=== PATIENT | male | born 1955 | race Caucasian/White ===

== ENCOUNTER 2022-08-12 16:22 | Outpatient (OUT) | payer MEDICARE, SELFPAY ==
[2022-08-12 17:08] LABS: Amphetamine Screen Urine NEGATIVE (NEGATIVE); Barbiturates Screen Urine NEGATIVE (NEGATIVE); Benzodiazepines Screen Urine NEGATIVE (NEGATIVE); Buprenorphine Screen Urine NEGATIVE (NEGATIVE); Cannabinoid Screen Urine NEGATIVE (NEGATIVE); Cocaine Screen Urine NEGATIVE (NEGATIVE); Methadone Screen Urine NEGATIVE (NEGATIVE); Methamphetamines Screen Urine NEGATIVE (NEGATIVE); Opiate Screen Urine NEGATIVE (NEGATIVE); Oxycodone Screen Urine NEGATIVE (NEGATIVE); Phencyclidine Screen Urine NEGATIVE (NEGATIVE); Tricyclic Antidepressant Urine NEGATIVE (NEGATIVE)
[2022-08-15 04:07] LABS: Uric Acid, Urine 3.8 mg/dL (Not Estab.)
[2022-08-20 16:09] LABS: Summary Report (Summary) FINAL (.)
== END 2022-08-12 16:23 | disposition home or self-care (01) ==
PROVIDERS: PCP Family Medicine; Visit Provider Family Medicine
DX: Z79.899 Other long term (current) drug therapy (principal)
CPT/HCPCS: 80307; 80326; 80331; 80334; 80337; 80338; 80341; 80344; 80346; 80348; 80353; 80354; 80355; 80357; 80358; 80359; 80360; 80361; 80364; 80365; 80366; 80367; 80368; 80370; 80371; 80372; 80373; 80377; 82570; 83992

== ENCOUNTER 2022-09-11 15:59 | Outpatient (OUT) | payer MEDICARE, SELFPAY ==
[2022-09-11 16:54] LABS: Amphetamine Screen Urine NEGATIVE (NEGATIVE); Barbiturates Screen Urine NEGATIVE (NEGATIVE); Benzodiazepines Screen Urine NEGATIVE (NEGATIVE); Buprenorphine Screen Urine POSITIVE (NEGATIVE); Cannabinoid Screen Urine NEGATIVE (NEGATIVE); Cocaine Screen Urine NEGATIVE (NEGATIVE); Methadone Screen Urine NEGATIVE (NEGATIVE); Methamphetamines Screen Urine NEGATIVE (NEGATIVE); Opiate Screen Urine POSITIVE (NEGATIVE); Oxycodone Screen Urine NEGATIVE (NEGATIVE); Phencyclidine Screen Urine NEGATIVE (NEGATIVE); Tricyclic Antidepressant Urine NEGATIVE (NEGATIVE)
[2022-09-13 09:12] LABS: Uric Acid, Urine 68.1 mg/dL (Not Estab.)
[2022-10-16 12:26] LABS: Summary Report (Summary) FINAL (.)
== END 2022-09-11 16:00 | disposition home or self-care (01) ==
LOC: LAB 16:03
PROVIDERS: PCP Family Medicine; Visit Provider Family Medicine
DX: Z79.899 Other long term (current) drug therapy (principal)
CPT/HCPCS: 80307; 80326; 80331; 80334; 80337; 80338; 80341; 80344; 80346; 80348; 80353; 80354; 80355; 80357; 80358; 80359; 80360; 80361; 80364; 80365; 80366; 80367; 80368; 80370; 80371; 80372; 80373; 80377; 82570; 83992; 84560

== ENCOUNTER 2022-10-16 14:20 | Outpatient (OUT) | payer MEDICARE, SELFPAY ==
[2022-10-16 15:32] LABS: Amphetamine Screen Urine NEGATIVE (NEGATIVE); Barbiturates Screen Urine NEGATIVE (NEGATIVE); Benzodiazepines Screen Urine NEGATIVE (NEGATIVE); Buprenorphine Screen Urine POSITIVE (NEGATIVE); Cannabinoid Screen Urine NEGATIVE (NEGATIVE); Cocaine Screen Urine NEGATIVE (NEGATIVE); Methadone Screen Urine NEGATIVE (NEGATIVE); Methamphetamines Screen Urine NEGATIVE (NEGATIVE); Opiate Screen Urine NEGATIVE (NEGATIVE); Oxycodone Screen Urine NEGATIVE (NEGATIVE); Phencyclidine Screen Urine NEGATIVE (NEGATIVE); Tricyclic Antidepressant Urine NEGATIVE (NEGATIVE)
[2022-10-17 10:11] LABS: Uric Acid, Urine 62.9 mg/dL (Not Estab.)
[2022-10-23 14:10] LABS: Summary Report (Summary) FINAL (.)
== END 2022-10-16 14:21 | disposition home or self-care (01) ==
LOC: LAB 14:21
PROVIDERS: PCP Family Medicine; Visit Provider Family Medicine
DX: Z79.899 Other long term (current) drug therapy (principal)
CPT/HCPCS: 80307; 80326; 80331; 80334; 80337; 80338; 80341; 80344; 80346; 80348; 80353; 80354; 80355; 80357; 80358; 80359; 80360; 80361; 80364; 80365; 80366; 80367; 80368; 80370; 80371; 80372; 80373; 80377; 82570; 83992; 84560

== ENCOUNTER 2022-11-12 10:41 | Outpatient (OUT) | payer MEDICARE, SELFPAY ==
[2022-11-12 12:18] LABS: Cannabinoid Screen Urine NEGATIVE (NEGATIVE); Cocaine Screen Urine NEGATIVE (NEGATIVE); Methamphetamines Screen Urine NEGATIVE (NEGATIVE); Phencyclidine Screen Urine NEGATIVE (NEGATIVE)
[2022-11-12 12:19] LABS: Amphetamine Screen Urine NEGATIVE (NEGATIVE); Barbiturates Screen Urine NEGATIVE (NEGATIVE); Benzodiazepines Screen Urine NEGATIVE (NEGATIVE); Buprenorphine Screen Urine POSITIVE (NEGATIVE); Methadone Screen Urine NEGATIVE (NEGATIVE); Opiate Screen Urine POSITIVE (NEGATIVE); Oxycodone Screen Urine NEGATIVE (NEGATIVE); Tricyclic Antidepressant Urine NEGATIVE (NEGATIVE)
[2022-11-13 10:10] LABS: Uric Acid, Urine 54.7 mg/dL (Not Estab.)
[2022-11-19 14:13] LABS: Summary Report (Summary) FINAL (.)
== END 2022-11-12 10:42 | disposition home or self-care (01) ==
LOC: LAB 10:43
PROVIDERS: PCP Family Medicine; Visit Provider Family Medicine
DX: Z79.899 Other long term (current) drug therapy (principal)
CPT/HCPCS: 80307; 80326; 80331; 80334; 80337; 80338; 80341; 80344; 80346; 80348; 80353; 80354; 80355; 80357; 80358; 80359; 80360; 80361; 80364; 80365; 80366; 80367; 80368; 80370; 80371; 80372; 80373; 80377; 82570; 83992; 84560

== ENCOUNTER 2022-11-20 16:33 | Outpatient (OUT) | payer MEDICARE, SELFPAY ==
[2022-11-20 17:35] LABS: Amphetamine Screen Urine NEGATIVE (NEGATIVE); Barbiturates Screen Urine NEGATIVE (NEGATIVE); Benzodiazepines Screen Urine NEGATIVE (NEGATIVE); Cannabinoid Screen Urine NEGATIVE (NEGATIVE); Cocaine Screen Urine NEGATIVE (NEGATIVE); Methadone Screen Urine NEGATIVE (NEGATIVE); Methamphetamines Screen Urine NEGATIVE (NEGATIVE); Opiate Screen Urine NEGATIVE (NEGATIVE); Oxycodone Screen Urine NEGATIVE (NEGATIVE); Phencyclidine Screen Urine NEGATIVE (NEGATIVE); Tricyclic Antidepressant Urine NEGATIVE (NEGATIVE)
[2022-11-20 17:36] LABS: Buprenorphine Screen Urine POSITIVE (NEGATIVE)
[2022-11-22 08:11] LABS: Uric Acid, Urine 19.2 mg/dL (Not Estab.)
[2022-11-27 18:07] LABS: Summary Report (Summary) FINAL (.)
== END 2022-11-20 16:34 | disposition home or self-care (01) ==
LOC: LAB 16:34
PROVIDERS: PCP Family Medicine; Visit Provider Family Medicine
DX: Z79.899 Other long term (current) drug therapy (principal)
CPT/HCPCS: 80307; 80326; 80331; 80334; 80337; 80338; 80341; 80344; 80346; 80348; 80353; 80354; 80355; 80357; 80358; 80359; 80360; 80361; 80364; 80365; 80366; 80367; 80368; 80370; 80371; 80372; 80373; 80377; 82570; 83992; 84560

== ENCOUNTER 2022-11-29 13:26 | Outpatient (OUT) | payer MEDICARE, SELFPAY ==
[2022-11-29 13:53] LABS: Amphetamine Screen Urine NEGATIVE (NEGATIVE); Barbiturates Screen Urine NEGATIVE (NEGATIVE); Benzodiazepines Screen Urine NEGATIVE (NEGATIVE); Buprenorphine Screen Urine POSITIVE (NEGATIVE); Cannabinoid Screen Urine NEGATIVE (NEGATIVE); Cocaine Screen Urine NEGATIVE (NEGATIVE); Methadone Screen Urine NEGATIVE (NEGATIVE); Methamphetamines Screen Urine NEGATIVE (NEGATIVE); Opiate Screen Urine NEGATIVE (NEGATIVE); Oxycodone Screen Urine NEGATIVE (NEGATIVE); Phencyclidine Screen Urine NEGATIVE (NEGATIVE); Tricyclic Antidepressant Urine NEGATIVE (NEGATIVE)
[2022-12-07 16:09] LABS: Summary Report (Summary) FINAL (.)
== END 2022-11-29 13:27 | disposition home or self-care (01) ==
LOC: LAB 13:27
PROVIDERS: PCP Family Medicine; Visit Provider Family Medicine
DX: Z79.899 Other long term (current) drug therapy (principal)
CPT/HCPCS: 80307; 80326; 80331; 80334; 80337; 80338; 80341; 80344; 80346; 80348; 80353; 80354; 80355; 80357; 80358; 80359; 80360; 80361; 80364; 80365; 80366; 80367; 80368; 80370; 80371; 80372; 80373; 80377; 82570; 83992; 84560

== ENCOUNTER 2022-12-04 13:37 | Outpatient (OUT) | payer MEDICARE, SELFPAY ==
[2022-12-04 14:09] LABS: Amphetamine Screen Urine NEGATIVE (NEGATIVE); Barbiturates Screen Urine NEGATIVE (NEGATIVE); Benzodiazepines Screen Urine NEGATIVE (NEGATIVE); Buprenorphine Screen Urine POSITIVE (NEGATIVE); Cannabinoid Screen Urine NEGATIVE (NEGATIVE); Cocaine Screen Urine NEGATIVE (NEGATIVE); Methadone Screen Urine NEGATIVE (NEGATIVE); Methamphetamines Screen Urine NEGATIVE (NEGATIVE); Opiate Screen Urine NEGATIVE (NEGATIVE); Oxycodone Screen Urine NEGATIVE (NEGATIVE); Phencyclidine Screen Urine NEGATIVE (NEGATIVE); Tricyclic Antidepressant Urine NEGATIVE (NEGATIVE)
[2022-12-05 10:09] LABS: Uric Acid, Urine 27.8 mg/dL (Not Estab.)
[2022-12-12 09:08] LABS: Summary Report (Summary) FINAL (.)
== END 2022-12-04 13:38 | disposition home or self-care (01) ==
LOC: LAB 13:39
PROVIDERS: PCP Family Medicine; Visit Provider Family Medicine
DX: Z79.899 Other long term (current) drug therapy (principal)
CPT/HCPCS: 80307; 80326; 80331; 80334; 80337; 80338; 80341; 80344; 80346; 80348; 80353; 80354; 80355; 80357; 80358; 80359; 80360; 80361; 80364; 80365; 80366; 80367; 80368; 80370; 80371; 80372; 80373; 80377; 82570; 83992; 84560

== ENCOUNTER 2022-12-12 15:55 | Outpatient (OUT) | payer MEDICARE, SELFPAY ==
[2022-12-12 16:37] LABS: Amphetamine Screen Urine NEGATIVE (NEGATIVE); Barbiturates Screen Urine NEGATIVE (NEGATIVE); Benzodiazepines Screen Urine NEGATIVE (NEGATIVE); Buprenorphine Screen Urine POSITIVE (NEGATIVE); Cannabinoid Screen Urine NEGATIVE (NEGATIVE); Cocaine Screen Urine NEGATIVE (NEGATIVE); Methadone Screen Urine NEGATIVE (NEGATIVE); Methamphetamines Screen Urine NEGATIVE (NEGATIVE); Opiate Screen Urine NEGATIVE (NEGATIVE); Oxycodone Screen Urine NEGATIVE (NEGATIVE); Phencyclidine Screen Urine NEGATIVE (NEGATIVE); Tricyclic Antidepressant Urine NEGATIVE (NEGATIVE)
[2022-12-14 07:09] LABS: Uric Acid, Urine 44.9 mg/dL (Not Estab.)
[2022-12-18 19:08] LABS: Summary Report (Summary) FINAL (.)
== END 2022-12-12 15:56 | disposition home or self-care (01) ==
PROVIDERS: PCP Family Medicine; Visit Provider Family Medicine
DX: Z79.899 Other long term (current) drug therapy (principal)
CPT/HCPCS: 80307; 80326; 80331; 80334; 80337; 80338; 80341; 80344; 80346; 80348; 80353; 80354; 80355; 80357; 80358; 80359; 80360; 80361; 80364; 80365; 80366; 80367; 80368; 80370; 80371; 80372; 80373; 80377; 82570; 83992; 84560

== ENCOUNTER 2023-01-10 15:20 | Outpatient (OUT) | payer MEDICARE, SELFPAY ==
[2023-01-10 15:45] LABS: Amphetamine Screen Urine NEGATIVE (NEGATIVE); Barbiturates Screen Urine NEGATIVE (NEGATIVE); Benzodiazepines Screen Urine NEGATIVE (NEGATIVE); Buprenorphine Screen Urine POSITIVE (NEGATIVE); Cannabinoid Screen Urine NEGATIVE (NEGATIVE); Cocaine Screen Urine NEGATIVE (NEGATIVE); Methadone Screen Urine NEGATIVE (NEGATIVE); Methamphetamines Screen Urine NEGATIVE (NEGATIVE); Opiate Screen Urine NEGATIVE (NEGATIVE); Oxycodone Screen Urine NEGATIVE (NEGATIVE); Phencyclidine Screen Urine NEGATIVE (NEGATIVE); Tricyclic Antidepressant Urine NEGATIVE (NEGATIVE)
[2023-01-11 04:09] LABS: Uric Acid, Urine 24.4 mg/dL (Not Estab.)
[2023-01-16 17:11] LABS: Summary Report (Summary) FINAL (.)
== END 2023-01-10 15:21 | disposition home or self-care (01) ==
LOC: LAB 15:22
PROVIDERS: PCP Family Medicine; Visit Provider Family Medicine
DX: Z79.899 Other long term (current) drug therapy (principal)
CPT/HCPCS: 80307; 80326; 80331; 80334; 80337; 80338; 80341; 80344; 80346; 80348; 80353; 80354; 80355; 80357; 80358; 80359; 80360; 80361; 80364; 80365; 80366; 80367; 80368; 80370; 80371; 80372; 80373; 80377; 82570; 83992; 84560

== ENCOUNTER 2023-03-11 08:20 | Outpatient (OUT) | payer MEDICARE, SELFPAY ==
--- OUTSIDE RECORDS SUMMARY | 2023-03-11 08:24 | XMS_ITS | CCD ---
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 Track Name Role Phone CHANCE COHEN Referring Unavailabl e CHANCE COHEN Attending Unavailabl e CHANCE COHEN Referring Unavailabl e HOY ., DR CEVALLOS Admitting Unavailable HOY ., DR CEVALLOS Attending Unavailable HOY ., DR CEVALLOS Primary Care Unavailable HOY ., DR CEVALLOS Consulting Unavailable HOY ., DR CEVALLOS Admitting Unavailable HOY ., DR CEVALLOS Attending Unavailable HOY ., DR CEVALLOS Primary Care Unavailable HOY ., DR CEVALLOS Consulting Unavailable HOY ., DR CEVALLOS Admitting Unavailable HOY ., DR CEVALLOS Attending Unavailable HOY ., DR CEVALLOS Primary Care Unavailable HOY ., DR CEVALLOS Consulting Unavailable HOY ., DR CEVALLOS Admitting Unavailable HOY ., DR CEVALLOS Attending Unavailable HOY ., DR CEVALLOS Primary Care Unavailable HOY ., DR CEVALLOS Consulting Unavailable HOY ., DR CEVALLOS Admitting Unavailable HOY ., DR CEVALLOS Attending Unavailable HOY ., DR CEVALLOS Primary Care Unavailable HOY ., DR CEVALLOS Consulting Unavailable HOY ., DR CEVALLOS Admitting Unavailable HOY ., DR CEVALLOS Attending Unavailable HOY ., DR CEVALLOS Primary Care Unavailable HOY ., DR CEVALLOS Consulting Unavailable HOY ., DR CEVALLOS Admitting Unavailable HOY ., DR CEVALLOS Attending Unavailable HOY ., DR CEVALLOS Primary Care Unavailable HOY ., DR CEVALLOS Consulting Unavailable HOY ., DR CEVALLOS Admitting Unavailable HOY ., DR CEVALLOS Attending Unavailable HOY ., DR CEVALLOS Primary Care Unavailable HOY ., DR CEVALLOS Consulting Unavailable Problems Problem Classification Problem Date Documented Da te Episodic/Chronic Deficiency and other anemia (1 source) Anemia, unspecified; Translations: [ANEMIA UNSPECIFIED] Onset: 03-21-2022 Episodic Diabetes mellitus without complication (1 source) Other abnormal glucose; Translations: [OTHER ABNORMAL GLUCOSE] Onset: 03-21-2022 Episodic Disorders of lipid metabolism (1 source) Hyperlipidemia, unspecified; Translations: [HYPERLIPIDEMIA UNSPECIFIED] Onset: 03-21-2022 Chronic Hepatitis (1 source) Chronic viral hepatitis C; Translations: [Chronic viral hepatitis C] Onset: 02-24-2018 Chronic Hyperplasia of prostate (1 source) Benign prostatic hyperplasia without lower urinary tract symptoms; Translations: [Benign prostatic hyperplasia without lower urinary tract symptoms] Onset: 02-24-2018 Chronic Intracranial injury (1 source) Personal history of traumatic brain injury; Translations: [Personal history of traumatic brain injury] Onset: 02-24-2018 Episodic Mood disorders (1 source) Mood disorders; Translations: [DEPRESSION UNSPECIFIED] Onset: 03-21-2022 Nutritional deficiencies (1 source) Deficiency of other specified B group vitamins; Translations: [Deficiency of other specified B group vitamins] Onset: 02-24-2018 Episodic Other aftercare (5 sources) Other credit reference clerk (current) drug therapy; Translations: [OTH RESIDENTIAL CURRENT DRUG THERAPY] Onset: 03-21-2022 Episodic Other connective tissue disease (1 source) Complete rotator cuff tear or rupture of left shoulder, not specified as traumatic; Translations: [Complete rotator cuff tear or rupture of left shoulder, not specified as traumatic] Onset: 02-24-2018 Episodic Other connective tissue disease (4 sources) Muscle weakness (generalized); Translations: [MUSCLE WEAKNESS GENERALIZED] Onset: 03-20-2022 Episodic Other nervous system disorders (1 source) Paresthesia of skin; Translations: [PARESTHESIA OF SKIN] Onset: 03-21-2022 Episodic Other screening for suspected conditions (not mental disorders or infectious disease) (2 sources) Encounter for screening for malignant neoplasm of prostate; Translations: [Encounter for screening for malignant neoplasm of rectum] Onset: 03-21-2022 Episodic Residual codes; unclassified (1 source) Pain, unspecified; Translations: [Pain, unspecified] Onset: 02-17-2018 Sprains and strains (1 source) Strain of muscle, fascia and tendon of other parts of biceps, left arm, subsequent encounter; Translations: [Strain of muscle, fascia and tendon of other parts of biceps, left arm, subsequent encounter] Onset: 02-23-2018 Episodic Substance-related disorders (9 sources) Opioid abuse, uncomplicated; Translations: [Other psychoactive substance abuse, uncomplicated] Onset: 11-09-2021 Chronic Substance-related disorders (1 source) Opioid abuse, in remission; Translations: [Opioid abuse, in remission] Onset: 01-22-2013 Results Test Name Value Interpretation Reference Range Facility COMPLIANCE DRUG SCREENon PDF . [facility] Comment on above: Performed By: #### U SID #### [facility] [address] [address] [address] Anibal Bishop Summary FINAL [facility] Comment on above: Result Comment: == TOXASSURE COMP DRUG ANALYSIS,UR == Test Result Flag Units Drug Present and Declared for Prescription Verification Buprenorphine 107 EXPECTED ng/mg creat Norbuprenorphine 125 EXPECTED ng/mg creat Source of buprenorphine is a scheduled prescription medication. Norbuprenorphine is an expected metabolite of buprenorphine. Drug Present not Declared for Prescription Verification Diclofenac PRESENT UNEXPECTED == Test Result Flag Units Ref Range Creatinine 228 mg/dL >=20 == Declared Medications: The flagging and interpretation on this report are based on the following declared medications. Unexpected results may arise from inaccuracies in the declared medications. Note: The testing scope of this panel includes these medications: Buprenorphine. (Suboxone) Note: The testing scope of this panel does not include following reported medications: Naloxone (Suboxone) == For clinical consultation, please call . == Performed By: #### U RICUR #### [facility] [address] [place] [address] Dr. Anibal Bishop URIC ACID RAND URINEon 06-11 Uric Acid, Urine 4.0 mg/dL Normal Not Estab. [facility] Comment on above: Performed By: #### U RICUR #### [facility] [address] [address] [address] Anibal Bishop COMPLIANCE DRUG SCREENon PDF . Normal [facility] Comment on above: Performed By: #### P SASC, IRON #### [facility] [address] [address] [address] Anibal Bishop Summary FINAL Normal [facility] Comment on above: Result Comment: == TOXASSURE COMP DRUG ANALYSIS,UR == Test Result Flag Units Drug Present and Declared for Prescription Verification Buprenorphine 19 EXPECTED ng/mg creat Norbuprenorphine 87 EXPECTED ng/mg creat Source of buprenorphine is a scheduled prescription medication. Norbuprenorphine is an expected metabolite of buprenorphine. == Test Result Flag Units Ref Range Creatinine 78 mg/dL >=20 == Declared Medications: The flagging and interpretation on this report are based on the following declared medications. Unexpected results may arise from inaccuracies in the declared medications. Note: The testing scope of this panel includes these medications: Buprenorphine. (Suboxone) Note: The testing scope of this panel does not include following reported medications: Naloxone (Suboxone) == For clinical consultation, please call . == Performed By: #### P SAS, IRON #### [facility] [address] [address] [address] Anibal Bishop INSULINon 03-21-2022 Insulin 18.3 uIU/mL Normal 2.6-24.9 [facility] Comment on above: Performed By: #### U RICUR #### [facility] [address] [address] [address] Anibal Bishop URIC ACID RAND URINEon 03-21 Uric Acid, Urine 26.8 mg/dL Normal Not Estab. [facility] Comment on above: Performed By: #### U RICUR #### [facility] [address] [address] [address] Anibal Bishop CBC AUTO DIFFon 03-20-2022 BASO # 0.0 103/ul Normal 0.0-0.1 [facility] Comment on above: Performed By: #### P SASC, IRON #### [facility] [address] [place] [address] Dr. Anibal Bishop Basophils/100 WBC (Bld) 0.6 % Normal 0.2-2.0 [facility] Comment on above: Performed By: #### P SASC, IRON #### [facility] [address] [address] [address] Anibal Bishop EO # 0.2 103/ul Normal 0.0-0.7 [facility] Comment on above: Performed By: #### P SASC, IRON #### [facility] [address] [place] [address] Dr. Anibal Bishop Eosinophils/100 WBC (Bld) 3.5 % Normal 0.9-7.0 [facility] Comment on above: Performed By: #### P SASC, IRON #### [facility] [address] [address] [address] Anibal Bishop Erythrocyte distribution width (RBC) [Ratio] 14.1 % Normal 11.0-15.0 [facility] Comment on above: Performed By: #### P SASC, IRON #### [facility] [address] [place] [address] Dr. Anibal Bishop Hematocrit (Bld) [Volume fraction] 44.6 % Normal 42.0-54.0 [facility] Comment on above: Performed By: #### P SASC, IRON #### [facility] [address] [place] [address] Dr. Anibal Bishop Hemoglobin (Bld) [Mass/Vol] 14.3 g/dL Normal 14.0-18.0 [facility] Comment on above: Performed By: #### P SASC, IRON #### [facility] [address] [place] [address] Dr. Anibal Bishop IG # 0.02 10e3/ul Normal 0.00-0.03 [facility] Comment on above: Performed By: #### P SASC, IRON #### [facility] [address] [place] [address] Dr. Anibal Bishop IG % 0.4 % Normal 0.0-0.5 [facility] Comment on above: Performed By: #### P SASC, IRON #### [facility] [address] [place] [address] Dr. Anibal Bishop LYMPH # 0.8 103/ul Critically low 1.2-3.8 [facility] Comment on above: Performed By: #### P SASC, IRON #### [facility] [address] [place] [address] Dr. Anibal Bishop Lymphocytes/100 WBC (Bld) 17.1 % Critically low 20.5-60.0 [facility] Comment on above: Performed By: #### P SASC, IRON #### [facility] [address] [place] [address] Dr. Anibal Bishop MANUAL DIFF REQ NO Normal [facility] Comment on above: Performed By: #### P SASC, IRON #### [facility] [address] [place] [address] Dr. Anibal Bishop MCH (RBC) [Entitic mass] 29.9 pg Normal 25.9-34.0 [facility] Comment on above: Performed By: #### P SASC, IRON #### [facility] [address] [place] [address] Dr. Anibal Bishop MCHC (RBC) [Mass/Vol] 32.1 g/dL Normal 29.9-35.2 [facility] Comment on above: Performed By: #### P SASC, IRON #### [facility] [address] [address] [address] Anibal Bishop MCV (RBC) [Entitic vol] 93.3 fL Normal 80.0-94.0 [facility] Comment on above: Performed By: #### P SASC, IRON #### [facility] [address] [place] [address] Dr. Anibal Bishop MONO # 0.6 103/ul Normal 0.3-0.8 [facility] Comment on above: Performed By: #### P SASC, IRON #### [facility] [address] [place] [address] Dr. Anibal Bishop Monocytes/100 WBC (Bld) 12.5 % Critically high 1.7-12.0 [facility] Comment on above: Performed By: #### P SASC, IRON #### [facility] [address] [place] [address] Dr. Anibal Bishop NEUT # 3.2 103/ul Normal 1.4-6.5 [facility] Comment on above: Performed By: #### P SASC, IRON #### [facility] [address] [place] [address] Dr. Anibal Bishop Neutrophils/100 WBC (Bld) 65.9 % Normal 43.0-75.0 [facility] Comment on above: Performed By: #### P SASC, IRON #### [facility] [address] [place] [address] Dr. Anibal Bishpo Platelet mean volume (Bld) [Entitic vol] 9.0 fL Critically low 9.5-13.5 [facility] Comment on above: Performed By: #### P SASC, IRON #### [facility] [address] [place] [address] Dr. Anibal Bishop PLT 250 103/ul Normal 150-450 [facility] Comment on above: Performed By: #### P SASC, IRON #### [facility] [address] [place] [address] Dr. Anibal Bishop RBC 4.78 106/ul Normal 4.70-6.10 [facility] Comment on above: Performed By: #### P SASC, IRON #### [facility] [address] [place] [address] Dr. Anibal Bishop WBC 4.8 103/ul Normal 4.0-11.0 [facility] Comment on above: Performed By: #### P SASC, IRON #### [facility] [address] [place] [address] Dr. Anibal Bishop FREE THYROXINE INDEX T7on FTI 3.33 Normal 1.30-4.50 [facility] Comment on above: Performed By: #### U HAMLET, LIPID, T7, CMP, TSH #### [facility] [address] [place] [address] Dr. Anibal Bishop T3U 35.0 % Normal 33.0-40.0 [facility] Comment on above: Performed By: #### U HAMLET, LIPID, T7, CMP, TSH #### [facility] [address] [place] [address] Dr. Anibal Bishop T4 [Mass/Vol] 9.50 ug/dL Normal 4.50-12.10 [facility] Comment on above: Performed By: #### U HAMLET, LIPID, T7, CMP, TSH #### [facility] [address] [place] [address] Dr. Anibal Bishop GLYCOHEMOGLOBIN A1Con 2022 ADA RECOMMENDATION SEE BELOW Normal [facility] Comment on above: Result Comment: ADA RECOMMENDED LIMIT 4.0 - 6.0 ADA THERAPEUTIC TARGET < 7.0 ACTION SUGGESTED > 7.0 Performed By: #### P SASC, IRON #### [facility] [address] [place] [address] Dr. Anibal Bishop Glucose [Mass/Vol] 114 mg/dL Normal [facility] Comment on above: Performed By: #### P SASC, IRON #### [facility] [address] [place] [address] Dr. Anibal Bishop HbA1c (Bld) [Mass fraction] 5.6 % Normal 4.5-6.2 [facility] Comment on above: Performed By: #### P SASC, IRON #### [facility] [address] [address] [address] Anibal Bishop IRONon 03-20-2022 Iron [Mass/Vol] 63.0 ug/dL Critically low 65.0-175.0 [facility] Comment on above: Performed By: #### P SASC, IRON #### [facility] [address] [address] [address] Anibal Bishop LIPID PROFILEon 03-20-2022 CHOL-HDL RATIO NORM SEE BELOW Normal [facility] Comment on above: Result Comment: 3.3 - 4.4 LOW RISK 4.4 - 7.1 AVERAGE RISK 7.1 - 11.0 MODERATE RISK >11.0 HIGH RISK Performed By: #### P SASC, IRON #### [facility] [address] [address] [address] Anibal Bishop Cholesterol [Mass/Vol] 207 mg/dL Critically high <=200 [facility] Comment on above: Performed By: #### P SASC, IRON #### [facility] [address] [address] [address] Anibal Bishop Cholesterol in HDL [Mass/Vol] 96 mg/dL Critically high 40-60 [facility] Comment on above: Performed By: #### P SASC, IRON #### [facility] [address] [address] [address] Anibal Bishop Cholesterol in LDL [Mass/Vol] 97.6 mg/dL Normal [facility] Comment on above: Performed By: #### P SASC, IRON #### [facility] [address] [address] [address] Anibal Bishop Cholesterol.total/C holesterol in HDL [Mass ratio] 2.2 {ratio} Normal [facility] Comment on above: Performed By: #### P SASC, IRON #### [facility] [address] [address] [address] Anibal Bishop HDL NORMAL > or = 60 mg/dl - LO W CARDIOVASCULAR RISK <40 mg/dl - HIGH CARDIOVASCULAR RISK Normal [facility] Comment on above: Performed By: #### P SASC, IRON #### [facility] [address] [address] [address] Anibal Bishop LDL CALC NORMAL SEE BELOW Normal [facility] Comment on above: Result Comment: <100 mg/dl OPTIMAL 100 - 129 mg/dl NEAR OR ABOVE OPTIMAL 130 - 159 mg/dl BORDERLINE HIGH 160 - 189 mg/dl HIGH >190 mg/dl VERY HIGH Performed By: #### P SASC, IRON #### [facility] [address] [address] [address] Anibal Bishop Triglyceride [Mass/Vol] 67 mg/dL Normal <=150 [facility] Comment on above: Performed By: #### P SASC, IRON #### [facility] [address] [address] [address] Anibal Bishop VLDL CALC 13.4 mg/dL Normal [facility] Comment on above: Performed By: #### P SASC, IRON #### [facility] [address] [address] [address] Anibal Bishop PROF 14(COMP METB)on 023 Albumin [Mass/Vol] 3.6 g/dL Normal 3.4-5.0 [facility] Comment on above: Performed By: #### U HAMLET, LIPID, T7, CMP, TSH #### [facility] [address] [address] [address] Anibal Bishop Albumin/Globulin [Mass ratio] 0.9 {ratio} Normal [facility] Comment on above: Performed By: #### U HAMLET, LIPID, T7, CMP, TSH #### [facility] [address] [address] [address] Anibal Bishop ALP [Catalytic activity/Vol] 90 U/L Normal 46-116 [facility] Comment on above: Performed By: #### U HAMLET, LIPID, T7, CMP, TSH #### [facility] [address] [address] [address] Anibal Bishop ALT [Catalytic activity/Vol] 46 U/L Normal 16-63 [facility] Comment on above: Performed By: #### U HAMLET, LIPID, T7, CMP, TSH #### [facility] [address] [address] [address] Anibal Bishop Anion gap [Moles/Vol] 13.4 mmol/L Normal [facility] Comment on above: Performed By: #### U HAMLET, LIPID, T7, CMP, TSH #### [facility] [address] [address] [address] Anibal Bishop AST [Catalytic activity/Vol] 26 U/L Normal 15-37 [facility] Comment on above: Performed By: #### U HAMLET, LIPID, T7, CMP, TSH #### [facility] [address] [address] [address] Anibal Bishop Bilirubin [Mass/Vol] 0.6 mg/dL Normal 0.2-1.0 [facility] Comment on above: Performed By: #### U HAMLET, LIPID, T7, CMP, TSH #### [facility] [address] [place] [address] Dr. Anibal Bishop Calcium [Mass/Vol] 9.6 mg/dL Normal 8.5-10.1 [facility] Comment on above: Performed By: #### U HAMLET, LIPID, T7, CMP, TSH #### [facility] [address] [place] [address] Dr. Anibal Bishop Chloride [Moles/Vol] 103 mmol/L Normal 98-107 [facility] Comment on above: Performed By: #### U HAMLET, LIPID, T7, CMP, TSH #### [facility] [address] [place] [address] Dr. Anibal Bishop CO2 [Moles/Vol] 27.9 mmol/L Normal 21.0-32.0 [facility] Comment on above: Performed By: #### U HAMLET, LIPID, T7, CMP, TSH #### [facility] [address] [place] [address] Dr. Anibal Bishop Creatinine [Mass/Vol] 0.91 mg/dL Normal 0.70-1.30 [facility] Comment on above: Performed By: #### U HAMLET, LIPID, T7, CMP, TSH #### [facility] [address] [address] [address] Anibal Bishop EGFR-AF KENYAN >60 Normal >=60 [facility] Comment on above: Performed By: #### U HAMLET, LIPID, T7, CMP, TSH #### [facility] [address] [address] [address] Anibal Bishop EGFR-NON AF KENYAN >60 Normal >=60 [facility] Comment on above: Performed By: #### U HAMLET, LIPID, T7, CMP, TSH #### [facility] [address] [address] [address] Anibal Bishop Globulin (S) [Mass/Vol] 3.9 g/dL Normal [facility] Comment on above: Performed By: #### U HAMLET, LIPID, T7, CMP, TSH #### [facility] [address] [address] [address] Anibal Bishop Glucose [Mass/Vol] 103 mg/dL Normal 74-106 [facility] Comment on above: Performed By: #### U HAMLET, LIPID, T7, CMP, TSH #### [facility] [address] [address] [address] Anibal Bishop Potassium [Moles/Vol] 4.3 mmol/L Normal 3.5-5.1 [facility] Comment on above: Performed By: #### U HAMLET, LIPID, T7, CMP, TSH #### [facility] [address] [address] [address] Anibal Bishop Protein [Mass/Vol] 7.5 g/dL Normal 6.4-8.2 [facility] Comment on above: Performed By: #### U HAMLET, LIPID, T7, CMP, TSH #### [facility] [address] [address] [address] Anibal Bishop Sodium [Moles/Vol] 140 mmol/L Normal 136-145 [facility] Comment on above: Performed By: #### U HAMLET, LIPID, T7, CMP, TSH #### [facility] [address] [address] [address] Anibal Bishop Urea nitrogen [Mass/Vol] 12.0 mg/dL Normal 7.0-18.0 [facility] Comment on above: Performed By: #### U HAMLET, LIPID, T7, CMP, TSH #### [facility] [address] [address] [address] Anibal Bishop Urea nitrogen/Creatinine [Mass ratio] 13.2 mg/mg Normal [facility] Comment on above: Performed By: #### U HAMLET, LIPID, T7, CMP, TSH #### [facility] [address] [address] [address] Anibal Bishop TSHon 03-20-2022 TSH 2.763 uIU/mL Normal 0.358-3.740 [facility] Comment on above: Performed By: #### U HAMLET, LIPID, T7, CMP, TSH #### [facility] [address] [place] [address] Dr. Anibal Bishop URIC ACID SERUMon 03-20-2022 Urate [Mass/Vol] 5.3 mg/dL Normal 3.5-7.2 [facility] Comment on above: Performed By: #### U HAMLET, LIPID, T7, CMP, TSH #### [facility] [address] [place] [address] Dr. Anibal Bishop COMPLIANCE DRUG SCREENon PDF . Normal [facility] Comment on above: Performed By: #### P SASC, IRON #### [facility] [address] [place] [address] Dr. Anibal Bishop Summary FINAL Normal [facility] Comment on above: Result Comment: == TOXASSURE COMP DRUG ANALYSIS,UR == Test Result Flag Units Drug Present and Declared for Prescription Verification Buprenorphine 61 EXPECTED ng/mg creat Norbuprenorphine 136 EXPECTED ng/mg creat Source of buprenorphine is a scheduled prescription medication. Norbuprenorphine is an expected metabolite of buprenorphine. Drug Present not Declared for Prescription Verification Carboxy-THC 23 UNEXPECTED ng/mg creat Carboxy-THC is a metabolite of tetrahydrocannabinol (THC). Source of THC is most commonly herbal marijuana or marijuana-based products, but THC is also present in a scheduled prescription medication. Trace amounts of THC can be present in hemp and cannabidiol (CBD) products. This test is not intended to distinguish between [id number], the predominant form of THC in most herbal or marijuana-based products, and [id number]. Fentanyl 1 UNEXPECTED ng/mg creat Norfentanyl 7 UNEXPECTED ng/mg creat Source of fentanyl is a scheduled prescription medication, including IV, patch, and transmucosal formulations. Norfentanyl is an expected metabolite of fentanyl. Diclofenac PRESENT UNEXPECTED == Test Result Flag Units Ref Range Creatinine 160 mg/dL >=20 == Declared Medications: The flagging and interpretation on this report are based on the following declared medications. Unexpected results may arise from inaccuracies in the declared medications. Note: The testing scope of this panel includes these medications: Buprenorphine. (Suboxone) PM Note: The testing scope of this panel does not include following reported medications: Naloxone (Suboxone) PM == For clinical consultation, please call . == Performed By: #### P SASC, IRON #### [facility] [address] [place] [address] Dr. Anibal Bishop URIC ACID RAND URINEon 01-05 Uric Acid, Urine 45.6 mg/dL Normal Not Estab. [facility] Comment on above: Performed By: #### P SASC, IRON #### [facility] [address] [address] [address] Anibal Bishop COMPLIANCE DRUG SCREENon PDF . Normal [facility] Comment on above: Performed By: #### P SASC, IRON #### [facility] [address] [address] [address] Anibal Bishop Summary FINAL Normal [facility] Comment on above: Result Comment: == TOXASSURE COMP DRUG ANALYSIS,UR == Test Result Flag Units Drug Present and Declared for Prescription Verification Buprenorphine 72 EXPECTED ng/mg creat Norbuprenorphine 164 EXPECTED ng/mg creat Source of buprenorphine is a scheduled prescription medication. Norbuprenorphine is an expected metabolite of buprenorphine. Drug Present not Declared for Prescription Verification Diclofenac PRESENT UNEXPECTED == Test Result Flag Units Ref Range Creatinine 180 mg/dL >=20 == Declared Medications: The flagging and interpretation on this report are based on the following declared medications. Unexpected results may arise from inaccuracies in the declared medications. Note: The testing scope of this panel includes these medications: Buprenorphine. (Suboxone) PM Note: The testing scope of this panel does not include following reported medications: Naloxone (Suboxone) PM == For clinical consultation, please call . == Performed By: #### P SASC, IRON #### [facility] [address] [address] [address] Anibal Bishop URIC ACID RAND URINEon 11-11 Uric Acid, Urine 57.4 mg/dL Normal Not Estab. [facility] Comment on above: Performed By: #### U RICUR #### [facility] [address] [place], [place] [address] Dr. Anibal Bishop COMPLIANCE DRUG SCREENon PDF . Normal [facility] Comment on above: Performed By: #### P SASC, IRON #### [facility] [address] [address] [address] Anibal Bishop Summary FINAL Normal [facility] Comment on above: Result Comment: == TOXASSURE COMP DRUG ANALYSIS,UR == Test Result Flag Units Drug Present and Declared for Prescription Verification Buprenorphine 94 EXPECTED ng/mg creat Norbuprenorphine 107 EXPECTED ng/mg creat Source of buprenorphine is a scheduled prescription medication. Norbuprenorphine is an expected metabolite of buprenorphine. Drug Present not Declared for Prescription Verification Diclofenac PRESENT UNEXPECTED == Test Result Flag Units Ref Range Creatinine 244 mg/dL >=20 == Declared Medications: The flagging and interpretation on this report are based on the following declared medications. Unexpected results may arise from inaccuracies in the declared medications. Note: The testing scope of this panel includes these medications: Buprenorphine. (Suboxone) PM Note: The testing scope of this panel does not include following reported medications: Naloxone (Suboxone) PM == For clinical consultation, please call . == Performed By: #### P SASC, IRON #### [facility] [address] [place] [address] Dr. Anibal Bishop URIC ACID RAND URINEon 10-12 Uric Acid, Urine 58.7 mg/dL Normal Not Estab. [facility] Comment on above: Performed By: #### U RICUR #### [facility] [address] [place] [address] Dr. Anibal Bishop COMPLIANCE DRUG SCREENon PDF . Normal [facility] Comment on above: Performed By: #### D SDOALC #### [facility] [address] [place] [address] Dr. Anibal Bishop Summary FINAL Normal [facility] Comment on above: Result Comment: == TOXASSURE COMP DRUG ANALYSIS,UR == Test Result Flag Units Drug Present and Declared for Prescription Verification Buprenorphine 59 EXPECTED ng/mg creat Norbuprenorphine 163 EXPECTED ng/mg creat Source of buprenorphine is a scheduled prescription medication. Norbuprenorphine is an expected metabolite of buprenorphine. Drug Present not Declared for Prescription Verification Diclofenac PRESENT UNEXPECTED == Test Result Flag Units Ref Range Creatinine 163 mg/dL >=20 == Declared Medications: The flagging and interpretation on this report are based on the following declared medications. Unexpected results may arise from inaccuracies in the declared medications. Note: The testing scope of this panel includes these medications: Buprenorphine. (Suboxone) Note: The testing scope of this panel does not include following reported medications: Naloxone (Suboxone) == For clinical consultation, please call . == Performed By: #### D SDOALC #### [facility] [address] [place] [address] Dr. Anibal Bishop URIC ACID RAND URINEon 09-12 Uric Acid, Urine 62.7 mg/dL Normal Not Estab. [facility] Comment on above: Performed By: #### P SASC, IRON #### [facility] [address] [place] [address] Dr. Anibal Bishop COMPLIANCE DRUG SCREENon PDF . Normal [facility] Comment on above: Performed By: #### D SDOALC #### [facility] [address] [address] [address] Anibal Bishop Summary FINAL Normal [facility] Comment on above: Result Comment: == TOXASSURE COMP DRUG ANALYSIS,UR == Test Result Flag Units Drug Present and Declared for Prescription Verification Buprenorphine 51 EXPECTED ng/mg creat Norbuprenorphine 126 EXPECTED ng/mg creat Source of buprenorphine is a scheduled prescription medication. Norbuprenorphine is an expected metabolite of buprenorphine. == Test Result Flag Units Ref Range Creatinine 98 mg/dL >=20 == Declared Medications: The flagging and interpretation on this report are based on the following declared medications. Unexpected results may arise from inaccuracies in the declared medications. Note: The testing scope of this panel includes these medications: Buprenorphine. (Suboxone) Note: The testing scope of this panel does not include following reported medications: Naloxone (Suboxone) == For clinical consultation, please call . == Performed By: #### D SDOALC #### [facility] [address] [place] [address] Dr. Anibal Bishop URIC ACID RAND URINEon 08-11 Uric Acid, Urine 21.4 mg/dL Normal Not Estab. [facility] Comment on above: Performed By: #### P SASC, IRON #### [facility] [address] [place] [id number] [address] Anibal Bishop CNCOon 03-02-2018 CNCO Letter Text Ann-Marie Schwarz CNP [facility] [address], [place], [address] Phone: [phone] Fax: [phone] March 02, 2018 Nasrin Kim [id number] [address] Anderson, This is in regards to our mutual patient, Mr. Nasrin Kim who was seen at my office on 02/24/18. Mr. Nasrin Kim is scheduled for shoulder arthroscopy under General on TO BE DETERMINED with Dr. Woods. Please note that our pre-operative screening has resulted in the following abnormal results: Hx of narcotic abuse in remission per self report, uses suboxone. Can you please advise below- How patient should wean off of this medication prior to surgery ? . Please initial answer, sign and fax response MARY JO to [phone]. Questions can be referred to the nursing desk at and ask for Ann-Marie Schwarz CNP. Suboxone weaning instructions: comments: Physician signature: X Date: Ann-Marie Fairchild, [address] 02-24-2018 EKG1 NAME : NASRIN KIM PID : [id number] : 1955 Gender : Male Race : ORD : Procedure Date : Feb 24 2018 09:27:32 Edit Date : Mar 02 2018 14:33:56 Diagnosis:SINUS BRADYCARDIA OTHERWISE NORMAL ECG Confirmed by PAMELA LATHAM M.D. ([id number]) on 03/02/2018 2:33:51 PM Ventricular Rate : 56 BPM Atrial Rate : 56 BPM P-R Interval : 132 ms QRS Duration : 76 ms Q-T Interval : 398 ms QTC Calculation(Bezet) : 384 ms P Drewsey : 51 degrees R Drewsey : 34 degrees T Drewsey : 39 degrees Test Reason : pre op Location : 145 : LOCARD Overread By : PAMELA LATHAM M.D. Edited By : PAMELA LATHAM M.D. Referred By : CHANCE COHEN Acquired by : am, [facility] HISTORY PHYSICALon HISTORY PHYSICAL HNO ID: [id number] Author: Ann-Marie Schwarz Service: (none) Author Type: Nurse Practitioner Type: HANDP Filed: 02/24/2018 9:41 AM Note Text: HISTORY AND PHYSICAL EXAMINATION SERVICE DATE: 02/24/2018 SERVICE TIME: 9:18 AM PRIMARY CARE PHYSICIAN: Mart Anderson MD REASON FOR VISIT: Nasrin Kim is a 62 year old male who is scheduled for PAT at the request of Dr. Chance Cohen for consultation. My final recommendation will be communicated back to the requesting physician by way of shared medical record or letter. The patient has the following: ACTIVE PROBLEM LIST Hepatitis Back Pain Lumbar Disc Herniation Narcotic Abuse in Remission ([facility]) Closed Tbi (Traumatic Brain Injury) ([facility]) S/P Lumbar Discectomy Incomplete Tear of Left Rotator Cuff Traumatic Partial Tear of Biceps Tendon, Left, Subsequent Encounter Rotator Cuff Tear, Left Subjective CHIEF COMPLAINT: Left shoulder pain HPI: 62 yr old male with left shoulder pain - hx of past arthroscopy on same shoulder Has had pain for 8 months -he pulled something and it started hurting Limited ROM, pain is 5/10 - sharp pain, denies numbness or tingling in arm or hands/fingers He has had PT /failed, steroid injections -not helping No fever chills or nausea PAST MEDICAL HISTORY Diagnosis Date - B12 deficiency - Back pain - Chronic back pain - Closed 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 Anderson - - S/P lumbar discectomy PAST SURGICAL HISTORY Procedure Laterality Date - PAST SURGICAL HISTORY OF bilateral wrist due to carpal tunnel Dr. Kent ` - PAST SURGICAL HISTORY OF 94 or 95 left Shoulder - [place] ANESTH,LUMBAR SPINE,CORD SURGERY no hardware - VASECTOMY 1993 Dr. Kent FAMILY HISTORY Problem Relation Age of Onset - Arthritis Mother - Arthritis Maternal Grandmother SOCIAL HISTORY: Social History Marital status: Single Spouse name: Years of education: Number of children: Social History Main Topics Smoking status: Former Smoker Packs/day: 1.00 Years: 5.00 Types: Cigarettes Quit date: 1998 Smokeless tobacco: Never Used Alcohol use: No Drug use: No Comment: hx of narcotic abuse treated since 1993 , contrave use. Dr. Anderson manages suboxone- [place] MEDICATIONS: Prior to Admission medications as of 02/24/18 0924 Medication Sig Last Dose Taking tamsulosin ER (FLOMAX) 0.4 mg cap Yes buprenorphine-naloxone (SUBOXONE) 8-2 mg film Dissolve 1 Film under the tongue once daily. Yes diclofenac, EC, (VOLTAREN) 75 mg EC tablet Take 75 mg by mouth twice daily. Yes MALU ASPIRIN ORAL Take 1 tablet by mouth once daily. Does not know if its 81 or 325. Yes VITAMIN E ORAL Take by mouth once daily. Yes No medication comments found. CURRENT ALLERGIES: ALLERGIES No Known Allergies REVIEW OF SYSTEMS: PAIN ASSESSMENT: Pain Pain Score: 5/10 Pain Location: Shoulder-Left Description: Sharp Duration Amount of Time: 8 Duration Units: Months Frequency: Continuous Intervention: Medication;Reposition General: No weight loss, malaise or fevers. Neuro: hx of TBI- bosed for 12 years Respiratory: No history of current cough or dyspnea, or pneumonia in the past 6 weeks. No history of respiratory/pulmonary symptoms or problems., former smoker (1ppd, 5 pck yr) Cardiovascular: No history of HTN requiring medication, no history of angina, CHF, TN, cardiac surgery or stents. Denies rest pain, gangrene or revascularization/amputa tion for PVD. No history of cardiovascular symptoms or problems. GI: Hx of hepatitis (yellow jaundice) : Positive for BPH-started flomax recently, working per patient Endocrine: No history of diabetes. Has not taken steroids within the past 30 days. No history of endocrinological symptoms or problems. Hematology: Anemia due to Vitamin B12 deficiency Oncology: No history of CA metastasis, chemo within 30 days, or radiotherapy within 90 days. Has not lost 10% of body wt in 6 months. No history of oncological symptoms or problems. Psych: hx of narcotic abuse , in remission/contrave - States he has been on suboxone for [address] Anderson Musculoskeletal: See HPI and and chronic back pain Skin: Negative for lesions, rash and itching. Objective PHYSICAL EXAM: VITALS: BP 130/95 Pulse 66 Temp (Src) 96.9 (Temporal Artery) Resp 18 Ht 5' 8 (1.73m) Wt 154 lb (69.9kg) SpO2 98% BMI 23.42 kg/(m2). General: Alert and oriented Skin: Normal color, no rash, no lesions. HEENT: EOM, pupils equal, round and reactive. Cardiovascular: Normal S1 AND S2, no rubs, murmurs or gallops. No JVD. Pulse regular. Lungs: Normal breath sounds, no wheezes or crackles. Abdomen: Soft, non-tender, no rigidity. Extremities: No deformity, no edema or tenderness, no joint swelling or clubbing. Neurological: Normal cognition and motor skills. Pulses: Carotid and radial pulses normal +2. Diagnostic tests reviewed for today's visit: No new labs or tests EK02/24/18 sinus bradycardia , HR 56 ASSESSMENT Patient has the following medical conditions which may affect loree-operative course Narcotic abuse in remission-contrave- aware to stop Hx of TBI Hepatitis B12 deficiency METS: Climb a flight of stairs or walk up a hill (5.50 METs) Patient denies any chest pain or undue shortness of breath with the above physical activity. ASA Class: 3 ANESTHESIA FINDINGS: Intubation History: No history of difficult intubation Significant Anesthesia Considerations: None Airway Exam: General: Normal appearance Mallampati Score is CLASS I ULBT: Class I - Lower incisors can bite the upper lip above the con line Neck: Normal appearance and function, Distance from hyoid to mentum during neck extension is at least 3 finger breaths Mouth: Normal tongue size and Mouth opening greater than 2 finger breaths Dentition: Upper denture and Lower denture Airway History: No abnormal airway history STOP BANG Score: Criteria: Hypertension Age over 50 (62 year old) Neck circumference > 15.75 inches Male gender Score = 4 PLAN This patient is optimally prepared for surgery NOTE CONTRAVE USE- AWARE TO STOP 24 HOURS BEFORE SURGERY CONSULTS: Patient does not require consults for optimization at this time. The Following Tests/Procedures Have Been Initiated: Orders Placed This Encounter tamsulosin ER (FLOMAX) 0.4 mg cap Refill: 1 buprenorphine-naloxone (SUBOXONE) 8-2 mg film Sig: Dissolve 1 Film under the tongue once daily. diclofenac, EC, (VOLTAREN) 75 mg EC tablet Sig: Take 75 mg by mouth twice daily. MALU ASPIRIN ORAL Sig: Take 1 tablet by mouth once daily. Does not know if its 81 or 325. ECG COMPLETE W INTERPRETATION Planned Anesthetic: extremity block Instructions Given to Patient: Patient given verbal and written preop instructions and voices comprehension and compliance. SIGNATURE: Ann-Marie Schwarz APRN.CNP PATIENT NAME: Nasrin Kim DATE: February 24, 2018 TIME: 8:58 AM PAGER/CONTACT #: [facility] CNOVon 02-17-2018 CNOV Office Visit (SPRTST ) -------- NASRIN KIM ([id number]) 1955 M Date Time Provider Department 02/17/18 2:30 PM CHANCE COHEN SPRTST During your visit today, we recorded the following information about you: Chance Cohen MD 02/17/2018 4:02 PM Signed Assessment/Primary Diagnosis: (F11.11) Narcotic abuse in remission (HCC) (primary encounter diagnosis) (M75.112) Incomplete tear of left rotator cuff (S46.212A) Rupture of left proximal biceps tendon, initial encounter Fellow/resident history and physical examination reviewed and confirmed by the attending physician. The attending physician obtained additional history and performed focused physical examination. All imaging and laboratory studies were reviewed by the attending physician with fellow/resident and the patient. Treatment care plan discussed with the fellow/resident and completely explained to the patient. The attending physician was present for and supervised any injections. All of the patient's questions were answered by the attending physician. Chance Cohen MD 02/17/2018 4:02 PM Signed Chance Cohen M.D. pottery decorator Director,[facility] [address] [facility] [address] INITIAL ENCOUNTER Chief Complaint: Left shoulder pain HPI: Nasrin Kim is referred by Dr. Anderson for evaluation of the above problem. Nasrin Kim is a 62 year old male who presents with the above complaint. Hand dominance: Bilateral, writes right. Endorses an abrupt onset left shoulder pain while fixing rafters 1 year ago. Has been followed by 2 providers with serial corticosteroid injections which have not helped greater than 1 day. Last on February 11, 2018. History includes left open distal clavicle excision by Dr. Lutz in [place], [place] in 1992. 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 He denies having any neck pain, radicular pain, numbness/tingling in the arm. Patient does not note any associated mechanical symptoms. History of prior injury or surgery opposite shoulder: Yes: as above Is this a [facility] injury? : No. REVIEW OF SYSTEMS: Constitutional: patient denies any recent fever or significant change in weight Cardiovascular: patient denies any chest pain at rest Respiratory: patient denies any shortness of breath or cough Gastrointestinal: patient denies any current abdominal discomfort Integumentary: patient denies any recent skin changes Musculoskeletal: as noted in the HPI Neurologic: as noted in the HPI Endocrine: patient denies a current diagnosis of diabetes Hematologic/Lymphatic: patient denies any easily bleeding, any recent infection and denies any recent observable lymph node enlargement Psychologic: negative for any recent depression or anxiety issues FAMILY HISTORY Problem Relation Age of Onset - Arthritis Mother - Arthritis Maternal Grandmother PAST MEDICAL HISTORY Diagnosis Date - Back pain - Closed 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 Kent ` - PAST SURGICAL HISTORY OF 94 or 95 left Shoulder - VASECTOMY 1993 Dr. Kent ALLERGIES No Known Allergies Problem List: reviewed and updated. Contributory Co-morbidities: Evaluated and managed. 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 Buprenorphine-Naloxone 8-2 mg film Dissolve under the tongue once daily. 1/2 film daily ASCORBIC ACID (VITAMIN C ORAL) Take by mouth once daily. CYANOCOBALAMIN, VITAMIN B-12, (VITAMIN B-12 ORAL) Take by mouth once daily. VITAMIN E ORAL Take by mouth once daily. GABAPENTIN (GRALISE ORAL) Take by mouth once daily. No current facility-administered medications for this visit. Physical Exam: There were no vitals taken for this visit. Constitutional: Pleasant, well-appearing, no acute distress. Resp: breathing is unlabored without audible wheeze Vascular: Normal pedal and radial pulses, no cyanosis, no venous stasis changes Skin: No overlying skin change, ecchymosis, or erythema. Psychiatric: Pleasant, direct, appropriate mood and affect General Orthopaedic Examination: Ambulates well. No other major joint abnormalities noted. Motor: 5/5 IO, FPL, OP, hand strategic development manager, biceps, triceps, deltoid Sensory: SILT ulnar/median/radial distributions bilat (C1-T1 intact) ROM: intact in all joints. Pulses: 2+ radial, ulnar; hands warm bilat, <2sec CR Compartments: soft and compressible Cervical Spine:Appropriate range of motion, negative midline and paraspinal muscle tenderness, negative stepoff, and negative Spurling's test. Focused Upper Extremity Musculoskeletal/Neurolog ic Exam: Symmetric shoulder contours. Active forward elevation to 120 on the right, 110 on the left. ER at the side to 5 bilaterally. IR extension to the beltline. Negative O'Briens but pain with resisted forward elevation on the left. 4/5 strength bilateral FE, 5/5 ER, 5/5 IR. Radiographic studies: Plain Radiographs of the involved shoulder were reviewed and interpreted by me and discussed with patient. Findings:No degenerative changes. OSH MRI of the involved shoulder was reviewed and interpreted by me and discussed with patient. Findings include retracted supraspinatus tear, partial upper subscapularis tear, medial biceps tendon subluxation. No sagittal T1 series available. Assessment/Primary Diagnosis: (F11.11) Narcotic abuse in remission (HCC) (primary encounter diagnosis) (M75.112) Incomplete tear of left rotator cuff Plan/Medical Decision Making: The nature of the problem and all indicated treatment options available were discussed in detail with the patient. I have recommended: 1. Medication: Continue current medications 2. Test(s)/Imaging/Referral (s): None 3. Intervention: Following a discussion of treatment options I recommend operative treatment. Procedure would consist of left shoulder arthroscopic subacromial decompression, rotator cuff debridement, and biceps tenotomy vs. Tenodesis. We outlined that he is likely not a candidate for an attempt at rotator cuff repair. He elected to proceed. We discussed an expectation for longer term single shot regional block loree-operatively and duration of narcotics appropriate to his surgery. 4. Follow-up: OR scheduling. Discuss loree-operative pain management expectations w/ PCP Dr. Anderson. All of Nasrin Kim questions were answered today. He expressed a clear understanding of our discussion and is in agreement with the outlined treatment plan. Etelvina Ragsdale MD CC:Dr. Mart Cohen MD 02/17/2018 4:02 PM Signed Assessment/Primary Diagnosis: (F11.11) Narcotic abuse in remission (HCC) (primary encounter diagnosis) (M75.112) Incomplete tear of left rotator cuff Fellow/resident history and physical examination reviewed and confirmed by the attending physician. The attending physician obtained additional history and performed focused physical examination. All imaging and laboratory studies were reviewed by the attending physician with fellow/resident and the patient. Treatment care plan discussed with the fellow/resident and completely explained to the patient. The attending physician was present for and supervised any injections. All of the patient's questions were answered by the attending physician. SAAD Leigh [facility] 02/23/2018 8:40 AM Signed Addended by: AMANDEEP WOODARD PA-C on: 02/23/2018 08:40 AM Modules accepted: Orders Referring Provider: SELF [[id number]] Allergies As of Date: 02/17/2018 (No Known Allergies) Date Reviewed: 02/17/2018 Reviewed by: Krys Alfred RN - Fully Assessed Primary Visit Diagnosis:Narcotic abuse in remission (HCC) [F11.11] Other Visit Diagnoses:Incomplete tear of left rotator cuff [M75.112] Rupture of left proximal biceps tendon, initial encounter [S46.212A] Order(s):SURGICAL REQUEST - ELECTIVE [[id number]] Order #: [id number]: 1 Prescriptions as of 02/17/2018 Sig: DICLOFENAC SODIUM 75 MG TABLE* Take 75 mg by mouth twice sylwia* BUPRENORPHINE 8 MG-NALOXONE 2* Dissolve under the tongue on* VITAMIN C ORAL Take by mouth once daily. VITAMIN B-12 ORAL Take by mouth once daily. VITAMIN E ORAL Take by mouth once daily. GRALISE ORAL Take by mouth once daily. Medication notes this encounter GRALUIZSE ORAL >> Krys Alfred RN 02/17/2018 2:31 PM >> KRYS ALFRED RN Feb 17, 2018 2:31 PM Not taking. Problem List As Of Date 02/17/2018 Noted Resolved Hepatitis [K75.9] More... Back pain [M54.9] Lumbar disc herniation [M51.26] INVALID FOR* Narcotic abuse in remission [F11.11] INVALID FOR* Closed TBI (traumatic brain injury) [S06.9X9A] INVALID FOR* S/P lumbar discectomy [Z98.890] INVALID FOR* Incomplete tear of left rotator cuff [M75.112] INVALID FOR* Follow-up and Disposition History Recorded Encounter Status:Closed by CHANCE COHEN MD on 02/17/18 [facility] PROGRESSon 02-17-2018 Protein mass conc HNO ID: [id number] Author: Chance Cohen Service: (none) Author Type: Physician Type: Progress Notes Filed: 02/17/2018 4:02 PM Note Text: Assessment/Primary Diagnosis: (F11.11) Narcotic abuse in remission (HCC) (primary encounter diagnosis) (M75.112) Incomplete tear of left rotator cuff Fellow/resident history and physical examination reviewed and confirmed by the attending physician. The attending physician obtained additional history and performed focused physical examination. All imaging and laboratory studies were reviewed by the attending physician with fellow/resident and the patient. Treatment care plan discussed with the fellow/resident and completely explained to the patient. The attending physician was present for and supervised any injections. All of the patient's questions were answered by the attending physician. Normal [facility] Protein mass conc HNO ID: [id number] Author: Chance Cohen Service: (none) Author Type: Physician Type: Progress Notes Filed: 02/17/2018 4:02 PM Note Text: Chance Cohen M.D. pottery decorator Director,[facility] [place] [address] INITIAL ENCOUNTER Chief Complaint: Left shoulder pain HPI: Nasrin Kim is referred by Dr. Anderson for evaluation of the above problem. Nasrin Kim is a 62 year old male who presents with the above complaint. Hand dominance: Bilateral, writes right. Endorses an abrupt onset left shoulder pain while fixing rafters 1 year ago. Has been followed by 2 providers with serial corticosteroid injections which have not helped greater than 1 day. Last on February 11, 2018. History includes left open distal clavicle excision by Dr. Lutz in [place], [place] in 1992. 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 He denies having any neck pain, radicular pain, numbness/tingling in the arm. Patient does not note any associated mechanical symptoms. History of prior injury or surgery opposite shoulder: Yes: as above Is this a [facility] injury? : No. REVIEW OF SYSTEMS: Constitutional: patient denies any recent fever or significant change in weight Cardiovascular: patient denies any chest pain at rest Respiratory: patient denies any shortness of breath or cough Gastrointestinal: patient denies any current abdominal discomfort Integumentary: patient denies any recent skin changes Musculoskeletal: as noted in the HPI Neurologic: as noted in the HPI Endocrine: patient denies a current diagnosis of diabetes Hematologic/Lymphatic: patient denies any easily bleeding, any recent infection and denies any recent observable lymph node enlargement Psychologic: negative for any recent depression or anxiety issues FAMILY HISTORY Problem Relation Age of Onset - Arthritis Mother - Arthritis Maternal Grandmother PAST MEDICAL HISTORY Diagnosis Date - Back pain - Closed 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 Kent ` - PAST SURGICAL HISTORY OF 94 or 95 left Shoulder - VASECTOMY 1993 Dr. Kent ALLERGIES No Known Allergies Problem List: reviewed and updated. Contributory Co-morbidities: Evaluated and managed. 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 Buprenorphine-Naloxone 8-2 mg film Dissolve under the tongue once daily. 1/2 film daily ASCORBIC ACID (VITAMIN C ORAL) Take by mouth once daily. CYANOCOBALAMIN, VITAMIN B-12, (VITAMIN B-12 ORAL) Take by mouth once daily. VITAMIN E ORAL Take by mouth once daily. GABAPENTIN (GRALISE ORAL) Take by mouth once daily. No current facility-administered medications for this visit. Physical Exam: There were no vitals taken for this visit. Constitutional: Pleasant, well-appearing, no acute distress. Resp: breathing is unlabored without audible wheeze Vascular: Normal pedal and radial pulses, no cyanosis, no venous stasis changes Skin: No overlying skin change, ecchymosis, or erythema. Psychiatric: Pleasant, direct, appropriate mood and affect General Orthopaedic Examination: Ambulates well. No other major joint abnormalities noted. Motor: 5/5 IO, FPL, OP, hand strategic development manager, biceps, triceps, deltoid Sensory: SILT ulnar/median/radial distributions bilat (C1-T1 intact) ROM: intact in all joints. Pulses: 2+ radial, ulnar; hands warm bilat, <2sec CR Compartments: soft and compressible Cervical Spine:Appropriate range of motion, negative midline and paraspinal muscle tenderness, negative stepoff, and negative Spurling's test. Focused Upper Extremity Musculoskeletal/Neurolog ic Exam: Symmetric shoulder contours. Active forward elevation to 120 on the right, 110 on the left. ER at the side to 5 bilaterally. IR extension to the beltline. Negative O'Briens but pain with resisted forward elevation on the left. 4/5 strength bilateral FE, 5/5 ER, 5/5 IR. Radiographic studies: Plain Radiographs of the involved shoulder were reviewed and interpreted by me and discussed with patient. Findings:No degenerative changes. OSH MRI of the involved shoulder was reviewed and interpreted by me and discussed with patient. Findings include retracted supraspinatus tear, partial upper subscapularis tear, medial biceps tendon subluxation. No sagittal T1 series available. Assessment/Primary Diagnosis: (F11.11) Narcotic abuse in remission (HCC) (primary encounter diagnosis) (M75.112) Incomplete tear of left rotator cuff Plan/Medical Decision Making: The nature of the problem and all indicated treatment options available were discussed in detail with the patient. I have recommended: 1. Medication: Continue current medications 2. Test(s)/Imaging/Referral (s): None 3. Intervention: Following a discussion of treatment options I recommend operative treatment. Procedure would consist of left shoulder arthroscopic subacromial decompression, rotator cuff debridement, and biceps tenotomy vs. Tenodesis. We outlined that he is likely not a candidate for an attempt at rotator cuff repair. He elected to proceed. We discussed an expectation for longer term single shot regional block loree-operatively and duration of narcotics appropriate to his surgery. 4. Follow-up: OR scheduling. Discuss loree-operative pain management expectations w/ PCP Dr. Anderson. All of Nasrin Kim questions were answered today. He expressed a clear understanding of our discussion and is in agreement with the outlined treatment plan. Etelvina Ragsdale MD CC:Dr. Mart Anderson [facility] conc HNO ID: [id number] Author: Chance Cohen Service: (none) Author Type: Physician Type: Progress Notes Filed: 02/17/2018 4:02 PM Note Text: Assessment/Primary Diagnosis: (F11.11) Narcotic abuse in remission (HCC) (primary encounter diagnosis) (M75.112) Incomplete tear of left rotator cuff (S46.212A) Rupture of left proximal biceps tendon, initial encounter Fellow/resident history and physical examination reviewed and confirmed by the attending physician. The attending physician obtained additional history and performed focused physical examination. All imaging and laboratory studies were reviewed by the attending physician with fellow/resident and the patient. Treatment care plan discussed with the fellow/resident and completely explained to the patient. The attending physician was present for and supervised any injections. All of the patient's questions were answered by the attending physician. Normal [facility] Protein mass conc HNO ID: [id number] Author: Liyz Steward (Rt) Jaleel Service: (none) Author Type: Basketball Commentator Type: Progress Notes Filed: 02/17/2018 1:57 PM Note Text: Radiology Service Progress Note PATIENT NAME: Nasrin Kim DATE OF SERVICE: February 17, 2018 TIME: 1:57 PM PATIENT IDENTITY VERIFICATION COMPLETED USING TWO (2) METHODS: Patient confirmed name verbally and Date of . PATIENT GENDER DATA: Male PATIENT RELEVANT IMPLANT DATA REVIEWED: Not Applicable RADIOLOGY DEPARTMENT: General X-ray: Exam(s) Completed: Upper Extremity X-Ray(s): Shoulder, AP / TRUE AP / AXILLARY / SUPRA OUTLET left : PERIPHERAL IV DATA: Not applicable SIGNED BY: RT Aleena February 17, 2018 1:57 PM Normal [facility] XR SHLDR >/=3V AP/VALERIO AP/OTH R LTon 02-17-2018 XR SHLDR >/=3V AP/VALERIO AP/OTHR LT * * *Final Report* * * DATE OF EXAM: Feb 17 2018 1:58PM STX 5252 - XR SHLDR >/=3V AP/VALERIO AP/OTHR LT / PROCEDURE REASON: Pain * * * * Physician Interpretation * * * * LEFT SHOULDER X-RAYS HISTORY: ROM pain. Pain . TECHNIQUE: XR SHLDR >/=3V AP/VALERIO AP/OTHR LT Laterality: LEFT Number of different views (projections): 3 COMPARISON: None RESULT: There is no evidence of fracture or dislocation. The subacromial space is preserved. The glenohumeral joint space is maintained. Volume loss of the distal clavicle could be postsurgical. - IMPRESSION: NO ACUTE FINDINGS. Craft Center Director: [facility] Transcribe Date/Time: Feb 17 2018 2:37P Dictated by : SUMIT BRANCH MD This examination was interpreted and the report reviewed and electronically signed by: SUMIT BRANCH MD on Feb 17 2018 2:38PM EST [id number] Normal [facility] OT-MRI SHOULDER LT WO CON IM PORTon 08-16-2018 OT-MRI SHOULDER LT WO CON IMPORT Images were obtained outside of [facility] [id number] Normal [facility] Encounters Encounter Date Encounter Type Care Provider Facility Start: 06-10-2022 End: 06-11-[address] MART ANDERSON . Facility:[facility] Start: 04-12-[address] MART ANDERSON . Facili ty:[facility] Start: 03-20-2022 End: 03-21-[address] MART ANDERSON . Facility:[facility] Start: 01-02-2022 End: 01-03-[address] MART ANDERSON . Facility:[facility] Start: 11-09-2021 End: 11-10-[address] MART ANDERSON . Facility:[facility] Start: 10-10-2021 End: 10-11-[address] MART ANDERSON . Facility:[facility] Start: 09-10-2021 End: 09-11-[address] MART ANDERSON . Facility:[facility] Start: 08-10-2021 End: 08-11-[address] MART ANDERSON . Facility:[facility] Start: 02-24-2018 Encounter for other preprocedural examination CHANCE COHEN [facility] Start: 02-24-2018 End: 02-24-2018 Patient encounter procedure CHANCE Gonzales NOEL [facility] Start: 02-17-2018 End: 02-18-2018 Patient encounter procedure CHANCE Gonzales NOEL [facility] Procedures Date Procedure Procedure Detail Performing Clinician Start: 03-20-[address] BEBETO ANDERSON . Comment on above: Performed By: #### P [facility] #### [facility] [address] [place] [address] Dr. Anibal Bishop Payers Date Payer Category Payer Medicare [id number] 1955 Unknown [id number] 2.16.84 [id number] 1955 Unknown [id number] 2.16.84 [id number] 1955 Unknown [id number] 2.16.84 [id number] 1955 Unknown [id number] 2.16.84 [id number] 1955 Unknown [id number] 2.16.84 [id number] 1955 Unknown [id number] 2.16.84 [id number] 1955 Unknown [id number] 2.16.84 [id number] 1955 Unknown [id number] 2.16.84 [id number] Summary Purpose Family History No Family History Records FoundNo Family History Records Found Advance Directives No Advanced Directives Records FoundNo Advanced Directives Records Found Additional Source Comments (unrecognized sect ion and content) No Status Records FoundNo Status Records Found INFORMATION SOURCE (unrecogn ized section and content) DATE CREATED AUTHOR 03/12/2018 [facility] DATE CREATED AUTHOR AUTHOR'S ORGANIZ ATION 06/15/2022 [facility] FOR RECORDS PERTAINING TO PATIENTS WHO ARE OR HAVE BEEN ENROLLED IN A CHEMICAL DEPENDENCY/SUBSTANCEABUSE PROGRAM, SOME INFORMATION MAY BE OMITTED. This clinical summary was aggregated from multiple sources. Caution should be exercised in using it in the provision of clinical care. This summary normalizes information from multiple sources, and as a consequence, information in this document may materially change the coding, format and clinical context of patient data. In addition, data may be omitted in some cases. CLINICAL DECISIONS SHOULD BE BASED ON THE PRIMARY CLINICAL RECORDS. [employer] provides no warranty or guarantee of the accuracy or completeness of information in this document.
[2023-03-11 08:49] LABS: Basophils Percent Auto 0.7 % (0.2-2.0); Eosinophils Absolute Auto 0.1 10^3/uL (0.0-0.7); Eosinophils Percent Auto 2.9 % (0.9-7.0); Hematocrit 44.7 % (42.0-54.0); Hemoglobin 14.8 g/dL (14.0-18.0); Immature Granulocytes Abs Auto 0.02 10^3/uL (0.00-0.03); Immature Granulocytes Pct Auto 0.5 % (0.0-0.5); Lymphocytes Absolute Auto 0.7 10^3/uL (1.2-3.8); Lymphocytes Percent Auto 15.6 % (20.5-60.0); Mean Corpuscular HGB Conc 33.1 g/dL (29.9-35.2); Mean Corpuscular Hemoglobin 29.9 pg (25.9-34.0); Mean Corpuscular Volume 90.3 fL (80.0-94.0); Mean Platelet Volume 8.6 fL (9.5-13.5); Monocytes Absolute Auto 0.5 10^3/uL (0.3-0.8); Monocytes Percent Auto 11.8 % (1.7-12.0); Neutrophils Percent Auto 68.5 % (43.0-75.0); Platelet Count 254 10^3/uL (150-450); Red Blood Count 4.95 10^6/uL (4.70-6.10); Red Cell Distribution Width 13.5 % (11.0-15.0); White Blood Count 4.4 10^3/uL (4.0-11.0)
[2023-03-11 09:38] LABS: Alanine Aminotransferase 47 U/L (16-63); Albumin Globulin Ratio 0.8; Albumin Level 3.9 g/dL (3.4-5.0); Alkaline Phosphatase 142 U/L (46-116); Anion Gap 10.7; Aspartate Amino Transferase 33 U/L (15-37); BUN Creatinine Ratio 15.3; Bilirubin Total 1.1 mg/dL (0.2-1.0); Calcium 9.9 mg/dL (8.5-10.1); Carbon Dioxide 28.9 mmol/L (21.0-32.0); Chloride 100 mmol/L (98-107); Chol HDL Ratio 2.4; Cholesterol 245 mg/dL (<=200); Estimated GFR (African America >60 (>=60); Estimated GFR (Non-African Ame >60 (>=60); Free T3 3.13 pg/mL (2.18-3.98); Globulin 4.8 g/dL; Glucose 91 mg/dL (74-106); HDL Cholesterol 104 mg/dL (40-60); Potassium 3.6 mmol/L (3.5-5.1); Sodium 136 mmol/L (136-145); Thyroid Stimulating Hormone 4.662 uIU/mL (0.358-3.740); Total Protein 8.7 g/dL (6.4-8.2); Triglycerides 69 mg/dL (<=150); Uric Acid 5.4 mg/dL (3.5-7.2); VLDL CHOLESTEROL 13.8 mg/dL
[2023-03-11 09:50] LABS: Prostate Specific Antigen Scrn 0.44 ng/mL (<=4.00)
[2023-03-11 09:54] LABS: Estimated Average Glucose 120 mg/dL; Glycohemoglobin A1C 5.8 % (4.5-6.2)
[2023-03-12 11:14] LABS: Insulin 12.4 uIU/mL (2.6-24.9)
== END 2023-03-11 08:21 | disposition home or self-care (01) ==
LOC: LAB 08:21
PROVIDERS: PCP Family Medicine; Visit Provider Family Medicine
DX: Z79.899 Other long term (current) drug therapy (principal); I11.9 Hypertensive heart disease without heart failure; F32.9 Major depressive disorder, single episode, unspecified; F11.10 Opioid abuse, uncomplicated; M62.81 Muscle weakness (generalized); E78.5 Hyperlipidemia, unspecified; R73.09 Other abnormal glucose; Z12.5 Encounter for screening for malignant neoplasm of prostate; Z12.12 Encounter for screening for malignant neoplasm of rectum
CPT/HCPCS: 36415; 80053; 80061; 80307; 80326; 80331; 80334; 80337; 80338; 80341; 80344; 80346; 80348; 80353; 80354; 80355; 80357; 80358; 80359; 80360; 80361; 80364; 80365; 80366; 80367; 80368; 80370; 80371; 80372; 80373; 80377; 82570; 83036; 83525; 83992; 84436; 84443; 84481; 84550; 84560; 85025; G0103

== ENCOUNTER 2023-03-11 08:24 | Outpatient (OUT) | payer MEDICARE, SELFPAY ==
--- OUTSIDE RECORDS SUMMARY | 2023-03-11 08:28 | XMS_ITS | CCD ---
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 [facility] Comment on above: Performed By: #### U SID #### [facility] [address] [address] [address] Anibal Bishop Summary FINAL [facility] Comment on above: Result Comment: == [...] == Performed By: #### U RICUR #### [facility] [address] [place] [address] Dr. Anibal Bishop URIC ACID RAND URINEon 06-11 Uric Acid, Urine 4.0 mg/dL Normal Not Estab. [facility] Comment on above: Performed By: #### U RICUR #### [facility] [address] [address] [address] Anibal Bishop COMPLIANCE DRUG SCREENon PDF . Normal [facility] Comment on above: Performed By: #### P SASC, IRON #### [facility] [address] [address] [address] Anibal Bishop Summary FINAL Normal [facility] Comment on above: Result Comment: [...] Performed By: #### P SAS, IRON #### [facility] [address] [address] [address] Anibal Bishop INSULINon 03-21-2022 Insulin 18.3 uIU/mL Normal 2.6-24.9 [facility] Comment on above: Performed By: #### U RICUR #### [facility] [address] [address] [address] Anibal Bishop URIC ACID RAND URINEon 03-21 Uric Acid, Urine 26.8 mg/dL Normal Not Estab. [facility] Comment on above: Performed By: #### U RICUR #### [facility] [address] [address] [address] Anibal Bishop CBC AUTO DIFFon 03-20-2022 BASO # 0.0 103/ul Normal 0.0-0.1 [facility] Comment on above: Performed By: #### P SASC, IRON #### [facility] [address] [place] [address] Dr. Anibal Bishop Basophils/100 WBC (Bld) 0.6 % Normal 0.2-2.0 [facility] Comment on above: Performed By: #### P SASC, IRON #### [facility] [address] [address] [address] Anibal Bishop EO # 0.2 103/ul Normal 0.0-0.7 [facility] Comment on above: Performed By: #### P SASC, IRON #### [facility] [address] [place] [address] Dr. Anibal Bishop Eosinophils/100 WBC (Bld) 3.5 % Normal 0.9-7.0 [facility] Comment on above: Performed By: #### P SASC, IRON #### [facility] [address] [address] [address] Anibal Bishop Erythrocyte distribution width (RBC) [Ratio] 14.1 % Normal 11.0-15.0 [facility] Comment on above: Performed By: #### P SASC, IRON #### [facility] [address] [place] [address] Dr. Anibal Bishop Hematocrit (Bld) [Volume fraction] 44.6 % Normal 42.0-54.0 [facility] Comment on above: Performed By: #### P SASC, IRON #### [facility] [address] [place] [address] Dr. Anibal Bishop Hemoglobin (Bld) [Mass/Vol] 14.3 g/dL Normal 14.0-18.0 [facility] Comment on above: Performed By: #### P SASC, IRON #### [facility] [address] [place] [address] Dr. Anibal Bishop IG # 0.02 10e3/ul Normal 0.00-0.03 [facility] Comment on above: Performed By: #### P SASC, IRON #### [facility] [address] [place] [address] Dr. Anibal Bishop IG % 0.4 % Normal 0.0-0.5 [facility] Comment on above: Performed By: #### P SASC, IRON #### [facility] [address] [place] [address] Dr. Anibal Bishop LYMPH # 0.8 103/ul Critically low 1.2-3.8 [facility] Comment on above: Performed By: #### P SASC, IRON #### [facility] [address] [place] [address] Dr. Anibal Bishop Lymphocytes/100 WBC (Bld) 17.1 % Critically low 20.5-60.0 [facility] Comment on above: Performed By: #### P SASC, IRON #### [facility] [address] [place] [address] Dr. Anibal Bishop MANUAL DIFF REQ NO Normal [facility] Comment on above: Performed By: #### P SASC, IRON #### [facility] [address] [place] [address] Dr. Anibal Bishop MCH (RBC) [Entitic mass] 29.9 pg Normal 25.9-34.0 [facility] Comment on above: Performed By: #### P SASC, IRON #### [facility] [address] [place] [address] Dr. Anibal Bishop MCHC (RBC) [Mass/Vol] 32.1 g/dL Normal 29.9-35.2 [facility] Comment on above: Performed By: #### P SASC, IRON #### [facility] [address] [address] [address] Anibal Bishop MCV (RBC) [Entitic vol] 93.3 fL Normal 80.0-94.0 [facility] Comment on above: Performed By: #### P SASC, IRON #### [facility] [address] [place] [address] Dr. Anibal Bishop MONO # 0.6 103/ul Normal 0.3-0.8 [facility] Comment on above: Performed By: #### P SASC, IRON #### [facility] [address] [place] [address] Dr. Anibal Bishop Monocytes/100 WBC (Bld) 12.5 % Critically high 1.7-12.0 [facility] Comment on above: Performed By: #### P SASC, IRON #### [facility] [address] [place] [address] Dr. Anibal Bishop NEUT # 3.2 103/ul Normal 1.4-6.5 [facility] Comment on above: Performed By: #### P SASC, IRON #### [facility] [address] [place] [address] Dr. Anibal Bishop Neutrophils/100 WBC (Bld) 65.9 % Normal 43.0-75.0 [facility] Comment on above: Performed By: #### P SASC, IRON #### [facility] [address] [place] [address] Dr. Anibal Bishop Platelet mean volume (Bld) [Entitic vol] 9.0 fL Critically low 9.5-13.5 [facility] Comment on above: Performed By: #### P SASC, IRON #### [facility] [address] [place] [address] Dr. Anibal Bishop PLT 250 103/ul Normal 150-450 [facility] Comment on above: Performed By: #### P SASC, IRON #### [facility] [address] [place] [address] Dr. Anibal Bishop RBC 4.78 106/ul Normal 4.70-6.10 [facility] Comment on above: Performed By: #### P SASC, IRON #### [facility] [address] [place] [address] Dr. Anibal Bishop WBC 4.8 103/ul Normal 4.0-11.0 [facility] Comment on above: Performed By: #### P SASC, IRON #### [facility] [address] [place] [address] Dr. Anibal Bishop FREE THYROXINE INDEX T7on FTI 3.33 Normal 1.30-4.50 [facility] Comment on above: Performed By: #### U HAMLET, LIPID, T7, CMP, TSH #### [facility] [address] [place] [address] Dr. Anibal Bishop T3U 35.0 % Normal 33.0-40.0 [facility] Comment on above: Performed By: #### U HAMLET, LIPID, T7, CMP, TSH #### [facility] [address] [place] [address] Dr. Anibal Bishop T4 [Mass/Vol] 9.50 ug/dL Normal 4.50-12.10 [facility] Comment on above: Performed By: #### U HAMLET, LIPID, T7, CMP, TSH #### [facility] [address] [place] [address] Dr. Anibal Bishop GLYCOHEMOGLOBIN A1Con 2022 ADA RECOMMENDATION SEE BELOW Normal [facility] Comment on above: Result Comment: ADA RECOMMENDED LIMIT 4.0 - 6.0 ADA THERAPEUTIC TARGET < 7.0 ACTION SUGGESTED > 7.0 Performed By: #### P SASC, IRON #### [facility] [address] [place] [address] Dr. Anibal Bishop Glucose [Mass/Vol] 114 mg/dL Normal [facility] Comment on above: Performed By: #### P SASC, IRON #### [facility] [address] [place] [address] Dr. Anibal Bishop HbA1c (Bld) [Mass fraction] 5.6 % Normal 4.5-6.2 [facility] Comment on above: Performed By: #### P SASC, IRON #### [facility] [address] [address] [address] Anibal Bishop IRONon 03-20-2022 Iron [Mass/Vol] 63.0 ug/dL Critically low 65.0-175.0 [facility] Comment on above: Performed By: #### P SASC, IRON #### [facility] [address] [address] [address] Anibal Bishop LIPID PROFILEon 03-20-2022 CHOL-HDL RATIO NORM SEE BELOW Normal [facility] Comment on above: Result Comment: 3.3 - 4.4 LOW RISK 4.4 - 7.1 AVERAGE RISK 7.1 - 11.0 MODERATE RISK >11.0 HIGH RISK Performed By: #### P SASC, IRON #### [facility] [address] [address] [address] Anibal Bishop Cholesterol [Mass/Vol] 207 mg/dL Critically high <=200 [facility] Comment on above: Performed By: #### P SASC, IRON #### [facility] [address] [address] [address] Anibal Bishop Cholesterol in HDL [Mass/Vol] 96 mg/dL Critically high 40-60 [facility] Comment on above: Performed By: #### P SASC, IRON #### [facility] [address] [address] [address] Anibal Bishop Cholesterol in LDL [Mass/Vol] 97.6 mg/dL Normal [facility] Comment on above: Performed By: #### P SASC, IRON #### [facility] [address] [address] [address] Anibal Bishop Cholesterol.total/C holesterol in HDL [Mass ratio] 2.2 {ratio} Normal [facility] Comment on above: Performed By: #### P SASC, IRON #### [facility] [address] [address] [address] Anibal Bishop HDL NORMAL > or = 60 mg/dl - LO W CARDIOVASCULAR RISK <40 mg/dl - HIGH CARDIOVASCULAR RISK Normal [facility] Comment on above: Performed By: #### P SASC, IRON #### [facility] [address] [address] [address] Anibal Bishop LDL CALC NORMAL SEE BELOW Normal [facility] Comment on above: Result Comment: <100 mg/dl OPTIMAL 100 - 129 mg/dl NEAR OR ABOVE OPTIMAL 130 - 159 mg/dl BORDERLINE HIGH 160 - 189 mg/dl HIGH >190 mg/dl VERY HIGH Performed By: #### P SASC, IRON #### [facility] [address] [address] [address] Anibal Bishop Triglyceride [Mass/Vol] 67 mg/dL Normal <=150 [facility] Comment on above: Performed By: #### P SASC, IRON #### [facility] [address] [address] [address] Anibal Bishop VLDL CALC 13.4 mg/dL Normal [facility] Comment on above: Performed By: #### P SASC, IRON #### [facility] [address] [address] [address] Anibal Bishop PROF 14(COMP METB)on 023 Albumin [Mass/Vol] 3.6 g/dL Normal 3.4-5.0 [facility] Comment on above: Performed By: #### U HAMLET, LIPID, T7, CMP, TSH #### [facility] [address] [address] [address] Anibal Bishop Albumin/Globulin [Mass ratio] 0.9 {ratio} Normal [facility] Comment on above: Performed By: #### U HAMLET, LIPID, T7, CMP, TSH #### [facility] [address] [address] [address] Anibal Bishop ALP [Catalytic activity/Vol] 90 U/L Normal 46-116 [facility] Comment on above: Performed By: #### U HAMLET, LIPID, T7, CMP, TSH #### [facility] [address] [address] [address] Anibal Bishop ALT [Catalytic activity/Vol] 46 U/L Normal 16-63 [facility] Comment on above: Performed By: #### U HAMLET, LIPID, T7, CMP, TSH #### [facility] [address] [address] [address] Anibal Bishop Anion gap [Moles/Vol] 13.4 mmol/L Normal [facility] Comment on above: Performed By: #### U HAMLET, LIPID, T7, CMP, TSH #### [facility] [address] [address] [address] Anibal Bishop AST [Catalytic activity/Vol] 26 U/L Normal 15-37 [facility] Comment on above: Performed By: #### U HAMLET, LIPID, T7, CMP, TSH #### [facility] [address] [address] [address] Anibal Bishop Bilirubin [Mass/Vol] 0.6 mg/dL Normal 0.2-1.0 [facility] Comment on above: Performed By: #### U HAMLET, LIPID, T7, CMP, TSH #### [facility] [address] [place] [address] Dr. Anibal Bishop Calcium [Mass/Vol] 9.6 mg/dL Normal 8.5-10.1 [facility] Comment on above: Performed By: #### U HAMLET, LIPID, T7, CMP, TSH #### [facility] [address] [place] [address] Dr. Anibal Bishop Chloride [Moles/Vol] 103 mmol/L Normal 98-107 [facility] Comment on above: Performed By: #### U HAMLET, LIPID, T7, CMP, TSH #### [facility] [address] [place] [address] Dr. Anibal Bishop CO2 [Moles/Vol] 27.9 mmol/L Normal 21.0-32.0 [facility] Comment on above: Performed By: #### U HAMLET, LIPID, T7, CMP, TSH #### [facility] [address] [place] [address] Dr. Anibal Bishop Creatinine [Mass/Vol] 0.91 mg/dL Normal 0.70-1.30 [facility] Comment on above: Performed By: #### U HAMLET, LIPID, T7, CMP, TSH #### [facility] [address] [address] [address] Anibal Bishop EGFR-AF [place]IZ[place] >60 Normal >=[address] [facility] Comment on above: Performed By: #### U HAMLET, LIPID, T7, CMP, TSH #### [facility] [address] [address] [address] Anibal Bishop EGFR-NON AF CITIZEN [place] >60 Normal >=60 [facility] Comment on above: Performed By: #### U HAMLET, LIPID, T7, CMP, TSH #### [facility] [address] [address] [address] Anibal Bishop Globulin (S) [Mass/Vol] 3.9 g/dL Normal [facility] Comment on above: Performed By: #### U HAMLET, LIPID, T7, CMP, TSH #### [facility] [address] [address] [address] Anibal Bishop Glucose [Mass/Vol] 103 mg/dL Normal 74-106 [facility] Comment on above: Performed By: #### U HAMLET, LIPID, T7, CMP, TSH #### [facility] [address] [address] [address] Anibal Bishop Potassium [Moles/Vol] 4.3 mmol/L Normal 3.5-5.1 [facility] Comment on above: Performed By: #### U HAMLET, LIPID, T7, CMP, TSH #### [facility] [address] [address] [address] Anibal Bishop Protein [Mass/Vol] 7.5 g/dL Normal 6.4-8.2 [facility] Comment on above: Performed By: #### U HAMLET, LIPID, T7, CMP, TSH #### [facility] [address] [address] [address] Anibal Bishop Sodium [Moles/Vol] 140 mmol/L Normal 136-145 [facility] Comment on above: Performed By: #### U HAMLET, LIPID, T7, CMP, TSH #### [facility] [address] [address] [address] Anibal Bishop Urea nitrogen [Mass/Vol] 12.0 mg/dL Normal 7.0-18.0 [facility] Comment on above: Performed By: #### U HAMLET, LIPID, T7, CMP, TSH #### [facility] [address] [address] [address] Anibal Bishop Urea nitrogen/Creatinine [Mass ratio] 13.2 mg/mg Normal [facility] Comment on above: Performed By: #### U HAMLET, LIPID, T7, CMP, TSH #### [facility] [address] [address] [address] Anibal Bishop TSHon 03-20-2022 TSH 2.763 uIU/mL Normal 0.358-3.740 [facility] Comment on above: Performed By: #### U HAMLET, LIPID, T7, CMP, TSH #### [facility] [address] [place] [address] Dr. Anibal Bishop URIC ACID SERUMon 03-20-2022 Urate [Mass/Vol] 5.3 mg/dL Normal 3.5-7.[address] [facility] Comment on above: Performed By: #### U HAMLET, LIPID, T7, CMP, TSH #### [facility] [address] [place] [address] Dr. Anibal Bishop COMPLIANCE DRUG SCREENon PDF . Normal [facility] Comment on above: Performed By: #### P SASC, IRON #### [facility] [address] [place] [address] Dr. Anibal Bishop Summary FINAL Normal [facility] Comment on above: Result Comment: [...] test is not intended to distinguish between khzzz-[id number], the predominant form of THC in most herbal or marijuana-based products, and [id number]. Fentanyl 1 UNEXPECTED ng/mg creat Norfentanyl 7 [...] Performed By: #### P SASC, IRON #### [facility] [address] [place] [address] Dr. Anibal Bishop URIC ACID RAND URINEon 01-05 Uric Acid, Urine 45.6 mg/dL Normal Not Estab. [facility] Comment on above: Performed By: #### P SASC, IRON #### [facility] [address] [address] [address] Anibal Bishop COMPLIANCE DRUG SCREENon PDF . Normal [facility] Comment on above: Performed By: #### P SASC, IRON #### [facility] [address] [address] [address] Anibal Bishop Summary FINAL Normal [facility] Comment on above: Result Comment: [...] Performed By: #### P SASC, IRON #### [facility] [address] [address] [address] Anibal Bishop URIC ACID RAND URINEon 11-11 Uric Acid, Urine 57.4 mg/dL Normal Not Estab. [facility] Comment on above: Performed By: #### U RICUR #### [facility] [address] [place], [place] [address] Dr. Anibal Bishop COMPLIANCE DRUG SCREENon PDF . Normal [facility] Comment on above: Performed By: #### P SASC, IRON #### [facility] [address] [address] [address] Anibal Bishop Summary FINAL Normal [facility] Comment on above: Result Comment: [...] Performed By: #### P SASC, IRON #### [facility] [address] [place] [address] Dr. Anibal Bishop URIC ACID RAND URINEon 10-12 Uric Acid, Urine 58.7 mg/dL Normal Not Estab. [facility] Comment on above: Performed By: #### U RICUR #### [facility] [address] [place] [address] Dr. Anibal Bishop COMPLIANCE DRUG SCREENon PDF . Normal [facility] Comment on above: Performed By: #### D SDOALC #### [facility] [address] [place] [address] Dr. Anibal Bishop Summary FINAL Normal [facility] Comment on above: Result Comment: [...] == Performed By: #### D SDOALC #### [facility] [address] [place] [address] Dr. Anibal Bishop URIC ACID RAND URINEon 09-12 Uric Acid, Urine 62.7 mg/dL Normal Not Estab. [facility] Comment on above: Performed By: #### P SASC, IRON #### [facility] [address] [place] [address] Dr. Anibal Bishop COMPLIANCE DRUG SCREENon PDF . Normal [facility] Comment on above: Performed By: #### D SDOALC #### [facility] [address] [address] [address] Anibal Bishop Summary FINAL Normal [facility] Comment on above: Result Comment: [...] == Performed By: #### D SDOALC #### [facility] [address] [place] [address] Dr. Anibal Bishop URIC ACID RAND URINEon 08-11 Uric Acid, Urine 21.4 mg/dL Normal Not Estab. [facility] Comment on above: Performed By: #### P SASC, IRON #### [facility] [address] [place] [address] [address] Anibal Bishop CNCOon 03-02-2018 CNCO Letter Text Ann-Marie Schwarz CNP [facility] [address] [place], [place], [address] Phone: [phone] Fax: [phone] March 02, 2018 Nasrin Kim [id number] Anderson, This is in [...] sign and fax response MARY JO to [phone]. Questions can be referred to the nursing desk at and ask for Ann-Marie Schwarz CNP. Suboxone weaning instructions: comments: Physician signature: X Date: Ann-Marie Fairchild, [address] 02-24-2018 EKG1 NAME : NASRIN KIM PID : [id number] : 1955 Gender : Male Race : [...] ms QTC Calculation(Bezet) : 384 ms P [place] : 51 degrees R [place] : 34 degrees T [place] : 39 degrees Test Reason : pre op Location : 145 : [place] Overread By : PAMELA LATHAM M.D. Edited By : PAMELA LATHAM M.D. 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 Anderson - - S/P lumbar discectomy PAST SURGICAL HISTORY Procedure Laterality Date - PAST SURGICAL HISTORY OF bilateral wrist due to carpal tunnel Dr. Kent ` - PAST SURGICAL HISTORY OF 94 or 95 left Shoulder - CT ANESTH,LUMBAR SPINE,CORD SURGERY no hardware - VASECTOMY [...] , contrave use. Dr. Anderson manages suboxone- [facility] MEDICATIONS: Prior to Admission medications as of [...] requiring medication, no history of angina, CHF, [place], cardiac surgery or stents. Denies rest pain, [...] 2018 TIME: 8:58 AM PAGER/CONTACT #: Isa [facility] CNOVon 02-17-2018 CNOV Office Visit (SPRTST ) -------- NASRIN KIM ([id number]) 1955 M Date Time Provider Department 02/17/18 [...] 02/17/2018 4:02 PM Signed Chance Cohen M.D. forge heater Director,[facility] [address] [facility] [place] [address] INITIAL ENCOUNTER Chief Complaint: Left shoulder pain [...] distal clavicle excision by Dr. Lutz in [place], [place] in 1992. 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 He denies having any neck pain, radicular pain, numbness/tingling in the arm. Patient does not note any associated mechanical symptoms. History of prior injury or surgery opposite shoulder: Yes: as above Is this a [facility] injury? : No. 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 SAAD Leigh [facility] 02/23/2018 8:40 AM Signed Addended by: [...] initial encounter [S46.212A] Order(s):SURGICAL REQUEST - ELECTIVE [[id number]] Order #: [id number]: 1 Prescriptions as of 02/17/2018 Sig: [id number] [...] Status:Closed by CHANCE COHEN MD on 02/17/18 [facility] PROGRESSon 02-17-2018 Protein mass conc HNO ID: [id number] Author: Chance Cohen Service: (none) Author Type: [...] were answered by the attending physician. Normal [facility] Protein mass conc HNO ID: [id number] Author: Chance Cohen Service: (none) Author Type: Physician Type: Progress Notes Filed: 02/17/2018 4:02 PM Note Text: Chance Cohen M.D. forge heater Director,[facility] [place] [address] INITIAL ENCOUNTER Chief Complaint: Left shoulder pain [...] distal clavicle excision by Dr. Lutz in [place], [place] in 1992. 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 He denies having any neck pain, radicular pain, numbness/tingling in the arm. Patient does not note any associated mechanical symptoms. History of prior injury or surgery opposite shoulder: Yes: as above Is this a [facility] injury? : No. 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 Etelvina Ragsdale MD CC:Dr. Mart Anderson [facility] conc HNO ID: [id number] Author: Chance Cohen Service: (none) Author Type: [...] were answered by the attending physician. Normal [facility] Protein mass conc HNO ID: [id number] Author: Lizy Steward (Rt) Jaleel Service: (none) Author Type: Ager Tender Type: Progress Notes Filed: 02/17/2018 1:57 PM [...] Aleena February 17, 2018 1:57 PM Normal [facility] XR SHLDR >/=3V AP/VALERIO AP/OTH R [...] be postsurgical. - IMPRESSION: NO ACUTE FINDINGS. Bush Regenerator: PSCB Transcribe Date/Time: Feb 17 2018 2:37P Dictated by : SUMIT BRANCH MD This examination was interpreted and the report reviewed and electronically signed by: SUMIT BRANCH MD on Feb 17 2018 2:38PM EST [id number] [facility] OT-MRI SHOULDER LT WO CON IM PORTon 08-16-2018 OT-MRI SHOULDER LT WO CON IMPORT Images were obtained outside of [facility] [id number] Normal [facility] Encounters Encounter Date Encounter Type Care [...] Encounter for other preprocedural examination CHANCE COHEN [facility] Start: 02-24-2018 End: 02-24-2018 Patient encounter procedure CHANCE Gonzales NOEL [facility] Start: 02-17-2018 End: 02-18-2018 Patient encounter procedure CHANCE Gonzales NOEL [facility] Procedures Date Procedure Procedure Detail Performing Clinician Start: 03-20-[address] BEBETO ANDERSON . Comment on above: Performed By: #### [facility] #### [facility] [address] [place] [address] Dr. Anibal Bishop Payers Date Payer Category Payer Medicare [id number] 1955 Unknown [id number] 2.16.84 [id number] 1955 Unknown [id number] 2.16.84 [id number] 1955 Unknown [id number] 2.16.84 [id number] 1955 Unknown [id number] 2.16.84 [id number] 1955 Unknown [id number] 2.16.84 [id number] 1955 Unknown [id number] 2.16.84 [id number] 1955 Unknown [id number] 2.16.84 [id number] 1955 Unknown [id number] 2.16.84 [id number] Summary Purpose Family History No Family History Records FoundNo Family History Records Found Advance Directives No Advanced Directives Records FoundNo Advanced Directives Records Found Additional Source Comments (unrecognized sect ion and content) No Status Records FoundNo Status Records Found INFORMATION SOURCE (unrecogn ized section and content) DATE CREATED AUTHOR 03/12/2018 [facility] DATE CREATED AUTHOR AUTHOR'S ORGANIZ ATION 06/15/2022 [facility] FOR RECORDS PERTAINING TO PATIENTS WHO [...] BE BASED ON THE PRIMARY CLINICAL RECORDS. [employer] provides no warranty or guarantee of the accuracy or completeness of information in this document.
[2023-03-11 09:04] LABS: Amphetamine Screen Urine NEGATIVE (NEGATIVE); Barbiturates Screen Urine NEGATIVE (NEGATIVE); Benzodiazepines Screen Urine NEGATIVE (NEGATIVE); Buprenorphine Screen Urine POSITIVE (NEGATIVE); Cannabinoid Screen Urine NEGATIVE (NEGATIVE); Cocaine Screen Urine NEGATIVE (NEGATIVE); Methadone Screen Urine NEGATIVE (NEGATIVE); Methamphetamines Screen Urine NEGATIVE (NEGATIVE); Opiate Screen Urine NEGATIVE (NEGATIVE); Oxycodone Screen Urine NEGATIVE (NEGATIVE); Phencyclidine Screen Urine NEGATIVE (NEGATIVE); Tricyclic Antidepressant Urine NEGATIVE (NEGATIVE)
[2023-03-12 11:14] LABS: Uric Acid, Urine 25.9 mg/dL (Not Estab.)
[2023-03-18 16:10] LABS: Summary Report (Summary) FINAL (.)
== END 2023-03-11 08:25 | disposition home or self-care (01) ==
PROVIDERS: PCP Family Medicine; Visit Provider Family Medicine
DX: Z79.899 Other long term (current) drug therapy (principal)
CPT/HCPCS: 80307; 80326; 80331; 80334; 80337; 80338; 80341; 80344; 80346; 80348; 80353; 80354; 80355; 80357; 80358; 80359; 80360; 80361; 80364; 80365; 80366; 80367; 80368; 80370; 80371; 80372; 80373; 80377; 82570; 83992; 84560

== ENCOUNTER 2023-04-30 13:48 | Outpatient (OUT) | payer MEDICARE, SELFPAY ==
--- NOTE | 2023-04-30 | XR_ITS ---
The [address] [address] Patient Name: NASRIN KIM MRN: [id number] date: 1955 Sex: M Assigned Patient Location: Current Patient Location: Accession/Order Number: [id number] Exam Date: 04/30/2023 13:58 Report Date: 05/01/2023 07:12 At the request of: JANICE DESAI Procedure: XR foot LT min 3V PROCEDURE: XR foot LT min 3V HISTORY: LEFT FOOT PAIN ; possible foreign body within plantar 5th digit region COMPARISON: None. FINDINGS: BONES:No fracture, acute abnormality, or significant arthropathy. SOFT TISSUES:No visible soft tissue swelling. EFFUSION:None visible. OTHER: Negative. XR/XR foot LT min 3V IMPRESSION: 1. No radiopaque foreign body. 2. Mild degenerative changes. Electronically authenticated by: KALEY NELSON Date: 05/01/2023 07:12
--- OUTSIDE RECORDS SUMMARY | 2023-04-30 14:01 | XMS_ITS | CCD ---
Author Organization [facility] Care Team Providers Care Lead Quality Control Technician Name Role Phone CHANCE COHEN Referring Unavailabl [...] 02-24-2018 Episodic Other aftercare (5 sources) Other half-way (current) drug therapy; Translations: [OTH MICROPALEONTOLOGIST CURRENT DRUG THERAPY] Onset: 03-21-2022 Episodic Other [...] Range Facility COMPLIANCE DRUG SCREENon PDF . Normal [facility] Comment on above: Performed By: #### U SID #### [facility] [address] [address] [address] Anibal Bishop Summary FINAL [facility] Comment on above: Result Comment: == [...] == Performed By: #### U RICUR #### [facility] [address] [place] [address] Dr. Anibal Bishop URIC ACID RAND URINEon 06-11 Uric Acid, Urine 4.0 mg/dL Normal Not Estab. [facility] Comment on above: Performed By: #### U RICUR #### [facility] [address] [place] [address] Dr. Anibal Bishop COMPLIANCE DRUG SCREENon PDF . [facility] Comment on above: Performed By: #### P SASC, IRON #### [facility] [address] [place] [address] Dr. Anibal Bishop Summary FINAL Normal [facility] Comment on above: Result Comment: == [...] Performed By: #### P SASC, IRON #### [facility] [address] [address] [address] Anibal Bishop INSULINon 03-21-2022 Insulin 18.3 uIU/mL Normal 2.6-24.9 [facility] Comment on above: Performed By: #### U RICUR #### [facility] [address] [place] [address] Dr. Anibal Bishop URIC ACID RAND URINEon 03-21 Uric Acid, Urine 26.8 mg/dL Normal Not Estab. [facility] Comment on above: Performed By: #### U RICUR #### [facility] [address] [place] [address] Dr. Anibal Bishop CBC AUTO DIFFon 03-20-2022 BASO # 0.0 103/ul Normal 0.0-0.1 [facility] Comment on above: Performed By: #### P SASC, IRON #### [facility] [address] [place] [address] Dr. Anibal Bishop Basophils/100 WBC (Bld) 0.6 % Normal 0.2-2.0 [facility] Comment on above: Performed By: #### P SASC, IRON #### [facility] [address] [place] [address] Dr. Anibal Bishop EO # 0.2 103/ul Normal 0.0-0.7 [facility] Comment on above: Performed By: #### P SASC, IRON #### [facility] [address] [place] [address] Dr. Anibal Bishop Eosinophils/100 WBC (Bld) 3.5 % Normal 0.9-7.0 [facility] Comment on above: Performed By: #### P SASC, IRON #### [facility] [address] [place] [address] Dr. Anibal Bishop Erythrocyte distribution width (RBC) [Ratio] 14.1 % Normal 11.0-15.0 [facility] Comment on above: Performed By: #### P SASC, IRON #### [facility] [address] [place] [address] Dr. Anibal Bishop Hematocrit (Bld) [Volume fraction] 44.6 % Normal 42.0-54.0 [facility] Comment on above: Performed By: #### P SASC, IRON #### [facility] [address] [address] [address] Anibal Bishop Hemoglobin (Bld) [Mass/Vol] 14.3 g/dL Normal 14.0-18.0 [facility] Comment on above: Performed By: #### P SASC, IRON #### [facility] [address] [address] [address] Anibal Bishop IG # 0.02 10e3/ul Normal 0.00-0.03 [facility] Comment on above: Performed By: #### P SASC, IRON #### [facility] [address] [address] [address] Anibal Bishop IG % 0.4 % Normal 0.0-0.5 [facility] Comment on above: Performed By: #### P SASC, IRON #### [facility] [address] [place] [address] Dr. Anibal Bishop LYMPH # 0.8 103/ul Critically low 1.2-3.8 [facility] Comment on above: Performed By: #### P SASC, IRON #### [facility] [address] [address] [address] Anibal Bishop Lymphocytes/100 WBC (Bld) 17.1 % Critically low 20.5-60.0 [facility] Comment on above: Performed By: #### P SASC, IRON #### [facility] [address] [address] [address] Anibal Bishop MANUAL DIFF REQ NO Normal [facility] Comment on above: Performed By: #### P SASC, IRON #### [facility] [address] [address] [address] Anibal Bishop MCH (RBC) [Entitic mass] 29.9 pg Normal 25.9-34.0 [facility] Comment on above: Performed By: #### P SASC, IRON #### [facility] [address] [address] [address] Anibal Bishop MCHC (RBC) [Mass/Vol] 32.1 g/dL Normal 29.9-35.2 [facility] Comment on above: Performed By: #### P SASC, IRON #### [facility] [address] [address] [address] Anibal Bishop MCV (RBC) [Entitic vol] 93.3 fL Normal 80.0-94.0 [facility] Comment on above: Performed By: #### P SASC, IRON #### [facility] [address] [place] [address] Dr. Anibal Bishop MONO # 0.6 103/ul Normal 0.3-0.8 [facility] Comment on above: Performed By: #### P SASC, IRON #### [facility] [address] [place] [address] Dr. Anibal Bishop Monocytes/100 WBC (Bld) 12.5 % Critically high 1.7-12.0 [facility] Comment on above: Performed By: #### P SASC, IRON #### [facility] [address] [place] [address] Dr. Anibal Bishop NEUT # 3.2 103/ul Normal 1.4-6.5 [facility] Comment on above: Performed By: #### P SASC, IRON #### [facility] [address] [place] [address] Dr. Anibal Bishop Neutrophils/100 WBC (Bld) 65.9 % Normal 43.0-75.0 [facility] Comment on above: Performed By: #### P SASC, IRON #### [facility] [address] [place] [address] Dr. Anibal Bishop Platelet mean volume (Bld) [Entitic vol] 9.0 fL Critically low 9.5-13.5 [facility] Comment on above: Performed By: #### P SASC, IRON #### [facility] [address] [place] [address] Dr. Anibal Bishop PLT 250 103/ul Normal 150-450 [facility] Comment on above: Performed By: #### P SASC, IRON #### [facility] [address] [place] [address] Dr. Anibal Bishop RBC 4.78 106/ul Normal 4.70-6.10 [facility] Comment on above: Performed By: #### P SASC, IRON #### [facility] [address] [place] [address] Dr. Anibal Bishop WBC 4.8 103/ul Normal 4.0-11.0 [facility] Comment on above: Performed By: #### P SASC, IRON #### [facility] [address] [place] [address] Dr. Anibal Bishop FREE THYROXINE INDEX T7on FTI 3.33 Normal 1.30-4.50 [facility] Comment on above: Performed By: #### U HAMLET, LIPID, T7, CMP, TSH #### [facility] [address] [place] [address] Dr. Anibal Bishop T3U 35.0 % Normal 33.0-40.0 [facility] Comment on above: Performed By: #### U HAMLET, LIPID, T7, CMP, TSH #### [facility] [address] [place] [address] Dr. Anibal Bishop T4 [Mass/Vol] 9.50 ug/dL Normal 4.50-12.10 [facility] Comment on above: Performed By: #### U HAMLET, LIPID, T7, CMP, TSH #### [facility] [address] [place] [address] Dr. Anibal Bishop GLYCOHEMOGLOBIN A1Con 2022 ADA RECOMMENDATION SEE BELOW Normal [facility] Comment on above: Result Comment: ADA RECOMMENDED LIMIT 4.0 - 6.0 ADA THERAPEUTIC TARGET < 7.0 ACTION SUGGESTED > 7.0 Performed By: #### P SASC, IRON #### [facility] [address] [address] [address] Anibal Bishop Glucose [Mass/Vol] 114 mg/dL Normal [facility] Comment on above: Performed By: #### P SASC, IRON #### [facility] [address] [place] [address] Dr. Anibal Bishop HbA1c (Bld) [Mass fraction] 5.6 % Normal 4.5-6.2 [facility] Comment on above: Performed By: #### P SASC, IRON #### [facility] [address] [address] [address] Anibal Bishop IRONon 03-20-2022 Iron [Mass/Vol] 63.0 ug/dL Critically low 65.0-175.0 [facility] Comment on above: Performed By: #### P SASC, IRON #### [facility] [address] [address] [address] Anibal Bishop LIPID PROFILEon 03-20-2022 CHOL-HDL RATIO NORM SEE BELOW Normal [facility] Comment on above: Result Comment: 3.3 - 4.4 LOW RISK 4.4 - 7.1 AVERAGE RISK 7.1 - 11.0 MODERATE RISK >11.0 HIGH RISK Performed By: #### P SASC, IRON #### [facility] [address] [address] [address] Anibal Bishop Cholesterol [Mass/Vol] 207 mg/dL Critically high <=200 [facility] Comment on above: Performed By: #### P SASC, IRON #### [facility] [address] [address] [address] Anibal Bishop Cholesterol in HDL [Mass/Vol] 96 mg/dL Critically high 40-60 [facility] Comment on above: Performed By: #### P SASC, IRON #### [facility] [address] [address] [address] Anibal Bishop Cholesterol in LDL [Mass/Vol] 97.6 mg/dL Normal [facility] Comment on above: Performed By: #### P SASC, IRON #### [facility] [address] [address] [address] Anibal Bishop Cholesterol.total/C holesterol in HDL [Mass ratio] 2.2 {ratio} Normal [facility] Comment on above: Performed By: #### P SASC, IRON #### [facility] [address] [address] [address] Anibal Bishop HDL NORMAL > or = 60 mg/dl - LO W CARDIOVASCULAR RISK <40 mg/dl - HIGH CARDIOVASCULAR RISK Normal [facility] Comment on above: Performed By: #### P SASC, IRON #### [facility] [address] [address] [address] Anibal Bishop LDL CALC NORMAL SEE BELOW Normal [facility] Comment on above: Result Comment: <100 mg/dl OPTIMAL 100 - 129 mg/dl NEAR OR ABOVE OPTIMAL 130 - 159 mg/dl BORDERLINE HIGH 160 - 189 mg/dl HIGH >190 mg/dl VERY HIGH Performed By: #### P SASC, IRON #### [facility] [address] [address] [address] Anibal Bishop Triglyceride [Mass/Vol] 67 mg/dL Normal <=150 [facility] Comment on above: Performed By: #### P SASC, IRON #### [facility] [address] [address] [address] Anibal Bishop VLDL CALC 13.4 mg/dL Normal [facility] Comment on above: Performed By: #### P SASC, IRON #### [facility] [address] [address] [address] Anibal Bishop PROF 14(COMP METB)on 023 Albumin [Mass/Vol] 3.6 g/dL Normal 3.4-5.0 [facility] Comment on above: Performed By: #### U HAMLET, LIPID, T7, CMP, TSH #### [facility] [address] [address] [address] Anibal Bishop Albumin/Globulin [Mass ratio] 0.9 {ratio} Normal [facility] Comment on above: Performed By: #### U HAMLET, LIPID, T7, CMP, TSH #### [facility] [address] [address] [address] Anibal Bishop ALP [Catalytic activity/Vol] 90 U/L Normal 46-116 [facility] Comment on above: Performed By: #### U HAMLET, LIPID, T7, CMP, TSH #### [facility] [address] [address] [address] Anibal Bishop ALT [Catalytic activity/Vol] 46 U/L Normal 16-63 [facility] Comment on above: Performed By: #### U HAMLET, LIPID, T7, CMP, TSH #### [facility] [address] [address] [address] Anibal Bihsop Anion gap [Moles/Vol] 13.4 mmol/L Normal [facility] Comment on above: Performed By: #### U HAMLET, LIPID, T7, CMP, TSH #### [facility] [address] [place] [address] Dr. Anibal Bishop AST [Catalytic activity/Vol] 26 U/L Normal 15-37 [facility] Comment on above: Performed By: #### U HAMLET, LIPID, T7, CMP, TSH #### [facility] [address] [place] [address] Dr. Anibal Bishop Bilirubin [Mass/Vol] 0.6 mg/dL Normal 0.2-1.0 [facility] Comment on above: Performed By: #### U HAMLET, LIPID, T7, CMP, TSH #### [facility] [address] [place] [address] Dr. Anibal Bishop Calcium [Mass/Vol] 9.6 mg/dL Normal 8.5-10.1 [facility] Comment on above: Performed By: #### U HAMLET, LIPID, T7, CMP, TSH #### [facility] [address] [place] [address] Dr. Anibal Bishop Chloride [Moles/Vol] 103 mmol/L Normal 98-107 [facility] Comment on above: Performed By: #### U HAMLET, LIPID, T7, CMP, TSH #### [facility] [address] [address] [address] Anibal Bishop CO2 [Moles/Vol] 27.9 mmol/L Normal 21.0-32.0 [facility] Comment on above: Performed By: #### U HAMLET, LIPID, T7, CMP, TSH #### [facility] [address] [place] [address] Dr. Anibal Bishop Creatinine [Mass/Vol] 0.91 mg/dL Normal 0.70-1.30 [facility] Comment on above: Performed By: #### U HAMLET, LIPID, T7, CMP, TSH #### [facility] [address] [address] [address] Anibal Bishop EGFR-AF EMIRATI >60 Normal >=60 [facility] Comment on above: Performed By: #### U HAMLET, LIPID, T7, CMP, TSH #### [facility] [address] [address] [address] Anibal Bishop EGFR-NON AF EMIRATI >60 Normal >=60 [facility] Comment on above: Performed By: #### U HAMLET, LIPID, T7, CMP, TSH #### [facility] [address] [address] [address] Anibal Bishop Globulin (S) [Mass/Vol] 3.9 g/dL Normal [facility] Comment on above: Performed By: #### U HAMLET, LIPID, T7, CMP, TSH #### [facility] [address] [address] [address] Anibal Bishop Glucose [Mass/Vol] 103 mg/dL Normal 74-106 [facility] Comment on above: Performed By: #### U HAMLET, LIPID, T7, CMP, TSH #### [facility] [address] [address] [address] Anibal Bishop Potassium [Moles/Vol] 4.3 mmol/L Normal 3.5-5.1 [facility] Comment on above: Performed By: #### U HAMLET, LIPID, T7, CMP, TSH #### [facility] [address] [address] [address] Anibal Bishop Protein [Mass/Vol] 7.5 g/dL Normal 6.4-8.2 [facility] Comment on above: Performed By: #### U HAMLET, LIPID, T7, CMP, TSH #### [facility] [address] [address] [address] Anibal Bishop Sodium [Moles/Vol] 140 mmol/L Normal 136-145 [facility] Comment on above: Performed By: #### U HAMLET, LIPID, T7, CMP, TSH #### [facility] [address] [address] [address] Anibal Bishop Urea nitrogen [Mass/Vol] 12.0 mg/dL Normal 7.0-18.0 [facility] Comment on above: Performed By: #### U HAMLET, LIPID, T7, CMP, TSH #### [facility] [address] [address] [address] Anibal Bishop Urea nitrogen/Creatinine [Mass ratio] 13.2 mg/mg Normal [facility] Comment on above: Performed By: #### U HAMLET, LIPID, T7, CMP, TSH #### [facility] [address] [address] [address] Anibal Bishop TSHon 03-20-2022 TSH 2.763 uIU/mL Normal 0.358-3.740 [facility] Comment on above: Performed By: #### U HAMLET, LIPID, T7, CMP, TSH #### [facility] [address] [place] [address] Dr. Anibal Bishop URIC ACID SERUMon 03-20-2022 Urate [Mass/Vol] 5.3 mg/dL Normal 3.5-7.2 [facility] Comment on above: Performed By: #### U HAMLET, LIPID, T7, CMP, TSH #### [facility] [address] [place] [address] Dr. Anibal Bishop COMPLIANCE DRUG SCREENon PDF . Normal [facility] Comment on above: Performed By: #### P SASC, IRON #### [facility] [address] [place] [address] Dr. Ainbal Bishop Summary FINAL Normal [facility] Comment on above: Result Comment: == [...] test is not intended to distinguish between qbpus-4-altbpspswzvxtiyxyxyk, the predominant form of THC in most herbal or marijuana-based products, and kjjvv-2-kxfexlwpoaslkvjtdugh. Fentanyl 1 UNEXPECTED ng/mg creat Norfentanyl 7 [...] Performed By: #### P SASC, IRON #### [facility] [address] [address] [address] Anibal Bishop URIC ACID RAND URINEon 01-05 Uric Acid, Urine 45.6 mg/dL Normal Not Estab. [facility] Comment on above: Performed By: #### P SASC, IRON #### [facility] [address] [place] [address] Dr. Anibal Bishop COMPLIANCE DRUG SCREENon PDF . Normal [facility] Comment on above: Performed By: #### P SASC, IRON #### [facility] [address] [place] [address] Dr. Anibal Bishop Summary FINAL Normal [facility] Comment on above: Result Comment: == [...] Performed By: #### P SASC, IRON #### [facility] [address] [place], [place] [address] Dr. Anibal Bishop URIC ACID RAND URINEon 11-11 Uric Acid, Urine 57.4 mg/dL Normal Not Estab. [facility] Comment on above: Performed By: #### U RICUR #### [facility] [address] [place], [place] [address] Dr. Anibal Bishop COMPLIANCE DRUG SCREENon PDF . Normal [facility] Comment on above: Performed By: #### P SASC, IRON #### [facility] [address] [place], [place] [address] Dr. Anibal Bishop Summary FINAL Normal [facility] Comment on above: Result Comment: == [...] Performed By: #### P SASC, IRON #### [facility] [address] [place] [address] Dr. Anibal Bishop URIC ACID RAND URINEon 10-12 Uric Acid, Urine 58.7 mg/dL Normal Not Estab. [facility] Comment on above: Performed By: #### U RICUR #### [facility] [address] [place] [address] Dr. Anibal Bishop COMPLIANCE DRUG SCREENon PDF . Normal [facility] Comment on above: Performed By: #### D SDOALC #### [facility] [address] [place] [address] Dr. Anibal Bishop Summary FINAL [facility] Comment on above: Result Comment: == [...] == Performed By: #### D SDOALC #### [facility] [address] [address] [address] Anibal Bishop URIC ACID RAND URINEon 09-12 Uric Acid, Urine 62.7 mg/dL Normal Not Estab. [facility] Comment on above: Performed By: #### P SASC, IRON #### [facility] [address] [address] [address] Anibal Bishop COMPLIANCE DRUG SCREENon PDF . Normal [facility] Comment on above: Performed By: #### D SDOALC #### [facility] [address] [address] [address] Anibal Bishop Summary FINAL Normal [facility] Comment on above: Result Comment: == [...] == Performed By: #### D SDOALC #### [facility] [address] [address] [address] Anibal Bishop URIC ACID RAND URINEon 08-11 Uric Acid, Urine 21.4 mg/dL Normal Not Estab. [facility] Comment on above: Performed By: #### P SASC, IRON #### [facility] [address] [address] [address] Anibal Bishop CNCOon 03-02-2018 CNCO Letter Text Ann-Marie Schwarz CNP [facility] [address] [place] [address], [address] Phone: [phone] Fax: [phone] March 02, 2018 Nasrin Kim [id number] [address] Anderson, This is in [...] sign and fax response MARY JO to [phone]. Questions can be referred to the nursing desk at and ask for Ann-Marie Schwarz CNP. Suboxone weaning instructions: comments: Physician signature: X Date: Ann-Marie Fairchild, [facility] EKon 02-24-2018 EKG1 NAME : NASRIN KIM PID : [id number] : 1955 Gender : Male Race : [...] ms QTC Calculation(Bezet) : 384 ms P [place] : 51 degrees R [place] : 34 degrees T [place] : 39 degrees Test Reason : pre op Location : 145 : LOCARD Overread By : PAMELA LATHAM M.D. Edited By : PAMELA LATHAM M.D. Referred By : CHANCE COHEN Acquired by : am, Normal [facility] HISTORY PHYSICALon HISTORY PHYSICAL HNO ID: [id number] Author: Ann-Marie Currie) Karishma Service: (none) Author Type: Nurse Practitioner Type: [...] Lumbar Disc Herniation Narcotic Abuse in Remission ([facility]) Closed Tbi (Traumatic Brain Injury) ([facility]) S/P Lumbar Discectomy Incomplete Tear of Left [...] hepatitis C - Narcotic abuse in remission ([facility]) Dr. Anderson - - S/P lumbar discectomy PAST SURGICAL HISTORY Procedure Laterality Date - PAST SURGICAL HISTORY OF bilateral wrist due to carpal tunnel Dr. Kent ` - PAST SURGICAL HISTORY OF 94 or 95 left Shoulder - [place] ANESTH,LUMBAR SPINE,CORD SURGERY no hardware - VASECTOMY [...] , contrave use. Dr. Anderson manages suboxone- [place] MEDICATIONS: Prior to Admission medications as of [...] requiring medication, no history of angina, CHF, CA, cardiac surgery or stents. Denies rest pain, [...] 2018 TIME: 8:58 AM PAGER/CONTACT #: Isa [facility] CNOVon 02-17-2018 CNOV Office Visit (SPRTST ) -------- JULIONASRIN Alas ([id number]) 1955 M Date Time Provider Department 02/17/18 [...] 02/17/2018 4:02 PM Signed Chance Cohen M.D. turf manager Director,[facility] [address] [facility] [place] [address] INITIAL ENCOUNTER Chief Complaint: Left shoulder pain [...] distal clavicle excision by Dr. Lutz in [place], [place] in 1992. 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 He denies having any neck pain, radicular pain, numbness/tingling in the arm. Patient does not note any associated mechanical symptoms. History of prior injury or surgery opposite shoulder: Yes: as above Is this a [facility] injury? : No. 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 Motor: 5/5 IO, [employer], OP, hand carbon setter, biceps, triceps, deltoid Sensory: SILT ulnar/median/radial distributions [...] answered by the attending physician. SAAD Leigh PAC 02/23/2018 8:40 AM Signed Addended by: AMANDEEP [...] initial encounter [S46.212A] Order(s):SURGICAL REQUEST - ELECTIVE [[id number]] Order #: [id number]: 1 Prescriptions as of 02/17/2018 Sig: DICLOFENAC SODIUM 75 MG TABLE* Take 75 mg by mouth twice sylwia* BUPRENORPHINE 8 MG-NALOXONE 2* Dissolve under the tongue on* VITAMIN C ORAL Take by mouth once daily. VITAMIN B-12 ORAL Take by mouth once daily. VITAMIN E ORAL Take by mouth once daily. GRALISE ORAL Take by mouth once daily. Medication notes this encounter GRALISE ORAL >> Krys Alfred RN 02/17/2018 2:31 [...] Status:Closed by CHANCE COHEN MD on 02/17/18 Normal [facility] PROGRESSon 02-17-2018 Protein mass conc HNO ID: [id number] Author: Chance Cohen Service: (none) Author Type: [...] were answered by the attending physician. Normal [facility] Protein mass conc HNO ID: [id number] Author: Chance Cohen Service: (none) Author Type: Physician Type: Progress Notes Filed: 02/17/2018 4:02 PM Note Text: Chance Cohen M.D. turf manager Director,[facility] [address] [place] [address] INITIAL ENCOUNTER Chief Complaint: Left shoulder pain [...] distal clavicle excision by Dr. Lutz in [place], [place] in 1992. 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 He denies having any neck pain, radicular pain, numbness/tingling in the arm. Patient does not note any associated mechanical symptoms. History of prior injury or surgery opposite shoulder: Yes: as above Is this a [facility] injury? : No. REVIEW OF SYSTEMS: [...] 95 left Shoulder - VASECTOMY 1993 Dr. Irons ALLERGIES No Known Allergies Problem List: reviewed and updated. Contributory Co-morbidities: Evaluated and managed. 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 Motor: 5/5 IO, FPL, OP, hand carbon setter, biceps, triceps, deltoid Sensory: SILT ulnar/median/radial distributions [...] plan. Etelvina Ragsdale MD CC:Dr. Mart Anderson [facility] Protein mass conc HNO ID: [id number] Author: Chance Cohen Service: (none) Author Type: [...] were answered by the attending physician. Normal [facility] Protein mass conc HNO ID: [id number] Author: Lizy Steward (Rt) Jaleel Service: (none) Author Type: Network Admin Type: Progress Notes Filed: 02/17/2018 1:57 PM [...] RT Aleena February 17, 2018 1:57 PM [facility] XR SHLDR >/=3V AP/VALERIO AP/OTH R [...] be postsurgical. - IMPRESSION: NO ACUTE FINDINGS. It Business Systems Analyst: PSCB Transcribe Date/Time: Feb 17 2018 2:37P Dictated by : SUMIT BRANCH MD This examination was interpreted and the report reviewed and electronically signed by: SUMIT BRANCH MD on Feb 17 2018 2:38PM EST [id number] Normal [facility] OT-MRI SHOULDER LT WO CON IM PORTon 09-25-2017 OT-MRI SHOULDER LT WO CON IMPORT Images were obtained outside of [facility] [id number] Normal [facility] Encounters Encounter Date Encounter Type Care Provider [...] Encounter for other preprocedural examination CHANCE COHEN [facility] Start: 02-24-2018 End: 02-24-2018 Patient encounter procedure CHANCE Gonzales NOEL [facility] Start: 02-17-2018 End: 02-18-2018 Patient encounter procedure CHANCE Gonzales NOEL [facility] Procedures Date Procedure Procedure Detail Performing Clinician Start: 03-20-[address] BEBETO ANDERSON . Comment on above: Performed By: #### P [facility] #### [facility] [address] [place] [address] Dr. Anibal Bishop Payers Date Payer Category Payer Medicare [id number] 1955 Unknown [id number] 2.16.84 [id number] 1955 Unknown [id number] 2.16.84 [id number] 1955 Unknown [id number] 2.16.84 [id number] 1955 Unknown [id number] 2.16.84 [id number] 1955 Unknown [id number] 2.16.84 [id number] 1955 Unknown [id number] 2.16.84 [id number] 1955 Unknown [id number] 2.16.84 [id number] 1955 Unknown [id number] 2.16.84 [id number] Summary Purpose Family History No Family History Records FoundNo Family History Records Found Advance Directives No Advanced Directives Records FoundNo Advanced Directives Records Found Additional Source Comments (unrecognized sect ion and content) No Status Records FoundNo Status Records Found INFORMATION SOURCE (unrecogn ized section and content) DATE CREATED AUTHOR 03/12/2018 [facility] DATE CREATED AUTHOR AUTHOR'S DANIELIZ ATION 06/15/2022 [facility] FOR RECORDS PERTAINING TO PATIENTS WHO ARE [...] BE BASED ON THE PRIMARY CLINICAL RECORDS. [employer] provides no warranty or guarantee of the accuracy or completeness of information in this document.
== END 2023-04-30 13:49 | disposition home or self-care (01) ==
LOC: EC 13:49
PROVIDERS: PCP Family Medicine; Visit Provider Podiatrist Foot & Ankle Surgery
DX: M79.672 Pain in left foot (principal)
CPT/HCPCS: 73630

== ENCOUNTER 2023-05-12 16:18 | Outpatient (OUT) | payer MEDICARE, SELFPAY ==
--- OUTSIDE RECORDS SUMMARY | 2023-05-12 16:22 | XMS_ITS | CCD ---
Author Organization [employer] Care Team Providers Care Manufacturing Helper Name Role Phone CHANCE COHEN Referring Unavailabl [...] 02-24-2018 Episodic Other aftercare (5 sources) Other terminal operator (current) drug therapy; Translations: [OTH SENIOR CARE CURRENT DRUG THERAPY] Onset: 03-21-2022 Episodic Other [...] Facility COMPLIANCE DRUG SCREENon PDF . Normal [facility] Comment on above: Performed By: #### U SID #### [facility] [address] [address] [address] Anibal Bishop Summary FINAL [facility] Comment on above: Result Comment: == TOXASSURE [...] == Performed By: #### U RICUR #### [facility] [address] [place] [address] Dr. Anibal Bishop URIC ACID RAND URINEon 06-11 Uric Acid, Urine 4.0 mg/dL Normal Not Estab. [facility] Comment on above: Performed By: #### U RICUR #### [facility] [address] [place] [address] Dr. Anibal Bishop COMPLIANCE DRUG SCREENon PDF . [facility] Comment on above: Performed By: #### P SASC, IRON #### [facility] [address] [place] [address] Dr. Anibal Bishop Summary FINAL Normal [facility] Comment on above: Result Comment: == TOXASSURE [...] Performed By: #### P SASC, IRON #### [facility] [address] [address] [address] Anibal Bishop INSULINon 03-21-2022 Insulin 18.3 uIU/mL Normal 2.6-24.9 [facility] Comment on above: Performed By: #### U RICUR #### [facility] [address] [place] [address] Dr. Anibal Bishop URIC ACID RAND URINEon 03-21 Uric Acid, Urine 26.8 mg/dL Normal Not Estab. [facility] Comment on above: Performed By: #### U RICUR #### [facility] [address] [place] [address] Dr. Anibal Bishop CBC AUTO DIFFon 03-20-2022 BASO # 0.0 103/ul Normal 0.0-0.1 [facility] Comment on above: Performed By: #### P SASC, IRON #### [facility] [address] [place] [address] Dr. Anibal Bishop Basophils/100 WBC (Bld) 0.6 % Normal 0.2-2.0 [facility] Comment on above: Performed By: #### P SASC, IRON #### [facility] [address] [place] [address] Dr. Anibal Bishop EO # 0.2 103/ul Normal 0.0-0.7 [facility] Comment on above: Performed By: #### P SASC, IRON #### [facility] [address] [place] [address] Dr. Anibal Bishop Eosinophils/100 WBC (Bld) 3.5 % Normal 0.9-7.0 [facility] Comment on above: Performed By: #### P SASC, IRON #### [facility] [address] [place] [address] Dr. Anibal Bishop Erythrocyte distribution width (RBC) [Ratio] 14.1 % Normal 11.0-15.0 [facility] Comment on above: Performed By: #### P SASC, IRON #### [facility] [address] [place] [address] Dr. Anibal Bishop Hematocrit (Bld) [Volume fraction] 44.6 % Normal 42.0-54.0 [facility] Comment on above: Performed By: #### P SASC, IRON #### [facility] [address] [address] [address] Anibal Bishop Hemoglobin (Bld) [Mass/Vol] 14.3 g/dL Normal 14.0-18.0 [facility] Comment on above: Performed By: #### P SASC, IRON #### [facility] [address] [address] [address] Anibal Bishop IG # 0.02 10e3/ul Normal 0.00-0.03 [facility] Comment on above: Performed By: #### P SASC, IRON #### [facility] [address] [address] [address] Anibal Bishop IG % 0.4 % Normal 0.0-0.5 [facility] Comment on above: Performed By: #### P SASC, IRON #### [facility] [address] [place] [address] Dr. Anibal Bishop LYMPH # 0.8 103/ul Critically low 1.2-3.8 [facility] Comment on above: Performed By: #### P SASC, IRON #### [facility] [address] [address] [address] Anibal Bishop Lymphocytes/100 WBC (Bld) 17.1 % Critically low 20.5-60.0 [facility] Comment on above: Performed By: #### P SASC, IRON #### [facility] [address] [address] [address] Anibal Bishop MANUAL DIFF REQ NO Normal [facility] Comment on above: Performed By: #### P SASC, IRON #### [facility] [address] [address] [address] Anibal Bishop MCH (RBC) [Entitic mass] 29.9 pg Normal 25.9-34.0 [facility] Comment on above: Performed By: #### P SASC, IRON #### [facility] [address] [address] [address] Anibal Bishop MCHC (RBC) [Mass/Vol] 32.1 g/dL Normal 29.9-35.2 [facility] Comment on above: Performed By: #### P SASC, IRON #### [facility] [address] [address] [address] Anibal Bishop MCV (RBC) [Entitic vol] 93.3 fL Normal 80.0-94.0 [facility] Comment on above: Performed By: #### P SASC, IRON #### [facility] [address] [place] [address] Dr. Anibal Bishop MONO # 0.6 103/ul Normal 0.3-0.8 [facility] Comment on above: Performed By: #### P SASC, IRON #### [facility] [address] [place] [address] Dr. Anibal Bishop Monocytes/100 WBC (Bld) 12.5 % Critically high 1.7-12.0 [facility] Comment on above: Performed By: #### P SASC, IRON #### [facility] [address] [place] [address] Dr. Anibal Bishop NEUT # 3.2 103/ul Normal 1.4-6.5 [facility] Comment on above: Performed By: #### P SASC, IRON #### [facility] [address] [place] [address] Dr. Anibal Bishop Neutrophils/100 WBC (Bld) 65.9 % Normal 43.0-75.0 [facility] Comment on above: Performed By: #### P SASC, IRON #### [facility] [address] [place] [address] Dr. Anibal Bishop Platelet mean volume (Bld) [Entitic vol] 9.0 fL Critically low 9.5-13.5 [facility] Comment on above: Performed By: #### P SASC, IRON #### [facility] [address] [place] [address] Dr. Anibal Bishop PLT 250 103/ul Normal 150-450 [facility] Comment on above: Performed By: #### P SASC, IRON #### [facility] [address] [place] [address] Dr. Anibal Bishop RBC 4.78 106/ul Normal 4.70-6.10 [facility] Comment on above: Performed By: #### P SASC, IRON #### [facility] [address] [place] [address] Dr. Anibal Bishop WBC 4.8 103/ul Normal 4.0-11.0 [facility] Comment on above: Performed By: #### P SASC, IRON #### [facility] [address] [place] [address] Dr. Anibal Bishop FREE THYROXINE INDEX T7on FTI 3.33 Normal 1.30-4.50 [facility] Comment on above: Performed By: #### U HAMLET, LIPID, T7, CMP, TSH #### [facility] [address] [place] [address] Dr. Anibal Bishop T3U 35.0 % Normal 33.0-40.0 [facility] Comment on above: Performed By: #### U HAMLET, LIPID, T7, CMP, TSH #### [facility] [address] [place] [address] Dr. Anibal Bishop T4 [Mass/Vol] 9.50 ug/dL Normal 4.50-12.10 [facility] Comment on above: Performed By: #### U HAMLET, LIPID, T7, CMP, TSH #### [facility] [address] [place] [address] Dr. Anibal Bishop GLYCOHEMOGLOBIN A1Con 2022 ADA RECOMMENDATION SEE BELOW Normal [facility] Comment on above: Result Comment: ADA RECOMMENDED LIMIT 4.0 - 6.0 ADA THERAPEUTIC TARGET < 7.0 ACTION SUGGESTED > 7.0 Performed By: #### P SASC, IRON #### [facility] [address] [address] [address] Anibal Bishop Glucose [Mass/Vol] 114 mg/dL Normal [facility] Comment on above: Performed By: #### P SASC, IRON #### [facility] [address] [place] [address] Dr. Anibal Bishop HbA1c (Bld) [Mass fraction] 5.6 % Normal 4.5-6.2 [facility] Comment on above: Performed By: #### P SASC, IRON #### [facility] [address] [address] [address] Anibal Bishop IRONon 03-20-2022 Iron [Mass/Vol] 63.0 ug/dL Critically low 65.0-175.0 [facility] Comment on above: Performed By: #### P SASC, IRON #### [facility] [address] [address] [address] Anibal Bishop LIPID PROFILEon 03-20-2022 CHOL-HDL RATIO NORM SEE BELOW Normal [facility] Comment on above: Result Comment: 3.3 - 4.4 LOW RISK 4.4 - 7.1 AVERAGE RISK 7.1 - 11.0 MODERATE RISK >11.0 HIGH RISK Performed By: #### P SASC, IRON #### [facility] [address] [address] [address] Anibal Bishop Cholesterol [Mass/Vol] 207 mg/dL Critically high <=200 [facility] Comment on above: Performed By: #### P SASC, IRON #### [facility] [address] [address] [address] Anibal Bishop Cholesterol in HDL [Mass/Vol] 96 mg/dL Critically high 40-60 [facility] Comment on above: Performed By: #### P SASC, IRON #### [facility] [address] [address] [address] Anibal Bishop Cholesterol in LDL [Mass/Vol] 97.6 mg/dL Normal [facility] Comment on above: Performed By: #### P SASC, IRON #### [facility] [address] [address] [address] Anibal Bishop Cholesterol.total/C holesterol in HDL [Mass ratio] 2.2 {ratio} Normal [facility] Comment on above: Performed By: #### P SASC, IRON #### [facility] [address] [address] [address] Anibal Bishop HDL NORMAL > or = 60 mg/dl - LO W CARDIOVASCULAR RISK <40 mg/dl - HIGH CARDIOVASCULAR RISK Normal [facility] Comment on above: Performed By: #### P SASC, IRON #### [facility] [address] [address] [address] Anibal Bishop LDL CALC NORMAL SEE BELOW Normal [facility] Comment on above: Result Comment: <100 mg/dl OPTIMAL 100 - 129 mg/dl NEAR OR ABOVE OPTIMAL 130 - 159 mg/dl BORDERLINE HIGH 160 - 189 mg/dl HIGH >190 mg/dl VERY HIGH Performed By: #### P SASC, IRON #### [facility] [address] [address] [address] Anibal Bishop Triglyceride [Mass/Vol] 67 mg/dL Normal <=150 [facility] Comment on above: Performed By: #### P SASC, IRON #### [facility] [address] [address] [address] Anibal Bishop VLDL CALC 13.4 mg/dL Normal [facility] Comment on above: Performed By: #### P SASC, IRON #### [facility] [address] [address] [address] Anibal Bishop PROF 14(COMP METB)on 023 Albumin [Mass/Vol] 3.6 g/dL Normal 3.4-5.0 [facility] Comment on above: Performed By: #### U HAMLET, LIPID, T7, CMP, TSH #### [facility] [address] [address] [address] Anibal Bishop Albumin/Globulin [Mass ratio] 0.9 {ratio} Normal [facility] Comment on above: Performed By: #### U HAMLET, LIPID, T7, CMP, TSH #### [facility] [address] [address] [address] Anibal Bishop ALP [Catalytic activity/Vol] 90 U/L Normal 46-116 [facility] Comment on above: Performed By: #### U HAMLET, LIPID, T7, CMP, TSH #### [facility] [address] [address] [address] Anibal Bishop ALT [Catalytic activity/Vol] 46 U/L Normal 16-63 [facility] Comment on above: Performed By: #### U HAMLET, LIPID, T7, CMP, TSH #### [facility] [address] [address] [address] Anibal Bishop Anion gap [Moles/Vol] 13.4 mmol/L Normal [facility] Comment on above: Performed By: #### U HAMLET, LIPID, T7, CMP, TSH #### [facility] [address] [place] [address] Dr. Anibal Bishop AST [Catalytic activity/Vol] 26 U/L Normal 15-37 [facility] Comment on above: Performed By: #### U HAMLET, LIPID, T7, CMP, TSH #### [facility] [address] [place] [address] Dr. Anibal Bishop Bilirubin [Mass/Vol] 0.6 mg/dL Normal 0.2-1.0 [facility] Comment on above: Performed By: #### U HAMLET, LIPID, T7, CMP, TSH #### [facility] [address] [place] [address] Dr. Anibal Bishop Calcium [Mass/Vol] 9.6 mg/dL Normal 8.5-10.1 [facility] Comment on above: Performed By: #### U HAMLET, LIPID, T7, CMP, TSH #### [facility] [address] [place] [address] Dr. Anibal Bishop Chloride [Moles/Vol] 103 mmol/L Normal 98-107 [facility] Comment on above: Performed By: #### U HAMLET, LIPID, T7, CMP, TSH #### [facility] [address] [address] [address] Anibal Bishop CO2 [Moles/Vol] 27.9 mmol/L Normal 21.0-32.0 [facility] Comment on above: Performed By: #### U HAMLET, LIPID, T7, CMP, TSH #### [facility] [address] [place] [address] Dr. Anibal Bishop Creatinine [Mass/Vol] 0.91 mg/dL Normal 0.70-1.30 [facility] Comment on above: Performed By: #### U HAMLET, LIPID, T7, CMP, TSH #### [facility] [address] [address] [address] Anibal Bishop EGFR-AF SRI LANKAN >60 Normal >=60 [facility] Comment on above: Performed By: #### U HAMLET, LIPID, T7, CMP, TSH #### [facility] [address] [address] [address] Anibal Bishop EGFR-NON AF SRI LANKAN >60 Normal >=60 [facility] Comment on above: Performed By: #### U HAMLET, LIPID, T7, CMP, TSH #### [facility] [address] [address] [address] Anibal Bishop Globulin (S) [Mass/Vol] 3.9 g/dL Normal [facility] Comment on above: Performed By: #### U HAMLET, LIPID, T7, CMP, TSH #### [facility] [address] [address] [address] Anibal Bishop Glucose [Mass/Vol] 103 mg/dL Normal 74-106 [facility] Comment on above: Performed By: #### U HAMLET, LIPID, T7, CMP, TSH #### [facility] [address] [address] [address] Anibal Bishop Potassium [Moles/Vol] 4.3 mmol/L Normal 3.5-5.1 [facility] Comment on above: Performed By: #### U HAMLET, LIPID, T7, CMP, TSH #### [facility] [address] [address] [address] Anibal Bishop Protein [Mass/Vol] 7.5 g/dL Normal 6.4-8.2 [facility] Comment on above: Performed By: #### U HAMLET, LIPID, T7, CMP, TSH #### [facility] [address] [address] [address] Anibal Bishop Sodium [Moles/Vol] 140 mmol/L Normal 136-145 [facility] Comment on above: Performed By: #### U HAMLET, LIPID, T7, CMP, TSH #### [facility] [address] [address] [address] Anibal Bishop Urea nitrogen [Mass/Vol] 12.0 mg/dL Normal 7.0-18.0 [facility] Comment on above: Performed By: #### U HAMLET, LIPID, T7, CMP, TSH #### [facility] [address] [address] [address] Anibal Bishop Urea nitrogen/Creatinine [Mass ratio] 13.2 mg/mg Normal [facility] Comment on above: Performed By: #### U HAMLET, LIPID, T7, CMP, TSH #### [facility] [address] [address] [address] Anibal Bishop TSHon 03-20-2022 TSH 2.763 uIU/mL Normal 0.358-3.740 [facility] Comment on above: Performed By: #### U HAMLET, LIPID, T7, CMP, TSH #### [facility] [address] [place] [address] Dr. Anibal Bishop URIC ACID SERUMon 03-20-2022 Urate [Mass/Vol] 5.3 mg/dL Normal 3.5-7.2 [facility] Comment on above: Performed By: #### U HAMLET, LIPID, T7, CMP, TSH #### [facility] [address] [place] [address] Dr. Anibal Bishop COMPLIANCE DRUG SCREENon PDF . Normal [facility] Comment on above: Performed By: #### P SASC, IRON #### [facility] [address] [place] [address] Dr. Anibal Bishop Summary FINAL Normal [facility] Comment on above: Result Comment: == TOXASSURE [...] test is not intended to distinguish between vhhat-[id number], the predominant form of THC in most herbal or marijuana-based products, and uezwm-2-lwrfwkueydrysbkvrhgl. Fentanyl 1 UNEXPECTED ng/mg creat Norfentanyl 7 [...] Performed By: #### P SASC, IRON #### [facility] [address] [address] [address] Anibal Bishop URIC ACID RAND URINEon 01-05 Uric Acid, Urine 45.6 mg/dL Normal Not Estab. [facility] Comment on above: Performed By: #### P SASC, IRON #### [facility] [address] [place] [address] Dr. Anibal Bishop COMPLIANCE DRUG SCREENon PDF . Normal [facility] Comment on above: Performed By: #### P SASC, IRON #### [facility] [address] [place] [address] Dr. Anibal Bishop Summary FINAL Normal [facility] Comment on above: Result Comment: == TOXASSURE [...] Performed By: #### P SASC, IRON #### [facility] [address] [place], [place] [address] Dr. Anibal Bishop URIC ACID RAND URINEon 11-11 Uric Acid, Urine 57.4 mg/dL Normal Not Estab. [facility] Comment on above: Performed By: #### U RICUR #### [facility] [address] [place], [place] [address] Dr. Anibal Bishop COMPLIANCE DRUG SCREENon PDF . Normal [facility] Comment on above: Performed By: #### P SASC, IRON #### [facility] [address] [place], [place] [address] Dr. Anibal Bishop Summary FINAL Normal [facility] Comment on above: Result [...] Performed By: #### P SASC, IRON #### [facility] [address] [place] [address] Dr. Anibal Bishop URIC ACID RAND URINEon 10-12 Uric Acid, Urine 58.7 mg/dL Normal Not Estab. [facility] Comment on above: Performed By: #### U RICUR #### [facility] [address] [place] [address] Dr. Anibal Bishop COMPLIANCE DRUG SCREENon PDF . Normal [facility] Comment on above: Performed By: #### D SDOALC #### [facility] [address] [place] [address] Dr. Anibal Bishop Summary FINAL [facility] Comment on above: Result Comment: == TOXASSURE [...] == Performed By: #### D SDOALC #### [facility] [address] [address] [address] Anibal Bishop URIC ACID RAND URINEon 09-12 Uric Acid, Urine 62.7 mg/dL Normal Not Estab. [facility] Comment on above: Performed By: #### P SASC, IRON #### [facility] [address] [address] [address] Anibal Bishop COMPLIANCE DRUG SCREENon PDF . Normal [facility] Comment on above: Performed By: #### D SDOALC #### [facility] [address] [address] [address] Anibal Bishop Summary FINAL Normal [facility] Comment on above: Result [...] == Performed By: #### D SDOALC #### [facility] [address] [address] [address] Anibal Bishop URIC ACID RAND URINEon 08-11 Uric Acid, Urine 21.4 mg/dL Normal Not Estab. [facility] Comment on above: Performed By: #### P SASC, IRON #### [facility] [address] [address] [address] Anibal Bishop CNCOon 03-02-2018 CNCO Letter Text Ann-Marie Schwarz CNP [facility] [address] [place] [address], [address] Phone: [phone] Fax: [phone] March 02, 2018 Nasrin Kim [id number] [address] Anderson, This is in [...] sign and fax response MARY JO to [phone]. Questions can be referred to the nursing desk at and ask for Ann-Marie Schwarz CNP. Suboxone weaning instructions: comments: Physician signature: X Date: Ann-Marie Fairchild, [facility] EKon 02-24-2018 EKG1 NAME : NASRIN KIM PID : [id number] : 1955 Gender : Male Race : [...] ms QTC Calculation(Bezet) : 384 ms P [place] : 51 degrees R [place] : 34 degrees T [place] : 39 degrees Test Reason : pre op Location : 145 : [place]ARD Overread By : PAMELA LATHAM M.D. Edited By : PAMELA LATHAM M.D. Referred By : CHANCE COHEN Acquired by : am, Normal [facility] HISTORY PHYSICALon HISTORY PHYSICAL HNO ID: [id number] Author: Ann-Marie Currie) Karishma Service: (none) Author [...] Remission ([facility]) Closed Tbi (Traumatic Brain Injury) ([facility]) S/P Lumbar Discectomy Incomplete Tear [...] hepatitis C - Narcotic abuse in remission ([facility]) Dr. Anderson - - S/P lumbar discectomy PAST SURGICAL HISTORY Procedure Laterality Date - PAST SURGICAL HISTORY OF bilateral wrist due to carpal tunnel Dr. Kent ` - PAST SURGICAL HISTORY OF 94 or 95 left Shoulder - [place] ANESTH,LUMBAR SPINE,CORD SURGERY no hardware - VASECTOMY [...] , contrave use. Dr. Anderson manages suboxone- [place] MEDICATIONS: Prior to Admission medications as of [...] requiring medication, no history of angina, CHF, MS, cardiac surgery or stents. Denies rest pain, [...] 2018 TIME: 8:58 AM PAGER/CONTACT #: Isa [facility] CNOVon 02-17-2018 CNOV Office Visit (SPRTST ) -------- JULIONASRIN Alas ([id number]) 1955 M Date Time Provider Department 02/17/18 [...] 02/17/2018 4:02 PM Signed Chance Cohen M.D. manual arts therapy teacher Director,[facility] [address] [facility] [place] [address] INITIAL ENCOUNTER Chief Complaint: Left shoulder pain [...] distal clavicle excision by Dr. Lutz in [place], [place] in 1992. 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 He denies having any neck pain, radicular pain, numbness/tingling in the arm. Patient does not note any associated mechanical symptoms. History of prior injury or surgery opposite shoulder: Yes: as above [facility]? : No. 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 Normal [facility] Protein mass conc HNO ID: [id number] Author: Chance Cohen Service: (none) Author Type: Physician Type: Progress Notes Filed: 02/17/2018 4:02 PM Note Text: Chance Cohen M.D. manual arts therapy teacher Director,[facility] [address] [place] [address] INITIAL ENCOUNTER Chief Complaint: Left shoulder pain [...] distal clavicle excision by Dr. Lutz in [place], [place] in 1992. 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 He denies having any neck pain, radicular pain, numbness/tingling in the arm. Patient does not note any associated mechanical symptoms. History of prior injury or surgery opposite shoulder: Yes: as above [facility]? : No. 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 Mart Anderson [facility] Protein mass conc HNO ID: [id number] Author: Chance Cohen Service: (none) Author Type: [...] were answered by the attending physician. Normal [facility] Protein mass conc HNO ID: [id number] Author: Lizy Steward (Rt) Jaleel Service: (none) Author Type: News Video Editor Type: Progress Notes Filed: 02/17/2018 1:57 PM [...] RT Aleena February 17, 2018 1:57 PM [facility] XR SHLDR >/=3V AP/VALERIO AP/OTH R LTon [...] be postsurgical. - IMPRESSION: NO ACUTE FINDINGS. 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 Transcribe Date/Time: Feb 17 2018 2:37P Dictated by : SUMIT BRANCH MD This examination was interpreted and the report reviewed and electronically signed by: SUMIT BRANCH MD on Feb 17 2018 2:38PM EST [id number] Normal [facility] OT-MRI SHOULDER LT WO CON IM PORTon 09-25-2017 OT-MRI SHOULDER LT WO CON IMPORT Images were obtained outside of [employer] [id number] Normal [facility] Encounters Encounter Date Encounter Type Care Provider [...] Encounter for other preprocedural examination CHANCE COHEN [facility] Start: 02-24-2018 End: 02-24-2018 Patient encounter procedure CHANCE Gonzales NOEL [facility] Start: 02-17-2018 End: 02-18-2018 Patient encounter procedure CHANCE Gonzales NOEL [facility] Procedures Date Procedure Procedure Detail Performing Clinician Start: 03-20-[address] BEBETO ANDERSON . Comment on above: Performed By: #### P [facility] #### [facility] [address] [place] [address] Dr. Anibal Bishop Payers Date Payer Category Payer Medicare [id number] 1955 Unknown [id number] 2.16.84 [id number] 1955 Unknown [id number] 2.16.84 [id number] 1955 Unknown [id number] 2.16.84 [id number] 1955 Unknown [id number] 2.16.84 [id number] 1955 Unknown [id number] 2.16.84 [id number] 1955 Unknown [id number] 2.16.84 [id number] 1955 Unknown [id number] 2.16.84 [id number] 1955 Unknown [id number] 2.16.84 [id number] Summary Purpose Family History No Family History Records FoundNo Family History Records Found Advance Directives No Advanced Directives Records FoundNo Advanced Directives Records Found Additional Source Comments (unrecognized sect ion and content) No Status Records FoundNo Status Records Found INFORMATION SOURCE (unrecogn ized section and content) DATE CREATED AUTHOR 03/12/2018 [facility] DATE CREATED AUTHOR AUTHOR'S DANIELIZ ATION 06/15/2022 [facility] FOR RECORDS PERTAINING TO PATIENTS WHO ARE [...] BE BASED ON THE PRIMARY CLINICAL RECORDS. [employer] provides no warranty or guarantee of the accuracy or completeness of information in this document.
[2023-05-12 16:53] LABS: Amphetamine Screen Urine NEGATIVE (NEGATIVE); Barbiturates Screen Urine NEGATIVE (NEGATIVE); Benzodiazepines Screen Urine NEGATIVE (NEGATIVE); Buprenorphine Screen Urine NEGATIVE (NEGATIVE); Cannabinoid Screen Urine NEGATIVE (NEGATIVE); Cocaine Screen Urine NEGATIVE (NEGATIVE); Methadone Screen Urine NEGATIVE (NEGATIVE); Methamphetamines Screen Urine NEGATIVE (NEGATIVE); Opiate Screen Urine NEGATIVE (NEGATIVE); Oxycodone Screen Urine NEGATIVE (NEGATIVE); Phencyclidine Screen Urine NEGATIVE (NEGATIVE); Tricyclic Antidepressant Urine NEGATIVE (NEGATIVE)
[2023-05-14 08:11] LABS: Uric Acid, Urine 8.6 mg/dL (Not Estab.)
[2023-05-18 12:07] LABS: Summary Report (Summary) FINAL (.)
== END 2023-05-12 16:19 | disposition home or self-care (01) ==
LOC: LAB 16:18
PROVIDERS: PCP Family Medicine; Visit Provider Family Medicine
DX: F11.10 Opioid abuse, uncomplicated (principal); Z79.899 Other long term (current) drug therapy
CPT/HCPCS: 80307; 80326; 80331; 80334; 80337; 80338; 80341; 80344; 80346; 80348; 80353; 80354; 80355; 80357; 80358; 80359; 80360; 80361; 80364; 80365; 80366; 80367; 80368; 80370; 80371; 80372; 80373; 80377; 82570; 83992; 84560

== ENCOUNTER 2023-06-10 15:30 | Outpatient (OUT) | payer MEDICARE, SELFPAY ==
[2023-06-10 15:56] LABS: Amphetamine Screen Urine NEGATIVE (NEGATIVE); Barbiturates Screen Urine NEGATIVE (NEGATIVE); Benzodiazepines Screen Urine NEGATIVE (NEGATIVE); Buprenorphine Screen Urine POSITIVE (NEGATIVE); Cannabinoid Screen Urine NEGATIVE (NEGATIVE); Cocaine Screen Urine NEGATIVE (NEGATIVE); Methadone Screen Urine NEGATIVE (NEGATIVE); Methamphetamines Screen Urine NEGATIVE (NEGATIVE); Opiate Screen Urine NEGATIVE (NEGATIVE); Oxycodone Screen Urine NEGATIVE (NEGATIVE); Phencyclidine Screen Urine NEGATIVE (NEGATIVE); Tricyclic Antidepressant Urine NEGATIVE (NEGATIVE)
[2023-06-11 09:12] LABS: Uric Acid, Urine 20.7 mg/dL (Not Estab.)
== END 2023-06-10 15:31 | disposition home or self-care (01) ==
LOC: LAB 15:31
PROVIDERS: PCP Family Medicine; Visit Provider Family Medicine
DX: F11.10 Opioid abuse, uncomplicated (principal); Z79.899 Other long term (current) drug therapy
CPT/HCPCS: 80307; 80326; 80331; 80334; 80337; 80338; 80341; 80344; 80346; 80348; 80353; 80354; 80355; 80357; 80358; 80359; 80360; 80361; 80364; 80365; 80366; 80367; 80368; 80370; 80371; 80372; 80373; 80377; 82570; 83992; 84560

== ENCOUNTER 2023-08-13 15:41 | Outpatient (OUT) | payer MEDICARE, SELFPAY ==
--- OUTSIDE RECORDS SUMMARY | 2023-08-13 15:45 | XMS_ITS | CCD ---
Author Organization [facility] Care Team Providers Care Appliance Technician Name Role Phone HOY ., DR CEVALLOS Admitting Unavailable HOY [...] CEVALLOS Consulting Unavailable HOY ., DR CEVALLOS Admcornelio Unavailable HOY ., DR CEVALLOS Attending Unavailable HOY ., DR CEVALLOS Primary Care Unavailable HOY ., DR CEVALLOS Consulting Unavailable HOY ., DR CEVALLOS Admcornelio Unavailable HOY ., DR CEVALLOS Attending Unavailable HOY ., DR CEVALLOS Primary Care Unavailable HOY ., DR CEVALLOS Consulting Unavailable HOY ., DR CEVALLOS Admcornelio Unavailable HOY ., DR CEVALLOS Attending Unavailable HOY ., DR CEVALLOS Primary Care Unavailable HOY ., DR MART Sawyer Unavailable CHANCE COHEN Referring Unavailabl e Problems Active Problems Problem Classification Problem Date Documented Da [...] lower urinary tract symptoms] Onset: 02-24-2018 Chronic Mood disorders (1 source) Mood disorders; Translations: [DEPRESSION UNSPECIFIED] Onset: 03-21-2022 Other aftercare (5 sources) Other detention (current) drug therapy; 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] Onset: 03-21-2022 Episodic Other connective tissue disease (4 sources) [...] malignant neoplasm of rectum] Onset: 03-21-2022 Episodic Substance-related disorders (10 sources) Opioid abuse, uncomplicated; Translations: [Other psychoactive substance abuse, uncomplicated] Onset: 01-22-2013 Chronic Past or Other Problems Problem Classification Problem Date Documented Da te Episodic/Chronic Intracranial injury (1 source) Personal history of traumatic brain injury; Translations: [Personal history of traumatic brain injury] Onset: 02-24-2018 Episodic Nutritional deficiencies (1 source) Deficiency of other specified B group vitamins; Translations: [Deficiency of other specified B group vitamins] Onset: 02-24-2018 Episodic Other connective tissue disease (1 source) Complete rotator cuff tear or rupture of left shoulder, not specified as traumatic; Translations: [Complete rotator cuff tear or rupture of left shoulder, not specified as traumatic] Onset: 02-24-2018 Episodic Sprains and strains (1 source) Strain of muscle, fascia and tendon of other parts of biceps, left arm, subsequent encounter; Translations: [Strain of muscle, fascia and tendon of other parts of biceps, left arm, subsequent encounter] Onset: 02-23-2018 Episodic Results Test Name Value Interpretation Reference Range Facility COMPLIANCE DRUG SCREENon PDF . Normal [facility] Comment on above: Performed By: #### U RICRHINA #### [facility] [address] [address] [address] Anibal Bishop Summary FINAL Normal [facility] Comment on above: Result Comment: === TOXASSURE COMP DRUG ANALYSIS,UR === Test Result Flag Units Drug Present and Declared for Prescription Verification Buprenorphine 107 EXPECTED ng/mg creat Norbuprenorphine 125 EXPECTED ng/mg creat Source of buprenorphine is a scheduled prescription medication. Norbuprenorphine is an expected metabolite of buprenorphine. Drug Present not Declared for Prescription Verification Diclofenac PRESENT UNEXPECTED === Test Result Flag Units Ref Range Creatinine 228 mg/dL >=20 === Declared Medications: The flagging and interpretation on this report are based on the following declared medications. Unexpected results may arise from inaccuracies in the declared medications. Note: The testing scope of this panel includes these medications: Buprenorphine. (Suboxone) Note: The testing scope of this panel does not include following reported medications: Naloxone (Suboxone) === For clinical consultation, please call . === Performed By: #### U RICUR #### [facility] [address] [place] [address] Dr. Anibal Bishop URIC ACID RAND URINEon 06-11 Uric Acid, Urine 4.0 mg/dL Normal Not Estab. [facility] Comment on above: Performed By: #### U RICUR #### [facility] [address] [place] [address] Dr. Anibal Bishop COMPLIANCE DRUG SCREENon PDF . Normal [facility] Comment on above: Performed By: #### P SASC, IRON #### [facility] [address] [place] [address] Dr. Anibal Bishop Summary FINAL Normal [facility] Comment on above: Result Comment: === TOXASSURE COMP DRUG ANALYSIS,UR === Test Result Flag Units Drug Present and Declared for Prescription Verification Buprenorphine 19 EXPECTED ng/mg creat Norbuprenorphine 87 EXPECTED ng/mg creat Source of buprenorphine is a scheduled prescription medication. Norbuprenorphine is an expected metabolite of buprenorphine. === Test Result Flag Units Ref Range Creatinine 78 mg/dL >=20 === Declared Medications: The flagging and interpretation on this report are based on the following declared medications. Unexpected results may arise from inaccuracies in the declared medications. Note: The testing scope of this panel includes these medications: Buprenorphine. (Suboxone) Note: The testing scope of this panel does not include following reported medications: Naloxone (Suboxone) === For clinical consultation, please call . === Performed By: #### P SASC, IRON #### [facility] [address] [place] [address] Dr. Anibal Bishop INSULINon 03-21-2022 Insulin 18.3 uIU/mL Normal 2.6-24.9 [facility] Comment on above: Performed By: #### U RICUR #### [facility] [address] [place] [address] Dr. Anibal Bishop URIC ACID RAND URINEon 03-21 Uric Acid, Urine 26.8 mg/dL Normal Not Estab. [facility] Comment on above: Performed By: #### U RICUR #### [facility] [address] [place] [address] Dr. Anibal Bishop CBC AUTO DIFFon 03-20-2022 BASO # 0.0 103/ul Normal 0.0-0.1 [facility] Comment on above: Performed By: #### P SASC, IRON #### [facility] [address] [place] [address] Dr. Anibal Bishop Basophils/100 WBC (Bld) 0.6 % Normal 0.2-2.0 [facility] Comment on above: Performed By: #### P SASC, IRON #### [facility] [address] [place] [address] Dr. Anibal Bishop EO # 0.2 103/ul Normal 0.0-0.7 [facility] Comment on above: Performed By: #### P SASC, IRON #### [facility] [address] [place] [address] Dr. Anibal Bishop Eosinophils/100 WBC (Bld) 3.5 % Normal 0.9-7.0 [facility] Comment on above: Performed By: #### P SASC, IRON #### [facility] [address] [place] [address] Dr. Anibal Bishop Erythrocyte distribution width (RBC) [Ratio] 14.1 % Normal 11.0-15.0 [facility] Comment on above: Performed By: #### P SASC, IRON #### [facility] [address] [place] [address] Dr. Anibal Bishop Hematocrit (Bld) [Volume fraction] 44.6 % Normal 42.0-54.0 [facility] Comment on above: Performed By: #### P SASC, IRON #### [facility] [address] [place] [address] Dr. Anibal Bishop Hemoglobin (Bld) [Mass/Vol] 14.3 g/dL Normal 14.0-18.0 [facility] Comment on above: Performed By: #### P SASC, IRON #### [facility] [address] [address] [address] Anibal Bishop IG # 0.02 10e3/ul Normal 0.00-0.03 [facility] Comment on above: Performed By: #### P SASC, IRON #### [facility] [address] [address] [address] Anibal Bishop IG % 0.4 % Normal 0.0-0.5 [facility] Comment on above: Performed By: #### P SASC, IRON #### [facility] [address] [address] [address] Anibal Bishop LYMPH # 0.8 103/ul Critically low 1.2-3.8 [facility] Comment on above: Performed By: #### P SASC, IRON #### [facility] [address] [address] [address] Anibal Bishop Lymphocytes/100 WBC (Bld) 17.1 % Critically low 20.5-60.0 [facility] Comment on above: Performed By: #### P SASC, IRON #### [facility] [address] [address] [address] Anibal Bishop MANUAL DIFF REQ NO Normal [facility] Comment on above: Performed By: #### P SASC, IRON #### [facility] [address] [address] [address] Anibal Bishop MCH (RBC) [Entitic mass] 29.9 pg Normal 25.9-34.0 [facility] Comment on above: Performed By: #### P SASC, IRON #### [facility] [address] [address] [address] Anibal Bishop MCHC (RBC) [Mass/Vol] 32.1 g/dL Normal 29.9-35.2 [facility] Comment on above: Performed By: #### P SASC, IRON #### [facility] [address] [address] [address] Anibal Bishop MCV (RBC) [Entitic vol] 93.3 fL Normal 80.0-94.0 [facility] Comment on above: Performed By: #### P SASC, IRON #### [facility] [address] [place] [address] Dr. Anibal Bishop MONO # 0.6 103/ul Normal 0.3-0.8 [facility] Comment on above: Performed By: #### P SASC, IRON #### [facility] [address] [place] [address] Dr. Anibal Bishop Monocytes/100 WBC (Bld) 12.5 % Critically high 1.7-12.0 [facility] Comment on above: Performed By: #### P SASC, IRON #### [facility] [address] [place] [address] Dr. Anibal Bishop NEUT # 3.2 103/ul Normal 1.4-6.5 [facility] Comment on above: Performed By: #### P SASC, IRON #### [facility] [address] [place] [address] Dr. Anibal Bishop Neutrophils/100 WBC (Bld) 65.9 % Normal 43.0-75.0 [facility] Comment on above: Performed By: #### P SASC, IRON #### [facility] [address] [place] [address] Dr. Anibal Bishop Platelet mean volume (Bld) [Entitic vol] 9.0 fL Critically low 9.5-13.5 [facility] Comment on above: Performed By: #### P SASC, IRON #### [facility] [address] [place] [address] Dr. Anibal Bishop PLT 250 103/ul Normal 150-450 [facility] Comment on above: Performed By: #### P SASC, IRON #### [facility] [address] [place] [address] Dr. Anibal Bishop RBC 4.78 106/ul Normal 4.70-6.10 [facility] Comment on above: Performed By: #### P SASC, IRON #### [facility] [address] [place] [address] Dr. Anibal Bishop WBC 4.8 103/ul Normal 4.0-11.0 [facility] Comment on above: Performed By: #### P SASC, IRON #### [facility] [address] [address] [address] Anibal Bishop FREE THYROXINE INDEX T7on FTI 3.33 Normal 1.30-4.50 [facility] Comment on above: Performed By: #### U HAMLET, LIPID, T7, CMP, TSH #### [facility] [address] [address] [address] Anibal Bishop T3U 35.0 % Normal 33.0-40.0 [facility] Comment on above: Performed By: #### U HAMLET, LIPID, T7, CMP, TSH #### [facility] [address] [address] [address] Anibal Bishop T4 [Mass/Vol] 9.50 ug/dL Normal 4.50-12.10 [facility] Comment on above: Performed By: #### U HAMLET, LIPID, T7, CMP, TSH #### [facility] [address] [place] [address] Dr. Anibal Bishop GLYCOHEMOGLOBIN A1Con 2022 ADA RECOMMENDATION SEE BELOW Normal [facility] Comment on above: Result Comment: ADA RECOMMENDED LIMIT 4.0 - 6.0 ADA THERAPEUTIC TARGET < 7.0 ACTION SUGGESTED > 7.0 Performed By: #### P SASC, IRON #### [facility] [address] [place] [address] Dr. Anibal Bishop Glucose [Mass/Vol] 114 mg/dL Normal [facility] Comment on above: Performed By: #### P SASC, IRON #### [facility] [address] [address] [address] Anibal Bishop HbA1c (Bld) [Mass fraction] 5.6 % Normal 4.5-6.2 [facility] Comment on above: Performed By: #### P SASC, IRON #### [facility] [address] [place] [address] Dr. Anibal Bishop IRONon 03-20-2022 Iron [Mass/Vol] 63.0 ug/dL Critically low 65.0-175.0 [facility] Comment on above: Performed By: #### P SASC, IRON #### [facility] [address] [address] [address] Anibal Bishop LIPID PROFILEon 03-20-2022 CHOL-HDL RATIO NORM SEE BELOW Normal [facility] Comment on above: Result Comment: 3.3 - 4.4 LOW RISK 4.4 - 7.1 AVERAGE RISK 7.1 - 11.0 MODERATE RISK >11.0 HIGH RISK Performed By: #### P SASC, IRON #### [facility] [address] [address] [address] Anibal Bishop Cholesterol [Mass/Vol] 207 mg/dL Critically high <=200 [facility] Comment on above: Performed By: #### P SASC, IRON #### [facility] [address] [address] [address] Anibal Bishop Cholesterol in HDL [Mass/Vol] 96 mg/dL Critically high 40-60 [facility] Comment on above: Performed By: #### P SASC, IRON #### [facility] [address] [address] [address] Anibal Bishop Cholesterol in LDL [Mass/Vol] 97.6 mg/dL Normal [facility] Comment on above: Performed By: #### P SASC, IRON #### [facility] [address] [address] [address] Anibal Bishop Cholesterol.total/Ch olesterol in HDL [Mass ratio] 2.2 {ratio} Normal [facility] Comment on above: Performed By: #### P SASC, IRON #### [facility] [address] [address] [address] Anibal Bishop HDL NORMAL > or = 60 mg/dl - LO W CARDIOVASCULAR RISK <40 mg/dl - HIGH CARDIOVASCULAR RISK Normal [facility] Comment on above: Performed By: #### P SASC, IRON #### [facility] [address] [address] [address] Anibal Bishop LDL CALC NORMAL SEE BELOW Normal [facility] Comment on above: Result Comment: <100 mg/dl OPTIMAL 100 - 129 mg/dl NEAR OR ABOVE OPTIMAL 130 - 159 mg/dl BORDERLINE HIGH 160 - 189 mg/dl HIGH >190 mg/dl VERY HIGH Performed By: #### P SASC, IRON #### [facility] [address] [address] [address] Anibal Bishop Triglyceride [Mass/Vol] 67 mg/dL Normal <=150 [facility] Comment on above: Performed By: #### P SASC, IRON #### [facility] [address] [address] [address] Anibal Bishop VLDL CALC 13.4 mg/dL Normal [facility] Comment on above: Performed By: #### P SASC, IRON #### [facility] [address] [address] [address] Anibal Bishop PROF 14(COMP METB)on 023 Albumin [Mass/Vol] 3.6 g/dL Normal 3.4-5.0 [facility] Comment on above: Performed By: #### U HAMLET, LIPID, T7, CMP, TSH #### [facility] [address] [address] [address] Anibal Bishop Albumin/Globulin [Mass ratio] 0.9 {ratio} Normal [facility] Comment on above: Performed By: #### U HAMLET, LIPID, T7, CMP, TSH #### [facility] [address] [address] [address] Anibal Bishop ALP [Catalytic activity/Vol] 90 U/L Normal 46-116 [facility] Comment on above: Performed By: #### U HAMLET, LIPID, T7, CMP, TSH #### [facility] [address] [address] [address] Anibal Bishop ALT [Catalytic activity/Vol] 46 U/L Normal 16-63 [facility] Comment on above: Performed By: #### U HAMLET, LIPID, T7, CMP, TSH #### [facility] [address] [address] [address] Anibal Bishop Anion gap [Moles/Vol] 13.4 mmol/L Normal [facility] Comment on above: Performed By: #### U HAMLET, LIPID, T7, CMP, TSH #### [facility] [address] [address] [address] Anibal Bishop AST [Catalytic activity/Vol] 26 U/L Normal 15-37 [facility] Comment on above: Performed By: #### U HAMLET, LIPID, T7, CMP, TSH #### [facility] [address] [address] [address] Anibal Bishop Bilirubin [Mass/Vol] 0.6 mg/dL Normal 0.2-1.0 [facility] Comment on above: Performed By: #### U HAMLET, LIPID, T7, CMP, TSH #### [facility] [address] [address] [address] Anibal Bishop Calcium [Mass/Vol] 9.6 mg/dL Normal 8.5-10.1 [facility] Comment on above: Performed By: #### U HAMLET, LIPID, T7, CMP, TSH #### [facility] [address] [address] [address] Anibal Bishop Chloride [Moles/Vol] 103 mmol/L Normal 98-107 [facility] Comment on above: Performed By: #### U HAMLET, LIPID, T7, CMP, TSH #### [facility] [address] [address] [address] Anibal Bishop CO2 [Moles/Vol] 27.9 mmol/L Normal 21.0-32.0 [facility] Comment on above: Performed By: #### U HAMLET, LIPID, T7, CMP, TSH #### [facility] [address] [place] [address] Dr. Anibal Bishop Creatinine [Mass/Vol] 0.91 mg/dL Normal 0.70-1.30 [facility] Comment on above: Performed By: #### U HAMLET, LIPID, T7, CMP, TSH #### [facility] [address] [place] [address] Dr. Anibal Bishop EGFR-AF LIBYAN >60 Normal >=60 [facility] Comment on above: Performed By: #### U HAMLET, LIPID, T7, CMP, TSH #### [facility] [address] [address] [address] Anibal Bishop EGFR-NON AF LIBYAN >60 Normal >=60 [facility] Comment on above: Performed By: #### U HAMLET, LIPID, T7, CMP, TSH #### [facility] [address] [address] [address] Anibal Bishop Globulin (S) [Mass/Vol] 3.9 g/dL Normal [facility] Comment on above: Performed By: #### U HAMLET, LIPID, T7, CMP, TSH #### [facility] [address] [address] [address] Anibal Bishop Glucose [Mass/Vol] 103 mg/dL Normal 74-106 [facility] Comment on above: Performed By: #### U HAMLET, LIPID, T7, CMP, TSH #### [facility] [address] [address] [address] Anibal Bishop Potassium [Moles/Vol] 4.3 mmol/L Normal 3.5-5.1 [facility] Comment on above: Performed By: #### U HAMLET, LIPID, T7, CMP, TSH #### [facility] [address] [address] [address] Anibal Bishop Protein [Mass/Vol] 7.5 g/dL Normal 6.4-8.2 [facility] Comment on above: Performed By: #### U HAMLET, LIPID, T7, CMP, TSH #### [facility] [address] [address] [address] Anibal Bishop Sodium [Moles/Vol] 140 mmol/L Normal 136-145 [facility] Comment on above: Performed By: #### U HAMLET, LIPID, T7, CMP, TSH #### [facility] [address] [address] [address] Anibal Bishop Urea nitrogen [Mass/Vol] 12.0 mg/dL Normal 7.0-18.0 [facility] Comment on above: Performed By: #### U HAMLET, LIPID, T7, CMP, TSH #### [facility] [address] [address] [address] Anibal Bishop Urea nitrogen/Creatinine [Mass ratio] 13.2 mg/mg Normal [facility] Comment on above: Performed By: #### U HAMLET, LIPID, T7, CMP, TSH #### [facility] [address] [address] [address] Anibal Bishop TSHon 03-20-2022 TSH 2.763 uIU/mL Normal 0.358-3.740 [facility] Comment on above: Performed By: #### U HAMLET, LIPID, T7, CMP, TSH #### [facility] [address] [address] [address] Anibal Bishop URIC ACID SERUMon 03-20-2022 Urate [Mass/Vol] 5.3 mg/dL Normal 3.5-7.2 [facility] Comment on above: Performed By: #### U HAMLET, LIPID, T7, CMP, TSH #### [facility] [address] [place] [address] Dr. Anibal Bishop COMPLIANCE DRUG SCREENon PDF . Normal [facility] Comment on above: Performed By: #### P SASC, IRON #### [facility] [address] [place] [address] Dr. Anibal Bishop Summary FINAL Normal [facility] Comment on above: Result Comment: === TOXASSURE COMP DRUG ANALYSIS,UR === Test Result Flag Units Drug Present and [...] test is not intended to distinguish between [id number], the predominant form of THC in most herbal or marijuana-based products, and [id number]. Fentanyl 1 UNEXPECTED ng/mg creat Norfentanyl 7 UNEXPECTED ng/mg creat Source of fentanyl is a scheduled prescription medication, including IV, patch, and transmucosal formulations. Norfentanyl is an expected metabolite of fentanyl. Diclofenac PRESENT UNEXPECTED === Test Result Flag Units Ref Range Creatinine 160 mg/dL >=20 === Declared Medications: The flagging and interpretation on this report are based on the following declared medications. Unexpected results may arise from inaccuracies in the declared medications. Note: The testing scope of this panel includes these medications: Buprenorphine. (Suboxone) PM Note: The testing scope of this panel does not include following reported medications: Naloxone (Suboxone) PM === For clinical consultation, please call . === Performed By: #### P SASC, IRON #### [facility] [address] [address] [address] Anibal Bishop URIC ACID RAND URINEon 01-05 Uric Acid, Urine 45.6 mg/dL Normal Not Estab. [facility] Comment on above: Performed By: #### P SASC, IRON #### [facility] [address] [address] [address] Anibal Bishop COMPLIANCE DRUG SCREENon PDF . Normal [facility] Comment on above: Performed By: #### P SASC, IRON #### [facility] [address] [address] [address] Anibal Bishop Summary FINAL Normal [facility] Comment on above: Result Comment: === TOXASSURE COMP DRUG ANALYSIS,UR === Test Result Flag Units Drug Present and Declared for Prescription Verification Buprenorphine 72 EXPECTED ng/mg creat Norbuprenorphine 164 EXPECTED ng/mg creat Source of buprenorphine is a scheduled prescription medication. Norbuprenorphine is an expected metabolite of buprenorphine. Drug Present not Declared for Prescription Verification Diclofenac PRESENT UNEXPECTED === Test Result Flag Units Ref Range Creatinine 180 mg/dL >=20 === Declared Medications: The flagging and interpretation on this report are based on the following declared medications. Unexpected results may arise from inaccuracies in the declared medications. Note: The testing scope of this panel includes these medications: Buprenorphine. (Suboxone) PM Note: The testing scope of this panel does not include following reported medications: Naloxone (Suboxone) PM === For clinical consultation, please call . === Performed By: #### P SASC, IRON #### [facility] [address] [place] [address] Dr. Anibal Bishop URIC ACID RAND URINEon 11-11 Uric Acid, Urine 57.4 mg/dL Normal Not Estab. [facility] Comment on above: Performed By: #### U RICUR #### [facility] [address] [address] [address] Anibal Bishop COMPLIANCE DRUG SCREENon PDF . Normal [facility] Comment on above: Performed By: #### P SASC, IRON #### [facility] [address] [address] [address] Anibal Bishop Summary FINAL Normal [facility] Comment on above: Result Comment: === TOXASSURE COMP DRUG ANALYSIS,UR === Test Result Flag Units Drug Present and Declared for Prescription Verification Buprenorphine 94 EXPECTED ng/mg creat Norbuprenorphine 107 EXPECTED ng/mg creat Source of buprenorphine is a scheduled prescription medication. Norbuprenorphine is an expected metabolite of buprenorphine. Drug Present not Declared for Prescription Verification Diclofenac PRESENT UNEXPECTED === Test Result Flag Units Ref Range Creatinine 244 mg/dL >=20 === Declared Medications: The flagging and interpretation on this report are based on the following declared medications. Unexpected results may arise from inaccuracies in the declared medications. Note: The testing scope of this panel includes these medications: Buprenorphine. (Suboxone) PM Note: The testing scope of this panel does not include following reported medications: Naloxone (Suboxone) PM === For clinical consultation, please call . === Performed By: #### P SASC, IRON #### [facility] [address] [address] [address] Anibal Bishop URIC ACID RAND URINEon 10-12 Uric Acid, Urine 58.7 mg/dL Normal Not Estab. [facility] Comment on above: Performed By: #### U RICUR #### [facility] [address] [address] [address] Anibal Bishop COMPLIANCE DRUG SCREENon PDF . Normal [facility] Comment on above: Performed By: #### D SDOALC #### [facility] [address] [place] [address] Dr. Anibal Bishop Summary FINAL Normal [facility] Comment on above: Result Comment: === TOXASSURE COMP DRUG ANALYSIS,UR === Test Result Flag Units Drug Present and Declared for Prescription Verification Buprenorphine 59 EXPECTED ng/mg creat Norbuprenorphine 163 EXPECTED ng/mg creat Source of buprenorphine is a scheduled prescription medication. Norbuprenorphine is an expected metabolite of buprenorphine. Drug Present not Declared for Prescription Verification Diclofenac PRESENT UNEXPECTED === Test Result Flag Units Ref Range Creatinine 163 mg/dL >=20 === Declared Medications: The flagging and interpretation on this report are based on the following declared medications. Unexpected results may arise from inaccuracies in the declared medications. Note: The testing scope of this panel includes these medications: Buprenorphine. (Suboxone) Note: The testing scope of this panel does not include following reported medications: Naloxone (Suboxone) === For clinical consultation, please call . === Performed By: #### D SDOALC #### [facility] [address] [place] [address] Dr. Anibal Bishop URIC ACID RAND URINEon 09-12 Uric Acid, Urine 62.7 mg/dL Normal Not Estab. [facility] Comment on above: Performed By: #### P SASC, IRON #### [facility] [address], [place] [address] Dr. Anibal Bishop COMPLIANCE DRUG SCREENon PDF . Normal [facility] Comment on above: Performed By: #### D SDOALC #### [facility] [address], [place] [address] Dr. Anibal Bishop Summary FINAL Normal [facility] Comment on above: Result Comment: === TOXASSURE COMP DRUG ANALYSIS,UR === Test Result Flag Units Drug Present and Declared for Prescription Verification Buprenorphine 51 EXPECTED ng/mg creat Norbuprenorphine 126 EXPECTED ng/mg creat Source of buprenorphine is a scheduled prescription medication. Norbuprenorphine is an expected metabolite of buprenorphine. === Test Result Flag Units Ref Range Creatinine 98 mg/dL >=20 === Declared Medications: The flagging and interpretation on this report are based on the following declared medications. Unexpected results may arise from inaccuracies in the declared medications. Note: The testing scope of this panel includes these medications: Buprenorphine. (Suboxone) Note: The testing scope of this panel does not include following reported medications: Naloxone (Suboxone) === For clinical consultation, please call . === Performed By: #### D SDOALC #### [facility] [address] [address] [address] Anibal Bishop URIC ACID RAND URINEon 08-11 Uric Acid, Urine 21.4 mg/dL Normal Not Estab. [facility] Comment on above: Performed By: #### P SASC, IRON #### [facility] [id number] Anibal Bishop Encounters Encounter Date Encounter Type Care Provider Facility Start: 06-10-2022 End: 06-11-[address] MART DENNISON . Facility:[facility] Start: 04-12-[address] MART DENNISON . Facili ty:[facility] Start: 03-20-2022 End: 03-21-[address] MART DENNISON . Facility:[facility] Start: 01-02-2022 End: 01-03-[address] MART DENNISON . Facility:[facility] Start: 11-09-2021 End: 11-10-[address] MART DENNISON . Facility:[facility] Start: 10-10-2021 End: 10-11-[address] MART DENNISON . Facility:[facility] Start: 09-10-2021 End: 09-11-[address] MART DENNISON . Facility:[facility] Start: 08-10-2021 End: 08-11-[address] MART DENNISON . Facility:[facility] Start: 02-24-2018 End: 02-24-2018 ambulatory CHANCE COHEN [facility] Start: 02-24-2018 Encounter for other preprocedural examination CHANCE COHEN [facility] Procedures Date Procedure Procedure Detail Performing Clinician Start: 03-20-[address] BEBETO DENNISON . Comment on above: Performed By: #### P SASC, IRON #### [facility] [address] [address] [address] Anibal Bishop Payers Date Payer Category Payer Medicare [id number] 1955 Unknown [id number] 2.16.84 [id number] 1955 Unknown [id number] 2.16.84 [id number] 1955 Unknown [id number] 2.16.84 [id number] 1955 Unknown [id number] 2.16.84 [id number] 1955 Unknown [id number] 2.16.84 [id number] 1955 Unknown [id number] 2.16.84 [id number] 1955 Unknown [id number] 2.16.84 [id number] 1955 Unknown [id number] 2.16.84 [id number] Summary Purpose Family History No Family History Records FoundNo Family History Records Found Advance Directives No Advanced Directives Records FoundNo Advanced Directives Records Found Additional Source Comments (unrecognized sect ion and content) No Status Records FoundNo Status Records Found INFORMATION SOURCE (unrecogn ized section and content) DATE CREATED AUTHOR 06/15/2022 [facility] DATE CREATED AUTHOR AUTHOR'S MICHAEL SALINAS 07/13/2023 [facility] FOR RECORDS PERTAINING TO PATIENTS WHO [...] BE BASED ON THE PRIMARY CLINICAL RECORDS. [facility] [employer] provides no warranty or guarantee of the accuracy or completeness of information in this document.
[2023-08-13 17:19] LABS: Amphetamine Screen Urine NEGATIVE (NEGATIVE); Barbiturates Screen Urine NEGATIVE (NEGATIVE); Benzodiazepines Screen Urine NEGATIVE (NEGATIVE); Buprenorphine Screen Urine NEGATIVE (NEGATIVE); Cannabinoid Screen Urine NEGATIVE (NEGATIVE); Cocaine Screen Urine NEGATIVE (NEGATIVE); Methadone Screen Urine NEGATIVE (NEGATIVE); Methamphetamines Screen Urine NEGATIVE (NEGATIVE); Opiate Screen Urine NEGATIVE (NEGATIVE); Oxycodone Screen Urine NEGATIVE (NEGATIVE); Phencyclidine Screen Urine NEGATIVE (NEGATIVE); Tricyclic Antidepressant Urine NEGATIVE (NEGATIVE)
[2023-08-14 09:09] LABS: Uric Acid, Urine 5.7 mg/dL (Not Estab.)
== END 2023-08-13 15:42 | disposition home or self-care (01) ==
LOC: LAB 15:41
PROVIDERS: PCP Family Medicine; Visit Provider Family Medicine
DX: F11.10 Opioid abuse, uncomplicated (principal); Z79.899 Other long term (current) drug therapy
CPT/HCPCS: 80307; 80326; 80331; 80334; 80337; 80338; 80341; 80344; 80346; 80348; 80353; 80354; 80355; 80357; 80358; 80359; 80360; 80361; 80364; 80365; 80366; 80367; 80368; 80370; 80371; 80372; 80373; 80377; 82570; 83992; 84560

== ENCOUNTER 2023-09-12 15:11 | Outpatient (OUT) | payer MEDICARE, SELFPAY ==
--- OUTSIDE RECORDS SUMMARY | 2023-09-12 15:19 | XMS_ITS | CCD ---
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 Normal [facility] Comment on above: Performed By: #### U RICRHINA #### [facility] [address] [address] [address] Anibal Bishop Summary FINAL Normal [facility] Comment on above: Result Comment: === TOXASSURE [...] === Performed By: #### U RICUR #### [facility] [address] [place] [address] Dr. Anibal Bishop URIC ACID RAND URINEon 06-11 Uric Acid, Urine 4.0 mg/dL Normal Not Estab. [facility] Comment on above: Performed By: #### U RICUR #### [facility] [address] [place] [address] Dr. Anibal Bishop COMPLIANCE DRUG SCREENon PDF . Normal [facility] Comment on above: Performed By: #### P SASC, IRON #### [facility] [address] [place] [address] Dr. Anibal Bishop Summary FINAL Normal [facility] Comment on above: Result Comment: === TOXASSURE [...] Performed By: #### P SASC, IRON #### [facility] [address] [place] [address] Dr. Anibal Bishop INSULINon 03-21-2022 Insulin 18.3 uIU/mL Normal 2.6-24.9 [facility] Comment on above: Performed By: #### U RICUR #### [facility] [address] [place] [address] Dr. Anibal Bishop URIC ACID RAND URINEon 03-21 Uric Acid, Urine 26.8 mg/dL Normal Not Estab. [facility] Comment on above: Performed By: #### U RICUR #### [facility] [address] [place] [address] Dr. Anibal Bishop CBC AUTO DIFFon 03-20-2022 BASO # 0.0 103/ul Normal 0.0-0.1 [facility] Comment on above: Performed By: #### P SASC, IRON #### [facility] [address] [place] [address] Dr. Anibal Bishop Basophils/100 WBC (Bld) 0.6 % Normal 0.2-2.0 [facility] Comment on above: Performed By: #### P SASC, IRON #### [facility] [address] [place] [address] Dr. Anibal Bishop EO # 0.2 103/ul Normal 0.0-0.7 [facility] Comment on above: Performed By: #### P SASC, IRON #### [facility] [address] [place] [address] Dr. Anibal Bishop Eosinophils/100 WBC (Bld) 3.5 % Normal 0.9-7.0 [facility] Comment on above: Performed By: #### P SASC, IRON #### [facility] [address] [place] [address] Dr. Anibal Bishop Erythrocyte distribution width (RBC) [Ratio] 14.1 % Normal 11.0-15.0 [facility] Comment on above: Performed By: #### P SASC, IRON #### [facility] [address] [place] [address] Dr. Anibal Bishop Hematocrit (Bld) [Volume fraction] 44.6 % Normal 42.0-54.0 [facility] Comment on above: Performed By: #### P SASC, IRON #### [facility] [address] [place] [address] Dr. Anibal Bishop Hemoglobin (Bld) [Mass/Vol] 14.3 g/dL Normal 14.0-18.0 [facility] Comment on above: Performed By: #### P SASC, IRON #### [facility] [address] [address] [address] Anibal Bishop IG # 0.02 10e3/ul Normal 0.00-0.03 [facility] Comment on above: Performed By: #### P SASC, IRON #### [facility] [address] [address] [address] Anibal Bishop IG % 0.4 % Normal 0.0-0.5 [facility] Comment on above: Performed By: #### P SASC, IRON #### [facility] [address] [address] [address] Anibal Bishop LYMPH # 0.8 103/ul Critically low 1.2-3.8 [facility] Comment on above: Performed By: #### P SASC, IRON #### [facility] [address] [address] [address] Anibal Bishop Lymphocytes/100 WBC (Bld) 17.1 % Critically low 20.5-60.0 [facility] Comment on above: Performed By: #### P SASC, IRON #### [facility] [address] [address] [address] Anibal Bishop MANUAL DIFF REQ NO Normal [facility] Comment on above: Performed By: #### P SASC, IRON #### [facility] [address] [address] [address] Anibal Bishop MCH (RBC) [Entitic mass] 29.9 pg Normal 25.9-34.0 [facility] Comment on above: Performed By: #### P SASC, IRON #### [facility] [address] [address] [address] Anibal Bishop MCHC (RBC) [Mass/Vol] 32.1 g/dL Normal 29.9-35.2 [facility] Comment on above: Performed By: #### P SASC, IRON #### [facility] [address] [address] [address] Anibal Bishop MCV (RBC) [Entitic vol] 93.3 fL Normal 80.0-94.0 [facility] Comment on above: Performed By: #### P SASC, IRON #### [facility] [address] [place] [address] Dr. Anibal Bishop MONO # 0.6 103/ul Normal 0.3-0.8 [facility] Comment on above: Performed By: #### P SASC, IRON #### [facility] [address] [place] [address] Dr. Anibal Bishop Monocytes/100 WBC (Bld) 12.5 % Critically high 1.7-12.0 [facility] Comment on above: Performed By: #### P SASC, IRON #### [facility] [address] [place] [address] Dr. Anibal Bishop NEUT # 3.2 103/ul Normal 1.4-6.5 [facility] Comment on above: Performed By: #### P SASC, IRON #### [facility] [address] [place] [address] Dr. Anibal Bishop Neutrophils/100 WBC (Bld) 65.9 % Normal 43.0-75.0 [facility] Comment on above: Performed By: #### P SASC, IRON #### [facility] [address] [place] [address] Dr. Anibal Bishop Platelet mean volume (Bld) [Entitic vol] 9.0 fL Critically low 9.5-13.5 [facility] Comment on above: Performed By: #### P SASC, IRON #### [facility] [address] [place] [address] Dr. Anibal Bishop PLT 250 103/ul Normal 150-450 [facility] Comment on above: Performed By: #### P SASC, IRON #### [facility] [address] [place] [address] Dr. Anibal Bishop RBC 4.78 106/ul Normal 4.70-6.10 [facility] Comment on above: Performed By: #### P SASC, IRON #### [facility] [address] [place] [address] Dr. Anibal Bishop WBC 4.8 103/ul Normal 4.0-11.0 [facility] Comment on above: Performed By: #### P SASC, IRON #### [facility] [address] [address] [address] Anibal Bishop FREE THYROXINE INDEX T7on FTI 3.33 Normal 1.30-4.50 [facility] Comment on above: Performed By: #### U HAMLET, LIPID, T7, CMP, TSH #### [facility] [address] [address] [address] Anibal Bishop T3U 35.0 % Normal 33.0-40.0 [facility] Comment on above: Performed By: #### U HAMLET, LIPID, T7, CMP, TSH #### [facility] [address] [address] [address] Anibal Bishop T4 [Mass/Vol] 9.50 ug/dL Normal 4.50-12.10 [facility] Comment on above: Performed By: #### U HAMLET, LIPID, T7, CMP, TSH #### [facility] [address] [place] [address] Dr. Anibal Bishop GLYCOHEMOGLOBIN A1Con 2022 ADA RECOMMENDATION SEE BELOW Normal [facility] Comment on above: Result Comment: ADA RECOMMENDED LIMIT 4.0 - 6.0 ADA THERAPEUTIC TARGET < 7.0 ACTION SUGGESTED > 7.0 Performed By: #### P SASC, IRON #### [facility] [address] [place] [address] Dr. Anibal Bishop Glucose [Mass/Vol] 114 mg/dL Normal [facility] Comment on above: Performed By: #### P SASC, IRON #### [facility] [address] [address] [address] Anibal Bishop HbA1c (Bld) [Mass fraction] 5.6 % Normal 4.5-6.2 [facility] Comment on above: Performed By: #### P SASC, IRON #### [facility] [address] [place] [address] Dr. Anibal Bishop IRONon 03-20-2022 Iron [Mass/Vol] 63.0 ug/dL Critically low 65.0-175.0 [facility] Comment on above: Performed By: #### P SASC, IRON #### [facility] [address] [address] [address] Anibal Bishop LIPID PROFILEon 03-20-2022 CHOL-HDL RATIO NORM SEE BELOW Normal [facility] Comment on above: Result Comment: 3.3 - 4.4 LOW RISK 4.4 - 7.1 AVERAGE RISK 7.1 - 11.0 MODERATE RISK >11.0 HIGH RISK Performed By: #### P SASC, IRON #### [facility] [address] [address] [address] Anibal Bishop Cholesterol [Mass/Vol] 207 mg/dL Critically high <=200 [facility] Comment on above: Performed By: #### P SASC, IRON #### [facility] [address] [address] [address] Anibal Bishop Cholesterol in HDL [Mass/Vol] 96 mg/dL Critically high 40-60 [facility] Comment on above: Performed By: #### P SASC, IRON #### [facility] [address] [address] [address] Anibal Bishop Cholesterol in LDL [Mass/Vol] 97.6 mg/dL Normal [facility] Comment on above: Performed By: #### P SASC, IRON #### [facility] [address] [address] [address] Anibal Bishop Cholesterol.total/Ch olesterol in HDL [Mass ratio] 2.2 {ratio} Normal [facility] Comment on above: Performed By: #### P SASC, IRON #### [facility] [address] [address] [address] Anibal Bishop HDL NORMAL > or = 60 mg/dl - LO W CARDIOVASCULAR RISK <40 mg/dl - HIGH CARDIOVASCULAR RISK Normal [facility] Comment on above: Performed By: #### P SASC, IRON #### [facility] [address] [address] [address] Anibal Bishop LDL CALC NORMAL SEE BELOW Normal [facility] Comment on above: Result Comment: <100 mg/dl OPTIMAL 100 - 129 mg/dl NEAR OR ABOVE OPTIMAL 130 - 159 mg/dl BORDERLINE HIGH 160 - 189 mg/dl HIGH >190 mg/dl VERY HIGH Performed By: #### P SASC, IRON #### [facility] [address] [address] [address] Anibal Bishop Triglyceride [Mass/Vol] 67 mg/dL Normal <=150 [facility] Comment on above: Performed By: #### P SASC, IRON #### [facility] [address] [address] [address] Anibal Bishop VLDL CALC 13.4 mg/dL Normal [facility] Comment on above: Performed By: #### P SASC, IRON #### [facility] [address] [address] [address] Anibal Bishop PROF 14(COMP METB)on 023 Albumin [Mass/Vol] 3.6 g/dL Normal 3.4-5.[address] [facility] Comment on above: Performed By: #### U HAMLET, LIPID, T7, CMP, TSH #### [facility] [address] [address] [address] Anibal Bishop Albumin/Globulin [Mass ratio] 0.9 {ratio} Normal [facility] Comment on above: Performed By: #### U HAMLET, LIPID, T7, CMP, TSH #### [facility] [address] [address] [address] Anibal Bishop ALP [Catalytic activity/Vol] 90 U/L Normal 46-116 [facility] Comment on above: Performed By: #### U HAMLET, LIPID, T7, CMP, TSH #### [facility] [address] [address] [address] Anibal Bishop ALT [Catalytic activity/Vol] 46 U/L Normal 16-63 [facility] Comment on above: Performed By: #### U HAMLET, LIPID, T7, CMP, TSH #### [facility] [address] [address] [address] Anibal Bishop Anion gap [Moles/Vol] 13.4 mmol/L Normal [facility] Comment on above: Performed By: #### U HAMLET, LIPID, T7, CMP, TSH #### [facility] [address] [address] [address] Anibal Bishop AST [Catalytic activity/Vol] 26 U/L Normal 15-37 [facility] Comment on above: Performed By: #### U HAMLET, LIPID, T7, CMP, TSH #### [facility] [address] [address] [address] Anibal Bishop Bilirubin [Mass/Vol] 0.6 mg/dL Normal 0.2-1.0 [facility] Comment on above: Performed By: #### U HAMLET, LIPID, T7, CMP, TSH #### [facility] [address] [address] [address] Anibal Bishop Calcium [Mass/Vol] 9.6 mg/dL Normal 8.5-10.[address] [facility] Comment on above: Performed By: #### U HAMLET, LIPID, T7, CMP, TSH #### [facility] [address] [address] [address] Anibal Bishop Chloride [Moles/Vol] 103 mmol/L Normal 98-107 [facility] Comment on above: Performed By: #### U HAMLET, LIPID, T7, CMP, TSH #### [facility] [address] [address] [address] Anibal Bishop CO2 [Moles/Vol] 27.9 mmol/L Normal 21.0-32.0 [facility] Comment on above: Performed By: #### U HAMLET, LIPID, T7, CMP, TSH #### [facility] [address] [place] [address] Dr. Anibal Bishop Creatinine [Mass/Vol] 0.91 mg/dL Normal 0.70-1.30 [facility] Comment on above: Performed By: #### U HAMLET, LIPID, T7, CMP, TSH #### [facility] [address] [place] [address] Dr. Anibal Bishop EGFR-AF CONGOLESE >60 Normal >=60 [facility] Comment on above: Performed By: #### U HAMLET, LIPID, T7, CMP, TSH #### [facility] [address] [address] [address] Anibal Bishop EGFR-NON AF CONGOLESE >60 Normal >=60 [facility] Comment on above: Performed By: #### U HAMLET, LIPID, T7, CMP, TSH #### [facility] [address] [address] [address] Anibal Bishop Globulin (S) [Mass/Vol] 3.9 g/dL Normal [facility] Comment on above: Performed By: #### U HAMLET, LIPID, T7, CMP, TSH #### [facility] [address] [address] [address] Anibal Bishop Glucose [Mass/Vol] 103 mg/dL Normal 74-106 [facility] Comment on above: Performed By: #### U HAMLET, LIPID, T7, CMP, TSH #### [facility] [address] [address] [address] Anibal Bishop Potassium [Moles/Vol] 4.3 mmol/L Normal 3.5-5.1 [facility] Comment on above: Performed By: #### U HAMLET, LIPID, T7, CMP, TSH #### [facility] [address] [address] [address] Anibal Bishop Protein [Mass/Vol] 7.5 g/dL Normal 6.4-8.2 [facility] Comment on above: Performed By: #### U HAMLET, LIPID, T7, CMP, TSH #### [facility] [address] [address] [address] Anibal Bishop Sodium [Moles/Vol] 140 mmol/L Normal 136-145 [facility] Comment on above: Performed By: #### U HAMLET, LIPID, T7, CMP, TSH #### [facility] [address] [address] [address] Anibal Bishop Urea nitrogen [Mass/Vol] 12.0 mg/dL Normal 7.0-18.0 [facility] Comment on above: Performed By: #### U HAMLET, LIPID, T7, CMP, TSH #### [facility] [address] [address] [address] Anibal Bishop Urea nitrogen/Creatinine [Mass ratio] 13.2 mg/mg Normal [facility] Comment on above: Performed By: #### U HAMLET, LIPID, T7, CMP, TSH #### [facility] [address] [address] [address] Anibal Bishop TSHon 03-20-2022 TSH 2.763 uIU/mL Normal 0.358-3.740 [facility] Comment on above: Performed By: #### U HAMLET, LIPID, T7, CMP, TSH #### [facility] [address] [address] [address] Anibal Bishop URIC ACID SERUMon 03-20-2022 Urate [Mass/Vol] 5.3 mg/dL Normal 3.5-7.2 [facility] Comment on above: Performed By: #### U HAMLET, LIPID, T7, CMP, TSH #### [facility] [address] [place] [address] Dr. Anibal Bishop COMPLIANCE DRUG SCREENon PDF . Normal [facility] Comment on above: Performed By: #### P SASC, IRON #### [facility] [address] [place] [address] Dr. Anibal Bishop Summary FINAL Normal [facility] Comment on above: Result Comment: === TOXASSURE [...] test is not intended to distinguish between gypcr-8-mlwedtwahjyglydyudmu, the predominant form of THC in most herbal or marijuana-based products, and zizku-1-apptmcyfuukxwllytcfy. Fentanyl 1 UNEXPECTED ng/mg creat Norfentanyl 7 [...] Performed By: #### P SASC, IRON #### [facility] [address] [address] [address] Anibal Bishop URIC ACID RAND URINEon 01-05 Uric Acid, Urine 45.6 mg/dL Normal Not Estab. [facility] Comment on above: Performed By: #### P SASC, IRON #### [facility] [address] [address] [address] Anibal Bishop COMPLIANCE DRUG SCREENon PDF . Normal [facility] Comment on above: Performed By: #### P SASC, IRON #### [facility] [address] [address] [address] Anibal Bishop Summary FINAL Normal [facility] Comment on above: Result Comment: === TOXASSURE [...] Performed By: #### P SASC, IRON #### [facility] [address] [place] [address] Dr. Anibal Bishop URIC ACID RAND URINEon 11-11 Uric Acid, Urine 57.4 mg/dL Normal Not Estab. [facility] Comment on above: Performed By: #### U RICUR #### [facility] [address] [address] [address] Anibal Bishop COMPLIANCE DRUG SCREENon PDF . Normal [facility] Comment on above: Performed By: #### P SASC, IRON #### [facility] [address] [address] [address] Anibal Bishop Summary FINAL Normal [facility] Comment on above: Result Comment: === TOXASSURE [...] Performed By: #### P SASC, IRON #### [facility] [address] [address] [address] Anibal Bishop URIC ACID RAND URINEon 10-12 Uric Acid, Urine 58.7 mg/dL Normal Not Estab. [facility] Comment on above: Performed By: #### U RICUR #### [facility] [address] [address] [address] Anibal Bishop COMPLIANCE DRUG SCREENon PDF . Normal [facility] Comment on above: Performed By: #### D SDOALC #### [facility] [address] [place] [address] Dr. Anibal Bishop Summary FINAL Normal [facility] Comment on above: Result Comment: === TOXASSURE [...] === Performed By: #### D SDOALC #### [facility] [address] [place] [address] Dr. Anibal Bishop URIC ACID RAND URINEon 09-12 Uric Acid, Urine 62.7 mg/dL Normal Not Estab. [facility] Comment on above: Performed By: #### P SASC, IRON #### [facility] [address], [place] [address] Dr. Anibal Bishop COMPLIANCE DRUG SCREENon PDF . Normal [facility] Comment on above: Performed By: #### D SDOALC #### [facility] [address] [place], [place] [address] Dr. Anibal Bishop Summary FINAL Normal [facility] Comment on above: Result Comment: === TOXASSURE [...] === Performed By: #### D SDOALC #### [facility] [address] [address] [address] Anibal Bishop URIC ACID RAND URINEon 08-11 Uric Acid, Urine 21.4 mg/dL Normal Not Estab. [facility] Comment on above: Performed By: #### P SASC, IRON #### [facility] [address] [id number] Anibal Bishop Encounters Encounter Date Encounter [...] Start: 02-24-2018 End: 02-24-2018 ambulatory CHANCE COHEN [facility] Start: 02-24-2018 Encounter for other preprocedural examination CHANCE COHEN [facility] Procedures Date Procedure Procedure Detail Performing Clinician Start: 03-20-[address] BEBETO DENNISON . Comment on above: Performed By: #### P SASC, IRON #### [facility] [address] [address] [address] Anibal Bishop Payers Date Payer Category Payer Medicare [id number] 1955 Unknown [id number] 2.16.84 [id number] 1955 Unknown [id number] 2.16.84 [id number] 1955 Unknown [id number] 2.16.84 [id number] 1955 Unknown [id number] 2.16.84 [id number] 1955 Unknown [id number] 2.16.84 [id number] 1955 Unknown [id number] 2.16.84 [id number] 1955 Unknown [id number] 2.16.84 [id number] 1955 Unknown [id number] 2.16.84 [id number] Summary Purpose Family History No Family History Records FoundNo Family History Records Found Advance Directives No Advanced Directives Records FoundNo Advanced Directives Records Found Additional Source Comments (unrecognized sect ion and content) No Status Records FoundNo Status Records Found INFORMATION SOURCE (unrecogn ized section and content) DATE CREATED AUTHOR 06/15/2022 [facility] DATE CREATED AUTHOR AUTHOR'S MICHAEL SALINAS 07/13/2023 [facility] FOR RECORDS PERTAINING TO PATIENTS WHO [...] BE BASED ON THE PRIMARY CLINICAL RECORDS. [facility] [employer] provides no warranty or guarantee of the accuracy or completeness of information in this document.
[2023-09-12 15:42] LABS: Amphetamine Screen Urine NEGATIVE (NEGATIVE); Barbiturates Screen Urine NEGATIVE (NEGATIVE); Benzodiazepines Screen Urine NEGATIVE (NEGATIVE); Buprenorphine Screen Urine NEGATIVE (NEGATIVE); Cannabinoid Screen Urine NEGATIVE (NEGATIVE); Cocaine Screen Urine NEGATIVE (NEGATIVE); Methadone Screen Urine NEGATIVE (NEGATIVE); Methamphetamines Screen Urine NEGATIVE (NEGATIVE); Opiate Screen Urine NEGATIVE (NEGATIVE); Oxycodone Screen Urine NEGATIVE (NEGATIVE); Phencyclidine Screen Urine NEGATIVE (NEGATIVE); Tricyclic Antidepressant Urine NEGATIVE (NEGATIVE)
[2023-09-13 08:11] LABS: Uric Acid, Urine 5.1 mg/dL (Not Estab.)
== END 2023-09-12 15:12 | disposition home or self-care (01) ==
LOC: LAB 15:12
PROVIDERS: PCP Family Medicine; Visit Provider Family Medicine
DX: F11.10 Opioid abuse, uncomplicated (principal); Z79.899 Other long term (current) drug therapy
CPT/HCPCS: 80307; 80326; 80331; 80334; 80337; 80338; 80341; 80344; 80346; 80348; 80353; 80354; 80355; 80357; 80358; 80359; 80360; 80361; 80364; 80365; 80366; 80367; 80368; 80370; 80371; 80372; 80373; 80377; 82570; 83992; 84560

== ENCOUNTER 2023-12-15 15:59 | Outpatient (OUT) | payer MEDICARE, SELFPAY ==
--- OUTSIDE RECORDS SUMMARY | 2023-12-15 16:19 | XMS_ITS | CCD ---
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 Normal [facility] Comment on above: Performed By: #### U RICRHINA #### [facility] [address] [address] [address] Anibal Bishop Summary FINAL Normal [facility] Comment on above: Result Comment: === TOXASSURE [...] === Performed By: #### U RICUR #### [facility] [address] [place] [address] Dr. Anibal Bishop URIC ACID RAND URINEon 06-11 Uric Acid, Urine 4.0 mg/dL Normal Not Estab. [facility] Comment on above: Performed By: #### U RICUR #### [facility] [address] [place] [address] Dr. Anibal Bishop COMPLIANCE DRUG SCREENon PDF . Normal [facility] Comment on above: Performed By: #### P SASC, IRON #### [facility] [address] [place] [address] Dr. Anibal Bishop Summary FINAL Normal [facility] Comment on above: Result Comment: === TOXASSURE [...] Performed By: #### P SASC, IRON #### [facility] [address] [place] [address] Dr. Anibal Bishop INSULINon 03-21-2022 Insulin 18.3 uIU/mL Normal 2.6-24.9 [facility] Comment on above: Performed By: #### U RICUR #### [facility] [address] [place] [address] Dr. Anibal Bishop URIC ACID RAND URINEon 03-21 Uric Acid, Urine 26.8 mg/dL Normal Not Estab. [facility] Comment on above: Performed By: #### U RICUR #### [facility] [address] [place] [address] Dr. Anibal Bishop CBC AUTO DIFFon 03-20-2022 BASO # 0.0 103/ul Normal 0.0-0.1 [facility] Comment on above: Performed By: #### P SASC, IRON #### [facility] [address] [place] [address] Dr. Anibal Bishop Basophils/100 WBC (Bld) 0.6 % Normal 0.2-2.0 [facility] Comment on above: Performed By: #### P SASC, IRON #### [facility] [address] [place] [address] Dr. Anibal Bishop EO # 0.2 103/ul Normal 0.0-0.7 [facility] Comment on above: Performed By: #### P SASC, IRON #### [facility] [address] [place] [address] Dr. Anibal Bishop Eosinophils/100 WBC (Bld) 3.5 % Normal 0.9-7.0 [facility] Comment on above: Performed By: #### P SASC, IRON #### [facility] [address] [place] [address] Dr. Anibal Bishop Erythrocyte distribution width (RBC) [Ratio] 14.1 % Normal 11.0-15.0 [facility] Comment on above: Performed By: #### P SASC, IRON #### [facility] [address] [place] [address] Dr. Anibal Bishop Hematocrit (Bld) [Volume fraction] 44.6 % Normal 42.0-54.0 [facility] Comment on above: Performed By: #### P SASC, IRON #### [facility] [address] [place] [address] Dr. Anibal Bishop Hemoglobin (Bld) [Mass/Vol] 14.3 g/dL Normal 14.0-18.0 [facility] Comment on above: Performed By: #### P SASC, IRON #### [facility] [address] [address] [address] Anibal Bishop IG # 0.02 10e3/ul Normal 0.00-0.03 [facility] Comment on above: Performed By: #### P SASC, IRON #### [facility] [address] [address] [address] Anibal Bishop IG % 0.4 % Normal 0.0-0.5 [facility] Comment on above: Performed By: #### P SASC, IRON #### [facility] [address] [address] [address] Anibal Bishop LYMPH # 0.8 103/ul Critically low 1.2-3.8 [facility] Comment on above: Performed By: #### P SASC, IRON #### [facility] [address] [address] [address] Anibal Bishop Lymphocytes/100 WBC (Bld) 17.1 % Critically low 20.5-60.0 [facility] Comment on above: Performed By: #### P SASC, IRON #### [facility] [address] [address] [address] Anibal Bishop MANUAL DIFF REQ NO Normal [facility] Comment on above: Performed By: #### P SASC, IRON #### [facility] [address] [address] [address] Anibal Bishop MCH (RBC) [Entitic mass] 29.9 pg Normal 25.9-34.0 [facility] Comment on above: Performed By: #### P SASC, IRON #### [facility] [address] [address] [address] Anibal Bishop MCHC (RBC) [Mass/Vol] 32.1 g/dL Normal 29.9-35.2 [facility] Comment on above: Performed By: #### P SASC, IRON #### [facility] [address] [address] [address] Anibal Bishop MCV (RBC) [Entitic vol] 93.3 fL Normal 80.0-94.0 [facility] Comment on above: Performed By: #### P SASC, IRON #### [facility] [address] [place] [address] Dr. Anibal Bishop MONO # 0.6 103/ul Normal 0.3-0.8 [facility] Comment on above: Performed By: #### P SASC, IRON #### [facility] [address] [place] [address] Dr. Anibal Bishop Monocytes/100 WBC (Bld) 12.5 % Critically high 1.7-12.0 [facility] Comment on above: Performed By: #### P SASC, IRON #### [facility] [address] [place] [address] Dr. Anibal Bishop NEUT # 3.2 103/ul Normal 1.4-6.5 [facility] Comment on above: Performed By: #### P SASC, IRON #### [facility] [address] [place] [address] Dr. Anibal Bishop Neutrophils/100 WBC (Bld) 65.9 % Normal 43.0-75.0 [facility] Comment on above: Performed By: #### P SASC, IRON #### [facility] [address] [place] [address] Dr. Anibal Bishop Platelet mean volume (Bld) [Entitic vol] 9.0 fL Critically low 9.5-13.5 [facility] Comment on above: Performed By: #### P SASC, IRON #### [facility] [address] [place] [address] Dr. Anibal Bishop PLT 250 103/ul Normal 150-450 [facility] Comment on above: Performed By: #### P SASC, IRON #### [facility] [address] [place] [address] Dr. Anibal Bishop RBC 4.78 106/ul Normal 4.70-6.10 [facility] Comment on above: Performed By: #### P SASC, IRON #### [facility] [address] [place] [address] Dr. Anibal Bishop WBC 4.8 103/ul Normal 4.0-11.0 [facility] Comment on above: Performed By: #### P SASC, IRON #### [facility] [address] [address] [address] Anibal Bishop FREE THYROXINE INDEX T7on FTI 3.33 Normal 1.30-4.50 [facility] Comment on above: Performed By: #### U HAMLET, LIPID, T7, CMP, TSH #### [facility] [address] [address] [address] Anibal Bishop T3U 35.0 % Normal 33.0-40.0 [facility] Comment on above: Performed By: #### U HAMLET, LIPID, T7, CMP, TSH #### [facility] [address] [address] [address] Anibal Bishop T4 [Mass/Vol] 9.50 ug/dL Normal 4.50-12.10 [facility] Comment on above: Performed By: #### U HAMLET, LIPID, T7, CMP, TSH #### [facility] [address] [place] [address] Dr. Anibal Bishop GLYCOHEMOGLOBIN A1Con 2022 ADA RECOMMENDATION SEE BELOW Normal [facility] Comment on above: Result Comment: ADA RECOMMENDED LIMIT 4.0 - 6.0 ADA THERAPEUTIC TARGET < 7.0 ACTION SUGGESTED > 7.0 Performed By: #### P SASC, IRON #### [facility] [address] [place] [address] Dr. Anibal Bishop Glucose [Mass/Vol] 114 mg/dL Normal [facility] Comment on above: Performed By: #### P SASC, IRON #### [facility] [address] [address] [address] Anibal Bishop HbA1c (Bld) [Mass fraction] 5.6 % Normal 4.5-6.2 [facility] Comment on above: Performed By: #### P SASC, IRON #### [facility] [address] [place] [address] Dr. Anibal Bishop IRONon 03-20-2022 Iron [Mass/Vol] 63.0 ug/dL Critically low 65.0-175.0 [facility] Comment on above: Performed By: #### P SASC, IRON #### [facility] [address] [address] [address] Anibal Bishop LIPID PROFILEon 03-20-2022 CHOL-HDL RATIO NORM SEE BELOW Normal [facility] Comment on above: Result Comment: 3.3 - 4.4 LOW RISK 4.4 - 7.1 AVERAGE RISK 7.1 - 11.0 MODERATE RISK >11.0 HIGH RISK Performed By: #### P SASC, IRON #### [facility] [address] [address] [address] Anibal Bishop Cholesterol [Mass/Vol] 207 mg/dL Critically high <=200 [facility] Comment on above: Performed By: #### P SASC, IRON #### [facility] [address] [address] [address] Anibal Bishop Cholesterol in HDL [Mass/Vol] 96 mg/dL Critically high 40-60 [facility] Comment on above: Performed By: #### P SASC, IRON #### [facility] [address] [address] [address] Anibal Bishop Cholesterol in LDL [Mass/Vol] 97.6 mg/dL Normal [facility] Comment on above: Performed By: #### P SASC, IRON #### [facility] [address] [address] [address] Anibal Bishop Cholesterol.total/Ch olesterol in HDL [Mass ratio] 2.2 {ratio} Normal [facility] Comment on above: Performed By: #### P SASC, IRON #### [facility] [address] [address] [address] Anibal Bishop HDL NORMAL > or = 60 mg/dl - LO W CARDIOVASCULAR RISK <40 mg/dl - HIGH CARDIOVASCULAR RISK Normal [facility] Comment on above: Performed By: #### P SASC, IRON #### [facility] [address] [address] [address] Anibal Bishop LDL CALC NORMAL SEE BELOW Normal [facility] Comment on above: Result Comment: <100 mg/dl OPTIMAL 100 - 129 mg/dl NEAR OR ABOVE OPTIMAL 130 - 159 mg/dl BORDERLINE HIGH 160 - 189 mg/dl HIGH >190 mg/dl VERY HIGH Performed By: #### P SASC, IRON #### [facility] [address] [address] [address] Anibal Bishop Triglyceride [Mass/Vol] 67 mg/dL Normal <=150 [facility] Comment on above: Performed By: #### P SASC, IRON #### [facility] [address] [address] [address] Anibal Bishop VLDL CALC 13.4 mg/dL Normal [facility] Comment on above: Performed By: #### P SASC, IRON #### [facility] [address] [address] [address] Anibal Bishop PROF 14(COMP METB)on 023 Albumin [Mass/Vol] 3.6 g/dL Normal 3.4-5.0 [facility] Comment on above: Performed By: #### U HAMLET, LIPID, T7, CMP, TSH #### [facility] [address] [address] [address] Anibal Bishop Albumin/Globulin [Mass ratio] 0.9 {ratio} Normal [facility] Comment on above: Performed By: #### U HAMLET, LIPID, T7, CMP, TSH #### [facility] [address] [address] [address] Anibal Bishop ALP [Catalytic activity/Vol] 90 U/L Normal 46-116 [facility] Comment on above: Performed By: #### U HAMLET, LIPID, T7, CMP, TSH #### [facility] [address] [address] [address] Anibal Bishop ALT [Catalytic activity/Vol] 46 U/L Normal 16-63 [facility] Comment on above: Performed By: #### U HAMLET, LIPID, T7, CMP, TSH #### [facility] [address] [address] [address] Anibal Bishop Anion gap [Moles/Vol] 13.4 mmol/L Normal [facility] Comment on above: Performed By: #### U HAMLET, LIPID, T7, CMP, TSH #### [facility] [address] [address] [address] Anibal Bishop AST [Catalytic activity/Vol] 26 U/L Normal 15-37 [facility] Comment on above: Performed By: #### U HAMLET, LIPID, T7, CMP, TSH #### [facility] [address] [address] [address] Anibal Bishop Bilirubin [Mass/Vol] 0.6 mg/dL Normal 0.2-1.0 [facility] Comment on above: Performed By: #### U HAMLET, LIPID, T7, CMP, TSH #### [facility] [address] [address] [address] Anibal Bishop Calcium [Mass/Vol] 9.6 mg/dL Normal 8.5-10.1 [facility] Comment on above: Performed By: #### U HAMLET, LIPID, T7, CMP, TSH #### [facility] [address] [address] [address] Anibal Bishop Chloride [Moles/Vol] 103 mmol/L Normal 98-107 [facility] Comment on above: Performed By: #### U HAMLET, LIPID, T7, CMP, TSH #### [facility] [address] [address] [address] Anibal Bishop CO2 [Moles/Vol] 27.9 mmol/L Normal 21.0-32.0 [facility] Comment on above: Performed By: #### U HAMLET, LIPID, T7, CMP, TSH #### [facility] [address] [place] [address] Dr. Anibal Bishop Creatinine [Mass/Vol] 0.91 mg/dL Normal 0.70-1.30 [facility] Comment on above: Performed By: #### U HAMLET, LIPID, T7, CMP, TSH #### [facility] [address] [place] [address] Dr. Anibal Bishop EGFR-AF TURKMEN >60 Normal >=60 [facility] Comment on above: Performed By: #### U HAMLET, LIPID, T7, CMP, TSH #### [facility] [address] [address] [address] Anibal Bishop EGFR-NON AF TURKMEN >60 Normal >=60 [facility] Comment on above: Performed By: #### U HAMLET, LIPID, T7, CMP, TSH #### [facility] [address] [address] [address] Anibal Bishop Globulin (S) [Mass/Vol] 3.9 g/dL Normal [facility] Comment on above: Performed By: #### U HAMLET, LIPID, T7, CMP, TSH #### [facility] [address] [address] [address] Anibal Bishop Glucose [Mass/Vol] 103 mg/dL Normal 74-106 [facility] Comment on above: Performed By: #### U HAMLET, LIPID, T7, CMP, TSH #### [facility] [address] [address] [address] Anibal Bishop Potassium [Moles/Vol] 4.3 mmol/L Normal 3.5-5.1 [facility] Comment on above: Performed By: #### U HAMLET, LIPID, T7, CMP, TSH #### [facility] [address] [address] [address] Anibal Bishop Protein [Mass/Vol] 7.5 g/dL Normal 6.4-8.2 [facility] Comment on above: Performed By: #### U HAMLET, LIPID, T7, CMP, TSH #### [facility] [address] [address] [address] Anibal Bishop Sodium [Moles/Vol] 140 mmol/L Normal 136-145 [facility] Comment on above: Performed By: #### U HAMLET, LIPID, T7, CMP, TSH #### [facility] [address] [address] [address] Anibal Bishop Urea nitrogen [Mass/Vol] 12.0 mg/dL Normal 7.0-18.0 [facility] Comment on above: Performed By: #### U HAMLET, LIPID, T7, CMP, TSH #### [facility] [address] [address] [address] Anibal Bishop Urea nitrogen/Creatinine [Mass ratio] 13.2 mg/mg Normal [facility] Comment on above: Performed By: #### U HAMLET, LIPID, T7, CMP, TSH #### [facility] [address] [address] [address] Anibal Bishop TSHon 03-20-2022 TSH 2.763 uIU/mL Normal 0.358-3.740 [facility] Comment on above: Performed By: #### U HAMLET, LIPID, T7, CMP, TSH #### [facility] [address] [address] [address] Anibal Bishop URIC ACID SERUMon 03-20-2022 Urate [Mass/Vol] 5.3 mg/dL Normal 3.5-7.2 [facility] Comment on above: Performed By: #### U HAMLET, LIPID, T7, CMP, TSH #### [facility] [address] [place] [address] Dr. Anibal Bishop COMPLIANCE DRUG SCREENon PDF . Normal [facility] Comment on above: Performed By: #### P SASC, IRON #### [facility] [address] [place] [address] Dr. Anibal Bishop Summary FINAL Normal [facility] Comment on above: Result Comment: === TOXASSURE [...] test is not intended to distinguish between [id number], the predominant form of THC in most herbal or marijuana-based products, and [id number]. Fentanyl 1 UNEXPECTED ng/mg creat Norfentanyl 7 [...] Performed By: #### P SASC, IRON #### [facility] [address] [address] [address] Anibal Bishop URIC ACID RAND URINEon 01-05 Uric Acid, Urine 45.6 mg/dL Normal Not Estab. [facility] Comment on above: Performed By: #### P SASC, IRON #### [facility] [address] [address] [address] Anibal Bishop COMPLIANCE DRUG SCREENon PDF . Normal [facility] Comment on above: Performed By: #### P SASC, IRON #### [facility] [address] [address] [address] Anibal Bishop Summary FINAL Normal [facility] Comment on above: Result Comment: === TOXASSURE [...] Performed By: #### P SASC, IRON #### [facility] [address] [place] [address] Dr. Anibal Bishop URIC ACID RAND URINEon 11-11 Uric Acid, Urine 57.4 mg/dL Normal Not Estab. [facility] Comment on above: Performed By: #### U RICUR #### [facility] [address] [address] [address] Anibal Bishop COMPLIANCE DRUG SCREENon PDF . Normal [facility] Comment on above: Performed By: #### P SASC, IRON #### [facility] [address] [address] [address] Anibal Bishop Summary FINAL Normal [facility] Comment on above: Result Comment: === TOXASSURE [...] Performed By: #### P SASC, IRON #### [facility] [address] [address] [address] Anibal Bishop URIC ACID RAND URINEon 10-12 Uric Acid, Urine 58.7 mg/dL Normal Not Estab. [facility] Comment on above: Performed By: #### U RICUR #### [facility] [address] [address] [address] Anibal Bishop COMPLIANCE DRUG SCREENon PDF . Normal [facility] Comment on above: Performed By: #### D SDOALC #### [facility] [address] [place] [address] Dr. Anibal Bishop Summary FINAL Normal [facility] Comment on above: Result Comment: === TOXASSURE [...] === Performed By: #### D SDOALC #### [facility] [address] [place] [address] Dr. Anibal Bishop URIC ACID RAND URINEon 09-12 Uric Acid, Urine 62.7 mg/dL Normal Not Estab. [facility] Comment on above: Performed By: #### P SASC, IRON #### [facility] [address] [place], [place] [address] Dr. Anibal Bishop COMPLIANCE DRUG SCREENon PDF . Normal [facility] Comment on above: Performed By: #### D SDOALC #### [facility] [address] [place], [place] [address] Dr. Anibal Bishop Summary FINAL Normal [facility] Comment on above: Result Comment: === TOXASSURE [...] === Performed By: #### D SDOALC #### [facility] [address] [address] [address] Anibal Bishop URIC ACID RAND URINEon 08-11 Uric Acid, Urine 21.4 mg/dL Normal Not Estab. [facility] Comment on above: Performed By: #### P SASC, IRON #### [facility] [id number] Anibal Bishop Encounters Encounter Date Encounter Type Care Provider Facility Start: 06-10-2022 End: 06-11-[address] MART DENNISON . Facility:[facility] Start: 04-12-[address] MRAT DENNISON . Facili ty:[facility] Start: 03-20-2022 End: [...] Start: 02-24-2018 End: 02-24-2018 ambulatory CHANCE COHEN [facility] Start: 02-24-2018 Encounter for other preprocedural examination CHANCE COHEN [facility] Procedures Date Procedure Procedure Detail Performing Clinician Start: 03-20-[address] BEBETO DENNISON . Comment on above: Performed By: #### P SASC, IRON #### [facility] [address] [address] [address] Ainbal Bishop Payers Date Payer Category Payer Medicare [id number] 1955 Unknown [id number] 2.16.84 [id number] 1955 Unknown [id number] 2.16.84 [id number] 1955 Unknown [id number] 2.16.84 [id number] 1955 Unknown [id number] 2.16.84 [id number] 1955 Unknown [id number] 2.16.84 [id number] 1955 Unknown [id number] 2.16.84 [id number] 1955 Unknown [id number] 2.16.84 [id number] 1955 Unknown [id number] 2.16.84 [id number] Summary Purpose Family History No Family History Records FoundNo Family History Records Found Advance Directives No Advanced Directives Records FoundNo Advanced Directives Records Found Additional Source Comments (unrecognized sect ion and content) No Status Records FoundNo Status Records Found INFORMATION SOURCE (unrecogn ized section and content) DATE CREATED AUTHOR 06/15/2022 [facility] DATE CREATED AUTHOR AUTHOR'S MICHAEL SALINAS 07/13/2023 [facility] FOR RECORDS PERTAINING TO PATIENTS WHO [...] BE BASED ON THE PRIMARY CLINICAL RECORDS. [facility] [employer] provides no warranty or guarantee of the accuracy or completeness of information in this document.
[2023-12-15 16:45] LABS: Amphetamine Screen Urine NEGATIVE (NEGATIVE); Barbiturates Screen Urine NEGATIVE (NEGATIVE); Benzodiazepines Screen Urine NEGATIVE (NEGATIVE); Cannabinoid Screen Urine NEGATIVE (NEGATIVE); Cocaine Screen Urine NEGATIVE (NEGATIVE); Methadone Screen Urine NEGATIVE (NEGATIVE); Methamphetamines Screen Urine NEGATIVE (NEGATIVE); Opiate Screen Urine NEGATIVE (NEGATIVE); Oxycodone Screen Urine NEGATIVE (NEGATIVE); Phencyclidine Screen Urine NEGATIVE (NEGATIVE); Tricyclic Antidepressant Urine NEGATIVE (NEGATIVE)
[2023-12-15 16:46] LABS: Buprenorphine Screen Urine POSITIVE (NEGATIVE)
[2023-12-17 11:09] LABS: Uric Acid, Urine 35.7 mg/dL (Not Estab.)
[2023-12-24 11:12] LABS: Summary Report (Summary) FINAL (.)
== END 2023-12-15 16:00 | disposition home or self-care (01) ==
LOC: LAB 16:00
PROVIDERS: PCP Family Medicine; Visit Provider Family Medicine
DX: F11.10 Opioid abuse, uncomplicated (principal); Z79.899 Other long term (current) drug therapy
CPT/HCPCS: 80307; 80326; 80331; 80334; 80337; 80338; 80341; 80344; 80347; 80348; 80353; 80354; 80355; 80357; 80358; 80359; 80360; 80361; 80364; 80365; 80366; 80367; 80368; 80370; 80371; 80372; 80373; 80377; 82570; 83992; 84560

== ENCOUNTER 2024-01-14 15:51 | Outpatient (OUT) | payer MEDICARE, SELFPAY ==
[2024-01-14 16:26] LABS: Amphetamine Screen Urine NEGATIVE (NEGATIVE); Barbiturates Screen Urine NEGATIVE (NEGATIVE); Benzodiazepines Screen Urine NEGATIVE (NEGATIVE); Buprenorphine Screen Urine POSITIVE (NEGATIVE); Cannabinoid Screen Urine NEGATIVE (NEGATIVE); Cocaine Screen Urine NEGATIVE (NEGATIVE); Methadone Screen Urine NEGATIVE (NEGATIVE); Methamphetamines Screen Urine NEGATIVE (NEGATIVE); Opiate Screen Urine NEGATIVE (NEGATIVE); Oxycodone Screen Urine NEGATIVE (NEGATIVE); Phencyclidine Screen Urine NEGATIVE (NEGATIVE); Tricyclic Antidepressant Urine NEGATIVE (NEGATIVE)
[2024-01-16 04:07] LABS: Uric Acid, Urine 21.5 mg/dL (Not Estab.)
== END 2024-01-14 15:52 | disposition home or self-care (01) ==
LOC: LAB 15:52
PROVIDERS: PCP Family Medicine; Visit Provider Family Medicine
DX: F11.10 Opioid abuse, uncomplicated (principal); Z79.899 Other long term (current) drug therapy
CPT/HCPCS: 80307; 80326; 80331; 80334; 80337; 80338; 80341; 80344; 80347; 80348; 80353; 80354; 80355; 80357; 80358; 80359; 80360; 80361; 80364; 80365; 80366; 80367; 80368; 80370; 80371; 80372; 80373; 80377; 82570; 83992; 84560

== ENCOUNTER 2024-03-01 08:12 | Emergency (ER) | payer MEDICARE, SELFPAY ==
[2024-03-01 08:17] VITALS: BP 183/110; PULSE 100; TEMP 36.8; O2SAT 96; BMI 22.5
--- OUTSIDE RECORDS SUMMARY | 2024-03-01 08:21 | XMS_ITS | CCD ---
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 Normal [facility] Comment on above: Performed By: #### U RICRHINA #### [facility] [address] [address] [address] Anibal Bishop Summary FINAL Normal [facility] Comment on above: Result Comment: === [...] === Performed By: #### U RICUR #### [facility] [address] [place] [address] Dr. Anibal Bishop URIC ACID RAND URINEon 06-11 Uric Acid, Urine 4.0 mg/dL Normal Not Estab. [facility] Comment on above: Performed By: #### U RICUR #### [facility] [address] [place] [address] Dr. Anibal Bishop COMPLIANCE DRUG SCREENon PDF . Normal [facility] Comment on above: Performed By: #### P SASC, IRON #### [facility] [address] [place] [address] Dr. Anibal Bishop Summary FINAL Normal [facility] Comment on above: Result Comment: === [...] Performed By: #### P SASC, IRON #### [facility] [address] [place] [address] Dr. Anibal Bishop INSULINon 03-21-2022 Insulin 18.3 uIU/mL Normal 2.6-24.9 [facility] Comment on above: Performed By: #### U RICUR #### [facility] [address] [place] [address] Dr. Anibal Bishop URIC ACID RAND URINEon 03-21 Uric Acid, Urine 26.8 mg/dL Normal Not Estab. [facility] Comment on above: Performed By: #### U RICUR #### [facility] [address] [place] [address] Dr. Anibal Bishop CBC AUTO DIFFon 03-20-2022 BASO # 0.0 103/ul Normal 0.0-0.1 [facility] Comment on above: Performed By: #### P SASC, IRON #### [facility] [address] [place] [address] Dr. Anibal Bishop Basophils/100 WBC (Bld) 0.6 % Normal 0.2-2.0 [facility] Comment on above: Performed By: #### P SASC, IRON #### [facility] [address] [place] [address] Dr. Anibal Bishop EO # 0.2 103/ul Normal 0.0-0.7 [facility] Comment on above: Performed By: #### P SASC, IRON #### [facility] [address] [place] [address] Dr. Anibal Bishop Eosinophils/100 WBC (Bld) 3.5 % Normal 0.9-7.0 [facility] Comment on above: Performed By: #### P SASC, IRON #### [facility] [address] [place] [address] Dr. Anibal Bishop Erythrocyte distribution width (RBC) [Ratio] 14.1 % Normal 11.0-15.0 [facility] Comment on above: Performed By: #### P SASC, IRON #### [facility] [address] [place] [address] Dr. Anibal Bishop Hematocrit (Bld) [Volume fraction] 44.6 % Normal 42.0-54.0 [facility] Comment on above: Performed By: #### P SASC, IRON #### [facility] [address] [place] [address] Dr. Anibal Bishop Hemoglobin (Bld) [Mass/Vol] 14.3 g/dL Normal 14.0-18.0 [facility] Comment on above: Performed By: #### P SASC, IRON #### [facility] [address] [address] [address] Anibal Bishop IG # 0.02 10e3/ul Normal 0.00-0.03 [facility] Comment on above: Performed By: #### P SASC, IRON #### [facility] [address] [address] [address] Anibal Bishop IG % 0.4 % Normal 0.0-0.5 [facility] Comment on above: Performed By: #### P SASC, IRON #### [facility] [address] [address] [address] Anibal Bishop LYMPH # 0.8 103/ul Critically low 1.2-3.8 [facility] Comment on above: Performed By: #### P SASC, IRON #### [facility] [address] [address] [address] Anibal Bishop Lymphocytes/100 WBC (Bld) 17.1 % Critically low 20.5-60.0 [facility] Comment on above: Performed By: #### P SASC, IRON #### [facility] [address] [address] [address] Anibal Bishop MANUAL DIFF REQ NO Normal [facility] Comment on above: Performed By: #### P SASC, IRON #### [facility] [address] [address] [address] Anibal Bishop MCH (RBC) [Entitic mass] 29.9 pg Normal 25.9-34.0 [facility] Comment on above: Performed By: #### P SASC, IRON #### [facility] [address] [address] [address] Anibal Bishop MCHC (RBC) [Mass/Vol] 32.1 g/dL Normal 29.9-35.2 [facility] Comment on above: Performed By: #### P SASC, IRON #### [facility] [address] [address] [address] Anibal Bishop MCV (RBC) [Entitic vol] 93.3 fL Normal 80.0-94.0 [facility] Comment on above: Performed By: #### P SASC, IRON #### [facility] [address] [place] [address] Dr. Anibal Bishop MONO # 0.6 103/ul Normal 0.3-0.8 [facility] Comment on above: Performed By: #### P SASC, IRON #### [facility] [address] [place] [address] Dr. Anibal Bishop Monocytes/100 WBC (Bld) 12.5 % Critically high 1.7-12.0 [facility] Comment on above: Performed By: #### P SASC, IRON #### [facility] [address] [place] [address] Dr. Anibal Bishop NEUT # 3.2 103/ul Normal 1.4-6.5 [facility] Comment on above: Performed By: #### P SASC, IRON #### [facility] [address] [place] [address] Dr. Anibal Bishop Neutrophils/100 WBC (Bld) 65.9 % Normal 43.0-75.0 [facility] Comment on above: Performed By: #### P SASC, IRON #### [facility] [address] [place] [address] Dr. Anibal Bishop Platelet mean volume (Bld) [Entitic vol] 9.0 fL Critically low 9.5-13.5 [facility] Comment on above: Performed By: #### P SASC, IRON #### [facility] [address] [place] [address] Dr. Anibal Bishop PLT 250 103/ul Normal 150-450 [facility] Comment on above: Performed By: #### P SASC, IRON #### [facility] [address] [place] [address] Dr. Anibal Bishop RBC 4.78 106/ul Normal 4.70-6.10 [facility] Comment on above: Performed By: #### P SASC, IRON #### [facility] [address] [place] [address] Dr. Anibal Bishop WBC 4.8 103/ul Normal 4.0-11.0 [facility] Comment on above: Performed By: #### P SASC, IRON #### [facility] [address] [address] [address] Anibal Bishop FREE THYROXINE INDEX T7on FTI 3.33 Normal 1.30-4.50 [facility] Comment on above: Performed By: #### U HAMLET, LIPID, T7, CMP, TSH #### [facility] [address] [address] [address] Anibal Bishop T3U 35.0 % Normal 33.0-40.0 [facility] Comment on above: Performed By: #### U HAMLET, LIPID, T7, CMP, TSH #### [facility] [address] [address] [address] Anbial Bishop T4 [Mass/Vol] 9.50 ug/dL Normal 4.50-12.10 [facility] Comment on above: Performed By: #### U HAMLET, LIPID, T7, CMP, TSH #### [facility] [address] [place] [address] Dr. Anibal Bishop GLYCOHEMOGLOBIN A1Con 2022 ADA RECOMMENDATION SEE BELOW Normal [facility] Comment on above: Result Comment: ADA RECOMMENDED LIMIT 4.0 - 6.0 ADA THERAPEUTIC TARGET < 7.0 ACTION SUGGESTED > 7.0 Performed By: #### P SASC, IRON #### [facility] [address] [place] [address] Dr. Anibal Bishop Glucose [Mass/Vol] 114 mg/dL Normal [facility] Comment on above: Performed By: #### P SASC, IRON #### [facility] [address] [address] [address] Anibal Bishop HbA1c (Bld) [Mass fraction] 5.6 % Normal 4.5-6.2 [facility] Comment on above: Performed By: #### P SASC, IRON #### [facility] [address] [place] [address] Dr. Anibal Bishop IRONon 03-20-2022 Iron [Mass/Vol] 63.0 ug/dL Critically low 65.0-175.0 [facility] Comment on above: Performed By: #### P SASC, IRON #### [facility] [address] [address] [address] Anibal Bishop LIPID PROFILEon 03-20-2022 CHOL-HDL RATIO NORM SEE BELOW Normal [facility] Comment on above: Result Comment: 3.3 - 4.4 LOW RISK 4.4 - 7.1 AVERAGE RISK 7.1 - 11.0 MODERATE RISK >11.0 HIGH RISK Performed By: #### P SASC, IRON #### [facility] [address] [address] [address] Anibal Bishop Cholesterol [Mass/Vol] 207 mg/dL Critically high <=200 [facility] Comment on above: Performed By: #### P SASC, IRON #### [facility] [address] [address] [address] Anibal Bishop Cholesterol in HDL [Mass/Vol] 96 mg/dL Critically high 40-60 [facility] Comment on above: Performed By: #### P SASC, IRON #### [facility] [address] [address] [address] Anibal Bishop Cholesterol in LDL [Mass/Vol] 97.6 mg/dL Normal [facility] Comment on above: Performed By: #### P SASC, IRON #### [facility] [address] [address] [address] Anibal Bishop Cholesterol.total/Ch olesterol in HDL [Mass ratio] 2.2 {ratio} Normal [facility] Comment on above: Performed By: #### P SASC, IRON #### [facility] [address] [address] [address] Anibal Bishop HDL NORMAL > or = 60 mg/dl - LO W CARDIOVASCULAR RISK <40 mg/dl - HIGH CARDIOVASCULAR RISK Normal [facility] Comment on above: Performed By: #### P SASC, IRON #### [facility] [address] [address] [address] Anibal Bishop LDL CALC NORMAL SEE BELOW Normal [facility] Comment on above: Result Comment: <100 mg/dl OPTIMAL 100 - 129 mg/dl NEAR OR ABOVE OPTIMAL 130 - 159 mg/dl BORDERLINE HIGH 160 - 189 mg/dl HIGH >190 mg/dl VERY HIGH Performed By: #### P SASC, IRON #### [facility] [address] [address] [address] Anibal Bishop Triglyceride [Mass/Vol] 67 mg/dL Normal <=150 [facility] Comment on above: Performed By: #### P SASC, IRON #### [facility] [address] [address] [address] Anibal Bishop VLDL CALC 13.4 mg/dL Normal [facility] Comment on above: Performed By: #### P SASC, IRON #### [facility] [address] [address] [address] Anibal Bishop PROF 14(COMP METB)on 023 Albumin [Mass/Vol] 3.6 g/dL Normal 3.4-5.0 [facility] Comment on above: Performed By: #### U HAMLET, LIPID, T7, CMP, TSH #### [facility] [address] [address] [address] Anibal Bishop Albumin/Globulin [Mass ratio] 0.9 {ratio} Normal [facility] Comment on above: Performed By: #### U HAMLET, LIPID, T7, CMP, TSH #### [facility] [address] [address] [address] Anibal Bishop ALP [Catalytic activity/Vol] 90 U/L Normal 46-116 [facility] Comment on above: Performed By: #### U HAMLET, LIPID, T7, CMP, TSH #### [facility] [address] [address] [address] Anibal Bishop ALT [Catalytic activity/Vol] 46 U/L Normal 16-63 [facility] Comment on above: Performed By: #### U HAMLET, LIPID, T7, CMP, TSH #### [facility] [address] [address] [address] Anibal Bishop Anion gap [Moles/Vol] 13.4 mmol/L Normal [facility] Comment on above: Performed By: #### U HAMLET, LIPID, T7, CMP, TSH #### [facility] [address] [address] [address] Anibal Bishop AST [Catalytic activity/Vol] 26 U/L Normal 15-37 [facility] Comment on above: Performed By: #### U HAMLET, LIPID, T7, CMP, TSH #### [facility] [address] [address] [address] Anibal Bishop Bilirubin [Mass/Vol] 0.6 mg/dL Normal 0.2-1.0 [facility] Comment on above: Performed By: #### U HAMLET, LIPID, T7, CMP, TSH #### [facility] [address] [address] [address] Anibal Bishop Calcium [Mass/Vol] 9.6 mg/dL Normal 8.5-10.1 [facility] Comment on above: Performed By: #### U HAMLET, LIPID, T7, CMP, TSH #### [facility] [address] [address] [address] Anibal Bishop Chloride [Moles/Vol] 103 mmol/L Normal 98-107 [facility] Comment on above: Performed By: #### U HAMLET, LIPID, T7, CMP, TSH #### [facility] [address] [address] [address] Anibal Bishop CO2 [Moles/Vol] 27.9 mmol/L Normal 21.0-32.0 [facility] Comment on above: Performed By: #### U HAMLET, LIPID, T7, CMP, TSH #### [facility] [address] [place] [address] Dr. Anibal Bishop Creatinine [Mass/Vol] 0.91 mg/dL Normal 0.70-1.30 [facility] Comment on above: Performed By: #### U HAMLET, LIPID, T7, CMP, TSH #### [facility] [address] [place] [address] Dr. Anibal Bishop EGFR-AF FAROESE >60 Normal >=60 [facility] Comment on above: Performed By: #### U HAMLET, LIPID, T7, CMP, TSH #### [facility] [address] [address] [address] Anibal Bishop EGFR-NON AF FAROESE >60 Normal >=60 [facility] Comment on above: Performed By: #### U HAMLET, LIPID, T7, CMP, TSH #### [facility] [address] [address] [address] Anibal Bishop Globulin (S) [Mass/Vol] 3.9 g/dL Normal [facility] Comment on above: Performed By: #### U HAMLET, LIPID, T7, CMP, TSH #### [facility] [address] [address] [address] Anibal Bishop Glucose [Mass/Vol] 103 mg/dL Normal 74-106 [facility] Comment on above: Performed By: #### U HAMLET, LIPID, T7, CMP, TSH #### [facility] [address] [address] [address] Anibal Bishop Potassium [Moles/Vol] 4.3 mmol/L Normal 3.5-5.1 [facility] Comment on above: Performed By: #### U HAMLET, LIPID, T7, CMP, TSH #### [facility] [address] [address] [address] Anibal Bishop Protein [Mass/Vol] 7.5 g/dL Normal 6.4-8.2 [facility] Comment on above: Performed By: #### U HAMLET, LIPID, T7, CMP, TSH #### [facility] [address] [address] [address] Anibal Bishop Sodium [Moles/Vol] 140 mmol/L Normal 136-145 [facility] Comment on above: Performed By: #### U HAMLET, LIPID, T7, CMP, TSH #### [facility] [address] [address] [address] Anibal Bishop Urea nitrogen [Mass/Vol] 12.0 mg/dL Normal 7.0-18.0 [facility] Comment on above: Performed By: #### U HAMLET, LIPID, T7, CMP, TSH #### [facility] [address] [address] [address] Anibal Bishop Urea nitrogen/Creatinine [Mass ratio] 13.2 mg/mg Normal [facility] Comment on above: Performed By: #### U HAMLET, LIPID, T7, CMP, TSH #### [facility] [address] [address] [address] Anibal Bishop TSHon 03-20-2022 TSH 2.763 uIU/mL Normal 0.358-3.740 [facility] Comment on above: Performed By: #### U HAMLET, LIPID, T7, CMP, TSH #### [facility] [address] [address] [address] Anibal Bishop URIC ACID SERUMon 03-20-2022 Urate [Mass/Vol] 5.3 mg/dL Normal 3.5-7.2 [facility] Comment on above: Performed By: #### U HAMLET, LIPID, T7, CMP, TSH #### [facility] [address] [place] [address] Dr. Anibal Bishop COMPLIANCE DRUG SCREENon PDF . Normal [facility] Comment on above: Performed By: #### P SASC, IRON #### [facility] [address] [place] [address] Dr. Anibal Bishop Summary FINAL Normal [facility] Comment on above: Result Comment: === [...] test is not intended to distinguish between etmrw-5-owbouwrjkyerdmjrinxe, the predominant form of THC in most herbal or marijuana-based products, and qbzlj-2-ruwyxocfnlkduiooiggo. Fentanyl 1 UNEXPECTED ng/mg creat Norfentanyl 7 [...] Performed By: #### P SASC, IRON #### [facility] [address] [address] [address] Anibal Bishop URIC ACID RAND URINEon 01-05 Uric Acid, Urine 45.6 mg/dL Normal Not Estab. [facility] Comment on above: Performed By: #### P SASC, IRON #### [facility] [address] [address] [address] Anibal Bishop COMPLIANCE DRUG SCREENon PDF . Normal [facility] Comment on above: Performed By: #### P SASC, IRON #### [facility] [address] [address] [address] Anibal Bishop Summary FINAL Normal [facility] Comment on above: Result Comment: === [...] Performed By: #### P SASC, IRON #### [facility] [address] [place] [address] Dr. Anibal Bishop URIC ACID RAND URINEon 11-11 Uric Acid, Urine 57.4 mg/dL Normal Not Estab. [facility] Comment on above: Performed By: #### U RICUR #### [facility] [address] [address] [address] Anibal Bishop COMPLIANCE DRUG SCREENon PDF . Normal [facility] Comment on above: Performed By: #### P SASC, IRON #### [facility] [address] [address] [address] Anibal Bishop Summary FINAL Normal [facility] Comment on above: Result Comment: === [...] Performed By: #### P SASC, IRON #### [facility] [address] [address] [address] Anibal Bishop URIC ACID RAND URINEon 10-12 Uric Acid, Urine 58.7 mg/dL Normal Not Estab. [facility] Comment on above: Performed By: #### U RICUR #### [facility] [address] [address] [address] Anibal Bishop COMPLIANCE DRUG SCREENon PDF . Normal [facility] Comment on above: Performed By: #### D SDOALC #### [facility] [address] [place] [address] Dr. Anibal Bishop Summary FINAL Normal [facility] Comment on above: Result Comment: === [...] === Performed By: #### D SDOALC #### [facility] [address] [place] [address] Dr. Anibal Bishop URIC ACID RAND URINEon 09-12 Uric Acid, Urine 62.7 mg/dL Normal Not Estab. [facility] Comment on above: Performed By: #### P SASC, IRON #### [facility] [address] [place], [place] [address] Dr. Anibal Bishop COMPLIANCE DRUG SCREENon PDF . Normal [facility] Comment on above: Performed By: #### D SDOALC #### [facility] [address] [place], [place] [address] Dr. Anibal Bishop Summary FINAL Normal [facility] Comment on above: Result Comment: === [...] === Performed By: #### D SDOALC #### [facility] [address] [address] [address] Anibal Bishop URIC ACID RAND URINEon 08-11 Uric Acid, Urine 21.4 mg/dL Normal Not Estab. [facility] Comment on above: Performed By: #### P SASC, IRON #### [facility] [id number] Anibal Bishop Encounters Encounter Date Encounter [...] Start: 02-24-2018 End: 02-24-2018 ambulatory CHANCE COHEN [facility] Start: 02-24-2018 Encounter for other preprocedural examination CHANCE COHEN [facility] Procedures Date Procedure Procedure Detail Performing Clinician Start: 03-20-[address] BEBETO DENNISON . Comment on above: Performed By: #### P SASC, IRON #### [facility] [address] [address] [address] Anibal Bishop Payers Date Payer Category Payer Medicare [id number] 1955 Unknown [id number] 2.16.84 [id number] 1955 Unknown [id number] 2.16.84 [id number] 1955 Unknown [id number] 2.16.84 [id number] 1955 Unknown [id number] 2.16.84 [id number] 1955 Unknown [id number] 2.16.84 [id number] 1955 Unknown [id number] 2.16.84 [id number] 1955 Unknown [id number] 2.16.84 [id number] 1955 Unknown [id number] 2.16.84 [id number] Summary Purpose Family History No Family History Records FoundNo Family History Records Found Advance Directives No Advanced Directives Records FoundNo Advanced Directives Records Found Additional Source Comments (unrecognized sect ion and content) No Status Records FoundNo Status Records Found INFORMATION SOURCE (unrecogn ized section and content) DATE CREATED AUTHOR 06/15/[address] [facility] DATE CREATED AUTHOR AUTHOR'S MICHAEL SALINAS 07/13/2023 [facility] FOR RECORDS PERTAINING TO PATIENTS WHO ARE [...] BE BASED ON THE PRIMARY CLINICAL RECORDS. [facility] [employer] provides no warranty or guarantee of the accuracy or completeness of information in this document.
--- NOTE | 2024-03-01 08:27 | XR_ITS ---
The [address] [address] Patient Name: NASRIN KIM MRN: [id number] date: 1955 Sex: M Assigned Patient Location: ER Current Patient Location: ER Accession/Order Number: [id number] Exam Date: 03/01/2024 09:00 Report Date: 03/01/2024 09:55 At the request of: OMAR RIDER Procedure: XR wrist LT min 3V EXAM: XR wrist LT min 3V HISTORY: injury c/o pain COMPARISON: None. TECHNIQUE: FINDINGS: XR/XR wrist LT min 3V IMPRESSION: No acute fracture or malalignment. If there is clinical concern for scaphoid fracture or anatomic snuffbox tenderness, suggest dedicated evaluate view further evaluation. Mild degenerative change between the articulation of the scaphoid with the trapezium. There is also mild first carpal metacarpal joint degenerative change. Electronically authenticated by: AMANDEEP JACOBS Date: 03/01/2024 09:55
--- NOTE | 2024-03-01 08:27 | XR_ITS ---
The [address] [address] Patient Name: NASRIN KIM MRN: [id number] date: 1955 Sex: M Assigned Patient Location: ER Current Patient Location: ER Accession/Order Number: [id number] Exam Date: 03/01/2024 09:00 Report Date: 03/01/2024 09:49 At the request of: OMAR RIDER Procedure: XR hand LT min 3V EXAM: XR hand LT min 3V HISTORY: injury c/o pain COMPARISON: None. XR/XR hand LT min 3V IMPRESSION: 1. No acute fracture or malalignment. 2. Mild degenerative change. Correlation the scaphoid. Is also mild first carpometacarpal, metacarpal tibial and interphalangeal joint degenerative change. Minimal degenerative change of the second and third distal interphalangeal joints. Electronically authenticated by: AMANDEEP JACOBS Date: 03/01/2024 09:49
[2024-03-01] MEDS: KETOROLAC TROMETHAMINE 30 MG/ML VIAL IM (09:19)
--- NOTE | 2024-03-01 10:48 | ED.UPPEXIN1 ---
HPI HPI - Extremity Injury (Upper) General Chief Complaint: Extremity Injury, Upper Stated Complaint: POSSIBLE BROKEN HAND Time Seen by Provider: 03/01/24 08:25 Source: patient Mode of arrival: walk-in Limitations: no limitations History of Present Illness HPI narrative: The patient is coming to the ER with left arm pain after he was swinging his arm and he hit a metal chair , patient denies any other injury Related Data Home Medications ?Medication ?Instructions ?Recorded ?Confirmed buprenorphine 8 mg-naloxone 2 mg 1 film sublingual DAILY 03/01/24 03/01/24 sublingual film (Suboxone) Previous Rx's ?Medication ?Instructions ?Recorded diclofenac sodium 50 mg 50 mg PO Q12H PRN pain #10 tabs 03/01/24 tablet,delayed release Allergies Allergy/AdvReac Type Severity Reaction Status Date / Time No Known Drug Allergies Allergy Verified 03/01/24 08:21 Opioid HPI Opioid Management Most Recent Pain and Opioid Data: Last Pain Scale 8 03/01/24 09:19 03/01/24 Last MAR Pain Assessment 03/01/24 09:19 Urine Drug Screen Interp Final (.) 01/14/24 15:58 01/14/24 Ur Phencyclidine Scrn Negative (NEGATIVE) 01/14/24 15:58 01/14/24 Review of Systems ROS Status of ROS 10 or more systems reviewed and unremarkable except as noted in history and below PFSH PFSH Social History Little interest or pleasure in doing things: not at all Feeling down, depressed, or hopeless: not at all Exam Narrative Exam Narrative: Nurses notes and vital signs reviewed and patient is not hypoxic. Left arm examination: The patient have tenderness upon palpation of the distal end of the radius mostly a little bit proximal to the wrist there is no specific tenderness on palpation of the wrist itself and no pain with movement of the thumb and there is no specific tenderness upon palpation of the scaphoid area, no vascular injury detected and the patient have good capillary fill General: Well-appearing and in no apparent distress. Skin: Warm, dry, no pallor noted. No rash. Head: Normocephalic, atraumatic. Neck: Supple, non-tender. Constitutional Vital Signs, click to edit/add: Last Vital Signs Temp 98.3 F 03/01/24 08:17 Pulse 100 H 03/01/24 08:17 Resp 20 03/01/24 08:17 BP 183/110 H 03/01/24 08:17 Pulse Ox 96 03/01/24 08:17 O2 Del Method Room Air 03/01/24 08:17 Course Vital Signs Vital signs: Vital Signs Temperature 98.3 F 03/01/24 08:17 Pulse Rate 100 H 03/01/24 08:17 Respiratory Rate 20 03/01/24 08:17 Blood Pressure 183/110 H 03/01/24 08:17 Pulse Oximetry 96 03/01/24 08:17 Oxygen Delivery Method Room Air 03/01/24 08:17 Temperature 98.3 F 03/01/24 08:17 Pulse Rate 100 H 03/01/24 08:17 Respiratory Rate 20 03/01/24 08:17 Blood Pressure 183/110 H 03/01/24 08:17 Pulse Oximetry 96 03/01/24 08:17 Oxygen Delivery Method Room Air 03/01/24 08:17 MDM - Extremity Injury (Upper) MDM Narrative Medical decision making narrative: X-ray of the patient left wrist showed no acute pathology and his pain and pointing to tenderness was mostly proximal to the wrist more than at the wrist itself but because of the severe tenderness that x-ray of the left wrist and forearm ordered No acute finding found and with the patient current presentation he was placed in a Velcro splint instructed that he just to continue pain medication with Voltaren and to follow-up within 5 to 7 days for another x-ray to rule out any fracture Patient current mechanism of injury and the fact that the patient pain was not at the scaphoid area the patient instructed about the follow-up with the primary care further evaluation with another x-ray Patient provided with a Velcro splint and for his request he requested sling The patient is to follow up with primary care physician in next 2-3 days or to return to the emergency department should any of the signs or symptoms worsen or new symptoms develop. The patient agrees with the following Diagnosis and Treatment plan and the patient will be discharged home. Discharge Plan Discharge Chief Complaint: Extremity Injury, Upper Clinical Impression: Contusion of left wrist Patient Disposition: Home, Self-Care Time of Disposition Decision: 10:00 Condition: Good Prescriptions / Home Meds: New diclofenac sodium 50 mg tablet,delayed release (DR/EC) 50 mg PO Q12H PRN (Reason: pain) Qty: 10 0RF No Action buprenorphine-naloxone [Suboxone] 8-2 mg film 1 film sublingual DAILY Print Language: Indonesian Instructions: Wrist Injury (ED), Contusion in Adults (ED) Referrals: Nico Anderson MD [Primary Care Provider] - 1 week Discharge Date/Time: 03/01/24 10:11
== END 2024-03-01 10:11 | disposition home or self-care (01) ==
PROVIDERS: Emergency Provider Emergency Medicine; PCP Family Medicine
DX: S60.212A Contusion of left wrist, initial encounter (principal); W22.03XA Walked into furniture, initial encounter
CPT/HCPCS: 73110; 73130; 96372; 99284; J1885

== ENCOUNTER 2024-03-01 10:20 | Outpatient (OUT) | payer MEDICARE, SELFPAY ==
--- OUTSIDE RECORDS SUMMARY | 2024-02-28 10:07 | XMS_ITS | CCD ---
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 Normal [facility] Comment on above: Performed By: #### U RICRHINA #### [facility] [address] [address] [address] Anibal Bishop Summary FINAL Normal [facility] Comment on above: Result Comment: === TOXASSURE [...] === Performed By: #### U RICUR #### [facility] [address] [place] [address] Dr. Anibal Bishop URIC ACID RAND URINEon 06-11 Uric Acid, Urine 4.0 mg/dL Normal Not Estab. [facility] Comment on above: Performed By: #### U RICUR #### [facility] [address] [place] [address] Dr. Anibal Bishop COMPLIANCE DRUG SCREENon PDF . Normal [facility] Comment on above: Performed By: #### P SASC, IRON #### [facility] [address] [place] [address] Dr. Anibal Bishop Summary FINAL Normal [facility] Comment on above: Result Comment: === TOXASSURE [...] Performed By: #### P SASC, IRON #### [facility] [address] [place] [address] Dr. Anibal Bishop INSULINon 03-21-2022 Insulin 18.3 uIU/mL Normal 2.6-24.9 [facility] Comment on above: Performed By: #### U RICUR #### [facility] [address] [place] [address] Dr. Anibal Bishop URIC ACID RAND URINEon 03-21 Uric Acid, Urine 26.8 mg/dL Normal Not Estab. [facility] Comment on above: Performed By: #### U RICUR #### [facility] [address] [place] [address] Dr. Anibal Bishop CBC AUTO DIFFon 03-20-2022 BASO # 0.0 103/ul Normal 0.0-0.1 [facility] Comment on above: Performed By: #### P SASC, IRON #### [facility] [address] [place] [address] Dr. Anibal Bishop Basophils/100 WBC (Bld) 0.6 % Normal 0.2-2.0 [facility] Comment on above: Performed By: #### P SASC, IRON #### [facility] [address] [place] [address] Dr. Anibal Bishop EO # 0.2 103/ul Normal 0.0-0.7 [facility] Comment on above: Performed By: #### P SASC, IRON #### [facility] [address] [place] [address] Dr. Anibal Bishop Eosinophils/100 WBC (Bld) 3.5 % Normal 0.9-7.0 [facility] Comment on above: Performed By: #### P SASC, IRON #### [facility] [address] [place] [address] Dr. Anibal Bishop Erythrocyte distribution width (RBC) [Ratio] 14.1 % Normal 11.0-15.0 [facility] Comment on above: Performed By: #### P SASC, IRON #### [facility] [address] [place] [address] Dr. Anibal Bishop Hematocrit (Bld) [Volume fraction] 44.6 % Normal 42.0-54.0 [facility] Comment on above: Performed By: #### P SASC, IRON #### [facility] [address] [place] [address] Dr. Anibal Bishop Hemoglobin (Bld) [Mass/Vol] 14.3 g/dL Normal 14.0-18.0 [facility] Comment on above: Performed By: #### P SASC, IRON #### [facility] [address] [address] [address] Anibal Bishop IG # 0.02 10e3/ul Normal 0.00-0.03 [facility] Comment on above: Performed By: #### P SASC, IRON #### [facility] [address] [address] [address] Anibal Bishop IG % 0.4 % Normal 0.0-0.5 [facility] Comment on above: Performed By: #### P SASC, IRON #### [facility] [address] [address] [address] Anibal Bishop LYMPH # 0.8 103/ul Critically low 1.2-3.8 [facility] Comment on above: Performed By: #### P SASC, IRON #### [facility] [address] [address] [address] Anibal Bishop Lymphocytes/100 WBC (Bld) 17.1 % Critically low 20.5-60.0 [facility] Comment on above: Performed By: #### P SASC, IRON #### [facility] [address] [address] [address] Anibal Bishop MANUAL DIFF REQ NO Normal [facility] Comment on above: Performed By: #### P SASC, IRON #### [facility] [address] [address] [address] Anibal Bishop MCH (RBC) [Entitic mass] 29.9 pg Normal 25.9-34.0 [facility] Comment on above: Performed By: #### P SASC, IRON #### [facility] [address] [address] [address] Anibal Bishop MCHC (RBC) [Mass/Vol] 32.1 g/dL Normal 29.9-35.2 [facility] Comment on above: Performed By: #### P SASC, IRON #### [facility] [address] [address] [address] Anibal Bishop MCV (RBC) [Entitic vol] 93.3 fL Normal 80.0-94.0 [facility] Comment on above: Performed By: #### P SASC, IRON #### [facility] [address] [place] [address] Dr. Anibal Bishop MONO # 0.6 103/ul Normal 0.3-0.8 [facility] Comment on above: Performed By: #### P SASC, IRON #### [facility] [address] [place] [address] Dr. Anibal Bishop Monocytes/100 WBC (Bld) 12.5 % Critically high 1.7-12.0 [facility] Comment on above: Performed By: #### P SASC, IRON #### [facility] [address] [place] [address] Dr. Anibal Bishop NEUT # 3.2 103/ul Normal 1.4-6.5 [facility] Comment on above: Performed By: #### P SASC, IRON #### [facility] [address] [place] [address] Dr. Anibal Bishop Neutrophils/100 WBC (Bld) 65.9 % Normal 43.0-75.0 [facility] Comment on above: Performed By: #### P SASC, IRON #### [facility] [address] [place] [address] Dr. Anibal Bishop Platelet mean volume (Bld) [Entitic vol] 9.0 fL Critically low 9.5-13.5 [facility] Comment on above: Performed By: #### P SASC, IRON #### [facility] [address] [place] [address] Dr. Anibal Bishop PLT 250 103/ul Normal 150-450 [facility] Comment on above: Performed By: #### P SASC, IRON #### [facility] [address] [place] [address] Dr. Anibal Bishop RBC 4.78 106/ul Normal 4.70-6.10 [facility] Comment on above: Performed By: #### P SASC, IRON #### [facility] [address] [place] [address] Dr. Anibal Bishop WBC 4.8 103/ul Normal 4.0-11.0 [facility] Comment on above: Performed By: #### P SASC, IRON #### [facility] [address] [address] [address] Anibal Bishop FREE THYROXINE INDEX T7on FTI 3.33 Normal 1.30-4.50 [facility] Comment on above: Performed By: #### U HAMLET, LIPID, T7, CMP, TSH #### [facility] [address] [address] [address] Anibal Bishop T3U 35.0 % Normal 33.0-40.0 [facility] Comment on above: Performed By: #### U HAMLET, LIPID, T7, CMP, TSH #### [facility] [address] [address] [address] Anibal Bishop T4 [Mass/Vol] 9.50 ug/dL Normal 4.50-12.10 [facility] Comment on above: Performed By: #### U HAMLET, LIPID, T7, CMP, TSH #### [facility] [address] [place] [address] Dr. Anibal Bishop GLYCOHEMOGLOBIN A1Con 2022 ADA RECOMMENDATION SEE BELOW Normal [facility] Comment on above: Result Comment: ADA RECOMMENDED LIMIT 4.0 - 6.0 ADA THERAPEUTIC TARGET < 7.0 ACTION SUGGESTED > 7.0 Performed By: #### P SASC, IRON #### [facility] [address] [place] [address] Dr. Anibal Bishop Glucose [Mass/Vol] 114 mg/dL Normal [facility] Comment on above: Performed By: #### P SASC, IRON #### [facility] [address] [address] [address] Anibal Bishop HbA1c (Bld) [Mass fraction] 5.6 % Normal 4.5-6.2 [facility] Comment on above: Performed By: #### P SASC, IRON #### [facility] [address] [place] [address] Dr. Anibal Bishop IRONon 03-20-2022 Iron [Mass/Vol] 63.0 ug/dL Critically low 65.0-175.0 [facility] Comment on above: Performed By: #### P SASC, IRON #### [facility] [address] [address] [address] Anibal Bishop LIPID PROFILEon 03-20-2022 CHOL-HDL RATIO NORM SEE BELOW Normal [facility] Comment on above: Result Comment: 3.3 - 4.4 LOW RISK 4.4 - 7.1 AVERAGE RISK 7.1 - 11.0 MODERATE RISK >11.0 HIGH RISK Performed By: #### P SASC, IRON #### [facility] [address] [address] [address] Anibal Bishop Cholesterol [Mass/Vol] 207 mg/dL Critically high <=200 [facility] Comment on above: Performed By: #### P SASC, IRON #### [facility] [address] [address] [address] Anibal Bishop Cholesterol in HDL [Mass/Vol] 96 mg/dL Critically high 40-60 [facility] Comment on above: Performed By: #### P SASC, IRON #### [facility] [address] [address] [address] Anibal Bishop Cholesterol in LDL [Mass/Vol] 97.6 mg/dL Normal [facility] Comment on above: Performed By: #### P SASC, IRON #### [facility] [address] [address] [address] Anibal Bishop Cholesterol.total/Ch olesterol in HDL [Mass ratio] 2.2 {ratio} Normal [facility] Comment on above: Performed By: #### P SASC, IRON #### [facility] [address] [address] [address] Anibal Bishop HDL NORMAL > or = 60 mg/dl - LO W CARDIOVASCULAR RISK <40 mg/dl - HIGH CARDIOVASCULAR RISK Normal [facility] Comment on above: Performed By: #### P SASC, IRON #### [facility] [address] [address] [address] Anibal Bishop LDL CALC NORMAL SEE BELOW Normal [facility] Comment on above: Result Comment: <100 mg/dl OPTIMAL 100 - 129 mg/dl NEAR OR ABOVE OPTIMAL 130 - 159 mg/dl BORDERLINE HIGH 160 - 189 mg/dl HIGH >190 mg/dl VERY HIGH Performed By: #### P SASC, IRON #### [facility] [address] [address] [address] Anibal Bishop Triglyceride [Mass/Vol] 67 mg/dL Normal <=150 [facility] Comment on above: Performed By: #### P SASC, IRON #### [facility] [address] [address] [address] Anibal Bishop VLDL CALC 13.4 mg/dL Normal [facility] Comment on above: Performed By: #### P SASC, IRON #### [facility] [address] [address] [address] Anibal Bishop PROF 14(COMP METB)on 023 Albumin [Mass/Vol] 3.6 g/dL Normal 3.4-5.0 [facility] Comment on above: Performed By: #### U HAMLET, LIPID, T7, CMP, TSH #### [facility] [address] [address] [address] Anibal Bishop Albumin/Globulin [Mass ratio] 0.9 {ratio} Normal [facility] Comment on above: Performed By: #### U HAMLET, LIPID, T7, CMP, TSH #### [facility] [address] [address] [address] Anibal Bishop ALP [Catalytic activity/Vol] 90 U/L Normal 46-116 [facility] Comment on above: Performed By: #### U HAMLET, LIPID, T7, CMP, TSH #### [facility] [address] [address] [address] Anibal Bishop ALT [Catalytic activity/Vol] 46 U/L Normal 16-63 [facility] Comment on above: Performed By: #### U HAMLET, LIPID, T7, CMP, TSH #### [facility] [address] [address] [address] Anibal Bishop Anion gap [Moles/Vol] 13.4 mmol/L Normal [facility] Comment on above: Performed By: #### U HAMLET, LIPID, T7, CMP, TSH #### [facility] [address] [address] [address] Anibal Bishop AST [Catalytic activity/Vol] 26 U/L Normal 15-37 [facility] Comment on above: Performed By: #### U HAMLET, LIPID, T7, CMP, TSH #### [facility] [address] [address] [address] Anibal Bishop Bilirubin [Mass/Vol] 0.6 mg/dL Normal 0.2-1.0 [facility] Comment on above: Performed By: #### U HAMLET, LIPID, T7, CMP, TSH #### [facility] [address] [address] [address] Anibal Bishop Calcium [Mass/Vol] 9.6 mg/dL Normal 8.5-10.1 [facility] Comment on above: Performed By: #### U HAMLET, LIPID, T7, CMP, TSH #### [facility] [address] [address] [address] Anibal Bisohp Chloride [Moles/Vol] 103 mmol/L Normal 98-107 [facility] Comment on above: Performed By: #### U HAMLET, LIPID, T7, CMP, TSH #### [facility] [address] [address] [address] Anibal Bishop CO2 [Moles/Vol] 27.9 mmol/L Normal 21.0-32.0 [facility] Comment on above: Performed By: #### U HAMLET, LIPID, T7, CMP, TSH #### [facility] [address] [place] [address] Dr. Anibal Bishop Creatinine [Mass/Vol] 0.91 mg/dL Normal 0.70-1.30 [facility] Comment on above: Performed By: #### U HAMLET, LIPID, T7, CMP, TSH #### [facility] [address] [place] [address] Dr. Anibal Bishop EGFR-AF ROMANIAN >60 Normal >=60 [facility] Comment on above: Performed By: #### U HAMLET, LIPID, T7, CMP, TSH #### [facility] [address] [address] [address] Anibal Bishop EGFR-NON AF ROMANIAN >60 Normal >=60 [facility] Comment on above: Performed By: #### U HAMLET, LIPID, T7, CMP, TSH #### [facility] [address] [address] [address] Anibal Bishop Globulin (S) [Mass/Vol] 3.9 g/dL Normal [facility] Comment on above: Performed By: #### U HAMLET, LIPID, T7, CMP, TSH #### [facility] [address] [address] [address] Anibal Bishop Glucose [Mass/Vol] 103 mg/dL Normal 74-106 [facility] Comment on above: Performed By: #### U HAMLET, LIPID, T7, CMP, TSH #### [facility] [address] [address] [address] Anibal Bishop Potassium [Moles/Vol] 4.3 mmol/L Normal 3.5-5.1 [facility] Comment on above: Performed By: #### U HAMLET, LIPID, T7, CMP, TSH #### [facility] [address] [address] [address] Anibal Bishop Protein [Mass/Vol] 7.5 g/dL Normal 6.4-8.2 [facility] Comment on above: Performed By: #### U HAMLET, LIPID, T7, CMP, TSH #### [facility] [address] [address] [address] Anibal Bishop Sodium [Moles/Vol] 140 mmol/L Normal 136-145 [facility] Comment on above: Performed By: #### U HAMLET, LIPID, T7, CMP, TSH #### [facility] [address] [address] [address] Anibal Bishop Urea nitrogen [Mass/Vol] 12.0 mg/dL Normal 7.0-18.0 [facility] Comment on above: Performed By: #### U HAMLET, LIPID, T7, CMP, TSH #### [facility] [address] [address] [address] Anibal Bishop Urea nitrogen/Creatinine [Mass ratio] 13.2 mg/mg Normal [facility] Comment on above: Performed By: #### U HAMLET, LIPID, T7, CMP, TSH #### [facility] [address] [address] [address] Anibal Bishop TSHon 03-20-2022 TSH 2.763 uIU/mL Normal 0.358-3.740 [facility] Comment on above: Performed By: #### U HAMLET, LIPID, T7, CMP, TSH #### [facility] [address] [address] [address] Anibal Bishop URIC ACID SERUMon 03-20-2022 Urate [Mass/Vol] 5.3 mg/dL Normal 3.5-7.2 [facility] Comment on above: Performed By: #### U HAMLET, LIPID, T7, CMP, TSH #### [facility] [address] [place] [address] Dr. Anibal Bishop COMPLIANCE DRUG SCREENon PDF . Normal [facility] Comment on above: Performed By: #### P SASC, IRON #### [facility] [address] [place] [address] Dr. Anibal Bishop Summary FINAL Normal [facility] Comment on above: Result Comment: === TOXASSURE [...] test is not intended to distinguish between gtyhk-4-mfgvzypikdqvcxvrbfgy, the predominant form of THC in most herbal or marijuana-based products, and lqjrh-0-vcktqeyrrrajxipxeqhv. Fentanyl 1 UNEXPECTED ng/mg creat Norfentanyl 7 [...] Performed By: #### P SASC, IRON #### [facility] [address] [address] [address] Anibal Bishop URIC ACID RAND URINEon 01-05 Uric Acid, Urine 45.6 mg/dL Normal Not Estab. [facility] Comment on above: Performed By: #### P SASC, IRON #### [facility] [address] [address] [address] Anibal Bishop COMPLIANCE DRUG SCREENon PDF . Normal [facility] Comment on above: Performed By: #### P SASC, IRON #### [facility] [address] [address] [address] Anibal Bishop Summary FINAL Normal [facility] Comment on above: Result Comment: === TOXASSURE [...] Performed By: #### P SASC, IRON #### [facility] [address] [place] [address] Dr. Anibal Bishop URIC ACID RAND URINEon 11-11 Uric Acid, Urine 57.4 mg/dL Normal Not Estab. [facility] Comment on above: Performed By: #### U RICUR #### [facility] [address] [address] [address] Anibal Bishop COMPLIANCE DRUG SCREENon PDF . Normal [facility] Comment on above: Performed By: #### P SASC, IRON #### [facility] [address] [address] [address] Anibal Bishop Summary FINAL Normal [facility] Comment on above: Result Comment: === TOXASSURE [...] Performed By: #### P SASC, IRON #### [facility] [address] [address] [address] Anibal Bishop URIC ACID RAND URINEon 10-12 Uric Acid, Urine 58.7 mg/dL Normal Not Estab. [facility] Comment on above: Performed By: #### U RICUR #### [facility] [address] [address] [address] Anibal Bishop COMPLIANCE DRUG SCREENon PDF . Normal [facility] Comment on above: Performed By: #### D SDOALC #### [facility] [address] [place] [address] Dr. Anibal Bishop Summary FINAL Normal [facility] Comment on above: Result Comment: === TOXASSURE [...] === Performed By: #### D SDOALC #### [facility] [address] [place] [address] Dr. Anibal Bishop URIC ACID RAND URINEon 09-12 Uric Acid, Urine 62.7 mg/dL Normal Not Estab. [facility] Comment on above: Performed By: #### P SASC, IRON #### [facility] [address] [place], [place] [address] Dr. Anibal Bishop COMPLIANCE DRUG SCREENon PDF . Normal [facility] Comment on above: Performed By: #### D SDOALC #### [facility] [address] [place], [place] [address] Dr. Anibal Bishop Summary FINAL Normal [facility] Comment on above: Result Comment: === TOXASSURE [...] === Performed By: #### D SDOALC #### [facility] [address] [address] [address] Anibal Bishop URIC ACID RAND URINEon 08-11 Uric Acid, Urine 21.4 mg/dL Normal Not Estab. [facility] Comment on above: Performed By: #### P SASC, IRON #### [facility] [address] [id number] Anibal Bishop Encounters Encounter Date Encounter [...] Start: 02-24-2018 End: 02-24-2018 ambulatory CHANCE COHEN [facility] Start: 02-24-2018 Encounter for other preprocedural examination CHANCE COHEN [facility] Procedures Date Procedure Procedure Detail Performing Clinician Start: 03-20-[address] BEBETO DENNISON . Comment on above: Performed By: #### P SASC, IRON #### [facility] [address] [address] [address] Anibal Bishop Payers Date Payer Category Payer Medicare [id number] 1955 Unknown [id number] 2.16.84 [id number] 1955 Unknown [id number] 2.16.84 [id number] 1955 Unknown [id number] 2.16.84 [id number] 1955 Unknown [id number] 2.16.84 [id number] 1955 Unknown [id number] 2.16.84 [id number] 1955 Unknown [id number] 2.16.84 [id number] 1955 Unknown [id number] 2.16.84 [id number] 1955 Unknown [id number] 2.16.84 [id number] Summary Purpose Family History No Family History Records FoundNo Family History Records Found Advance Directives No Advanced Directives Records FoundNo Advanced Directives Records Found Additional Source Comments (unrecognized sect ion and content) No Status Records FoundNo Status Records Found INFORMATION SOURCE (unrecogn ized section and content) DATE CREATED AUTHOR 06/15/2022 [facility] DATE CREATED AUTHOR AUTHOR'S MICHAEL SALINAS 07/13/2023 [facility] FOR RECORDS PERTAINING TO PATIENTS WHO [...] BE BASED ON THE PRIMARY CLINICAL RECORDS. [facility] [employer] provides no warranty or guarantee of the accuracy or completeness of information in this document.
--- OUTSIDE RECORDS SUMMARY | 2024-03-01 10:24 | XMS_ITS | CCD ---
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 Normal [facility] Comment on above: Performed By: #### U RICRHINA #### [facility] [address] [address] [address] Anibal Bishop Summary FINAL Normal [facility] Comment on above: Result Comment: === [...] === Performed By: #### U RICUR #### [facility] [address] [place] [address] Dr. Anibal Bishop URIC ACID RAND URINEon 06-11 Uric Acid, Urine 4.0 mg/dL Normal Not Estab. [facility] Comment on above: Performed By: #### U RICUR #### [facility] [address] [place] [address] Dr. Anibal Bishop COMPLIANCE DRUG SCREENon PDF . Normal [facility] Comment on above: Performed By: #### P SASC, IRON #### [facility] [address] [place] [address] Dr. Anibal Bishop Summary FINAL Normal [facility] Comment on above: Result Comment: === [...] Performed By: #### P SASC, IRON #### [facility] [address] [place] [address] Dr. Anibal Bishop INSULINon 03-21-2022 Insulin 18.3 uIU/mL Normal 2.6-24.9 [facility] Comment on above: Performed By: #### U RICUR #### [facility] [address] [place] [address] Dr. Anibal Bishop URIC ACID RAND URINEon 03-21 Uric Acid, Urine 26.8 mg/dL Normal Not Estab. The [facility] Comment on above: Performed By: #### U RICUR #### [facility] [address] [place] [address] Dr. Anibal Bishop CBC AUTO DIFFon 03-20-2022 BASO # 0.0 103/ul Normal 0.0-0.1 [facility] Comment on above: Performed By: #### P SASC, IRON #### [facility] [address] [place] [address] Dr. Anbial Bishop Basophils/100 WBC (Bld) 0.6 % Normal 0.2-2.0 [facility] Comment on above: Performed By: #### P SASC, IRON #### [facility] [address] [place] [address] Dr. Anibal Bishop EO # 0.2 103/ul Normal 0.0-0.7 [facility] Comment on above: Performed By: #### P SASC, IRON #### [facility] [address] [place] [address] Dr. Anibal Bishop Eosinophils/100 WBC (Bld) 3.5 % Normal 0.9-7.0 [facility] Comment on above: Performed By: #### P SASC, IRON #### [facility] [address] [place] [address] Dr. Anibal Bishop Erythrocyte distribution width (RBC) [Ratio] 14.1 % Normal 11.0-15.0 [facility] Comment on above: Performed By: #### P SASC, IRON #### [facility] [address] [place] [address] Dr. Anibal Bishop Hematocrit (Bld) [Volume fraction] 44.6 % Normal 42.0-54.0 [facility] Comment on above: Performed By: #### P SASC, IRON #### [facility] [address] [place] [address] Dr. Anibal Bishop Hemoglobin (Bld) [Mass/Vol] 14.3 g/dL Normal 14.0-18.0 [facility] Comment on above: Performed By: #### P SASC, IRON #### [facility] [address] [address] [address] Anibal Bishop IG # 0.02 10e3/ul Normal 0.00-0.03 [facility] Comment on above: Performed By: #### P SASC, IRON #### [facility] [address] [address] [address] Anibal Bishop IG % 0.4 % Normal 0.0-0.5 [facility] Comment on above: Performed By: #### P SASC, IRON #### [facility] [address] [address] [address] Anibal Bishop LYMPH # 0.8 103/ul Critically low 1.2-3.8 [facility] Comment on above: Performed By: #### P SASC, IRON #### [facility] [address] [address] [address] Anibal Bishop Lymphocytes/100 WBC (Bld) 17.1 % Critically low 20.5-60.0 [facility] Comment on above: Performed By: #### P SASC, IRON #### [facility] [address] [address] [address] Anibal Bishop MANUAL DIFF REQ NO Normal [facility] Comment on above: Performed By: #### P SASC, IRON #### [facility] [address] [address] [address] Anibal Bishop MCH (RBC) [Entitic mass] 29.9 pg Normal 25.9-34.0 [facility] Comment on above: Performed By: #### P SASC, IRON #### [facility] [address] [address] [address] Anibal Bishop MCHC (RBC) [Mass/Vol] 32.1 g/dL Normal 29.9-35.2 [facility] Comment on above: Performed By: #### P SASC, IRON #### [facility] [address] [address] [address] Anibal Bishop MCV (RBC) [Entitic vol] 93.3 fL Normal 80.0-94.0 [facility] Comment on above: Performed By: #### P SASC, IRON #### [facility] [address] [place] [address] Dr. Anibal Bishop MONO # 0.6 103/ul Normal 0.3-0.8 [facility] Comment on above: Performed By: #### P SASC, IRON #### [facility] [address] [place] [address] Dr. Anibal Bishop Monocytes/100 WBC (Bld) 12.5 % Critically high 1.7-12.0 [facility] Comment on above: Performed By: #### P SASC, IRON #### [facility] [address] [place] [address] Dr. Anibal Bishop NEUT # 3.2 103/ul Normal 1.4-6.5 [facility] Comment on above: Performed By: #### P SASC, IRON #### [facility] [address] [place] [address] Dr. Anibal Bishop Neutrophils/100 WBC (Bld) 65.9 % Normal 43.0-75.0 [facility] Comment on above: Performed By: #### P SASC, IRON #### [facility] [address] [place] [address] Dr. Anibal Bishop Platelet mean volume (Bld) [Entitic vol] 9.0 fL Critically low 9.5-13.5 [facility] Comment on above: Performed By: #### P SASC, IRON #### [facility] [address] [place] [address] Dr. Anibal Bishop PLT 250 103/ul Normal 150-450 [facility] Comment on above: Performed By: #### P SASC, IRON #### [facility] [address] [place] [address] Dr. Anibal Bishop RBC 4.78 106/ul Normal 4.70-6.10 [facility] Comment on above: Performed By: #### P SASC, IRON #### [facility] [address] [place] [address] Dr. Anibal Bishop WBC 4.8 103/ul Normal 4.0-11.0 [facility] Comment on above: Performed By: #### P SASC, IRON #### [facility] [address] [address] [address] Anibal Bishop FREE THYROXINE INDEX T7on FTI 3.33 Normal 1.30-4.50 [facility] Comment on above: Performed By: #### U HAMLET, LIPID, T7, CMP, TSH #### [facility] [address] [address] [address] Anibal Bishop T3U 35.0 % Normal 33.0-40.0 [facility] Comment on above: Performed By: #### U HAMLET, LIPID, T7, CMP, TSH #### [facility] [address] [address] [address] Anibal Bishop T4 [Mass/Vol] 9.50 ug/dL Normal 4.50-12.10 [facility] Comment on above: Performed By: #### U HAMLET, LIPID, T7, CMP, TSH #### [facility] [address] [place] [address] Dr. Anibal Bishop GLYCOHEMOGLOBIN A1Con 2022 ADA RECOMMENDATION SEE BELOW Normal [facility] Comment on above: Result Comment: ADA RECOMMENDED LIMIT 4.0 - 6.0 ADA THERAPEUTIC TARGET < 7.0 ACTION SUGGESTED > 7.0 Performed By: #### P SASC, IRON #### [facility] [address] [place] [address] Dr. Anibal Bishop Glucose [Mass/Vol] 114 mg/dL Normal [facility] Comment on above: Performed By: #### P SASC, IRON #### [facility] [address] [address] [address] Anibal Bishop HbA1c (Bld) [Mass fraction] 5.6 % Normal 4.5-6.2 [facility] Comment on above: Performed By: #### P SASC, IRON #### [facility] [address] [place] [address] Dr. Anibal Bishop IRONon 03-20-2022 Iron [Mass/Vol] 63.0 ug/dL Critically low 65.0-175.0 [facility] Comment on above: Performed By: #### P SASC, IRON #### [facility] [address] [address] [address] Anibal Bishop LIPID PROFILEon 03-20-2022 CHOL-HDL RATIO NORM SEE BELOW Normal [facility] Comment on above: Result Comment: 3.3 - 4.4 LOW RISK 4.4 - 7.1 AVERAGE RISK 7.1 - 11.0 MODERATE RISK >11.0 HIGH RISK Performed By: #### P SASC, IRON #### [facility] [address] [address] [address] Anibal Bishop Cholesterol [Mass/Vol] 207 mg/dL Critically high <=200 [facility] Comment on above: Performed By: #### P SASC, IRON #### [facility] [address] [address] [address] Anibal Bishop Cholesterol in HDL [Mass/Vol] 96 mg/dL Critically high 40-60 [facility] Comment on above: Performed By: #### P SASC, IRON #### [facility] [address] [address] [address] Anibal Bishop Cholesterol in LDL [Mass/Vol] 97.6 mg/dL Normal [facility] Comment on above: Performed By: #### P SASC, IRON #### [facility] [address] [address] [address] Anibal Bishop Cholesterol.total/Ch olesterol in HDL [Mass ratio] 2.2 {ratio} Normal [facility] Comment on above: Performed By: #### P SASC, IRON #### [facility] [address] [address] [address] Anibal Bishop HDL NORMAL > or = 60 mg/dl - LO W CARDIOVASCULAR RISK <40 mg/dl - HIGH CARDIOVASCULAR RISK Normal [facility] Comment on above: Performed By: #### P SASC, IRON #### [facility] [address] [address] [address] Anibal Bishop LDL CALC NORMAL SEE BELOW Normal [facility] Comment on above: Result Comment: <100 mg/dl OPTIMAL 100 - 129 mg/dl NEAR OR ABOVE OPTIMAL 130 - 159 mg/dl BORDERLINE HIGH 160 - 189 mg/dl HIGH >190 mg/dl VERY HIGH Performed By: #### P SASC, IRON #### [facility] [address] [address] [address] Anibal Bishop Triglyceride [Mass/Vol] 67 mg/dL Normal <=150 [facility] Comment on above: Performed By: #### P SASC, IRON #### [facility] [address] [address] [address] Anibal Bishop VLDL CALC 13.4 mg/dL Normal [facility] Comment on above: Performed By: #### P SASC, IRON #### [facility] [address] [address] [address] Anibal Bishop PROF 14(COMP METB)on 023 Albumin [Mass/Vol] 3.6 g/dL Normal 3.4-5.0 [facility] Comment on above: Performed By: #### U HAMLET, LIPID, T7, CMP, TSH #### [facility] [address] [address] [address] Anibal Bishop Albumin/Globulin [Mass ratio] 0.9 {ratio} Normal [facility] Comment on above: Performed By: #### U HAMLET, LIPID, T7, CMP, TSH #### [facility] [address] [address] [address] Anibal Bishop ALP [Catalytic activity/Vol] 90 U/L Normal 46-116 [facility] Comment on above: Performed By: #### U HAMLET, LIPID, T7, CMP, TSH #### [facility] [address] [address] [address] Anibal Bishop ALT [Catalytic activity/Vol] 46 U/L Normal 16-63 [facility] Comment on above: Performed By: #### U HAMLET, LIPID, T7, CMP, TSH #### [facility] [address] [address] [address] Anibal Bishop Anion gap [Moles/Vol] 13.4 mmol/L Normal [facility] Comment on above: Performed By: #### U HAMLET, LIPID, T7, CMP, TSH #### [facility] [address] [address] [address] Anibal Bishop AST [Catalytic activity/Vol] 26 U/L Normal 15-37 [facility] Comment on above: Performed By: #### U HAMLET, LIPID, T7, CMP, TSH #### [facility] [address] [address] [address] Anibal Bishop Bilirubin [Mass/Vol] 0.6 mg/dL Normal 0.2-1.0 [facility] Comment on above: Performed By: #### U HAMLET, LIPID, T7, CMP, TSH #### [facility] [address] [address] [address] Anibal Bishop Calcium [Mass/Vol] 9.6 mg/dL Normal 8.5-10.1 [facility] Comment on above: Performed By: #### U HAMLET, LIPID, T7, CMP, TSH #### [facility] [address] [address] [address] Anibal Bishop Chloride [Moles/Vol] 103 mmol/L Normal 98-107 [facility] Comment on above: Performed By: #### U HAMLET, LIPID, T7, CMP, TSH #### [facility] [address] [address] [address] Anibal Bishop CO2 [Moles/Vol] 27.9 mmol/L Normal 21.0-32.0 [facility] Comment on above: Performed By: #### U HAMLET, LIPID, T7, CMP, TSH #### [facility] [address] [place] [address] Dr. Anibal Bishop Creatinine [Mass/Vol] 0.91 mg/dL Normal 0.70-1.30 [facility] Comment on above: Performed By: #### U HAMLET, LIPID, T7, CMP, TSH #### [facility] [address] [place] [address] Dr. Anibal Bishop EGFR-AF DANISH >60 Normal >=60 [facility] Comment on above: Performed By: #### U HAMLET, LIPID, T7, CMP, TSH #### [facility] [address] [address] [address] Anibal Bishop EGFR-NON AF DANISH >60 Normal >=60 [facility] Comment on above: Performed By: #### U HAMLET, LIPID, T7, CMP, TSH #### [facility] [address] [address] [address] Anibal Bishop Globulin (S) [Mass/Vol] 3.9 g/dL Normal [facility] Comment on above: Performed By: #### U HAMLET, LIPID, T7, CMP, TSH #### [facility] [address] [address] [address] Anibal Bishop Glucose [Mass/Vol] 103 mg/dL Normal 74-106 [facility] Comment on above: Performed By: #### U HAMLET, LIPID, T7, CMP, TSH #### [facility] [address] [address] [address] Anibal Bishop Potassium [Moles/Vol] 4.3 mmol/L Normal 3.5-5.1 [facility] Comment on above: Performed By: #### U HAMLET, LIPID, T7, CMP, TSH #### [facility] [address] [address] [address] Anibal Bishop Protein [Mass/Vol] 7.5 g/dL Normal 6.4-8.2 [facility] Comment on above: Performed By: #### U HAMLET, LIPID, T7, CMP, TSH #### [facility] [address] [address] [address] Anibal Bishop Sodium [Moles/Vol] 140 mmol/L Normal 136-145 [facility] Comment on above: Performed By: #### U HAMLET, LIPID, T7, CMP, TSH #### [facility] [address] [address] [address] Anibal Bishop Urea nitrogen [Mass/Vol] 12.0 mg/dL Normal 7.0-18.0 [facility] Comment on above: Performed By: #### U HAMLET, LIPID, T7, CMP, TSH #### [facility] [address] [address] [address] Anibal Bishop Urea nitrogen/Creatinine [Mass ratio] 13.2 mg/mg Normal [facility] Comment on above: Performed By: #### U HAMLET, LIPID, T7, CMP, TSH #### [facility] [address] [address] [address] Anibal Bishop TSHon 03-20-2022 TSH 2.763 uIU/mL Normal 0.358-3.740 [facility] Comment on above: Performed By: #### U HAMLET, LIPID, T7, CMP, TSH #### [facility] [address] [address] [address] Anibal Bishop URIC ACID SERUMon 03-20-2022 Urate [Mass/Vol] 5.3 mg/dL Normal 3.5-7.2 [facility] Comment on above: Performed By: #### U HAMLET, LIPID, T7, CMP, TSH #### [facility] [address] [place] [address] Dr. Anibal Bishop COMPLIANCE DRUG SCREENon PDF . Normal [facility] Comment on above: Performed By: #### P SASC, IRON #### [facility] [address] [place] [address] Dr. Anibal Bishop Summary FINAL Normal [facility] Comment on above: Result Comment: === [...] test is not intended to distinguish between kqihm-[id number], the predominant form of THC in most herbal or marijuana-based products, and tqlhd-1-[id number]. Fentanyl 1 UNEXPECTED ng/mg creat Norfentanyl 7 [...] Performed By: #### P SASC, IRON #### [facility] [address] [address] [address] Anibal Bishop URIC ACID RAND URINEon 01-05 Uric Acid, Urine 45.6 mg/dL Normal Not Estab. [facility] Comment on above: Performed By: #### P SASC, IRON #### [facility] [address] [address] [address] Anibal Bishop COMPLIANCE DRUG SCREENon PDF . Normal [facility] Comment on above: Performed By: #### P SASC, IRON #### [facility] [address] [address] [address] Anibal Bishop Summary FINAL Normal [facility] Comment on above: Result Comment: === [...] Performed By: #### P SASC, IRON #### [facility] [address] [place] [address] Dr. Anibal Bishop URIC ACID RAND URINEon 11-11 Uric Acid, Urine 57.4 mg/dL Normal Not Estab. The [facility] Comment on above: Performed By: #### U RICUR #### [facility] [address] [address] [address] Anibal Bishop COMPLIANCE DRUG SCREENon PDF . Normal [facility] Comment on above: Performed By: #### P SASC, IRON #### [facility] [address] [address] [address] Anibal Bishop Summary FINAL Normal [facility] Comment on above: Result Comment: === [...] Performed By: #### P SASC, IRON #### [facility] [address] [address] [address] Anibal Bishop URIC ACID RAND URINEon 10-12 Uric Acid, Urine 58.7 mg/dL Normal Not Estab. [facility] Comment on above: Performed By: #### U RICUR #### [facility] [address] [address] [address] Anibal Bishop COMPLIANCE DRUG SCREENon PDF . Normal [facility] Comment on above: Performed By: #### D SDOALC #### [facility] [address] [place] [address] Dr. Anibal Bishop Summary FINAL Normal [facility] Comment on above: Result Comment: === [...] === Performed By: #### D SDOALC #### [facility] [address] [place] [address] Dr. Anibal Bishop URIC ACID RAND URINEon 09-12 Uric Acid, Urine 62.7 mg/dL Normal Not Estab. [facility] Comment on above: Performed By: #### P SASC, IRON #### [facility] [address] [place], [place] [address] Dr. Anibal Bishop COMPLIANCE DRUG SCREENon PDF . Normal [facility] Comment on above: Performed By: #### D SDOALC #### [facility] [address] [place], [place] [address] Dr. Anibal Bishop Summary FINAL Normal [facility] Comment on above: Result Comment: === [...] === Performed By: #### D SDOALC #### [facility] [address] [address] [address] Anibal Bishop URIC ACID RAND URINEon 08-11 Uric Acid, Urine 21.4 mg/dL Normal Not Estab. The [facility] Comment on above: Performed By: #### P SASC, IRON #### [facility] [id number] Anibal Bishop Encounters Encounter Date Encounter [...] Start: 02-24-2018 End: 02-24-2018 ambulatory CHANCE COHEN [facility] Start: 02-24-2018 Encounter for other preprocedural examination CHANCE COHEN [facility] Procedures Date Procedure Procedure Detail Performing Clinician Start: 03-20-[address] BEBETO DENNISON . Comment on above: Performed By: #### P SASC, IRON #### [facility] [address] [address] [address] Anibal Bishop Payers Date Payer Category Payer Medicare [id number] 1955 Unknown [id number] 2.16.84 [id number] 1955 Unknown [id number] 2.16.84 [id number] 1955 Unknown [id number] 2.16.84 [id number] 1955 Unknown [id number] 2.16.84 [id number] 1955 Unknown [id number] 2.16.84 [id number] 1955 Unknown [id number] 2.16.84 [id number] 1955 Unknown [id number] 2.16.84 [id number] 1955 Unknown [id number] 2.16.84 [id number] Summary Purpose Family History No Family History Records FoundNo Family History Records Found Advance Directives No Advanced Directives Records FoundNo Advanced Directives Records Found Additional Source Comments (unrecognized sect ion and content) No Status Records FoundNo Status Records Found INFORMATION SOURCE (unrecogn ized section and content) DATE CREATED AUTHOR 06/15/2022 [facility] DATE CREATED AUTHOR AUTHOR'S MICHAEL SALINAS 07/13/2023 [facility] FOR RECORDS PERTAINING TO PATIENTS WHO ARE [...] BE BASED ON THE PRIMARY CLINICAL RECORDS. [facility] [employer] provides no warranty or guarantee of the accuracy or completeness of information in this document.
[2024-03-01 11:00] LABS: Basophils Percent Auto 0.2 % (0.2-2.0); Eosinophils Percent Auto 0.3 % (0.9-7.0); Hematocrit 42.8 % (42.0-54.0); Hemoglobin 14.6 g/dL (14.0-18.0); Immature Granulocytes Abs Auto 0.03 10^3/uL (0.00-0.03); Immature Granulocytes Pct Auto 0.3 % (0.0-0.5); Lymphocytes Absolute Auto 0.7 10^3/uL (1.2-3.8); Lymphocytes Percent Auto 7.1 % (20.5-60.0); Mean Corpuscular HGB Conc 34.1 g/dL (29.9-35.2); Mean Corpuscular Hemoglobin 29.6 pg (25.9-34.0); Mean Corpuscular Volume 86.8 fL (80.0-94.0); Mean Platelet Volume 8.7 fL (9.5-13.5); Monocytes Absolute Auto 0.9 10^3/uL (0.3-0.8); Monocytes Percent Auto 9.7 % (1.7-12.0); Neutrophils Absolute Auto 7.6 10^3/uL (1.4-6.5); Neutrophils Percent Auto 82.4 % (43.0-75.0); Platelet Count 240 10^3/uL (150-450); Red Blood Count 4.93 10^6/uL (4.70-6.10); Red Cell Distribution Width 13.2 % (11.0-15.0); White Blood Count 9.3 10^3/uL (4.0-11.0)
[2024-03-01 11:19] LABS: Amphetamine Screen Urine NEGATIVE (NEGATIVE); Barbiturates Screen Urine NEGATIVE (NEGATIVE); Benzodiazepines Screen Urine NEGATIVE (NEGATIVE); Buprenorphine Screen Urine POSITIVE (NEGATIVE); Cannabinoid Screen Urine NEGATIVE (NEGATIVE); Cocaine Screen Urine NEGATIVE (NEGATIVE); Methadone Screen Urine NEGATIVE (NEGATIVE); Methamphetamines Screen Urine NEGATIVE (NEGATIVE); Opiate Screen Urine NEGATIVE (NEGATIVE); Oxycodone Screen Urine NEGATIVE (NEGATIVE); Phencyclidine Screen Urine NEGATIVE (NEGATIVE); Tricyclic Antidepressant Urine NEGATIVE (NEGATIVE)
[2024-03-01 11:19] LABS: Alanine Aminotransferase 35 U/L (16-63); Albumin Globulin Ratio 0.8; Albumin Level 3.5 g/dL (3.4-5.0); Alkaline Phosphatase 114 U/L (46-116); Anion Gap 14.6; Aspartate Amino Transferase 23 U/L (15-37); BUN Creatinine Ratio 11.4; Bilirubin Total 1.3 mg/dL (0.2-1.0); Calcium 9.7 mg/dL (8.5-10.1); Carbon Dioxide 25.3 mmol/L (21.0-32.0); Chloride 96 mmol/L (98-107); Estimated GFR (African America >60 (>=60 mL/min/1.73m^2); Estimated GFR (Non-African Ame >60 (>=60 mL/min/1.73m^2); Globulin 4.3 g/dL; Glucose 111 mg/dL (74-106); Magnesium 1.7 mg/dL (1.8-2.4); Potassium 3.9 mmol/L (3.5-5.1); Sodium 132 mmol/L (136-145); Total Protein 7.8 g/dL (6.4-8.2)
== END 2024-03-01 10:21 | disposition home or self-care (01) ==
LOC: LAB 10:20
PROVIDERS: PCP Family Medicine; Visit Provider Family Medicine
DX: F11.10 Opioid abuse, uncomplicated (principal); R25.2 Cramp and spasm
CPT/HCPCS: 36415; 80053; 80307; 80326; 80331; 80334; 80337; 80338; 80341; 80344; 80347; 80348; 80353; 80354; 80355; 80357; 80358; 80359; 80360; 80361; 80364; 80365; 80366; 80367; 80368; 80370; 80371; 80372; 80373; 80377; 82570; 83735; 83992; 84560; 85025

== ENCOUNTER 2024-03-15 15:37 | Outpatient (REF) | payer MEDICARE, SELFPAY ==
--- OUTSIDE RECORDS SUMMARY | 2024-03-15 15:42 | XMS_ITS | CCD ---
Author Organization [facility] Care Team Providers Care Help Desk Technician Name Role Phone HOY ., DR [...] Unavailable HOY ., DR CEVALLOS Consulting Unavailable CHANCE COHEN Referring Unavailterence e MART DENNISON Primary Care Unavailable YVON BOWERS Attending Unavailable Problems Active Problems Problem Classification Problem Date [...] Mood disorders; Translations: [DEPRESSION UNSPECIFIED] Onset: 03-21-2022 Open wounds of extremities (3 sources) Laceration without foreign body of unspecified thumb without damage to nail, initial encounter; Translations: [Laceration without foreign body of other finger without damage to nail, initial encounter] Onset: 03-10-2024 Episodic Other aftercare (5 sources) Other manager terminal (current) drug therapy; Translations: [OTH ASSISTED CURRENT DRUG THERAPY] Onset: 03-21-2022 Episodic Other [...] psychoactive substance abuse, 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 Exam/Technique: AP, lateral and oblique views of the left hand Comparison: None available. Findings: There is no evidence of fracture, malalignment or acute bony abnormality. Age compatible degenerative change noted primarily of the first digit and lateral carpals. No radiodense foreign body. IMPRESSION: * No acute process seen. Finalized by Dong Nieto DO on 03/10/2024 12:26 PM Normal [facility] COMPLIANCE DRUG SCREENon PDF . Normal [facility] Comment on above: Performed By: #### U RICUR #### [facility] [address] [address] [address] Anibal Bishop Summary FINAL [facility] Comment on above: Result Comment: == TOXASSURE [...] == Performed By: #### U RICUR #### [facility] [address] [address] [address] Anibal Bishop URIC ACID RAND URINEon 06-11 Uric Acid, Urine 4.0 mg/dL Normal Not Estab. [facility] Comment on above: Performed By: #### U RICUR #### [facility] [address] [address] [address] Anibal Bishop COMPLIANCE DRUG SCREENon PDF . Normal [facility] Comment on above: Performed By: #### P SASC, IRON #### [facility] [address] [address] [address] Anibal Bishop Summary FINAL Normal [facility] Comment on above: Result Comment: == [...] By: #### P SASC, IRON #### [facility] [address] [place] [address] Dr. Anibal Bishop INSULINon 03-21-2022 Insulin 18.3 uIU/mL Normal 2.6-24.9 [facility] Comment on above: Performed By: #### U RICUR #### [facility] [address] [place] [address] Dr. Anibal Bishop URIC ACID RAND URINEon 03-21 Uric Acid, Urine 26.8 mg/dL Normal Not Estab. [facility] Comment on above: Performed By: #### U RICUR #### [facility] [address] [place] [address] Dr. Anibal Bishop CBC AUTO DIFFon 03-20-2022 BASO # 0.0 103/ul Normal 0.0-0.1 [facility] Comment on above: Performed By: #### P SASC, IRON #### [facility] [address] [place] [address] Dr. Anibal Bishop Basophils/100 WBC (Bld) 0.6 % Normal 0.2-2.0 [facility] Comment on above: Performed By: #### P SASC, IRON #### [facility] [address] [place] [address] Dr. Anibal Bishop EO # 0.2 103/ul Normal 0.0-0.7 [facility] Comment on above: Performed By: #### P SASC, IRON #### [facility] [address] [place] [address] Dr. Anibal Bishop Eosinophils/100 WBC (Bld) 3.5 % Normal 0.9-7.0 [facility] Comment on above: Performed By: #### P SASC, IRON #### [facility] [address] [place] [address] Dr. Anibal Bishop Erythrocyte distribution width (RBC) [Ratio] 14.1 % Normal 11.0-15.0 [facility] Comment on above: Performed By: #### P SASC, IRON #### [facility] [address] [place] [address] Dr. Anibal Bishop Hematocrit (Bld) [Volume fraction] 44.6 % Normal 42.0-54.0 [facility] Comment on above: Performed By: #### P SASC, IRON #### [facility] [address] [place] [address] Dr. Anibal Bishop Hemoglobin (Bld) [Mass/Vol] 14.3 g/dL Normal 14.0-18.0 [facility] Comment on above: Performed By: #### P SASC, IRON #### [facility] [address] [place] [address] Dr. Anibal Bishop IG # 0.02 10e3/ul Normal 0.00-0.03 [facility] Comment on above: Performed By: #### P SASC, IRON #### [facility] [address] [place] [address] Dr. Anibal Bishop IG % 0.4 % Normal 0.0-0.5 [facility] Comment on above: Performed By: #### P SASC, IRON #### [facility] [address] [place] [address] Dr. Anibal Bishop LYMPH # 0.8 103/ul Critically low 1.2-3.8 [facility] Comment on above: Performed By: #### P SASC, IRON #### [facility] [address] [place] [address] Dr. Anibal Bishop Lymphocytes/100 WBC (Bld) 17.1 % Critically low 20.5-60.0 [facility] Comment on above: Performed By: #### P SASC, IRON #### [facility] [address] [place] [address] Dr. Anibal Bishop MANUAL DIFF REQ NO Normal [facility] Comment on above: Performed By: #### P SASC, IRON #### [facility] [address] [place] [address] Dr. Anibal Bishop MCH (RBC) [Entitic mass] 29.9 pg Normal 25.9-34.0 [facility] Comment on above: Performed By: #### P SASC, IRON #### [facility] [address] [place] [address] Dr. Anibal Bishop MCHC (RBC) [Mass/Vol] 32.1 g/dL Normal 29.9-35.2 [facility] Comment on above: Performed By: #### P SASC, IRON #### [facility] [address] [place] [address] Dr. Anibal Bishop MCV (RBC) [Entitic vol] 93.3 fL Normal 80.0-94.0 [facility] Comment on above: Performed By: #### P SASC, IRON #### [facility] [address] [place] [address] Dr. Anibal Bishop MONO # 0.6 103/ul Normal 0.3-0.8 [facility] Comment on above: Performed By: #### P SASC, IRON #### [facility] [address] [place] [address] Dr. Anibal Bishop Monocytes/100 WBC (Bld) 12.5 % Critically high 1.7-12.0 [facility] Comment on above: Performed By: #### P SASC, IRON #### [facility] [address] [place] [address] Dr. Anibal Bishop NEUT # 3.2 103/ul Normal 1.4-6.5 [facility] Comment on above: Performed By: #### P SASC, IRON #### [facility] [address] [place] [address] Dr. Anibal Bishop Neutrophils/100 WBC (Bld) 65.9 % Normal 43.0-75.0 [facility] Comment on above: Performed By: #### P SASC, IRON #### [facility] [address] [address] [address] Anibal Bishop Platelet mean volume (Bld) [Entitic vol] 9.0 fL Critically low 9.5-13.5 [facility] Comment on above: Performed By: #### P SASC, IRON #### [facility] [address] [address] [address] Anibal Bishop PLT 250 103/ul Normal 150-450 [facility] Comment on above: Performed By: #### P SASC, IRON #### [facility] [address] [address] [address] Anibal Bishop RBC 4.78 106/ul Normal 4.70-6.10 [facility] Comment on above: Performed By: #### P SASC, IRON #### [facility] [address] [address] [address] Anibal Bishop WBC 4.8 103/ul Normal 4.0-11.0 [facility] Comment on above: Performed By: #### P SASC, IRON #### [facility] [address] [address] [address] Anibal Bishop FREE THYROXINE INDEX T7on FTI 3.33 Normal 1.30-4.50 [facility] Comment on above: Performed By: #### U HAMLET, LIPID, T7, CMP, TSH #### [facility] [address] [address] [address] Anibal Bishop T3U 35.0 % Normal 33.0-40.0 [facility] Comment on above: Performed By: #### U HAMLET, LIPID, T7, CMP, TSH #### [facility] [address] [address] [address] Anibal Bishop T4 [Mass/Vol] 9.50 ug/dL Normal 4.50-12.10 [facility] Comment on above: Performed By: #### U HAMLET, LIPID, T7, CMP, TSH #### [facility] [address] [address] [address] Anibal Bishop GLYCOHEMOGLOBIN A1Con 2022 ADA RECOMMENDATION SEE BELOW Normal [facility] Comment on above: Result Comment: ADA RECOMMENDED LIMIT 4.0 - 6.0 ADA THERAPEUTIC TARGET < 7.0 ACTION SUGGESTED > 7.0 Performed By: #### P SASC, IRON #### [facility] [address] [place] [address] Dr. Anibal Bishop Glucose [Mass/Vol] 114 mg/dL Normal [facility] Comment on above: Performed By: #### P SASC, IRON #### [facility] [address] [address] [address] Anibal Bishop HbA1c (Bld) [Mass fraction] 5.6 % Normal 4.5-6.2 [facility] Comment on above: Performed By: #### P SASC, IRON #### [facility] [address] [place] [address] Dr. Anibal Bishop IRONon 03-20-2022 Iron [Mass/Vol] 63.0 ug/dL Critically low 65.0-175.0 [facility] Comment on above: Performed By: #### P SASC, IRON #### [facility] [address] [place] [address] Dr. Anibal Bishop LIPID PROFILEon 03-20-2022 CHOL-HDL RATIO NORM SEE BELOW Normal The [facility] Comment on above: Result Comment: 3.3 - 4.4 LOW RISK 4.4 - 7.1 AVERAGE RISK 7.1 - 11.0 MODERATE RISK >11.0 HIGH RISK Performed By: #### P SASC, IRON #### [facility] [address] [address] [address] Anibal Bishop Cholesterol [Mass/Vol] 207 mg/dL Critically high <=200 [facility] Comment on above: Performed By: #### P SASC, IRON #### [facility] [address] [place] [address] Dr. Anibal Bishop Cholesterol in HDL [Mass/Vol] 96 mg/dL Critically high 40-60 [facility] Comment on above: Performed By: #### P SASC, IRON #### [facility] [address] [address] [address] Anibal Bishop Cholesterol in LDL [Mass/Vol] 97.6 mg/dL Normal [facility] Comment on above: Performed By: #### P SASC, IRON #### [facility] [address] [address] [address] Anibal Bishop Cholesterol.total/C holesterol in HDL [Mass ratio] 2.2 {ratio} Normal [facility] Comment on above: Performed By: #### P SASC, IRON #### [facility] [address] [address] [address] Anibal Bishop HDL NORMAL > or = 60 mg/dl - LO W CARDIOVASCULAR RISK <40 mg/dl - HIGH CARDIOVASCULAR RISK Normal [facility] Comment on above: Performed By: #### P SASC, IRON #### [facility] [address] [place] [address] Dr. Anibal Bishop LDL CALC NORMAL SEE BELOW Normal [facility] Comment on above: Result Comment: <100 mg/dl OPTIMAL 100 - 129 mg/dl NEAR OR ABOVE OPTIMAL 130 - 159 mg/dl BORDERLINE HIGH 160 - 189 mg/dl HIGH >190 mg/dl VERY HIGH Performed By: #### P SASC, IRON #### [facility] [address] [address] [address] Anibal Bishop Triglyceride [Mass/Vol] 67 mg/dL Normal <=150 [facility] Comment on above: Performed By: #### P SASC, IRON #### [facility] [address] [place] [address] Dr. Anibal Bishop VLDL CALC 13.4 mg/dL Normal [facility] Comment on above: Performed By: #### P SASC, IRON #### [facility] [address] [place] [address] Dr. Anibal Bishop PROF 14(COMP METB)on 023 Albumin [Mass/Vol] 3.6 g/dL Normal 3.4-5.0 [facility] Comment on above: Performed By: #### U HAMLET, LIPID, T7, CMP, TSH #### [facility] [address] [address] [address] Anibal Bishop Albumin/Globulin [Mass ratio] 0.9 {ratio} Normal [facility] Comment on above: Performed By: #### U HAMLET, LIPID, T7, CMP, TSH #### [facility] [address] [place] [address] Dr. Anibal Bishop ALP [Catalytic activity/Vol] 90 U/L Normal 46-116 [facility] Comment on above: Performed By: #### U HAMLET, LIPID, T7, CMP, TSH #### [facility] [address] [address] [address] Anibal Bishop ALT [Catalytic activity/Vol] 46 U/L Normal 16-63 [facility] Comment on above: Performed By: #### U HAMLET, LIPID, T7, CMP, TSH #### [facility] [address] [place] [address] Dr. Anibal Bishop Anion gap [Moles/Vol] 13.4 mmol/L Normal [facility] Comment on above: Performed By: #### U HAMLET, LIPID, T7, CMP, TSH #### [facility] [address] [place] [address] Dr. Anibal Bishop AST [Catalytic activity/Vol] 26 U/L Normal 15-37 [facility] Comment on above: Performed By: #### U HAMLET, LIPID, T7, CMP, TSH #### [facility] [address] [place] [address] Dr. Anibal Bishop Bilirubin [Mass/Vol] 0.6 mg/dL Normal 0.2-1.0 [facility] Comment on above: Performed By: #### U HAMLET, LIPID, T7, CMP, TSH #### [facility] [address] [place] [address] Dr. Anibal Bishop Calcium [Mass/Vol] 9.6 mg/dL Normal 8.5-10.1 [facility] Comment on above: Performed By: #### U HAMLET, LIPID, T7, CMP, TSH #### [facility] [address] [place] [address] Dr. Anibal Bishop Chloride [Moles/Vol] 103 mmol/L Normal 98-107 [facility] Comment on above: Performed By: #### U HAMLET, LIPID, T7, CMP, TSH #### [facility] [address] [address] [address] Anibal Bishop CO2 [Moles/Vol] 27.9 mmol/L Normal 21.0-32.0 [facility] Comment on above: Performed By: #### U HAMLET, LIPID, T7, CMP, TSH #### [facility] [address] [address] [address] Anibal Bishop Creatinine [Mass/Vol] 0.91 mg/dL Normal 0.70-1.30 [facility] Comment on above: Performed By: #### U HAMLET, LIPID, T7, CMP, TSH #### [facility] [address] [place] [address] Dr. Anibal Bishop EGFR-AF MICRONESIAN >60 Normal >=60 [facility] Comment on above: Performed By: #### U HAMLET, LIPID, T7, CMP, TSH #### [facility] [address] [place] [address] Dr. Anibal Bishop EGFR-NON AF MICRONESIAN >60 Normal >=60 [facility] Comment on above: Performed By: #### U HAMLET, LIPID, T7, CMP, TSH #### [facility] [address] [place] [address] Dr. Anibal Bishop Globulin (S) [Mass/Vol] 3.9 g/dL Normal [facility] Comment on above: Performed By: #### U HAMLET, LIPID, T7, CMP, TSH #### [facility] [address] [place] [address] Dr. Anibal Bishop Glucose [Mass/Vol] 103 mg/dL Normal 74-106 [facility] Comment on above: Performed By: #### U HAMLET, LIPID, T7, CMP, TSH #### [facility] [address] [place] [address] Dr. Anibal Bishop Potassium [Moles/Vol] 4.3 mmol/L Normal 3.5-5.1 [facility] Comment on above: Performed By: #### U HAMLET, LIPID, T7, CMP, TSH #### [facility] [address] [place] [address] Dr. Anibal [employer] Protein [Mass/Vol] 7.5 g/dL Normal 6.4-8.2 [facility] Comment on above: Performed By: #### U HAMLET, LIPID, T7, CMP, TSH #### [facility] [address] [place] [address] Dr. Anibal Bishop Sodium [Moles/Vol] 140 mmol/L Normal 136-145 [facility] Comment on above: Performed By: #### U HAMLET, LIPID, T7, CMP, TSH #### [facility] [address] [place] [address] Dr. Anibal Bishop Urea nitrogen [Mass/Vol] 12.0 mg/dL Normal 7.0-18.0 [facility] Comment on above: Performed By: #### U HAMLET, LIPID, T7, CMP, TSH #### [facility] [address] [place] [address] Dr. Anibal Bishop Urea nitrogen/Creatinine [Mass ratio] 13.2 mg/mg Normal [facility] Comment on above: Performed By: #### U HAMLET, LIPID, T7, CMP, TSH #### [facility] [address] [place] [address] Dr. Anibal Bishop TSHon 03-20-2022 TSH 2.763 uIU/mL Normal 0.358-3.740 [facility] Comment on above: Performed By: #### U HAMLET, LIPID, T7, CMP, TSH #### [facility] [address] [place] [address] Dr. Anibal Bishop URIC ACID SERUMon 03-20-2022 Urate [Mass/Vol] 5.3 mg/dL Normal 3.5-7.2 [facility] Comment on above: Performed By: #### U HAMLET, LIPID, T7, CMP, TSH #### [facility] [address] [place] [address] Dr. Anibal Bishop COMPLIANCE DRUG SCREENon PDF . Normal [facility] Comment on above: Performed By: #### P SASC, IRON #### [facility] [address] [place] [address] Dr. Anibal Bishop Summary FINAL Normal [facility] Comment on above: Result Comment: == [...] test is not intended to distinguish between [id number], the predominant form of THC in most herbal or marijuana-based products, and kwbba-2-vxedhpsfmnbvjrcukzqc. Fentanyl 1 UNEXPECTED ng/mg creat Norfentanyl 7 [...] By: #### P SASC, IRON #### [facility] [address] [place] [address] Dr. Anibal Bishop URIC ACID RAND URINEon 01-05 Uric Acid, Urine 45.6 mg/dL Normal Not Estab. [facility] Comment on above: Performed By: #### P SASC, IRON #### [facility] [address] [address] [address] Anibal Bishop COMPLIANCE DRUG SCREENon PDF . Normal [facility] Comment on above: Performed By: #### P SASC, IRON #### [facility] [address] [address] [address] Anibal Bishop Summary FINAL Normal [facility] Comment on above: Result Comment: == [...] By: #### P SASC, IRON #### [facility] [id number] Anibal Bishop URIC ACID RAND URINEon 11-11 Uric Acid, Urine 57.4 mg/dL Normal Not Estab. [facility] Comment on above: Performed By: #### U RICUR #### [facility] [address] [place], [place] [address] Dr. Anibal Bishop COMPLIANCE DRUG SCREENon PDF . Normal [facility] Comment on above: Performed By: #### P SASC, IRON #### [facility] [id number] Anibal Bishop Summary FINAL Normal [facility] Comment on above: Result Comment: == [...] By: #### P SASC, IRON #### [facility] [address] [place] [address] Dr. Anibal Bishop URIC ACID RAND URINEon 10-12 Uric Acid, Urine 58.7 mg/dL Normal Not Estab. [facility] Comment on above: Performed By: #### U RICUR #### [facility] [address] [place] [address] Dr. Anibal Bishop COMPLIANCE DRUG SCREENon PDF . Normal [facility] Comment on above: Performed By: #### D SDOALC #### [facility] [address] [place] [address] Dr. Anibal Bishop Summary FINAL Normal [facility] Comment on above: Result Comment: == [...] == Performed By: #### D SDOALC #### [facility] [address] [place] [address] Dr. Anibal Bishpo URIC ACID RAND URINEon 09-12 Uric Acid, Urine 62.7 mg/dL Normal Not Estab. [facility] Comment on above: Performed By: #### P SASC, IRON #### [facility] [address] [address] [address] Anibal Bishop COMPLIANCE DRUG SCREENon PDF . Normal [facility] Comment on above: Performed By: #### D SDOALC #### [facility] [address] [place] [address] Dr. Anibal Bishop Summary FINAL Normal [facility] Comment on above: Result Comment: == [...] == Performed By: #### D SDOALC #### [facility] [address] [place] [address] Dr. Anibal Bishop URIC ACID RAND URINEon 08-11 Uric Acid, Urine 21.4 mg/dL Normal Not Estab. [facility] Comment on above: Performed By: #### P SASC, IRON #### [facility] [address] [place] [address] Dr. Anibal Bishop Encounters Encounter Date Encounter Type Care Provider Facility Start: 03-10-2024 End: 03-10-2024 Emergency department patient visit MART DENNISON [facility] Start: 06-10-2022 End: 06-11-[address] MART [...] Facility:[facility] Start: 02-24-2018 End: 02-24-2018 ambulatory CHANCE Gonzales NOEL [facility] Start: 02-24-2018 Encounter for other preprocedural examination CHANCE COHEN [facility] Procedures Date Procedure Procedure Detail Performing Clinician Start: 03-20-[address] BEBETO DENNISON . Comment on above: Performed By: #### P [facility], [facility]ON #### [facility] [address] [place] [address] Dr. Anibal Bishop Payers Date Payer Category Payer Medicare [id number] 1955 Unknown [id number] 2.16.84 [id number] 1955 Unknown [id number] 2.16.84 [id number] 1955 Unknown [id number] 2.16.84 [id number] 1955 Unknown [id number] 2.16.84 [id number] 1955 Unknown [id number] 2.16.84 [id number] 1955 Unknown [id number] 2.16.84 [id number] 1955 Unknown [id number] 2.16.84 [id number] 1955 Unknown [id number] 2.16.84 [id number] 1955 Unknown [id number] 2.16. [id number] Summary Purpose Family History No Family History Records FoundNo Family History Records FoundNo Family History Records Found Advance Directives No Advanced Directives Records FoundNo Advanced Directives Records FoundNo Advanced Directives Records Found Additional Source Comments (unrecognized sect ion and content) No Status Records FoundNo Status Records FoundNo Status Records Found INFORMATION SOURCE (unrecogn ized section and content) DATE CREATED AUTHOR 06/15/2022 [facility] DATE CREATED AUTHOR AUTHOR'S ORGANIZ ATION 07/13/[address] [facility] DATE CREATED AUTHOR AUTHOR'S ORGANIZ ATION 03/12/2024 [facility] FOR RECORDS PERTAINING TO PATIENTS WHO [...] BE BASED ON THE PRIMARY CLINICAL RECORDS. [employer] [facility]. provides no warranty or guarantee of the accuracy or completeness of information in this document.
[2024-03-15 16:24] LABS: Amphetamine Screen Urine NEGATIVE (NEGATIVE); Barbiturates Screen Urine NEGATIVE (NEGATIVE); Benzodiazepines Screen Urine NEGATIVE (NEGATIVE); Buprenorphine Screen Urine NEGATIVE (NEGATIVE); Cannabinoid Screen Urine NEGATIVE (NEGATIVE); Cocaine Screen Urine NEGATIVE (NEGATIVE); Methadone Screen Urine NEGATIVE (NEGATIVE); Methamphetamines Screen Urine NEGATIVE (NEGATIVE); Opiate Screen Urine NEGATIVE (NEGATIVE); Oxycodone Screen Urine NEGATIVE (NEGATIVE); Phencyclidine Screen Urine NEGATIVE (NEGATIVE); Tricyclic Antidepressant Urine NEGATIVE (NEGATIVE)
[2024-03-17 04:07] LABS: Uric Acid, Urine 4.4 mg/dL (Not Estab.)
== END 2024-03-15 15:38 | disposition home or self-care (01) ==
LOC: LAB 15:37
PROVIDERS: PCP Family Medicine; Visit Provider Family Medicine
DX: Z79.899 Other long term (current) drug therapy (principal); F11.10 Opioid abuse, uncomplicated
CPT/HCPCS: 80307; 80326; 80331; 80334; 80337; 80338; 80341; 80344; 80347; 80348; 80353; 80354; 80355; 80357; 80358; 80359; 80360; 80361; 80364; 80365; 80366; 80367; 80368; 80370; 80371; 80372; 80373; 80377; 82570; 83992; 84560

== ENCOUNTER 2024-04-14 15:58 | Outpatient (OUT) | payer MEDICARE, SELFPAY ==
[2024-04-14 17:05] LABS: Amphetamine Screen Urine NEGATIVE (NEGATIVE); Barbiturates Screen Urine NEGATIVE (NEGATIVE); Benzodiazepines Screen Urine NEGATIVE (NEGATIVE); Buprenorphine Screen Urine POSITIVE (NEGATIVE); Cannabinoid Screen Urine NEGATIVE (NEGATIVE); Cocaine Screen Urine NEGATIVE (NEGATIVE); Methadone Screen Urine NEGATIVE (NEGATIVE); Methamphetamines Screen Urine NEGATIVE (NEGATIVE); Opiate Screen Urine NEGATIVE (NEGATIVE); Oxycodone Screen Urine NEGATIVE (NEGATIVE); Phencyclidine Screen Urine NEGATIVE (NEGATIVE); Tricyclic Antidepressant Urine NEGATIVE (NEGATIVE)
[2024-04-16 04:07] LABS: Uric Acid, Urine 37.1 mg/dL (Not Estab.)
[2024-04-23 12:08] LABS: Summary Report (Summary) FINAL (.)
== END 2024-04-14 15:59 | disposition home or self-care (01) ==
LOC: LAB 15:59
PROVIDERS: PCP Family Medicine; Visit Provider Family Medicine
DX: Z79.899 Other long term (current) drug therapy (principal)
CPT/HCPCS: 80307; 80326; 80331; 80334; 80337; 80338; 80341; 80344; 80347; 80348; 80353; 80354; 80355; 80357; 80358; 80359; 80360; 80361; 80364; 80365; 80366; 80367; 80368; 80370; 80371; 80372; 80373; 80377; 82570; 83992; 84560

== ENCOUNTER 2024-05-17 13:54 | Outpatient (OUT) | payer MEDICARE, SELFPAY ==
[2024-05-17 15:02] LABS: Amphetamine Screen Urine NEGATIVE (NEGATIVE); Barbiturates Screen Urine NEGATIVE (NEGATIVE); Benzodiazepines Screen Urine NEGATIVE (NEGATIVE); Buprenorphine Screen Urine NEGATIVE (NEGATIVE); Cannabinoid Screen Urine NEGATIVE (NEGATIVE); Cocaine Screen Urine NEGATIVE (NEGATIVE); Methadone Screen Urine NEGATIVE (NEGATIVE); Methamphetamines Screen Urine NEGATIVE (NEGATIVE); Opiate Screen Urine NEGATIVE (NEGATIVE); Oxycodone Screen Urine NEGATIVE (NEGATIVE); Phencyclidine Screen Urine NEGATIVE (NEGATIVE); Tricyclic Antidepressant Urine NEGATIVE (NEGATIVE)
[2024-05-18 12:09] LABS: Uric Acid, Urine 8.8 mg/dL (Not Estab.)
== END 2024-05-17 13:55 | disposition home or self-care (01) ==
LOC: LAB 13:55
PROVIDERS: PCP Family Medicine; Visit Provider Family Medicine
DX: Z79.899 Other long term (current) drug therapy (principal)
CPT/HCPCS: 80307; 80326; 80331; 80334; 80337; 80338; 80341; 80344; 80347; 80348; 80353; 80354; 80355; 80357; 80358; 80359; 80360; 80361; 80364; 80365; 80366; 80367; 80368; 80370; 80371; 80372; 80373; 80377; 82570; 83992; 84560

== ENCOUNTER 2024-06-01 06:55 | Outpatient (OUT) | payer MEDICARE, SELFPAY ==
[2024-06-01 07:21] LABS: Basophils Percent Auto 0.7 % (0.2-2.0); Eosinophils Absolute Auto 0.2 10^3/uL (0.0-0.7); Eosinophils Percent Auto 3.8 % (0.9-7.0); Hematocrit 43.2 % (42.0-54.0); Hemoglobin 14.5 g/dL (14.0-18.0); Immature Granulocytes Abs Auto 0.02 10^3/uL (0.00-0.03); Immature Granulocytes Pct Auto 0.5 % (0.0-0.5); Lymphocytes Percent Auto 22.7 % (20.5-60.0); Mean Corpuscular HGB Conc 33.6 g/dL (29.9-35.2); Mean Corpuscular Hemoglobin 29.9 pg (25.9-34.0); Mean Corpuscular Volume 89.1 fL (80.0-94.0); Mean Platelet Volume 9.2 fL (9.5-13.5); Monocytes Absolute Auto 0.6 10^3/uL (0.3-0.8); Monocytes Percent Auto 14.7 % (1.7-12.0); Neutrophils Absolute Auto 2.4 10^3/uL (1.4-6.5); Neutrophils Percent Auto 57.6 % (43.0-75.0); Platelet Count 197 10^3/uL (150-450); Red Blood Count 4.85 10^6/uL (4.70-6.10); Red Cell Distribution Width 14.2 % (11.0-15.0); White Blood Count 4.2 10^3/uL (4.0-11.0)
[2024-06-01 07:51] LABS: Estimated Average Glucose 126 mg/dL
[2024-06-01 07:56] LABS: Alanine Aminotransferase 27 U/L (16-63); Albumin Level 3.5 g/dL (3.4-5.0); Alkaline Phosphatase 84 U/L (46-116); Anion Gap 13.3; Aspartate Amino Transferase 22 U/L (15-37); BUN Creatinine Ratio 18.6; Bilirubin Total 0.6 mg/dL (0.2-1.0); Calcium 9.4 mg/dL (8.5-10.1); Carbon Dioxide 27.7 mmol/L (21.0-32.0); Chloride 106 mmol/L (98-107); Chol HDL Ratio 3.8; Cholesterol 262 mg/dL (<=200); Estimated GFR (African America >60 (>=60 mL/min/1.73m^2); Estimated GFR (Non-African Ame >60 (>=60 mL/min/1.73m^2); Free T3 2.64 pg/mL (2.18-3.98); Globulin 3.6 g/dL; Glucose 97 mg/dL (74-106); HDL Cholesterol 69 mg/dL (40-60); Sodium 143 mmol/L (136-145); Thyroid Stimulating Hormone 5.328 uIU/mL (0.358-3.740); Total Protein 7.1 g/dL (6.4-8.2); Triglycerides 129 mg/dL (<=150); VLDL CHOLESTEROL 25.8 mg/dL
[2024-06-01 08:14] LABS: Prostate Specific Antigen Scrn 0.48 ng/mL (<=4.00)
== END 2024-06-01 06:56 | disposition home or self-care (01) ==
LOC: LAB 06:58
PROVIDERS: PCP Family Medicine; Visit Provider Family Medicine
DX: R41.3 Other amnesia (principal); G47.00 Insomnia, unspecified; E78.01 Familial hypercholesterolemia; I11.9 Hypertensive heart disease without heart failure; E78.5 Hyperlipidemia, unspecified; R73.09 Other abnormal glucose; Z12.12 Encounter for screening for malignant neoplasm of rectum; E03.9 Hypothyroidism, unspecified; Z12.5 Encounter for screening for malignant neoplasm of prostate; R53.83 Other fatigue
CPT/HCPCS: 36415; 80053; 80061; 83036; 84436; 84443; 84481; 85025; G0103

== ENCOUNTER 2024-06-02 13:36 | Outpatient (REF) | payer MEDICARE, SELFPAY ==
[2024-06-02 14:46] LABS: Internal Control Within Normal Limits; Occult Blood Negative
== END 2024-06-02 13:37 | disposition home or self-care (01) ==
LOC: LAB 13:36
PROVIDERS: PCP Family Medicine; Visit Provider Family Medicine
DX: R41.3 Other amnesia (principal); G47.00 Insomnia, unspecified; E78.01 Familial hypercholesterolemia; I11.9 Hypertensive heart disease without heart failure; E78.5 Hyperlipidemia, unspecified; R73.09 Other abnormal glucose; Z12.12 Encounter for screening for malignant neoplasm of rectum; E03.9 Hypothyroidism, unspecified; Z12.5 Encounter for screening for malignant neoplasm of prostate; R53.83 Other fatigue
CPT/HCPCS: G0328

== ENCOUNTER 2024-07-15 16:18 | Outpatient (OUT) | payer MEDICARE, SELFPAY ==
--- OUTSIDE RECORDS SUMMARY | 2024-06-01 10:24 | XMS_ITS ---
Author Organization The [facility] in [place] Address [address] [place] [address] Care Team Providers Care Wrapper Dipper Name Role Phone Tono Anderson Primary Care Provider REASON FOR VISIT [place] Medications Medication SIG (Take, Route, Fr equency, Duration) Notes Start Date End Date Status Simvastatin 40 MG take 1 tablet by lamberto th every evening for 90 days Active Encounters Encounter Location Date Provider Diagnosis [facility] [address] [place] [address] 06/01/2024 Tono Anderson Abnormal thyroid blo od test R94.6 Assessments Encounter Date Diagnosis (ICD Code) Assessment Notes Treatment Notes Treatment Clinical Notes Section Notes 06/01/2024 Abnormal thyroid blood test (ICD-10 - R94.6) Plan Of Treatment Medication Medication Name Sig Start Date Stop Date Notes Simvastatin 40 MG take 1 tablet by lamberto th every evening for 90 days Pending Test Test Name Order Date THYROID PANEL (T4/TSH/FREE T3) Next Appt Details Provider Name:Tono Anderson, 04:30:00 PM, [address] [place], [address], Progress Notes * Nilsa MCKEONDOB: (68 yo M)Acc No.[id number]:06/01/2024 Patient: Riya Nilsa CALDERON :1955 A ge:68 Y S ex:Male Address:[address], [place] [address] * Refills Refill Simvastatin Tablet, 40 MG, 90 Tablet, take 1 tablet by mouth every evening, 90 days, Refills=3 Subjective: * Chief Complaints: * R ea * Medical History: * Surgical History: * Hospitalization/Major Diagno stic Procedure: * Medications: Objective: * Vitals: * Physical Examination: Assessment: * Assessment: 1. A bnormal thyroid blood test - R94.6 (Primary) Plan: * Treatment: 2. O thers Refill Simvastatin Tablet, 40 MG, take 1 tablet by mouth every evening, 90 days, 90 Tablet, Refills 3. * Procedure Codes: * true * Date: Generated for Candice bright/Marko/Yris on: 0 07/15/2024 04:20 PM EDT
--- OUTSIDE RECORDS SUMMARY | 2024-06-14 11:15 | XMS_ITS ---
Author Organization The [facility] in [place] Address [address] [place] [address] Care Team Providers Care Supervisor Sewing Room Name Role Phone Tono Anderson Primary Care Provider Allergies No Known Allergies REASON FOR VISIT 1 month f/u, patient would like to discuss his labs Medications Medication SIG (Take, Route, Fr equency, Duration) Notes Start Date End Date Status Mirapex 0.5 MG 1 tablet Orally Once a day for 30 day(s) Active Meclizine HCl 25 MG 1 tablet as needed O rally every 12 hrs Active Dutasteride 0.5 MG take 1 capsule by mo uth once daily for 90 Active Simvastatin 40 MG take 1 tablet by lamberto th every evening for 90 days Active Namenda XR 7 MG 1 capsule Orally Onc e a day for 14 days 05/17/2024 Active Suboxone 8-2 MG 1 film under the ton damian and allow to dissolve Sublingual Once a day - PRN for 30 days 06/14/2024 Act lyla Diclofenac Sodium 75 MG take 1 tablet by mouth twice a day for 90 days Active Urea 40 % 1 application as nee ded Externally Once a day for 10 days 04/30/2023 Active Tamsulosin HCl 0.4 mg TAKE 1 CAPSULE BY MOUTH ONCE DAILY for 90 Active Social History Tobacco Use: Social History Observation Description Date Details (start date - stop date) Former Smoker 02/10/1983 - 02/10/2002 Tobacco Use/Smoking Question Answer Notes Patient is a former smoker When did you start smoking? 02/10/1983 When did you stop smoking? 02/10/2002 How long has it been since you last smoked? > 10 years Additional Findings: Tobacco Non-User Current no n-smoker AUDIT-C (Standard) Question Answer Notes Did you have a drink containing alcohol in the p ast year? No Points 0 Interpretation Negative Problems Problem Type SNOMED Code ICD Code Onset Dates Problem Status W/U Status Risk Notes Problem Hypercholesterol emia (E78.00) Active confirmed Vital Signs Blood pressure systolic 130 mm Hg 06/15/19 25 Blood pressure diastolic 72 mm Hg 025 Height 68 in 06/14/2024 Weight 145.6 lbs 06/14/2024 BMI 22.14 kg/m2 06/14/2024 Encounters Encounter Location Date Provider Diagnosis [facility] [address] [place] [address] 06/14/2024 Tono Anderson Hypercholesterolemia E78.00 Assessments Encounter Date Diagnosis (ICD Code) Assessment Notes Treatment Notes Treatment Clinical Notes Section Notes 06/14/2024 Hypercholesterolemia (ICD-10 - E78.00) Plan Of Treatment Medication Medication Name Sig Start Date Stop Date Notes Suboxone 8-2 MG 1 film under the ton damian and allow to dissolve Sublingual Once a day - PRN for 30 days 06/14/2024 Next Appt Details Provider Name:Tono Anderson, 04:30:00 PM, [address] [place], [address], Progress Notes * Nilsa MCKEONDOB: (68 yo M)Acc No.[id number]:06/14/2024 Progress Note Patient: Nilsa HENDRIX Bishop Provider: Kim Anderson ([facility])MD :1955 A ge:68 Y S ex:Male Date:06/14/2024 [address] [id number] Check In:02:52 PM ESTCheck O ut:03:33 PM EST Subjective: * Chief Complaints: * 1 month f/u, patient would like to discuss his labs * HPI: G eneral: doing wel with dite - discucceed cholesterol - thyrodi may be off a bit also. * ROS: E ENT: hearing changes d enies. v isual changes d enies.?non-healing mouth sores d enies. s wollen glands or neck lumps d enies. h oarseness d enies. s ore throat d enies. d ifficulty swallowing d enies. n ose bleeds d enies. n paulette congestion d enies. e ar ache d enies. e ar discharge?denies. r inging in ears d enies. l ight sensitivity d enies. e ye pain d enies. b lurring d enies. e ye irritation d enies. d ouble vision d enies.?vision loss d enies. G eneral/Constitutional: Sweats: D enies. F atigue d enies. S leep problems d enies. A norexia d enies. M alaise d enies. W eight loss d enies.?Fatigue or Weakness d enies. F ever or Chills d enies. C ardiovascular: Shortness of Breath w/lying flat d enies. L ightheadedness/dizziness d enies. C hest tightness/ heavy pressure d enies. S welling of legs, ankles, or feet d enies. W aking up with shortness of breath d enies. C hest pain denies. P alpitations d enies. W eight gain d enies. R espiratory: Chronic or frequent cough d enies. C oughing up blood?denies. D ifficulty breathing d enies. P roductive cough d enies. S noring?denies. S hortness of breath that awakens from sleep (PND) d enies. C hest pain d enies. S putum production d enies. W heezing d enies. M usculoskeletal: Joint pain d enies. J oint Fluid d enies. B ack pain d enies. K nee pain d enies. N harika pain d enies. J oint Stiffness d enies. M uscle cramps d enies. W eakness of muscles d enies. A rthritis d enies. M uscle aches d enies. P ain in shoulder(s) d enies. S wollen joints d enies. * Active Problem List S22.31XA Fracture of one rib, right side, initial encounter for closed fracture Modified On:05/02/2022 Status:confirmed S61.332A Puncture wound witho ut foreign body of right middle finger with damage to nail, initial encounter Modified On:05/02/2022 Status:confirmed T16.9XXA Foreign body in ear, unspecified ear, initial encounter Modified On:05/02/2022 Status:confirmed J20.9 Acute bronchitis, un specified organism Modified On:04/14/2023 Status:confirmed B02.9 Herpes zoster Modified On:05/02/2022 Status:confirmed J01.90 Acute sinusitis, rec urrence not specified, unspecified location Modified On:05/02/2022 Status:confirmed L03.90 Cellulitis, unspecif ied cellulitis site Modified On:05/02/2022 Status:confirmed M25.519 Shoulder pain, unspe cified chronicity, unspecified laterality Modified On:04/14/2023 Status:confirmed M25.50 Arthralgia, unspecif ied joint Modified On:10/29/2022 Status:confirmed M79.673 Pain of foot, unspec ified laterality Modified On:05/02/2022 Status:confirmed M62.81 Hand muscle weakness Modified On:05/02/2022 Status:confirmed R25.2 Cramp in lower leg Modified On:05/02/2022 Status:confirmed M75.40 Impingement syndrome of shoulder region, unspecified laterality Modified On:05/02/2022 Status:confirmed Z02.89 Medication managemen t contract agreement Modified On:05/02/2022 Status:confirmed U07.1 COVID-19 Modified On:05/02/2022 Status:confirmed M24.159 Degenerative tear of acetabular labrum Modified On:05/02/2022 Status:confirmed F11.10 Opioid abuse, uncomp licated Modified On:05/12/2023 Status:confirmed N40.0 Benign prostatic hyp erplasia without lower urinary tract symptoms Modified On:05/02/2022 Status:confirmed 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 Modified On:05/02/2022 Status:confirmed M75.112 Partial nontraumatic rupture of left rotator cuff Modified On:05/02/2022 Status:confirmed R20.2 Paresthesia of both hands Modified On:05/02/2022 Status:confirmed M50.30 Other cervical disc degeneration, unspecified cervical region Modified On:05/02/2022 Status:confirmed M51.9 Lumbar disc disease Modified On:05/02/2022 Status:confirmed I11.9 Hypertensive heart d isease without heart failure Modified On:05/02/2022 Status:confirmed F11.10 Narcotic abuse Modified On:04/14/2023 Status:confirmed F32.9 Depression Modified On:05/02/2022 Status:confirmed G47.00 Insomnia, unspecifie d type Modified On:05/02/2022 Status:confirmed M79.672 Left foot pain Modified On:04/30/2023 Status:confirmed L84 Corns and callositie s Modified On:04/30/2023 Status:confirmed S61.219A Finger laceration Modified On:04/02/2024 Status:confirmed R41.3 Memory loss Modified On:05/17/2024 Status:confirmed E78.00 Hypercholesterolemia Modified On:06/14/2024 Status:confirmed * Medical History: * Surgical History: S caitlyn Surgery 2011 * Hospitalization/Major Diagno stic Procedure: N o Hospitalization History. * Family History: F ather: 77 yrs, diagnosed with Other malignant neoplasm of unspecified site, Chronic kidney disease, unspecified. M other: alive 91 yrs. B rother(s): alive. S ister(s): alive. S on(s): alive. 2 brother(s) , 1 sister(s) - healthy. 4 son(s) - healthy. . * Social History: T obacco Use: T obacco Use/Smoking P atient is a f ormer smoker W hen did you start smoking? 0 02/10/1983 W hen did you stop smoking? 0 02/10/2002 H ow long has it been since you last smoked??> 10 years A dditional Findings: Tobacco Non-User C urrent non-smoker D rug/Alcohol: A OLIVER-C (Standard) D id you have a drink containing alcohol in the past year? N o P oints 0 I nterpretation N egative * Medications: T akingDiclofenac Sodium 75 MG Tablet Delayed Release take 1 tablet by mouth twice a day Dutasteride 0.5 MG Capsule take 1 capsule by mouth once daily Meclizine HCl 25 MG Tablet 1 tablet as needed Orally every 12 hrs Mirapex 0.5 MG Tablet 1 tablet Orally Once a day Namenda XR 7 MG Capsule Extended Release 24 Hour 1 capsule Orally Once a day Simvastatin 40 MG Tablet take 1 tablet by mouth every evening Suboxone(Buprenorphine HCl-Naloxone HCl) 8-2 MG Film 1 film under the tongue and allow to dissolve Sublingual Once a day - PRN Tamsulosin HCl 0.4 mg Capsule TAKE 1 CAPSULE BY MOUTH ONCE DAILY Urea 40 % Cream 1 application as needed Externally Once a day Medication List reviewed and reconciled with the patientTaking Diclofenac Sodium 75 MG Tablet Delayed Release take 1 tablet by mouth twice a day Taking Dutasteride 0.5 MG Capsule take 1 capsule by mouth once daily Taking Meclizine HCl 25 MG Tablet 1 tablet as needed Orally every 12 hrs Taking Mirapex 0.5 MG Tablet 1 tablet Orally Once a day Taking Namenda XR 7 MG Capsule Extended Release 24 Hour 1 capsule Orally Once a day Taking Simvastatin 40 MG Tablet take 1 tablet by mouth every evening Taking Suboxone(Buprenorphine HCl-Naloxone HCl) 8-2 MG Film 1 film under the tongue and allow to dissolve Sublingual Once a day - PRN Taking Tamsulosin HCl 0.4 mg Capsule TAKE 1 CAPSULE BY MOUTH ONCE DAILY Taking Urea 40 % Cream 1 application as needed Externally Once a day Medication List reviewed and reconciled with the patient * Allergies: N .K.D.A.no[Allergies Verified] Objective: * Vitals: W t:145.6lbs, Ht: 68 in, BP:130/72mm Hg, BMI:22.14Index, Ht-cm: 172.72 cm, Wt-k.04 kg. * Examination: P hysical Exam: GENERAL: w ell developed, well nourished, in no acute distress. HEAD: n ormocephalic/atraumatic. EYES: p upils equal, round and reactive to light, conjunctivae and sclerae normal. EARS: n o deformity or lesion of external ear, canals and TM appear normal bilaterally, TM's intact, not inflamed with normal light reflex, hearing grossly normal to conversational speech. NOSE: n o deformity, discharge, inflammation, or lesions.? MOUTH: m ucous membranes moist, normal oropharynx and posterior pharynx without lesions or exudates, tongue normal, dentition normal. NECK: n harika supple, no masses or palpable cervical nodes, trachea midline, thyroid without nodules, masses, tenderness, or enlargement. CHEST: n o chest wall deformity, no chest wall tenderness.? LUNGS: n ormal respiratory effort and clear to auscultation, no wheezes, rales, or rhonchi, good air exchange. CARDIO: r egular rate and rhythm, normal S1 and S2, nor murmur, rub, or gallop. PULSES: n ormal capillary refill. ABDOMEN: s oft, non-distended, non-tender, no masses. MUSCULOSKELETAL: n o deformity or scoliosis noted, normal range of motion, joints normal, no erythema, edema, effusion, or ecchymosis. EXTREMITY: n o clubbing, cyanosis, edema, or deformity with normal ROM in both upper and lower bilateral extremities. NEUROLOGIC: g rossly normal. SKIN: n o rashes, ulcerations, or suspicious lesions. LYMPH NODES: n o cervical adenopathy, nodes normal. MENTAL STATUS: a lert and oriented x3, normal mood and affect. Assessment: * Assessment: 1. H ypercholesterolemia - E78.00 (Primary) Plan: * Treatment: * Procedure Codes: * Preventive Medicine: Screenings/Counseling: F ALL RISK SCREENING Fall Risk Assessment: N o falls in the past year * * Sign off status: Completed Visit Status: C HK (Check Out) true * Provider: Kim Anderson ([facility])MD Date: 0 06/14/2024 Generated for Candice bright/Marko/eTransmitting on: 0 07/15/2024 04:20 PM EDT History and Physical Notes * HPI (History of Present Illness) Category Sub-Category Detail Notes Category Not es General doing wel with dite - discucceed cholesterol - thyrodi may be off a bit also Examination Category Sub-Category Detail Notes Category Not es Physical Exam GENERAL: well developed, well nourished, in no acute distress HEAD: normocephalic/atraum atic EYES: pupils equal, round and reactive to light, conjunctivae and sclerae normal EARS: no deformity or lesi on of external ear, canals and TM appear normal bilaterally, TM's intact, not inflamed with normal light reflex, hearing grossly normal to conversational speech NOSE: no deformity, discha rge, inflammation, or lesions MOUTH: mucous membranes nessa st, normal oropharynx and posterior pharynx without lesions or exudates, tongue normal, dentition normal NECK: neck supple, no mass es or palpable cervical nodes, trachea midline, thyroid without nodules, masses, tenderness, or enlargement CHEST: no chest wall deform ity, no chest wall tenderness LUNGS: normal respiratory e ffort and clear to auscultation, no wheezes, rales, or rhonchi, good air exchange CARDIO: regular rate and rhy thm, normal S1 and S2, nor murmur, rub, or gallop PULSES: normal capillary ref ill ABDOMEN: soft, non-distended, non-tender, no masses RECTAL: MUSCULOSKELETAL: no deformity or scol iosis noted, normal range of motion, joints normal, no erythema, edema, effusion, or ecchymosis EXTREMITY: no clubbing, cyanosi s, edema, or deformity with normal ROM in both upper and lower bilateral extremities NEUROLOGIC: grossly normal SKIN: no rashes, ulceratio ns, or suspicious lesions LYMPH NODES: no cervical adenopat hy, nodes normal MENTAL STATUS: alert and oriented x 3, normal mood and affect
--- OUTSIDE RECORDS SUMMARY | 2024-07-15 12:30 | XMS_ITS ---
Author Organization The [facility] in [place] Address [address] [place] [address] Care Team Providers Care Front End Developer Name Role Phone Tono Anderson Primary Care Provider REASON FOR VISIT 1mon Encounters Encounter Location Date Provider Diagnosis [facility] [address] [place] [address] 07/15/2024 Tono Anderson Plan Of Treatment Next Appt Details Provider Name:Tono Anderson, 04:30:00 PM, [address] [place], [address], Progress Notes * Nilsa MCKEONDOB: (68 yo M)Acc No.[id number]:07/15/2024 UNLOCKED PROGRESS NOTE Progress Note Patient: Kong HENDRIXyudith Alas Provider: Kim Anderson MD (TTC) :1955 A ge:68 Y S ex:Male Date:07/15/2024 Address: [address] [facility], [id number] Subjective: * Chief Complaints: * 1 . 1mon. * Medical History: Objective: * Vitals: Assessment: Plan: * Treatment: * * Electronic signature of Tono Anderson MD, [id number] on 07/15/2024 at 04:20 PM EDT Sign off status: Pending Visit Status: A [facility] (Voice) * Provider: Kim Anderson MD (TTC) Date: 0 07/15/2024 Generated for Candice bright/Marko/Deshawnitting on: 0 07/15/2024 04:20 PM EDT
--- OUTSIDE RECORDS SUMMARY | 2024-07-15 16:20 | XMS_ITS | Clinical Summary ---
Author Organization [employer] [facility] tem Address [id number] [place] [address] Care Team Providers Care Medical Staff Physician Name Role Phone Nico Anderson MD Primary Care Provider [phone] Allergies No known active allergies Medications buprenorphine-na loxone (SUBOXONE) 2-0.5 mg per SL tablet Place under the tongue daily. Active Social History Tobacco Use Types Packs/Day Years Used Date Smoking Tobacco: Never Smokeless Tobacco: Never Alcohol Use Standard Drinks/Week Comments Not Currently 0 (1 standard drink = 0.6 oz pur e alcohol) Childcare Answer Date Recorded Childcare Unknown 07/22/2018 Employment Answer Date Recorded Employment Unknown 07/22/2018 Hunger Screening Answer Date Recorded Within the past 12 months we worried whether our food would run out before we got money to buy more. Never True 03/10/2024 Within the past 12 months th e food we bought just didn't last and we didn't have money to get more. Never True 03/10/2024 Sex and Gender Information Value Date Recorded Sex Assigned at Not on file Legal Sex Male 12:03 PM EDT Gender Identity Not on file Sexual Orientation Not on file Last Filed Vital Signs Vital Sign Reading Time Taken Comments Blood Pressure 155/83 03/10/2024 12:30 PM EST Pulse 111 03/10/2024 11:50 AM EST Temperature 37 C (98.6 F) 03/10/2024 11:50 AM EST Respiratory Rate 20 03/10/2024 11:50 AM EST Oxygen Saturation 95% 03/10/2024 11:50 AM EST Inhaled Oxygen Concentration - - Weight 68 kg (150 lb) 03/10/2024 11:50 AM EST Height 172.7 cm (5' 8 ) 03/10/2024 11:50 AM EST Body Mass Index 22.81 03/10/2024 11:50 AM EST Plan of Treatment Health Maintenance Due Date Last Done Comments Depression Screening 1965 DTaP,Tdap and Td Vaccines (1 - Tdap) 1972 Zoster (Shingles) Vaccine (1 of 2) 11/20/2003 Fall Risk Screening 2018 COVID-19 Vaccine ( season) 10/12/202305/2020, 09/23/2020 Influenza Vaccine 10/11/2024 2017 Adult BMI Screening 03/10/2025 03/10/2024 Tobacco Screening 03/10/2025 03/10/2024 Medical Devices Not on file Insurance * Guarantor: Nilsa Mckeon Account Type Relation to Patient Date of Phone Billing Address Personal/Family Self 1955 [address] [place] [address] MEDICARE Care Teams Medical Staff Physician Relationship Specialty Start Date End Date Nico Anderson MD PCP - General Family Medicine 10/19/20
--- OUTSIDE RECORDS SUMMARY | 2024-07-15 16:21 | XMS_ITS | Clinical Summary ---
Demographics Address [facility] [address] [place] [address] Home Phone Mobile Phone Preferred Language ENG Marital Status Single [employer] Affiliation Unknown Race White Ethnic Group Not or Lati no Author Organization [facility] Address [address] [place], [place] [id number] Care Team Providers Care Pinball Machine Repairer Name Role Phone Nico Anderson MD Primary Care Provider [phone] Allergies No known active allergies Medications VITAMIN E ORAL Take by mouth once daily. Active tamsulosin ER (FLOMAX) 0.4 mg cap 1 02/15/2018 Active buprenorphine-n aloxone (SUBOXONE) 8-2 mg film Dissolve 1 Film under the tongue once daily. Active diclofenac, EC, (VOLTAREN) 75 mg EC tablet Take 75 mg by mouth twice daily. Active MALU ASPIRIN ORAL Take 1 tablet by mouth once daily. Does not know if its 81 or 325. Active Active Problems Problem Noted Date Diagnosed Date Traumatic partial tear of bi ceps tendon, left, subsequent encounter 02/23/2018 Overview (02/23/2018): Added automatically from request for surgery [id number] Rotator cuff tear, left 02/23/2018 Overview (02/23/2018): Added automatically from request for surgery [id number] Incomplete tear of left rotator cuff 02/17/2018 S/P lumbar discectomy 05/20/2013 Lumbar disc herniation 01/22/2013 Narcotic abuse in remission 01/22/2013 Closed TBI (traumatic brain injury) 01/22/2013 Hepatitis Overview (01/22/2013): hepatitis C Back pain Family History Medical History Relation Comments Arthritis Maternal Grandmother Arthritis Mother Relation Status Comments Father Maternal Grandmother Mother Alive Social History Tobacco Use Types Packs/Day Years Used Date Smoking Tobacco: Former Cigarettes 1 5 1 994 - 1998 Smokeless Tobacco: Never Alcohol Use Standard Drinks/Week Comments No 0 (1 standard drink = 0.6 oz pur e alcohol) Area Deprivation Index Answer Date Tano rded National Score (1-100), lower number is lower ri sk Not on file 01/16/2020 State Score (1-10), lower number is lower risk N ot on file 01/16/2020 Data from: https://www.neighborhoodatlas.medicine.[facility]/. Last address used for calculation Not on file 01/16/2020 Sex and Gender Information Value Date Recorded Sex Assigned at Not on file Legal Sex Male 10:32 AM EST Gender Identity Not on file Sexual Orientation Not on file Last Filed Vital Signs Vital Sign Reading Time Taken Comments Blood Pressure 130/95 02/24/2018 9:10 AM EST Pulse 66 02/24/2018 9:10 AM EST Temperature 36.1 C (96.9 F) 02/24/2018 9:10 AM EST Respiratory Rate 18 02/24/2018 9:10 AM EST Oxygen Saturation 98% 02/24/2018 9:10 AM EST Inhaled Oxygen Concentration - - Weight 69.9 kg (154 lb) 02/24/2018 9:10 AM EST Height 172.7 cm (5' 8 ) 02/24/2018 9:10 AM EST Body Mass Index 23.42 02/24/2018 9:10 AM EST Plan of Treatment Health Maintenance Due Date Last Done Comments Abdominal Aortic Aneurysm Screening 1955 Anxiety Screening 11/20/1971 Depression Screening 11/20/1971 Hepatitis C Screening 11/20/1971 DTaP,Tdap,Td Vaccine (1 - Tdap) [address] Colonography 1998 Cologuard (FIT-DNA) 1998 Colonoscopy 1998 Colorectal Cancer Screening 1998 Diabetes Screening 1998 Fecal Occult Blood 1998 Sigmoidoscopy 1998 Pneumococcal Vaccine: 50+ (1 of 1 - PCV) 11/20/2003 Shingrix Vaccine (1 of 2) 11/20/2003 Covid-19 Vaccine (1 - season) 2023 Advance Directive Discussion 02/11/2024 Influenza Vaccine (Season Ended) 2024 11/20/19 18 RSV Vaccine (1 - 1-dose 75+ series) 2028 Insurance * Guarantor: Nilsa Mckeon Account Type Relation to Patient Date of Phone Billing Address Personal/Family Self 1955 [address] [place] [address] MEDICARE Care Teams Pinball Machine Repairer Relationship Specialty Start Date End Date Nico Anderson MD PCP - General Family Medicine 01/21/13
--- OUTSIDE RECORDS SUMMARY | 2024-07-15 16:21 | XMS_ITS | Clinical Summary ---
Author Organization [facility] Address [address] [place] [address] Care Team Providers Care Assistant Offset Press Operator Name Role Phone Unavailable Primary Care Provider Unavailabl e Social History Tobacco Use Types Packs/Day Years Used Date Smoking Tobacco: Never Assessed Sex and Gender Information Value Date Recorded Sex Assigned at Not on file Legal Sex Male 8:25 PM EDT Gender Identity Not on file Sexual Orientation Not on file Last Filed Vital Signs Vital Sign Reading Time Taken Comments Blood Pressure 118/70 12/04/2017 12:00 PM EDT Pulse - - Temperature - - Respiratory Rate - - Oxygen Saturation - - Inhaled Oxygen Concentration - - Weight 66.7 kg (147 lb) 12/04/2017 12:00 PM EDT Height 170.2 cm (5' 7 ) 12/04/2017 12:00 PM EDT Body Mass Index 23.02 12/04/2017 12:00 PM EDT Plan of Treatment Not on file
[2024-07-15 17:14] LABS: Amphetamine Screen Urine NEGATIVE (NEGATIVE); Barbiturates Screen Urine NEGATIVE (NEGATIVE); Benzodiazepines Screen Urine NEGATIVE (NEGATIVE); Buprenorphine Screen Urine POSITIVE (NEGATIVE); Cannabinoid Screen Urine NEGATIVE (NEGATIVE); Cocaine Screen Urine NEGATIVE (NEGATIVE); Methadone Screen Urine NEGATIVE (NEGATIVE); Methamphetamines Screen Urine NEGATIVE (NEGATIVE); Opiate Screen Urine NEGATIVE (NEGATIVE); Oxycodone Screen Urine NEGATIVE (NEGATIVE); Phencyclidine Screen Urine NEGATIVE (NEGATIVE); Tricyclic Antidepressant Urine NEGATIVE (NEGATIVE)
[2024-07-17 04:07] LABS: Uric Acid, Urine 69.2 mg/dL (Not Estab.)
[2024-07-21 15:12] LABS: Summary Report (Summary) FINAL (.)
== END 2024-07-15 16:19 | disposition home or self-care (01) ==
PROVIDERS: PCP Family Medicine; Visit Provider Family Medicine
DX: Z79.899 Other long term (current) drug therapy (principal)
CPT/HCPCS: 80307; 80326; 80331; 80334; 80337; 80338; 80341; 80344; 80347; 80348; 80353; 80354; 80355; 80357; 80358; 80359; 80360; 80361; 80364; 80365; 80366; 80367; 80368; 80370; 80371; 80372; 80373; 80377; 82570; 83992; 84560

== ENCOUNTER 2024-08-12 14:29 | Outpatient (OUT) | payer MEDICARE, SELFPAY ==
[2024-08-12 15:05] LABS: Cannabinoid Screen Urine NEGATIVE (NEGATIVE); Methamphetamines Screen Urine NEGATIVE (NEGATIVE); Tricyclic Antidepressant Urine NEGATIVE (NEGATIVE)
[2024-08-14 15:08] LABS: Uric Acid, Urine 59.0 mg/dL (Not Estab.)
[2024-08-19 12:18] LABS: Summary Report (Summary) FINAL (.)
== END 2024-08-12 14:30 | disposition home or self-care (01) ==
PROVIDERS: PCP Family Medicine; Visit Provider Family Medicine
DX: Z79.899 Other long term (current) drug therapy (principal)
CPT/HCPCS: 80307; 80326; 80331; 80334; 80337; 80338; 80341; 80344; 80347; 80348; 80353; 80354; 80355; 80357; 80358; 80359; 80360; 80361; 80364; 80365; 80366; 80367; 80368; 80370; 80371; 80372; 80373; 80377; 82570; 83992; 84560

== ENCOUNTER 2024-09-13 16:16 | Outpatient (OUT) | payer MEDICARE, SELFPAY ==
--- OUTSIDE RECORDS SUMMARY | 2024-08-12 12:30 | XMS_ITS ---
Author Organization [facility] in [place] Address [address] [place] [address] Care Team Providers Care Enlisted Advisor Name Role Phone Tono Anderson Primary Care Provider [phone] Allergies No Known Allergies REASON FOR VISIT Suboxone f/u- drug screen done at [facility], Drove home from [place] without AC in the car- said that is why he has lost weight Medications Medication SIG (Take, Route, Fr equency, Duration) Notes Start Date End Date Status Mirapex 0.5 MG 1 tablet Orally Once a day for 30 day(s) Active Meclizine HCl 25 MG 1 tablet as needed O rally every 12 hrs Active Dutasteride 0.5 mg TAKE 1 CAPSULE BY MO UTH ONCE DAILY for 90 Active Simvastatin 40 MG take 1 tablet by lamberto th every evening for 90 days Active Namenda XR 7 MG 1 capsule Orally Onc e a day for 14 days 05/17/2024 Active Urea 40 % 1 application as nee ded Externally Once a day for 10 days 04/30/2023 Active Tamsulosin HCl 0.4 mg TAKE 1 CAPSULE BY MOUTH ONCE DAILY for 90 Active Diclofenac Sodium 75 MG 1 tablet as need ed Orally Twice a day for 30 days Active Suboxone 8-2 MG 1 film under the ton damian and allow to dissolve Sublingual Once a day - PRN for 30 days 08/12/2024 Act lyla Social History Tobacco Use: Social History Observation Description Date Details (start date - stop date) Former Smoker 02/10/1983 - 02/10/2002 Tobacco Use/Smoking Question Answer Notes Patient is a former smoker When did you start smoking? 02/10/1983 When did you stop smoking? 02/10/2002 How long has it been since you last smoked? > 10 years Additional Findings: Tobacco Non-User Current no n-smoker Vital Signs Blood pressure systolic 142 mm Hg 08/13/19 25 Blood pressure diastolic 88 mm Hg 025 Height 68 in 08/12/2024 Weight 136.4 lbs 08/12/2024 BMI 20.74 kg/m2 08/12/2024 Encounters Encounter Location Date Provider Diagnosis [facility] [address] [place] [id number] 08/12/2024 Tono Anderson Hypercholesterolemia E78.00 and Narcotic abuse F11.10 Assessments Encounter Date Diagnosis (ICD Code) Assessment Notes Treatment Notes Treatment Clinical Notes Section Notes 08/12/2024 Hypercholesterolemia (ICD-10 - E78.00) 08/12/2024 Narcotic abuse (ICD- 10 - F11.10) Plan Of Treatment Medication Medication Name Sig Start Date Stop Date Notes Diclofenac Sodium 75 MG 1 tablet as need ed Orally Twice a day for 30 days Suboxone 8-2 MG 1 film under the ton damian and allow to dissolve Sublingual Once a day - PRN for 30 days 08/12/2024 Next Appt Details Provider Name:Tono Anderson, 04:30:00 PM, [address] [place], [address], Progress Notes * Nilsa MCKEONDOB: (68 yo M)Acc No.[id number]:08/12/2024 Progress Note Patient: Nilsa HENDRIX Bishop Provider: Kim Anderson ([facility])MD :1955 A ge:68 Y S ex:Male Date:08/12/2024 Address:[address] [id number] Check In:02:51 PM ESTCheck O ut:03:40 PM EST Subjective: * Chief Complaints: * S uboxone f/u- drug screen done at [facility] home from [facility] without AC in the car- said that is why he has lost weight * ROS: E ENT: hearing changes d [...] Surgery 2011 * Hospitalization/Major Diagno stic Procedure: D enies Past Hospitalization * Family History: F ather: 77 yrs, [...] dditional Findings: Tobacco Non-User C urrent non-smoker * Medications: T akingDiclofenac Sodium 75 MG Tablet Delayed Release take 1 tablet by mouth twice a day Dutasteride 0.5 mg Capsule TAKE 1 CAPSULE BY MOUTH ONCE DAILY Meclizine HCl 25 MG Tablet 1 tablet [...] mouth twice a day Taking Dutasteride 0.5 mg Capsule TAKE 1 CAPSULE BY MOUTH ONCE DAILY Taking Meclizine HCl 25 MG Tablet 1 [...] N .K.D.A.no[Allergies Verified] Objective: * Vitals: W t:136.4lbs, Ht: 68 in, BP:142/88mm Hg, BMI:20.74Index, Ht-cm: 172.72 cm, Wt-k.87 kg. * Examination: P hysical Exam: GENERAL: [...] Assessment: 1. H ypercholesterolemia - E78.00 (Primary) 2 . N arcotic abuse - F11.10? Plan: * Treatment: * Procedure Codes: * * Sign off status: Completed Visit Status: C HK (Check Out) true * Provider: Kim Anderson ([facility])MD Date: 08/12/2024 Generated for Candice bright/Marko/Deshawnitting on: 09/13/2024 04:19 PM EDT History and Physical Notes * Examination Category Sub-Category Detail Notes Category Not [...]
--- OUTSIDE RECORDS SUMMARY | 2024-08-30 06:42 | XMS_ITS ---
Author Organization [facility] in [place] Address [address] [place] [address] Care Team Providers Care Pearl Technician Name Role Phone Justin Tono Primary Care Provider REASON FOR VISIT infection in eye Medications Medication SIG (Take, Route, Frequency, Duration) Notes Start Date End Date Status Amoxicillin-Pot Clavulanate 875-125 MG 1 tablet Orally every 12 hrs for 10 days 08/30/2024 Active Urjblliw-Ozypimvhf-Xyetblwp 3.5-59129-2.1 1 drop into affected eye Ophthalmic Four times a day for 7 days 08/30/2024 Active Encounters Encounter Location Date Provider Diagnosis [facility] [address] [place] [id number] 08/30/2024 Tono Justin Plan Of Treatment Medication Medication Name Sig Start Date Stop Date Notes Amoxicillin-Pot Clavulanate 875-125 MG 1 tablet Orally every 12 hrs for 10 days 08/30/2024 Zsdudfvh-Llevbpbmw-Tbadjsov 3.5-32648-1.1 1 drop into affected eye Ophthalmic Four times a day for 7 days 08/30/2024 Next Appt Details Provider Name:Tono Anderson, 04:30:00 PM, [address] [place], [address], Progress Notes * Nilsa MCKEONDOB: (68 yo M)Acc No.[id number]:08/30/2024 Patient: Nilsa HENDRIX :1955 A ge:68 Y S ex:Male Address:[place] [address], [place] [address] * Refills Start Amoxicillin-Pot Clavulanate Tablet, 875-125 MG, Orally, 20 Tablet, 1 tablet, every 12 hrs, 10 days, Refills=0 Start Jxzwaweg-Pnqzeasbs-Aomolwvk Suspension, 3.5-35846-7.1, Ophthalmic, 1.4 ML, 1 drop into affected eye, Four times a day, 7 days, Refills=1 * true * Date: Generated for Candice bright/Marko/Deshawnitting on: 0 09/13/2024 04:20 PM EDT
--- OUTSIDE RECORDS SUMMARY | 2024-09-13 12:30 | XMS_ITS ---
Author Organization [facility] in [place] Address [address] [place] [address] Care Team Providers Care Utility Gelatin Maker Name Role Phone Justin Tono Primary Care Provider [phone] REASON FOR VISIT 1 month f/u Encounters Encounter Location Date Provider Diagnosis [facility] [address] [place] [phone] 09/13/2024 Tono Anderson Plan Of Treatment Next Appt Details Provider Name:Tono Riya Anderson, 04:30:00 PM, [address] [place], [address], Progress Notes * Nilsa MCKEONDOB: (68 yo M)Acc No.[id number]:09/13/2024 UNLOCKED PROGRESS NOTE Progress Note Patient: Riya CALDERON Nilsa Alas Provider: Kim Anderson MD (TTC) :1955 A ge:68 Y S ex:Male Date:09/13/2024 [facility] [address] [id number] Subjective: * Chief Complaints: * 1 . 1 month f/u. * Medical History: Objective: * Vitals: Assessment: Plan: * Treatment: * * Electronic signature of Tono Anderson MD, [id number] on 09/13/2024 at 04:20 PM EDT Sign off status: Pending Visit Status: A [facility] (Voice) * Provider: Kim Anderson (TTC)MD Date: 0 09/13/2024 Generated for Candice bright/Marko/Yris on: 0 09/13/2024 04:20 PM EDT
--- OUTSIDE RECORDS SUMMARY | 2024-09-13 16:19 | XMS_ITS | Clinical Summary ---
Author Organization [facility] Address [id number] [address] [place] [address] Care Team Providers Care Dining Room Cashier Name Role Phone Nico Anderson MD Primary Care Provider [phone] Allergies No known active allergies Medications buprenorphine-na [...] Billing Address Personal/Family Self 1955 [address] [place] [address] MEDICARE Care Teams Dining Room Cashier Relationship Specialty Start Date End Date Nico Anderson MD PCP - General Family Medicine 10/19/20
--- OUTSIDE RECORDS SUMMARY | 2024-09-13 16:20 | XMS_ITS | Clinical Summary ---
Author Organization [facility] Address [address] [place] [address] Care Team Providers Care Metal Lather Name Role Phone Unavailable Primary Care Provider [...]
--- OUTSIDE RECORDS SUMMARY | 2024-09-13 16:20 | XMS_ITS | Clinical Summary ---
Demographics Address [facility] [address] [place] [address] Home Phone Mobile Phone Preferred Language ENG Marital Status Single [employer] Affiliation Unknown Race White Ethnic Group Not or Lati no Author Organization [facility] Address [address] [place], [place] [id number] Care Team Providers Care Media Manager Name Role Phone Nico Anderson MD Primary Care Provider [phone] Allergies No known active allergies Medications VITAMIN [...] (02/23/2018): Added automatically from request for surgery [id number] Rotator cuff tear, left 02/23/2018 Overview (02/23/2018): Added automatically from request for surgery [id number] Incomplete tear of left rotator cuff 02/17/2018 [...] N ot on file 01/16/2020 Data from: https://www.neighborhoodatlas.medicine.[facility]/. Last address used for calculation Not on [...] 11/20/2003 Shingrix Vaccine (1 of 2) 11/20/2003 Advance Directive Discussion 02/11/2024 Influenza Vaccine (#1) 2024 2017 RSV Vaccine (1 - 1-dose 75+ series) 2028 Insurance MEDICARE Care Teams Media Manager Relationship Specialty Start Date End Date Nico Anderson MD PCP - General Family Medicine 01/21/13
[2024-09-13 16:47] LABS: Cannabinoid Screen Urine NEGATIVE (NEGATIVE); Methamphetamines Screen Urine NEGATIVE (NEGATIVE); Tricyclic Antidepressant Urine NEGATIVE (NEGATIVE)
== END 2024-09-13 16:17 | disposition home or self-care (01) ==
PROVIDERS: PCP Family Medicine; Visit Provider Family Medicine
DX: Z79.899 Other long term (current) drug therapy (principal)
CPT/HCPCS: 80307; 80326; 80331; 80334; 80337; 80338; 80341; 80344; 80347; 80348; 80353; 80354; 80355; 80357; 80358; 80359; 80360; 80361; 80364; 80365; 80366; 80367; 80368; 80370; 80371; 80372; 80373; 80377; 82570; 83992; 84550; 84560

== ENCOUNTER 2024-11-04 06:43 | Outpatient (OUT) | payer MEDICARE, SELFPAY ==
--- OUTSIDE RECORDS SUMMARY | 2024-11-04 06:45 | XMS_ITS | CCD ---
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 AUTO DIFFon 03-20-2022 BASO # 0.0 103/ul Normal 0.0-0.1 [facility] Comment on above: Performed By: #### P SASC, IRON #### [facility] [address] [place] [address] Dr. Anibal Bishop Basophils/100 WBC (Bld) 0.6 % Normal 0.2-2.0 [facility] Comment on above: Performed By: #### P SASC, IRON #### [facility] [address] [place] [address] Dr. Anibal Bishop EO # 0.2 103/ul Normal 0.0-0.7 [facility] Comment on above: Performed By: #### P SASC, IRON #### [facility] [address] [place] [address] Dr. Anibal Bishop Eosinophils/100 WBC (Bld) 3.5 % Normal 0.9-7.0 [facility] Comment on above: Performed By: #### P SASC, IRON #### [facility] [address] [place] [address] Dr. Anibal Bishop Erythrocyte distribution width (RBC) [Ratio] 14.1 % Normal 11.0-15.0 [facility] Comment on above: Performed By: #### P SASC, IRON #### [facility] [address] [place] [address] Dr. Anibal Bishop Hematocrit (Bld) [Volume fraction] 44.6 % Normal 42.0-54.0 [facility] Comment on above: Performed By: #### P SASC, IRON #### [facility] [address] [place] [address] Dr. Anibal Bishop Hemoglobin (Bld) [Mass/Vol] 14.3 g/dL Normal 14.0-18.0 [facility] Comment on above: Performed By: #### P SASC, IRON #### [facility] [address] [place] [address] Dr. Anibal Bishop IG # 0.02 10e3/ul Normal 0.00-0.03 [facility] Comment on above: Performed By: #### P SASC, IRON #### [facility] [address] [place] [address] Dr. Anibal Bishop IG % 0.4 % Normal 0.0-0.5 [facility] Comment on above: Performed By: #### P SASC, IRON #### [facility] [address] [place] [address] Dr. Anibal Bishop LYMPH # 0.8 103/ul Critically low 1.2-3.8 [facility] Comment on above: Performed By: #### P SASC, IRON #### [facility] [address] [place] [address] Dr. Anibal Bishop Lymphocytes/100 WBC (Bld) 17.1 % Critically low 20.5-60.0 [facility] Comment on above: Performed By: #### P SASC, IRON #### [facility] [address] [place] [address] Dr. Anibal Bishop MANUAL DIFF REQ NO Normal [place] Comment on above: Performed By: #### P SASC, IRON #### [facility] [address] [place] [address] Dr. Anibal Bishop MCH (RBC) [Entitic mass] 29.9 pg Normal 25.9-34.0 [facility] Comment on above: Performed By: #### P SASC, IRON #### [facility] [address] [place] [address] Dr. Anibal Bishop MCHC (RBC) [Mass/Vol] 32.1 g/dL Normal 29.9-35.2 [facility] Comment on above: Performed By: #### P SASC, IRON #### [facility] [address] [place] [address] Dr. Anibal Bishop MCV (RBC) [Entitic vol] 93.3 fL Normal 80.0-94.0 [facility] Comment on above: Performed By: #### P SASC, IRON #### [facility] [address] [place] [address] Dr. Anibal Bishop MONO # 0.6 103/ul Normal 0.3-0.8 [facility] Comment on above: Performed By: #### P SASC, IRON #### [facility] [address] [place] [address] Dr. Anibal Bishop Monocytes/100 WBC (Bld) 12.5 % Critically high 1.7-12.0 [facility] Comment on above: Performed By: #### P SASC, IRON #### [facility] [address] [place] [address] Dr. Anibal Bishop NEUT # 3.2 103/ul Normal 1.4-6.5 [facility] Comment on above: Performed By: #### P SASC, IRON #### [facility] [address] [place] [address] Dr. Anibal Bishop Neutrophils/100 WBC (Bld) 65.9 % Normal 43.0-75.0 [facility] Comment on above: Performed By: #### P SASC, IRON #### [facility] [address] [place] [address] Dr. Anibal Bishop Platelet mean volume (Bld) [Entitic vol] 9.0 fL Critically low 9.5-13.5 [facility] Comment on above: Performed By: #### P SASC, IRON #### [facility] [address] [address] [address] Anibal Bishop PLT 250 103/ul Normal 150-450 [facility] Comment on above: Performed By: #### P SASC, IRON #### [facility] [address] [address] [address] Anibal Bishop RBC 4.78 106/ul Normal 4.70-6.10 [facility] Comment on above: Performed By: #### P SASC, IRON #### [facility] [address] [address] [address] Anibal Bishop WBC 4.8 103/ul Normal 4.0-11.0 [facility] Comment on above: Performed By: #### P SASC, IRON #### [facility] [address] [place] [address] Dr. Anibal Bishop FREE THYROXINE INDEX T7on FTI 3.33 Normal 1.30-4.50 [facility] Comment on above: Performed By: #### U AHMLET, LIPID, T7, CMP, TSH #### [facility] [address] [address] [address] Anibal Bishop T3U 35.0 % Normal 33.0-40.0 [facility] Comment on above: Performed By: #### U HAMLET, LIPID, T7, CMP, TSH #### [facility] [address] [address] [address] Anibal Bishop T4 [Mass/Vol] 9.50 ug/dL Normal 4.50-12.10 [facility] Comment on above: Performed By: #### U HAMLET, LIPID, T7, CMP, TSH #### [facility] [address] [address] [address] Anibal Bishop GLYCOHEMOGLOBIN A1Con 2022 ADA RECOMMENDATION SEE BELOW Normal [facility] Comment on above: Result Comment: ADA RECOMMENDED LIMIT 4.0 - 6.0 ADA THERAPEUTIC TARGET < 7.0 ACTION SUGGESTED > 7.0 Performed By: #### P SASC, IRON #### [facility] [address] [place] [address] Dr. Anibal Bishop Glucose [Mass/Vol] 114 mg/dL Normal [facility] Comment on above: Performed By: #### P SASC, IRON #### [facility] [address] [address] [address] Anibal Bishop HbA1c (Bld) [Mass fraction] 5.6 % Normal 4.5-6.2 [facility] Comment on above: Performed By: #### P SASC, IRON #### [facility] [address] [address] [address] Anibal Bishop IRONon 03-20-2022 Iron [Mass/Vol] 63.0 ug/dL Critically low 65.0-175.0 [facility] Comment on above: Performed By: #### P SASC, IRON #### [facility] [address] [place] [address] Dr. Anibal Bishop LIPID PROFILEon 03-20-2022 CHOL-HDL RATIO NORM SEE BELOW Normal [facility] Comment on above: Result Comment: 3.3 - 4.4 LOW RISK 4.4 - 7.1 AVERAGE RISK 7.1 - 11.0 MODERATE RISK >11.0 HIGH RISK Performed By: #### P SASC, IRON #### [facility] [address] [place] [address] Dr. Anibal Bishop Cholesterol [Mass/Vol] 207 mg/dL Critically high <=200 [facility] Comment on above: Performed By: #### P SASC, IRON #### [facility] [address] [address] [address] Anibal Bishop Cholesterol in HDL [Mass/Vol] 96 mg/dL Critically high 40-60 [facility] Comment on above: Performed By: #### P SASC, IRON #### [facility] [address] [address] [address] Anibal Bishop Cholesterol in LDL [Mass/Vol] 97.6 mg/dL Normal [facility] Comment on above: Performed By: #### P SASC, IRON #### [facility] [address] [address] [address] Anibal Bishop Cholesterol.total/C holesterol in HDL [Mass ratio] 2.2 {ratio} Normal [facility] Comment on above: Performed By: #### P SASC, IRON #### [facility] [address] [address] [address] Anibal Bishop HDL NORMAL > or = 60 mg/dl - LO W CARDIOVASCULAR RISK <40 mg/dl - HIGH CARDIOVASCULAR RISK Normal [facility] Comment on above: Performed By: #### P SASC, IRON #### [facility] [address] [address] [address] Anibal Bishop LDL CALC NORMAL SEE BELOW Normal [place] Comment on above: Result Comment: <100 mg/dl OPTIMAL 100 - 129 mg/dl NEAR OR ABOVE OPTIMAL 130 - 159 mg/dl BORDERLINE HIGH 160 - 189 mg/dl HIGH >190 mg/dl VERY HIGH Performed By: #### P SASC, IRON #### [facility] [address] [address] [address] Anibal Bishop Triglyceride [Mass/Vol] 67 mg/dL Normal <=150 [facility] Comment on above: Performed By: #### P SASC, IRON #### [facility] [address] [address] [address] Anibal Bishop VLDL CALC 13.4 mg/dL Normal [facility] Comment on above: Performed By: #### P SASC, IRON #### [facility] [address] [address] [address] Anibal Bishop PROF 14(COMP METB)on 023 Albumin [Mass/Vol] 3.6 g/dL Normal 3.4-5.0 [facility] Comment on above: Performed By: #### U HAMLET, LIPID, T7, CMP, TSH #### [facility] [address] [address] [address] Anibal Bishop Albumin/Globulin [Mass ratio] 0.9 {ratio} Normal [facility] Comment on above: Performed By: #### U HAMLET, LIPID, T7, CMP, TSH #### [facility] [address] [address] [address] Anibal Bishop ALP [Catalytic activity/Vol] 90 U/L Normal 46-116 [facility] Comment on above: Performed By: #### U HAMLET, LIPID, T7, CMP, TSH #### [facility] [address] [place] [address] Dr. nAibal Bishop ALT [Catalytic activity/Vol] 46 U/L Normal 16-63 [facility] Comment on above: Performed By: #### U HAMLET, LIPID, T7, CMP, TSH #### [facility] [address] [place] [address] Dr. Anibal Bishop Anion gap [Moles/Vol] 13.4 mmol/L Normal [facility] Comment on above: Performed By: #### U HAMLET, LIPID, T7, CMP, TSH #### [facility] [address] [place] [address] Dr. Anibal Bishop AST [Catalytic activity/Vol] 26 U/L Normal 15-37 [facility] Comment on above: Performed By: #### U HAMLET, LIPID, T7, CMP, TSH #### [facility] [address] [place] [address] Dr. Anibal Bishop Bilirubin [Mass/Vol] 0.6 mg/dL Normal 0.2-1.0 [facility] Comment on above: Performed By: #### U HAMLET, LIPID, T7, CMP, TSH #### [facility] [address] [place] [address] Dr. Anibal Bishop Calcium [Mass/Vol] 9.6 mg/dL Normal 8.5-10.1 [facility] Comment on above: Performed By: #### U HAMLET, LIPID, T7, CMP, TSH #### [facility] [address] [place] [address] Dr. Anibal Bishop Chloride [Moles/Vol] 103 mmol/L Normal 98-107 [facility] Comment on above: Performed By: #### U HAMLET, LIPID, T7, CMP, TSH #### [facility] [address] [place] [address] Dr. Anibal Bishop CO2 [Moles/Vol] 27.9 mmol/L Normal 21.0-32.0 [facility] Comment on above: Performed By: #### U HAMLET, LIPID, T7, CMP, TSH #### [facility] [address] [address] [address] Anibal Bishop Creatinine [Mass/Vol] 0.91 mg/dL Normal 0.70-1.30 [facility] Comment on above: Performed By: #### U HAMLET, LIPID, T7, CMP, TSH #### [facility] [address] [address] [address] Anibal Bishop EGFR-AF [place]ONG [place]ER >60 Normal >=60 [facility] Comment on above: Performed By: #### U HAMLET, LIPID, T7, CMP, TSH #### [facility] [address] [address] [address] Anibal Bishop EGFR-NON AF [place] >60 Normal >=60 [facility] Comment on above: Performed By: #### U HAMLET, LIPID, T7, CMP, TSH #### [facility] [address] [place] [address] Dr. Anibal Bishop Globulin (S) [Mass/Vol] 3.9 g/dL Normal [facility] Comment on above: Performed By: #### U HAMLET, LIPID, T7, CMP, TSH #### [facility] [address] [place] [address] Dr. Anibal Bishop Glucose [Mass/Vol] 103 mg/dL Normal 74-106 [facility] Comment on above: Performed By: #### U HAMLET, LIPID, T7, CMP, TSH #### [facility] [address] [address] [address] Anibal Bishop Potassium [Moles/Vol] 4.3 mmol/L Normal 3.5-5.1 [facility] Comment on above: Performed By: #### U HAMLET, LIPID, T7, CMP, TSH #### [facility] [address] [place] [address] Dr. Anibal Bishop Protein [Mass/Vol] 7.5 g/dL Normal 6.4-8.2 [facility] Comment on above: Performed By: #### U HAMLET, LIPID, T7, CMP, TSH #### [facility] [address] [place] [address] Dr. Anibal Bishop Sodium [Moles/Vol] 140 mmol/L Normal 136-145 [facility] Comment on above: Performed By: #### U HAMLET, LIPID, T7, CMP, TSH #### [facility] [address] [place] [address] Dr. Anibal Bishop Urea nitrogen [Mass/Vol] 12.0 mg/dL Normal 7.0-18.0 [facility] Comment on above: Performed By: #### U HAMLET, LIPID, T7, CMP, TSH #### [facility] [address] [place] [address] Dr. Anibal Bishop Urea nitrogen/Creatinine [Mass ratio] 13.2 mg/mg Normal [facility] Comment on above: Performed By: #### U HAMLET, LIPID, T7, CMP, TSH #### [facility] [address] [place] [address] Dr. Anibal Bishop TSHon 03-20-2022 TSH 2.763 uIU/mL Normal 0.358-3.740 [facility] Comment on above: Performed By: #### U HAMLET, LIPID, T7, CMP, TSH #### [facility] [address] [place] [address] Dr. Anibal Bishop URIC ACID SERUMon 03-20-2022 Urate [Mass/Vol] 5.3 mg/dL Normal 3.5-7.2 [facility] Comment on above: Performed By: #### U HAMLET, LIPID, T7, CMP, TSH #### [facility] [address] [place] [address] Dr. Anibal Bishop COMPLIANCE DRUG SCREENon PDF . Normal [facility] Comment on above: Performed By: #### P SASC, IRON #### [facility] [address] [place] [address] Dr. Anibal Bishop Summary FINAL Normal [facility] Comment on above: Result Comment: == [...] test is not intended to distinguish between [id number], the predominant form of THC in most herbal or marijuana-based products, and fnimd-[id number]. Fentanyl 1 UNEXPECTED ng/mg creat Norfentanyl 7 [...] Performed By: #### P SASC, IRON #### [facility] [address] [address] [address] Anibal Bishop URIC ACID RINCON URINEon 01-05 Uric Acid, Urine 45.6 mg/dL Normal Not Estab. [facility] Comment on above: Performed By: #### P SASC, IRON #### [facility] [address] [address] [address] Anibal Bishop COMPLIANCE DRUG SCREENon PDF . [facility] Comment on above: Performed By: #### P SASC, IRON #### [facility] [address] [address] [address] Anibal Bishop Summary FINAL [facility] Comment on above: Result Comment: == [...] Performed By: #### P SASC, IRON #### [facility] [address] [place] [address] Dr. Anibal Bishop URIC ACID RINCON URINEon 10-02 -2022 Uric Acid, Urine 57.4 mg/dL Normal Not Estab. [facility] Comment on above: Performed By: #### U RICUR #### [facility] [address] [place], [place] [address] Dr. Anibal Bishop COMPLIANCE DRUG SCREENon PDF . Normal [facility] Comment on above: Performed By: #### P SASC, IRON #### [facility] [address] [place], [place] [address] Dr. Anibal Bishop Summary FINAL Normal [facility] Comment on above: Result Comment: == [...] Performed By: #### P SASC, IRON #### [facility] [address] [place] [address] Dr. Anibal Bishop URIC ACID RAND URINEon 10-12 Uric Acid, Urine 58.7 mg/dL Normal Not Estab. [facility] Comment on above: Performed By: #### U RICUR #### [facility] [address] [place] [address] Dr. Anibal Bishop COMPLIANCE DRUG SCREENon PDF . [facility] Comment on above: Performed By: #### D SDOALC #### [facility] [address] [place] [address] Dr. Anibal Bishop Summary FINAL Normal [facility] Comment on above: Result Comment: == [...] == Performed By: #### D SDOALC #### [facility] [address] [address] [address] Anibal Bishop URIC ACID RAND URINEon 08-03 -2022 Uric Acid, Urine 62.7 mg/dL Normal Not Estab. [facility] Comment on above: Performed By: #### P SASC, IRON #### [facility] [address] [address] [address] Anibal Bishop COMPLIANCE DRUG SCREENon PDF . Normal [facility] Comment on above: Performed By: #### D SDOALC #### [facility] [address] [address] [address] Anibal Bishop Summary FINAL Normal [facility] Comment on above: Result Comment: == [...] == Performed By: #### D SDOALC #### [facility] [address] [place] [address] Dr. Anibal Bishop [facility] Uric Acid, Urine 21.4 mg/dL Normal Not Estab. [facility] Comment on above: Performed By: #### P SASC, IRON #### [facility] [address] [place] [address] Dr. Anibal Bishop Encounters Encounter Date Encounter Type Care Provider Facility Start: 10-11-2024 End: 10-11-2024 Emergency department patient visit Robe Estephanie Donn Facility:[facility] Start: 03-10-2024 End: 03-10-2024 Emergency department patient visit MRAT ANDERSON [facility] Start: 06-10-2022 End: 06-11-[address] MART ANDERSON . Facility: Start: 04-12-[address] MART ANDERSON . Facili ty:[facility] Start: 03-20-2022 End: 03-21-[address] MART ANDERSON . Facility: Start: 01-02-2022 End: 01-03-[address] MART ANDERSON . Facility:[facility] Start: 11-09-2021 End: 11-10-[address] MART ANDERSON . Facility:[facility] Start: 10-10-2021 End: 10-11-[address] MART ANDERSON . Facility:[facility] Start: 09-10-2021 End: 09-11-[address] MART ANDERSON . Facility:[facility] Start: 08-10-2021 End: 08-11-[address] MART ANDERSON . Facility:[facility] Start: 02-24-2018 End: 02-24-2018 ambulatory CHANCE Gonzales NOEL [facility] Start: 02-24-2018 Encounter for other preprocedural examination CHANCE COHEN [facility] Procedures Date Procedure Procedure Detail Performing Clinician Start: 03-20-[address] BEBETO ANDERSON . Comment on above: Performed By: #### P [facility], IRON #### [facility] [address] [place] [address] Dr. Anibal Bishop Payers Date Payer Category Payer Unknown [id number] 2024 Unknown [id number] 1961 Medicare [id number] 1955 Unknown [id number] 2.16.84 [id number] 1953 Unknown [id number] 2.16.84 [id number] 1953 Unknown [id number] 2.16.84 [id number] 1953 Unknown [id number] 2.16.84 [id number] 1953 Unknown [id number] 2.16.84 [id number] 1953 Unknown [id number] 2.16.84 [id number] 1953 Unknown [id number] 2.16.84 [id number] 1953 Unknown [id number] 2.16.84 [id number] 1953 Unknown [id number] 2.16. [id number] 1953 Unknown [id number] 2.16.8 [id number] 1953 Unknown [id number] 2.16.8 [id number] 1953 Unknown [id number] 2.16.8 [id number] Clinical Note 10-11-2024 Note Date & Type Note Facility 10-11-2024 Note ED Patient Education Note Orthopedics Acute Back Pain, Adult Acute back pain is sudden and usually short-lived. It is often caused by an injury to the muscles and tissues in the back. The injury may result from: ??? A muscle, tendon, or ligament getting overstretched or torn. Ligaments are tissues that connect bones to each other. Lifting something improperly can cause a back strain. ??? Wear and tear (degeneration) of the spinal disks. Spinal disks are circular tissue that provide cushioning between the bones of the spine (vertebrae). ??? Twisting motions, such as while playing sports or doing yard work. ??? A hit to the back. ??? Arthritis. You may have a physical exam, lab tests, and imaging tests to find the cause of your pain. Acute back pain usually goes away with rest and home care. Follow these instructions at home: Managing pain, stiffness, and swelling ??? Take ysrm-jcc-imjvxrk and prescription medicines only as told by your health care provider. Treatment may include medicines for pain and inflammation that are taken by mouth or applied to the skin, or muscle relaxants. ??? Your health care provider may recommend applying ice during the first 24?48 hours after your pain starts. To do this: ? Put ice in a plastic bag. ? Place a towel between your skin and the bag. ? Leave the ice on for 20 minutes, 2?3 times a day. ? Remove the ice if your skin turns bright red. This is very important. If you cannot feel pain, heat, or cold, you have a greater risk of damage to the area. ??? If directed, apply heat to the affected area as often as told by your health care provider. Use the heat source that your health care provider recommends, such as a moist heat pack or a heating pad. ? Place a towel between your skin and the heat source. ? Leave the heat on for 20?30 minutes. ? Remove the heat if your skin turns bright red. This is especially important if you are unable to feel pain, heat, or cold. You have a greater risk of getting burned. Activity ??? Do not stay in bed. Staying in bed for more than 1?2 days can delay your recovery. ??? Sit up and stand up straight. Avoid leaning forward when you sit or hunching over when you stand. ? If you work at a desk, sit close to it so you do not need to lean over. Keep your chin tucked in. Keep your neck drawn back, and keep your elbows bent at a 90-degree angle (right angle). ? Sit high and close to the steering wheel when you drive. Add lower back (lumbar) support to your car seat, if needed. ??? Take short walks on even surfaces as soon as you are able. Try to increase the length of time you walk each day. ??? Do not sit, drive, or purchasing director one place for more than 30 minutes at a time. Sitting or standing for long periods of time can put stress on your back. ??? Do not drive or use heavy machinery while taking prescription pain medicine. ??? Use proper lifting techniques. When you bend and lift, use positions that put less stress on your back: ? Bend your knees. ? Keep the load close to your body. ? Avoid twisting. ??? Exercise regularly as told by your health care provider. Exercising helps your back heal faster and helps prevent back injuries by keeping muscles strong and flexible. ??? Work with a physical therapist to make a safe exercise program, as recommended by your health care provider. Do any exercises as told by your physical therapist. Lifestyle ??? Maintain a healthy weight. Extra weight puts stress on your back and makes it difficult to have good posture. ??? Avoid activities or situations that make you feel anxious or stressed. Stress and anxiety increase muscle tension and can make back pain worse. Learn ways to manage anxiety and stress, such as through exercise. General instructions ??? Sleep on a firm mattress in a comfortable position. Try lying on your side with your knees slightly bent. If you lie on your back, put a pillow under your knees. ??? Keep your head and neck in a straight line with your spine (neutral position) when using electronic equipment like smartphones or pads. To do this: ? Raise your smartphone or pad to look at it instead of bending your head or neck to look down. ? Put the smartphone or pad at the level of your face while looking at the screen. ??? Follow your treatment plan as told by your health care provider. This may include: ? Cognitive or behavioral therapy. ? Acupuncture or massage therapy. ? Meditation or yoga. Contact a health care provider if: ??? You have pain that is not relieved with rest or medicine. ??? You have increasing pain going down into your legs or buttocks. ??? Your pain does not improve after 2 weeks. ??? You have pain at night. ??? You lose weight without trying. ??? You have a fever or chills. ??? You develop nausea or vomiting. ??? You develop abdominal pain. Get help right away if: ??? You develop new bowel or bladder control problems. ??? Y (more content not included)... [facility] Summary Purpose Family History No Family History [...] Records FoundNo Status Records FoundNo Status Records FoundNo Status Records FoundNo Status Records FoundNo Status Records FoundNo Status Records Found INFORMATION SOURCE (unrecogn ized section and content) DATE CREATED AUTHOR 06/15/2022 Marino Kellogg [facility] DATE CREATED AUTHOR AUTHOR'S ORGANIZ ATION 07/13/2023 [facility] DATE CREATED AUTHOR AUTHOR'S ORGANIZ ATION 03/12/2024 [facility] DATE CREATED AUTHOR AUTHOR'S ORGANIZ ATION 10/11/2024 [facility] DATE CREATED AUTHOR AUTHOR'S ORGANDEVI ATION 10/17/2024 [facility] FOR RECORDS PERTAINING TO PATIENTS [...] BE BASED ON THE PRIMARY CLINICAL RECORDS. [employer] [facility]. provides no warranty or guarantee of the accuracy or completeness of information in this document.
[2024-11-04 06:58] LABS: Hematocrit 39.3 % (42.0-54.0); Hemoglobin 13.3 g/dL (14.0-18.0); Immature Granulocytes Abs Auto 0.01 10^3/uL (0.00-0.03); Immature Granulocytes Pct Auto 0.3 % (0.0-0.5); Lymphocytes Absolute Auto 1.0 10^3/uL (1.2-3.8); Mean Corpuscular HGB Conc 33.8 g/dL (29.9-35.2); Mean Corpuscular Hemoglobin 29.1 pg (25.9-34.0); Mean Corpuscular Volume 86.0 fL (80.0-94.0); Platelet Count 212 10^3/uL (150-450); Red Blood Count 4.57 10^6/uL (4.70-6.10); White Blood Count 3.8 10^3/uL (4.0-11.0)
[2024-11-04 07:48] LABS: Cannabinoid Screen Urine NEGATIVE (NEGATIVE); Methamphetamines Screen Urine NEGATIVE (NEGATIVE); Tricyclic Antidepressant Urine NEGATIVE (NEGATIVE)
[2024-11-04 07:54] LABS: Alanine Aminotransferase 38 U/L (16-63); Albumin Globulin Ratio 0.9; Albumin Level 3.5 g/dL (3.4-5.0); Alkaline Phosphatase 125 U/L (46-116); Anion Gap 11.3; Aspartate Amino Transferase 33 U/L (15-37); Blood Urea Nitrogen 18.0 mg/dL (7.0-18.0); Calcium 9.3 mg/dL (8.5-10.1); Carbon Dioxide 27.7 mmol/L (21.0-32.0); Chloride 106 mmol/L (98-107); Cholesterol 164 mg/dL (<=200); Estimated GFR (African America >60 (>=60 mL/min/1.73m^2); Estimated GFR (Non-African Ame >60 (>=60 mL/min/1.73m^2); Free T3 2.38 pg/mL (2.18-3.98); Globulin 3.9 g/dL; Glucose 110 mg/dL (74-106); HDL Cholesterol 68 mg/dL (40-60); Potassium 4.0 mmol/L (3.5-5.1); Sodium 141 mmol/L (136-145); Thyroid Stimulating Hormone 4.230 uIU/mL (0.358-3.740); Total Protein 7.4 g/dL (6.4-8.2); Triglycerides 64 mg/dL (<=150); VLDL CHOLESTEROL 12.8 mg/dL
[2024-11-05 12:08] LABS: Uric Acid, Urine 51.5 mg/dL (Not Estab.)
[2024-11-14 14:07] LABS: Summary Report (Summary) FINAL (.)
== END 2024-11-04 06:44 | disposition home or self-care (01) ==
LOC: LAB 06:44
PROVIDERS: PCP Family Medicine; Visit Provider Family Medicine
DX: R79.89 Other specified abnormal findings of blood chemistry (principal); R25.2 Cramp and spasm; R41.3 Other amnesia; E78.00 Pure hypercholesterolemia, unspecified; Z79.899 Other long term (current) drug therapy
CPT/HCPCS: 36415; 80053; 80061; 80307; 80326; 80331; 80334; 80337; 80338; 80341; 80344; 80347; 80348; 80353; 80354; 80355; 80357; 80358; 80359; 80360; 80361; 80364; 80365; 80366; 80367; 80368; 80370; 80371; 80372; 80373; 80377; 82570; 83036; 83992; 84436; 84443; 84481; 84560; 85025; G0328

== ENCOUNTER 2025-01-12 15:41 | Outpatient (OUT) | payer MEDICARE, SELFPAY ==
--- OUTSIDE RECORDS SUMMARY | 2025-01-12 15:44 | XMS_ITS | Clinical Summary ---
Author Organization [employer] [facility] tem Address [id number] [address] 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 Name Role Phone Nico Anderson MD Primary Care Provider [phone] Allergies No known active allergies Medications MedicationSigDispense QuantityRefillsLast FilledStart DateEnd DateStatus buprenorphine-naloxone (SUBOXONE) 2-0.5 mg [address] tablet [address] under the tongue daily.Active Social History Tobacco UseTypesPacks/DayYears UsedDateSmoking Tobacco: NeverSmokeless Tobacco: NeverAlcohol UseStandard Drinks/WeekCommentsNot Currently0 (1 standard drink = 0.6 oz pure alcohol)ChildcareAnswerDate DzsziajiEfyufutdsDgrqjxi26/12/2019 EmploymentAnswerDate DhwwjnncOypschnursCryzgfj24/12/2019Hunger ScreeningAnswer Date RecordedWithin the past 12 months we worried whether our food would run out before we got money to buy more.Never True03/10/2024Within the past 12 months the food we bought just didn't last and we didn't have money to get more.Never True03/10/2024Sex and Gender InformationValueDate RecordedSex Assigned at Not on fileLegal PjrQxdx4309/15/2014 12:03 PM EDTGender IdentityNot on fileSexual OrientationNot on file Last Filed Vital Signs Vital SignReadingTime TakenCommentsBlood Mhnevwff558/8303/10/2024 12:30 PM EST Ewmxn90775/29/2025 11:50 AM DKDPvicfboeyny14 ??C (98.6 ??F)03/10/2024 11:50 AM ESTRespiratory Qxwr553603/10/2024 11:50 AM ESTOxygen Qblvwckbtp54%03/10/2024 11:50 AM ESTInhaled Oxygen Concentration--Gyzaej36 kg (150 lb)03/10/2024 11:50 AM EST Bxculw589.7 cm (5' 8 )03/10/2024 11:50 AM ESTBody Mass Index22.8103/10/2024 11:50 AM EST Plan of Treatment Health MaintenanceDue DateLast DoneCommentsDepression Hmkauhdvy88/10/1966 DTaP,Tdap and Td Vaccines (1 - Tdap)1972Zoster (Shingles) Vaccine (1 of 2) 11/20/2003Fall Risk Udbwylyjy91/10/2019COVID-19 Vaccine (3 - 2024- season) /05/2020, 09/23/2020Influenza Hkfaarp92Adult BMI Vhupfhvau64Tobacco Rrhtchfqx41RSV ( or age 60+ yrs) (1 - 1-dose 75+ series)2028 [employer] Not on file Insurance * Guarantor: Nilsa Mckeon TypeRelation to PatientDate of BirthPhone Billing AddressPersonal/KpeyztYhtu61/10/1956 [address] [place] [address] Care Teams Team MemberRelationshipSpecialtyStart Date Nico Anderson MD PCP - GeneralFamily Medicine10/19/20
--- OUTSIDE RECORDS SUMMARY | 2025-01-12 15:44 | XMS_ITS | Patient Health Record ---
Author Organization [facility] Address [address] [place] [address] Care Team Providers Care Manager Bakery Name Role Phone SarbjitchristopherTono Primary Care Provider [phone] Allergies No Known Allergies Results Component Value Reference Range Notes URIC ACID RAND URINE Reviewed date:03/23/2024 12:49:58 PM Interpretation: Performing Lab: Notes/Report: Specimen Comment: ToxAssure, ToxAssure FLEX or MAT drug testing: Specimen Comment: -Technical component - Data analysis performed at Specimen Comment: [address] [facility], [place] [address]. [facility] , Uric Acid, Urine 4.4 Not Estab. mg/dL Performed at: CB - [facility] [address] [id number] [employer] Law Professor: Sony Benson PhD, Phone: [phone] Performing Lab: see note LC - [facility] LBLIPID PROFILE Reviewed date:11/04/2024 12:50:17 PM Interpretation: Performing Lab: Notes/Report: [facility] ,Yfxhjmclnoimj12<=150 mg/tORcjhjleffxk995<=200 mg/dLHDL Zilbrrdwxjo6688-12 mg/dL > or =60 mg/dl - LOW CARDIOVASCULAR RISK <40 mg/dl - HIGH CARDIOVASCULAR RISK LDL Cholesterol Sinvvmbrly78.0 <100 mg/dl OPTIMAL 100-129 mg/dl NEAR OR ABOVE OPTIMAL 130-159 mg/dl BORDERLINE HIGH 160-189 mg/dl HIGH >190 mg/dl VERY HIGH VLDL ZBXAHLDUKWW25.8Chol HDL Ratio2.4 3.3 - 4.4 LOW RISK 4.4 - 7.1 AVERAGE RISK 7.1 - 11.0 MODERATE RISK >11.0 HIGH RISK Performing Lab:see noteML - [facility] LBURIC ACID RAND URINE Reviewed date:01/25/2024 08:09:04 PM Interpretation: Performing Lab: Notes/Report: Specimen Comment: ToxAssure, ToxAssure FLEX or MAT drug testin Specimen Comment: -Technical component - Data analysis performed at Specimen Comment: [facility] [place], [address] Specimen Comment: [phone]. [phone] [employer] Professor Mike Velasquez MD. [facility] ,Uric Acid, Urine21.5Not Estab. mg/dL Performed at: [facility] [address] [id number] [employer] Law Professor: Sony Benson PhD, Phone: [phone] Performing Lab:see noteLC - [facility] LBCompliance Drug Analysis, Ur Reviewed date:01/25/2024 08:09:04 PM Interpretation: Performing Lab: Notes/Report: Specimen Comment: ToxAssure, ToxAssure FLEX or MAT drug testin Specimen Comment: -Technical component - Data analysis performed at Specimen Comment: [facility] [place], [address] Specimen Comment: [phone]. [phone] [employer] Law Professor Mike Velasquez MD. [facility] ,Summary Report (Summary)FINAL. TOXASSURE COMP DRUG ANALYSIS,UR Test Result Flag Units Drug Present and Declared for Prescription Verification Buprenorphine 32 EXPECTED ng/mg creat Norbuprenorphine 111 EXPECTED ng/mg creat Source of buprenorphine is a scheduled prescription medication. Norbuprenorphine is an expected metabolite of buprenorphine. Test Result Flag Units Ref Range Creatinine 73 mg/dL >=20 Declared Medications: The flagging and interpretation on this report are based on the following declared medications. Unexpected results may arise from inaccuracies in the declared medications. Note: The testing scope of this panel includes these medications: Buprenorphine. (Suboxone) PM Note: The testing scope of this panel does not include following reported medications: Naloxone (Suboxone) PM For clinical consultation, please call . Performed at: [facility] [address] [place] [id number] [employer] Law Professor: [facility], Phone: [phone] Performing Lab:see note - [facility] LBCBC AUTO DIFF Reviewed date:03/01/2024 01:46:51 PM Interpretation: Performing Lab: Notes/Report: [facility] ,White Blood Count9.34.0-11.0 10 3/uLRed Blood Count4.934.70-6.10 10 6/uL Zjaaojdiid40.614.0-18.0 g/rUKcudciliad21.842.0-54.0 %Mean Corpuscular Xmjcrn95.8 80.0-94.0 fLMean Corpuscular Uvtvopjvhc47.625.9-34.0 pgMean Corpuscular HGB Conc 34.129.9-35.2 g/dLRed Cell Distribution Width13.211.0-15.0 %Platelet Ekyhr471 150-450 10 3/uLMean Platelet Volume8.79.5-13.5 fLNeutrophils Percent Auto82.4 43.0-75.0 %Lymphocytes Percent Auto7.120.5-60.0 %Monocytes Percent Auto9.71.7- 12.0 %Eosinophils Percent Auto0.30.9-7.0 %Basophils Percent Auto0.20.2-2.0 % Immature Granulocytes Pct Auto0.30.0-0.5 %Neutrophils Absolute Auto7.61.4-6.5 10 3/uLLymphocytes Absolute Auto0.71.2-3.8 10 3/uLMonocytes Absolute Auto0.90.3- 0.8 10 3/uLEosinophils Absolute Auto0.00.0-0.7 10 3/uLBasophils Absolute Auto0.0 0.0-0.1 10 3/uLImmature Granulocytes Abs Auto0.030.00-0.03 10 3/uLPerforming Lab:see noteML - [facility] LBDRUG SCREEN RAPID (URINE) Reviewed date:03/01/2024 01:46:51 PM Interpretation: Performing Lab: Notes/Report: [facility] ,Cannabinoid Screen UrineNEGATIVENEGATIVEPhencyclidine Screen UrineNEGATIVE NEGATIVECocaine Screen UrineNEGATIVENEGATIVEMethamphetamines Screen Urine NEGATIVENEGATIVEOpiate Screen UrineNEGATIVENEGATIVEAmphetamine Screen Urine NEGATIVENEGATIVEBenzodiazepines Screen UrineNEGATIVENEGATIVETricyclic Antidepressant UrineNEGATIVENEGATIVEMethadone Screen UrineNEGATIVENEGATIVE Barbiturates Screen UrineNEGATIVENEGATIVEOxycodone Screen UrineNEGATIVENEGATIVE Buprenorphine Screen UrinePOSITIVENEGATIVE DRUG CLASS TEST SYSTEM CUT-OFF CONCENTRATIONS ARE FOLLOWS: AMP (Amphetamine): 500 ng/mL BAR (Barbiturates): 200 ng/mL BZO (Benzodiazepines): 150 ng/mL BUP (Buprenorphine): 10 ng/mL BERE (Cocaine): 150 ng/mL mAMP (Methamphetamine): 500 ng/mL MTD (Methadone): 200 ng/mL OPI (Opiates): 100 ng/mL OXY (Oxycodone): 100 ng/mL PCP (Phencyclidine): 25 ng/mL THC (Cannabinoids): 50 ng/mL TCA (Trycyclic Antidepressants): 300 ng/mL Performing Lab:see noteML - [facility] LBXR HAND LT MIN 3V Reviewed date:03/01/2024 01:46:51 PM Interpretation: Performing Lab: Notes/Report: Source Facility: [place] [address] XRay Report Signed Patient: NASRIN MCKEON MR#: [id number] : 1955 Acct:[id number] Age/Sex: 68 / M ADM Date: 03/01/24 Loc: ER Attending Dr: Ordering Physician: Radha Rider Date of Service: 03/01/24 Procedure(s): XR hand LT min 3V Accession Number(s): [id number] cc: Nico Anderson M.D.; Radha Rider [place] [id number] Patient Name: NASRIN MCKEON MRN: [id number] date: 1955 Sex: M Assigned Patient Location: ER Current Patient Location: ER Accession/Order Number: [id number] Exam Date: 03/01/2024 09:00 Report Date: 03/01/2024 09:49 At the request of: RADHA RIDER Procedure: XR hand LT min 3V EXAM: XR hand LT min 3V HISTORY: injury c/o pain COMPARISON: None. XR/XR hand LT min 3V IMPRESSION: 1. No acute fracture or malalignment. 2. Mild degenerative change. Correlation the scaphoid. Is also mild first carpometacarpal, metacarpal tibial and interphalangeal joint degenerative change. Minimal degenerative change of the second and third distal interphalangeal joints. Electronically authenticated by: AMANDEEP DEL CID Date: 03/01/2024 09:49 Dictated By: Amandeep Del Cid M.D. Signed By: 03/01/2452 DD/ TD/TT: [facility]:Compl[facility] Drug Analysis, Ur Reviewed date:03/23/2024 12:49:58 PM Interpretation: Performing Lab: Notes/Report: Specimen Comment: ToxAssure, ToxAssure FLEX or MAT drug testing: Specimen Comment: -Technical component - Data analysis performed at Specimen Comment: [address] , [place] [address]. [facility] ,Summary Report (Summary)FINAL. TOXASSURE COMP DRUG ANALYSIS,UR Specimen Alert Note: Urinary creatinine is low; ability to detect some drugs may be compromised. Interpret results with caution. Test Result Flag Units Drug Present and Declared for Prescription Verification Buprenorphine 23 EXPECTED ng/mg creat Norbuprenorphine 131 EXPECTED ng/mg creat Source of buprenorphine is a scheduled prescription medication. Norbuprenorphine is an expected metabolite of buprenorphine. Test Result Flag Units Ref Range Creatinine 13 L mg/dL >=20 Declared Medications: The flagging and interpretation on this report are based on the following declared medications. Unexpected results may arise from inaccuracies in the declared medications. Note: The testing scope of this panel includes these medications: Buprenorphine. (Suboxone) Note: The testing scope of this panel does not include following reported medications: Naloxone (Suboxone) For clinical consultation, please call . Performed at: [facility] [address] [place] [id number] [employer] Law Professor: [facility], Phone: [phone] Performing Lab:see noteLC - [facility] LBDRUG SCREEN RAPID (URINE) Reviewed date:04/14/2024 09:24:10 PM Interpretation: Performing Lab: Notes/Report: [facility] ,Cannabinoid Screen UrineNEGATIVENEGATIVEPhencyclidine Screen UrineNEGATIVE NEGATIVECocaine Screen UrineNEGATIVENEGATIVEMethamphetamines Screen Urine NEGATIVENEGATIVEOpiate Screen UrineNEGATIVENEGATIVEAmphetamine Screen Urine NEGATIVENEGATIVEBenzodiazepines Screen UrineNEGATIVENEGATIVETricyclic Antidepressant UrineNEGATIVENEGATIVEMethadone Screen UrineNEGATIVENEGATIVE Barbiturates Screen UrineNEGATIVENEGATIVEOxycodone Screen UrineNEGATIVENEGATIVE Buprenorphine Screen UrinePOSITIVENEGATIVE DRUG CLASS TEST SYSTEM CUT-OFF CONCENTRATIONS ARE FOLLOWS: AMP (Amphetamine): 500 ng/mL BAR (Barbiturates): 200 ng/mL BZO (Benzodiazepines): 150 ng/mL BUP (Buprenorphine): 10 ng/mL BERE (Cocaine): 150 ng/mL mAMP (Methamphetamine): 500 ng/mL MTD (Methadone): 200 ng/mL OPI (Opiates): 100 ng/mL OXY (Oxycodone): 100 ng/mL PCP (Phencyclidine): 25 ng/mL THC (Cannabinoids): 50 ng/mL TCA (Trycyclic Antidepressants): 300 ng/mL Performing [facility] LBDRUG SCREEN RAPID (URINE) Reviewed date:05/17/2024 07:16:56 PM Interpretation: Performing Lab: Notes/Report: [facility] ,Cannabinoid Screen UrineNEGATIVENEGATIVEPhencyclidine Screen UrineNEGATIVE NEGATIVECocaine Screen UrineNEGATIVENEGATIVEMethamphetamines Screen Urine NEGATIVENEGATIVEOpiate Screen UrineNEGATIVENEGATIVEAmphetamine Screen Urine NEGATIVENEGATIVEBenzodiazepines Screen UrineNEGATIVENEGATIVETricyclic Antidepressant UrineNEGATIVENEGATIVEMethadone Screen UrineNEGATIVENEGATIVE Barbiturates Screen UrineNEGATIVENEGATIVEOxycodone Screen UrineNEGATIVENEGATIVE Buprenorphine Screen UrineNEGATIVENEGATIVE DRUG CLASS TEST SYSTEM CUT-OFF CONCENTRATIONS ARE FOLLOWS: AMP (Amphetamine): 500 ng/mL BAR (Barbiturates): 200 ng/mL BZO (Benzodiazepines): 150 ng/mL BUP (Buprenorphine): 10 ng/mL BERE (Cocaine): 150 ng/mL mAMP (Methamphetamine): 500 ng/mL MTD (Methadone): 200 ng/mL OPI (Opiates): 100 ng/mL OXY (Oxycodone): 100 ng/mL PCP (Phencyclidine): 25 ng/mL THC (Cannabinoids): 50 ng/mL TCA (Trycyclic Antidepressants): 300 ng/mL Performing Lab:see noteML - [facility] LBURIC ACID RAND URINE Reviewed date:05/23/2024 03:38:47 PM Interpretation: Performing Lab: Notes/Report: Specimen Comment: ToxAssure, ToxAssure FLEX or MAT drug testin Specimen Comment: -Technical component - Data analysis performed at Specimen Comment: [facility] [address] [place] [address], [place] Specimen Comment: [phone]. [phone] [employer] Professor Mike Velasquez MD. [facility] ,Uric Acid, Urine8.8Not Estab. mg/dL Performed at: [facility] Lab[address] [id number] [employer] Law Professor: Sony Benson PhD, Phone: [phone] Performing Lab:see note - [facility] LBCompliance Drug Analysis, Ur Reviewed date:05/23/2024 03:38:47 PM Interpretation: Performing Lab: Notes/Report: Specimen Comment: ToxAssure, ToxAssure FLEX or MAT drug testin Specimen Comment: -Technical component - Data analysis performed at Specimen Comment: [facility] [place], [address] [place] [address] Specimen Comment: [phone]. [phone] [employer] Law Professor Mike Velasquez MD. [facility] ,Summary Report (Summary)FINAL. TOXASSURE COMP DRUG ANALYSIS,UR Test Result Flag Units Drug Present and Declared for Prescription Verification Buprenorphine 24 EXPECTED ng/mg creat Norbuprenorphine 119 EXPECTED ng/mg creat Source of buprenorphine is a scheduled prescription medication. Norbuprenorphine is an expected metabolite of buprenorphine. Test Result Flag Units Ref Range Creatinine 21 mg/dL >=20 Declared Medications: The flagging and interpretation on this report are based on the following declared medications. Unexpected results may arise from inaccuracies in the declared medications. Note: The testing scope of this panel includes these medications: Buprenorphine. (Suboxone) Note: The testing scope of this panel does not include following reported medications: Naloxone (Suboxone) For clinical consultation, please call . Performed at: [facility] [address] [id number] [employer] Professor: [facility], Phone: [phone] Performing Lab:see noteLC - [facility] LBFREE T3 Reviewed date:06/01/2024 02:25:39 PM Interpretation: Performing Lab: Notes/Report: [facility] ,Free T32.642.18-3.98 pg/mLPerforming Lab:see noteML - [facility] LB GLYCOHEMOGLOBIN A1C Reviewed date:06/01/2024 02:25:39 PM Interpretation: Performing Lab: Notes/Report: [facility] ,Glycohemoglobin A1C6.04.5-6.2 % ADA RECOMMENDED LIMIT 4.0 - 6.0 ADA THERAPEUTIC TARGET < 7.0 ACTION SUGGESTED > 7.0 Estimated Average Nzrhwyc215Rsalysoweb Lab:see noteML - [facility] LB LIPID PROFILE Reviewed date:06/01/2024 02:25:39 PM Interpretation: Performing Lab: Notes/Report: [facility] ,Kgwipjjsmglpe938<=150 mg/eHXorfcqlwzcr361<=200 mg/dLHDL Aktekvvbbwt7020-66 mg/dL > or =60 mg/dl - LOW CARDIOVASCULAR RISK <40 mg/dl - HIGH CARDIOVASCULAR RISK LDL Cholesterol Madiolnxre500.0 <100 mg/dl OPTIMAL 100-129 mg/dl NEAR OR ABOVE OPTIMAL 130-159 mg/dl BORDERLINE HIGH 160-189 mg/dl HIGH >190 mg/dl VERY HIGH VLDL WGPJPXGTMEO36.8Chol HDL Ratio3.8 3.3 - 4.4 LOW RISK 4.4 - 7.1 AVERAGE RISK 7.1 - 11.0 MODERATE RISK >11.0 HIGH RISK Performing Lab:see noteML - [facility] LBPROF 14(COMP METB) Reviewed date:06/01/2024 02:25:39 PM Interpretation: Performing Lab: Notes/Report: [facility] ,Tsaamv061050-517 mmol/LPotassium4.03.5-5.1 mmol/GJpmjzbud07644-621 mmol/LCarbon Vmlctdd48.721.0-32.0 mmol/LAnion Gap13.8Egtmexn8613-534 mg/dLBlood Urea Nitrogen 18.07.0-18.0 mg/dLCreatinine0.970.70-1.30 mg/dLEstimated GFR ( Aleyda>60 >=60 mL/min/1.73m 2Estimated GFR (Non- Marleny>60>=60 mL/min/1.73m 2BUN Creatinine Ratio18.1Pfavzpx3.48.5-10.1 mg/dLBilirubin Total0.60.2-1.0 mg/dL Aspartate Amino Mmxcqbjdops7698-38 U/LAlanine Ulecdcfufhqodesy9570-46 U/L Alkaline Umksmkpsbfo3384-201 U/LTotal Protein7.16.4-8.2 g/dLAlbumin Level3.53.4- 5.0 g/dLGlobulin3.6Albumin Globulin Ratio1.0Performing Lab:see noteML - [facility] LBT4 Reviewed date:06/01/2024 02:25:39 PM Interpretation: Performing Lab: Notes/Report: [facility] ,T4 Thyroxine9.804.50-12.10 ug/dLPerforming Lab:see note - [facility] LBTSH Reviewed date:06/01/2024 02:25:39 PM Interpretation: Performing Lab: Notes/Report: [facility] ,Thyroid Stimulating Hormone5.3280.358-3.740 uIU/mLPerforming Lab:see [facility] LBOccult Blood* Reviewed date:06/02/2024 07:23:55 PM Interpretation: Performing Lab: Notes/Report: [facility] ,Occult BloodNegativePerforming Lab:see [facility] LBDRUG SCREEN RAPID (URINE) Reviewed date:08/12/2024 08:51:28 PM Interpretation: Performing Lab: Notes/Report: [facility] ,Cannabinoid Screen UrineNEGATIVENEGATIVEPhencyclidine Screen UrineNEGATIVE NEGATIVECocaine Screen UrineNEGATIVENEGATIVEMethamphetamines Screen Urine NEGATIVENEGATIVEOpiate Screen UrineNEGATIVENEGATIVEAmphetamine Screen Urine NEGATIVENEGATIVEBenzodiazepines Screen UrineNEGATIVENEGATIVETricyclic Antidepressant UrineNEGATIVENEGATIVEMethadone Screen UrineNEGATIVENEGATIVE Barbiturates Screen UrineNEGATIVENEGATIVEOxycodone Screen UrineNEGATIVENEGATIVE Buprenorphine Screen UrinePOSITIVENEGATIVE DRUG CLASS TEST SYSTEM CUT-OFF CONCENTRATIONS ARE FOLLOWS: AMP (Amphetamine): 500 ng/mL BAR (Barbiturates): 200 ng/mL BZO (Benzodiazepines): 150 ng/mL BUP (Buprenorphine): 10 ng/mL BERE (Cocaine): 150 ng/mL mAMP (Methamphetamine): 500 ng/mL MTD (Methadone): 200 ng/mL OPI (Opiates): 100 ng/mL OXY (Oxycodone): 100 ng/mL PCP (Phencyclidine): 25 ng/mL THC (Cannabinoids): 50 ng/mL TCA (Trycyclic Antidepressants): 300 ng/mL Performing Lab:see note - [facility] LBURIC ACID RAND URINE Reviewed date:08/19/2024 06:46:17 PM Interpretation: Performing Lab: Notes/Report: Specimen Comment: ToxAssure, ToxAssure FLEX or MAT drug testing: Specimen Comment: -Technical component - Data analysis performed at Specimen Comment: [facility], [address] [place] [address], [place], [address]. Specimen Comment: [phone]. [employer] Professor Becka Taylor MD [facility] ,Uric Acid, Urine59.0Not Estab. mg/dL Performed at: [address] [id number] [employer] Law Professor: Sony Benson PhD, Phone: [phone] Performing Lab[facility] LBCompliance Drug Analysis, Ur Reviewed date:08/19/2024 06:46:17 PM Interpretation: Performing Lab: Notes/Report: Specimen Comment: ToxAssure, ToxAssure FLEX or MAT drug testing: Specimen Comment: -Technical component - Data analysis performed at Specimen Comment: [facility], [address] [place] [address], [place], [address]. Specimen Comment: [phone]. [employer] Professor Becka Taylor MD [facility] ,Summary Report (Summary)FINAL. TOXASSURE COMP DRUG ANALYSIS,UR Test Result Flag Units Drug Present and Declared for Prescription Verification Buprenorphine 66 EXPECTED ng/mg creat Norbuprenorphine 193 EXPECTED ng/mg creat Source of buprenorphine is a scheduled prescription medication. Norbuprenorphine is an expected metabolite of buprenorphine. Test Result Flag Units Ref Range Creatinine 229 mg/dL >=20 Declared Medications: The flagging and interpretation on this report are based on the following declared medications. Unexpected results may arise from inaccuracies in the declared medications. Note: The testing scope of this panel includes these medications: Buprenorphine. (Suboxone) PM Note: The testing scope of this panel does not include following reported medications: Naloxone (Suboxone) PM For clinical consultation, please call . Performed at: [facility] [address] [id number] [employer] Law Professor: [facility], Phone: [phone] Performing Lab:see elizabethLC - [facility] LBURIC ACID RAND URINE Reviewed date:10/04/2024 03:57:57 PM Interpretation: Performing Lab: Notes/Report: [facility] ,Uric Acid, Urine39.8Performing Lab:see note - [facility] LBCBC AUTO DIFF Reviewed date:11/04/2024 12:50:17 PM Interpretation: Performing Lab: Notes/Report: [facility] ,White Blood Count3.84.0-11.0 10 3/uLRed Blood Count4.574.70-6.10 10 6/uL Fqscukajwl02.314.0-18.0 g/iEHdkzgfpcsh27.342.0-54.0 %Mean Corpuscular Cpucyl42.0 80.0-94.0 fLMean Corpuscular Iaeuwozdvq55.125.9-34.0 pgMean Corpuscular HGB Conc 33.829.9-35.2 g/dLRed Cell Distribution Width14.011.0-15.0 %Platelet Kgnga777 150-450 10 3/uLMean Platelet Volume9.09.5-13.5 fLNeutrophils Percent Auto57.0 43.0-75.0 %Lymphocytes Percent Auto25.720.5-60.0 %Monocytes Percent Auto11.71.7- 12.0 %Eosinophils Percent Auto4.20.9-7.0 %Basophils Percent Auto1.10.2-2.0 % Immature Granulocytes Pct Auto0.30.0-0.5 %Neutrophils Absolute Auto2.21.4-6.5 10 3/uLLymphocytes Absolute Auto1.01.2-3.8 10 3/uLMonocytes Absolute Auto0.40.3-0.8 10 3/uLEosinophils Absolute Auto0.20.0-0.7 10 3/uLBasophils Absolute Auto0.00.0- 0.1 10 3/uLImmature Granulocytes Abs Auto0.010.00-0.03 10 3/uLPerforming Lab:see noteML - [facility] LBDRUG SCREEN RAPID (URINE) Reviewed date:11/04/2024 12:50:17 PM Interpretation: Performing Lab: Notes/Report: [facility] ,Cannabinoid Screen UrineNEGATIVENEGATIVEPhencyclidine Screen UrineNEGATIVE NEGATIVECocaine Screen UrineNEGATIVENEGATIVEMethamphetamines Screen Urine NEGATIVENEGATIVEOpiate Screen UrineNEGATIVENEGATIVEAmphetamine Screen Urine NEGATIVENEGATIVEBenzodiazepines Screen UrineNEGATIVENEGATIVETricyclic Antidepressant UrineNEGATIVENEGATIVEMethadone Screen UrineNEGATIVENEGATIVE Barbiturates Screen UrineNEGATIVENEGATIVEOxycodone Screen UrineNEGATIVENEGATIVE Buprenorphine Screen UrinePOSITIVENEGATIVE DRUG CLASS TEST SYSTEM CUT-OFF CONCENTRATIONS ARE FOLLOWS: AMP (Amphetamine): 500 ng/mL BAR (Barbiturates): 200 ng/mL BZO (Benzodiazepines): 150 ng/mL BUP (Buprenorphine): 10 ng/mL BERE (Cocaine): 150 ng/mL mAMP (Methamphetamine): 500 ng/mL MTD (Methadone): 200 ng/mL OPI (Opiates): 100 ng/mL OXY (Oxycodone): 100 ng/mL PCP (Phencyclidine): 25 ng/mL THC (Cannabinoids): 50 ng/mL TCA (Trycyclic Antidepressants): 300 ng/mL Performing Lab:see [facility] LBURIC ACID RAND URINE Reviewed date:11/14/2024 02:20:56 PM Interpretation: Performing Lab: Notes/Report: [facility] ,Uric Acid, Urine51.5Not Estab. mg/dL Specimen received acidified. Value may be decreased. Consider recollection without preservative if clinical correlation indicated. Performed at: [facility] [address] [id number] [employer] Law Professor: Sony Benson PhD, Phone: [phone] Performing Lab:[facility] LBCompliance Drug Analysis, Ur Reviewed date:11/14/2024 02:20:56 PM Interpretation: Performing Lab: Notes/Report: [facility] ,Summary Report (Summary)FINAL. TOXASSURE COMP DRUG ANALYSIS,UR Test Result Flag Units Drug Present Buprenorphine 12 ng/mg creat Norbuprenorphine 92 ng/mg creat Source of buprenorphine is a scheduled prescription medication. Norbuprenorphine is an expected metabolite of buprenorphine. Baclofen PRESENT Test Result Flag Units Ref Range Creatinine 119 mg/dL >=20 Declared Medications: Medication list was not provided. For clinical consultation, please call . Performed at: [facility] [address] [id number] [employer] Law Professor: [facility], Phone: [phone] Performing Lab:see noteLC - [facility] LBDRUG SCREEN RAPID (URINE) Reviewed date:09/13/2024 06:15:37 PM Interpretation: Performing Lab: Notes/Report: [facility] ,Cannabinoid Screen UrineNEGATIVENEGATIVEPhencyclidine Screen UrineNEGATIVE NEGATIVECocaine Screen UrineNEGATIVENEGATIVEMethamphetamines Screen Urine NEGATIVENEGATIVEOpiate Screen UrineNEGATIVENEGATIVEAmphetamine Screen Urine NEGATIVENEGATIVEBenzodiazepines Screen UrineNEGATIVENEGATIVETricyclic Antidepressant UrineNEGATIVENEGATIVEMethadone Screen UrineNEGATIVENEGATIVE Barbiturates Screen UrineNEGATIVENEGATIVEOxycodone Screen UrineNEGATIVENEGATIVE Buprenorphine Screen UrinePOSITIVENEGATIVE DRUG CLASS TEST SYSTEM CUT-OFF CONCENTRATIONS ARE FOLLOWS: AMP (Amphetamine): 500 ng/mL BAR (Barbiturates): 200 ng/mL BZO (Benzodiazepines): 150 ng/mL BUP (Buprenorphine): 10 ng/mL BERE (Cocaine): 150 ng/mL mAMP (Methamphetamine): 500 ng/mL MTD (Methadone): 200 ng/mL OPI (Opiates): 100 ng/mL OXY (Oxycodone): 100 ng/mL PCP (Phencyclidine): 25 ng/mL THC (Cannabinoids): 50 ng/mL TCA (Trycyclic Antidepressants): 300 ng/mL Performing Lab:see noteML - [facility] LBCompliance Drug Analysis, Ur Reviewed date:07/21/2024 04:57:10 PM Interpretation: Performing Lab: Notes/Report: Specimen Comment: ToxAssure, ToxAssure FLEX or MAT drug testin Specimen Comment: -Technical component - Data analysis performed at Specimen Comment: [facility] [place], [address] [address], [place], [place] Specimen Comment: [phone]. [phone]. [employer] Professor Mike Velasquez MD. [facility] ,Summary Report (Summary)FINAL. TOXASSURE COMP DRUG ANALYSIS,UR Test Result Flag Units Drug Present and Declared for Prescription Verification Buprenorphine 48 EXPECTED ng/mg creat Norbuprenorphine 171 EXPECTED ng/mg creat Source of buprenorphine is a scheduled prescription medication. Norbuprenorphine is an expected metabolite of buprenorphine. Drug Present not Declared for Prescription Verification Diclofenac PRESENT UNEXPECTED Test Result Flag Units Ref Range Creatinine 189 mg/dL >=20 Declared Medications: The flagging and interpretation on this report are based on the following declared medications. Unexpected results may arise from inaccuracies in the declared medications. Note: The testing scope of this panel includes these medications: Buprenorphine. (Suboxone) PM Note: The testing scope of this panel does not include following reported medications: Naloxone (Suboxone) PM For clinical consultation, please call . Performed at: [facility] [address] [id number] [employer] Law Professor: Rachel Ly [facility], Phone: [phone] Performing Lab:[facility] LBURIC ACID RAND URINE Reviewed date:07/21/2024 04:57:10 PM Interpretation: Performing Lab: Notes/Report: Specimen Comment: Tox[facility]ure, ToxAssure FLEX or MAT drug testin Specimen Comment: -Technical component - Data analysis performed at Specimen Comment: [facility] [place], [address] Specimen Comment: [phone]. [phone]. [employer] Professor Mike Velasquez MD. [facility] ,Uric Acid, Urine69.2Not Estab. mg/dL Performed at: [address] [id number] [employer] Law Professor: Sony Benson PhD, Phone: [phone] Performing Lab:[facility] LBDRUG SCREEN RAPID (URINE) Reviewed date:07/15/2024 08:14:20 PM Interpretation: Performing Lab: Notes/Report: [facility] ,Cannabinoid Screen UrineNEGATIVENEGATIVEPhencyclidine Screen UrineNEGATIVE NEGATIVECocaine Screen UrineNEGATIVENEGATIVEMethamphetamines Screen Urine NEGATIVENEGATIVEOpiate Screen UrineNEGATIVENEGATIVEAmphetamine Screen Urine NEGATIVENEGATIVEBenzodiazepines Screen UrineNEGATIVENEGATIVETricyclic Antidepressant UrineNEGATIVENEGATIVEMethadone Screen UrineNEGATIVENEGATIVE Barbiturates Screen UrineNEGATIVENEGATIVEOxycodone Screen UrineNEGATIVENEGATIVE Buprenorphine Screen UrinePOSITIVENEGATIVE DRUG CLASS TEST SYSTEM CUT-OFF CONCENTRATIONS ARE FOLLOWS: AMP (Amphetamine): 500 ng/mL BAR (Barbiturates): 200 ng/mL BZO (Benzodiazepines): 150 ng/mL BUP (Buprenorphine): 10 ng/mL BERE (Cocaine): 150 ng/mL mAMP (Methamphetamine): 500 ng/mL MTD (Methadone): 200 ng/mL OPI (Opiates): 100 ng/mL OXY (Oxycodone): 100 ng/mL PCP (Phencyclidine): 25 ng/mL THC (Cannabinoids): 50 ng/mL TCA (Trycyclic Antidepressants): 300 ng/mL Performing Lab:see noteML - [facility] LBPSA SCREENING Reviewed date:06/01/2024 02:25:39 PM Interpretation: Performing Lab: Notes/Report: [facility] ,Prostate Specific Antigen Scrn0.48<=4.00 ng/mLPerforming Lab:see noteML - [facility] LBCBC AUTO DIFF Reviewed date:06/01/2024 02:25:39 PM Interpretation: Performing Lab: Notes/Report: [facility] ,White Blood Count4.24.0-11.0 10 3/uLRed Blood Count4.854.70-6.10 10 6/uL Kenweofyih08.514.0-18.0 g/iZWlsivsable99.242.0-54.0 %Mean Corpuscular Gzfciw72.1 80.0-94.0 fLMean Corpuscular Iinathsjew72.925.9-34.0 pgMean Corpuscular HGB Conc 33.629.9-35.2 g/dLRed Cell Distribution Width14.211.0-15.0 %Platelet Xturv421 150-450 10 3/uLMean Platelet Volume9.29.5-13.5 fLNeutrophils Percent Auto57.6 43.0-75.0 %Lymphocytes Percent Auto22.720.5-60.0 %Monocytes Percent Auto14.71.7- 12.0 %Eosinophils Percent Auto3.80.9-7.0 %Basophils Percent Auto0.70.2-2.0 % Immature Granulocytes Pct Auto0.50.0-0.5 %Neutrophils Absolute Auto2.41.4-6.5 10 3/uLLymphocytes Absolute Auto1.01.2-3.8 10 3/uLMonocytes Absolute Auto0.60.3-0.8 10 3/uLEosinophils Absolute Auto0.20.0-0.7 10 3/uLBasophils Absolute Auto0.00.0- 0.1 10 3/uLImmature Granulocytes Abs Auto0.020.00-0.03 10 3/uLPerforming Lab:see noteML - [facility] LBCompliance Drug Analysis, Ur Reviewed date:04/25/2024 03:19:36 PM Interpretation: Performing Lab: Notes/Report: [facility] ,Summary Report (Summary)FINAL. TOXASSURE COMP DRUG ANALYSIS,UR Test Result Flag Units Drug Present and Declared for Prescription Verification Buprenorphine 43 EXPECTED ng/mg creat Norbuprenorphine 137 EXPECTED ng/mg creat Source of buprenorphine is a scheduled prescription medication. Norbuprenorphine is an expected metabolite of buprenorphine. Test Result Flag Units Ref Range Creatinine 148 mg/dL >=20 Declared Medications: The flagging and interpretation on this report are based on the following declared medications. Unexpected results may arise from inaccuracies in the declared medications. Note: The testing scope of this panel includes these medications: Buprenorphine. (Suboxone) Note: The testing scope of this panel does not include following reported medications: Naloxone (Suboxone) For clinical consultation, please call . Performed at: [facility] [address] [id number] [employer] Law Professor: Rachel Ly [facility], Phone: [phone] Performing Lab:see note - [facility] LBURIC ACID RAND URINE Reviewed date:04/25/2024 03:19:36 PM Interpretation: Performing Lab: Notes/Report: [facility] ,Uric Acid, Urine37.1Not Estab. mg/dL Performed at: - [facility] [id number] [employer] Law Professor: Sony Benson PhD, Phone: [phone] Performing Lab:see note - [facility] LBDRUG SCREEN RAPID (URINE) Reviewed date:03/15/2024 08:53:52 PM Interpretation: Performing Lab: Notes/Report: [facility] ,Cannabinoid Screen UrineNEGATIVENEGATIVEPhencyclidine Screen UrineNEGATIVE NEGATIVECocaine Screen UrineNEGATIVENEGATIVEMethamphetamines Screen Urine NEGATIVENEGATIVEOpiate Screen UrineNEGATIVENEGATIVEAmphetamine Screen Urine NEGATIVENEGATIVEBenzodiazepines Screen UrineNEGATIVENEGATIVETricyclic Antidepressant UrineNEGATIVENEGATIVEMethadone Screen UrineNEGATIVENEGATIVE Barbiturates Screen UrineNEGATIVENEGATIVEOxycodone Screen UrineNEGATIVENEGATIVE Buprenorphine Screen UrineNEGATIVENEGATIVE DRUG CLASS TEST SYSTEM CUT-OFF CONCENTRATIONS ARE FOLLOWS: AMP (Amphetamine): 500 ng/mL BAR (Barbiturates): 200 ng/mL BZO (Benzodiazepines): 150 ng/mL BUP (Buprenorphine): 10 ng/mL EBRE (Cocaine): 150 ng/mL mAMP (Methamphetamine): 500 ng/mL MTD (Methadone): 200 ng/mL OPI (Opiates): 100 ng/mL OXY (Oxycodone): 100 ng/mL PCP (Phencyclidine): 25 ng/mL THC (Cannabinoids): 50 ng/mL TCA (Trycyclic Antidepressants): 300 ng/mL Performing Lab:see noteML - [facility] LBXR wrist LT min 3V Reviewed date:03/01/2024 01:46:51 PM Interpretation: Performing Lab: Notes/Report: Source Facility: [place] [address] XRay Report Signed Patient: NASRIN MCKEON MR#: [id number] : 1955 Acct:[id number] Age/Sex: 68 / M ADM Date: 03/01/24 Loc: ER Attending Dr: Ordering Physician: Radha Rider Date of Service: 03/01/24 Procedure(s): XR wrist LT min 3V Accession Number(s): [id number] cc: Nico Anderson M.D.; Radha Rider [place] [id number] Patient Name: NASRIN MCKEON MRN: [id number] date: 1955 Sex: M Assigned Patient Location: ER Current Patient Location: ER Accession/Order Number: [id number] Exam Date: 03/01/2024 09:00 Report Date: 03/01/2024 09:55 At the request of: RADHA RIDER Procedure: XR wrist LT min 3V EXAM: XR wrist LT min 3V HISTORY: injury c/o pain COMPARISON: None. TECHNIQUE: FINDINGS: XR/XR wrist LT min 3V IMPRESSION: No acute fracture or malalignment. If there is clinical concern for scaphoid fracture or anatomic snuffbox tenderness, suggest dedicated evaluate view further evaluation. Mild degenerative change between the articulation of the scaphoid with the trapezium. There is also mild first carpal metacarpal joint degenerative change. Electronically authenticated by: AMANDEEP DEL CID Date: 03/01/2024 09:55 Dictated By: Amandeep Del Cid M.D. Signed By: 03/01/2457 DD/ 4 TD/TT: [facility]:Compl[facility] Drug [facility], Ur Reviewed date:03/11/2024 08:03:58 PM Interpretation: Performing Lab: Notes/Report: [facility] ,Summary Report (Summary)FINAL. TOXASSURE COMP DRUG ANALYSIS,UR Test Result Flag Units Drug Present and Declared for Prescription Verification Buprenorphine 197 EXPECTED ng/mg creat Norbuprenorphine 295 EXPECTED ng/mg creat Source of buprenorphine is a scheduled prescription medication. Norbuprenorphine is an expected metabolite of buprenorphine. Test Result Flag Units Ref Range Creatinine 190 mg/dL >=20 Declared Medications: The flagging and interpretation on this report are based on the following declared medications. Unexpected results may arise from inaccuracies in the declared medications. Note: The testing scope of this panel includes these medications: Buprenorphine. (Suboxone) Note: The testing scope of this panel does not include following reported medications: Naloxone (Suboxone) For clinical consultation, please call . Performed at: [facility] [address] [place] [id number] [employer] Law Professor: Rachel Ly [facility], Phone: [phone] Performing Lab:see note - [facility] LBURIC ACID RAND URINE Reviewed date:03/11/2024 08:03:58 PM Interpretation: Performing Lab: Notes/Report: [facility] ,Uric Acid, Urine55.0Not Estab. mg/dL Performed at: - [facility] [id number] [employer] Law Professor: Sony Benson PhD, Phone: [phone] Performing Lab:see note - [facility] LBPROF 14(COMP METB) Reviewed date:03/01/2024 01:46:51 PM Interpretation: Performing Lab: Notes/Report: [facility] ,Pvhfbe099369-412 mmol/LPotassium3.93.5-5.1 mmol/XLrjaudut4388-736 mmol/LCarbon Ypmeoiw38.321.0-32.0 mmol/LAnion Gap14.0Zcogcxc97281-828 mg/dLBlood Urea Vzvaupxl84.07.0-18.0 mg/dLCreatinine1.140.70-1.30 mg/dLEstimated GFR ( Aleyda>60>=60 mL/min/1.73m 2Estimated GFR (Non- Marleny>60>=60 mL/min/1.73m 2BUN Creatinine Ratio11.2Lyiukfh3.78.5-10.1 mg/dLBilirubin Total1.30.2-1.0 mg/dL Aspartate Amino Eysfrfshvbi2363-85 U/LAlanine Tqfxxoqxwznsdidx7172-02 U/L Alkaline Qsdrwebwxjh29541-039 U/LTotal Protein7.86.4-8.2 g/dLAlbumin Level3.5 3.4-5.0 g/dLGlobulin4.3Albumin Globulin Ratio0.8Performing Lab:see noteML - [facility] LBMAGNESIUM Reviewed date:03/01/2024 01:46:51 PM Interpretation: Performing Lab: Notes/Report: [facility] ,Magnesium1.71.8-2.4 mg/dLPerforming Lab:see noteML - [facility] LB DRUG SCREEN RAPID (URINE) Reviewed date:01/14/2024 07:32:33 PM Interpretation: Performing Lab: Notes/Report: [facility] ,Cannabinoid Screen UrineNEGATIVENEGATIVEPhencyclidine Screen UrineNEGATIVE NEGATIVECocaine Screen UrineNEGATIVENEGATIVEMethamphetamines Screen Urine NEGATIVENEGATIVEOpiate Screen UrineNEGATIVENEGATIVEAmphetamine Screen Urine NEGATIVENEGATIVEBenzodiazepines Screen UrineNEGATIVENEGATIVETricyclic Antidepressant UrineNEGATIVENEGATIVEMethadone Screen UrineNEGATIVENEGATIVE Barbiturates Screen UrineNEGATIVENEGATIVEOxycodone Screen UrineNEGATIVENEGATIVE Buprenorphine Screen UrinePOSITIVENEGATIVE DRUG CLASS TEST SYSTEM CUT-OFF CONCENTRATIONS ARE FOLLOWS: AMP (Amphetamine): 500 ng/mL BAR (Barbiturates): 200 ng/mL BZO (Benzodiazepines): 150 ng/mL BUP (Buprenorphine): 10 ng/mL BERE (Cocaine): 150 ng/mL mAMP (Methamphetamine): 500 ng/mL MTD (Methadone): 200 ng/mL OPI (Opiates): 100 ng/mL OXY (Oxycodone): 100 ng/mL PCP (Phencyclidine): 25 ng/mL THC (Cannabinoids): 50 ng/mL TCA (Trycyclic Antidepressants): 300 ng/mL Performing Lab:[facility] LBGLYCOHEMOGLOBIN A1C Reviewed date:11/04/2024 12:50:17 PM Interpretation: Performing Lab: Notes/Report: [facility] ,Glycohemoglobin A1C6.14.5-6.2 % ADA RECOMMENDED LIMIT 4.0 - 6.0 ADA THERAPEUTIC TARGET < 7.0 ACTION SUGGESTED > 7.0 Estimated Average Lxbidbq728Bjbyfmnbic Lab:see [facility] LB Occult Blood* Reviewed date:11/05/2024 11:36:15 AM Interpretation: Performing Lab: Notes/Report: [facility] ,Occult BloodPositivePerforming Lab:see [facility] LBTSH Reviewed date:11/04/2024 12:50:17 PM Interpretation: Performing Lab: Notes/Report: [facility] ,Thyroid Stimulating Hormone4.2300.358-3.740 uIU/mLPerforming Lab:see [facility] LBT4 Reviewed date:11/04/2024 12:50:17 PM Interpretation: Performing Lab: Notes/Report: [facility] ,T4 Thyroxine7.804.50-12.10 ug/dLPerforming Lab:see [facility] LBPROF 14(COMP METB) Reviewed date:11/04/2024 12:50:17 PM Interpretation: Performing Lab: Notes/Report: [facility] ,Rqlopv119528-230 mmol/LPotassium4.03.5-5.1 mmol/SRjukhqky83112-959 mmol/LCarbon Mmwnusa48.721.0-32.0 mmol/LAnion Gap11.1Gdiiniv92469-514 mg/dLBlood Urea Jyxggngd34.07.0-18.0 mg/dLCreatinine0.830.70-1.30 mg/dLEstimated GFR ( Aleyda>60>=60 mL/min/1.73m 2Estimated GFR (Non- Marleny>60>=60 mL/min/1.73m 2BUN Creatinine Ratio21.3Zdtglte1.38.5-10.1 mg/dLBilirubin Total0.80.2-1.0 mg/dL Aspartate Amino Ptxevyumgje3368-54 U/LAlanine Ntggjgqfxkyfcpxc1890-81 U/L Alkaline Uywbsdcgown54972-628 U/LTotal Protein7.46.4-8.2 g/dLAlbumin Level3.5 3.4-5.0 g/dLGlobulin3.9Albumin Globulin Ratio0.9Performing Lab:see noteML - [facility] LBFREE T3 Reviewed date:11/04/2024 12:50:17 PM Interpretation: Performing Lab: Notes/Report: [facility] ,Free T32.382.18-3.98 pg/mLPerforming Lab:see noteML - [facility] LB Compliance Drug Analysis, Ur Reviewed date:09/21/2024 08:08:45 PM Interpretation: Performing Lab: Notes/Report: Specimen Comment: [facility], [facility] FLEX or MAT drug testing: Specimen Comment: -Technical component - Data analysis performed at Specimen Comment: [facility], [address] [place] [address], [place], [address]. Specimen Comment: [phone]. [employer] Professor Becka Taylor MD [facility] ,Summary Report (Summary)FINAL. TOXASSURE COMP DRUG ANALYSIS,UR Test Result Flag Units Drug Present and Declared for Prescription Verification Buprenorphine 36 EXPECTED ng/mg creat Norbuprenorphine 110 EXPECTED ng/mg creat Source of buprenorphine is a scheduled prescription medication. Norbuprenorphine is an expected metabolite of buprenorphine. Test Result Flag Units Ref Range Creatinine 105 mg/dL >=20 Declared Medications: The flagging and interpretation on this report are based on the following declared medications. Unexpected results may arise from inaccuracies in the declared medications. Note: The testing scope of this panel includes these medications: Buprenorphine. (Suboxone) PM Note: The testing scope of this panel does not include following reported medications: Naloxone (Suboxone) PM For clinical consultation, please call . Performed at: [facility] [address] [place] [id number] [employer] Law Professor: Rachel Glass, Phone: [phone] Performing Lab:see noteLC - [facility] LB Reason For Referral Reason colonoscopy Diagnosis 1 Positive occult stoo l blood test (R19.5) Referral Organization [facility] Referring Provider First Name [facility] Referring Provider Last Name Justin Referring Provider Speciality Family Med jada Referred Provider Ravi Calderon Referred Provider Specialty General Surg juliet Referral Priority Routine Medications Medication SIG (Take, Route, Frequency, Duration) Notes Start Date End Date Status Tamsulosin HCl 0.4 mg TAKE 1 CAPSULE BY MOUTH ON CE DAILY; Duration: 90 ActiveNamenda XR 7 MG1 capsule Orally Once a day; Duration: 14 days05/17/2024 ActiveSimvastatin 40 MGtake 1 tablet by mouth every evening; Duration: 90 days ActivepredniSONE 20 MG3 tablets Orally Once a day; Duration: 5 days12/13/2024 ActiveMeclizine HCl 25 MG1 tablet as needed Orally Q 6 hours5Active Suboxone 8-2 MG1 film under the tongue and allow to dissolve Sublingual Once a day - PRN; Duration: 30 days5ActiveMirapex 0.5 MG1 tablet Orally Once a day; Duration: 30 day(s)ActiveDutasteride 0.5 mgTAKE 1 CAPSULE BY MOUTH ONCE DAILY; Duration: 90ActiveKetoconazole 2 %1 application Externally bid; Duration: 14 days5ActiveClotrimazole-Betamethasone 1-0.05 %1 application Externally Twice a day5ActiveDiclofenac Sodium 75 MG1 tablet as needed Orally Twice a day; Duration: 30 daysActiveUrea 40 %1 application as needed Externally Once a day; Duration: 10 days4Active Immunizations Vaccine Route Administration Date Status Comme nts Flu, Fluzone (86360) 6 mos+, single-dose syringe/vial (0852-3074) Unknown 2017 Administered SARS-COV-2 (COVID 19 Pfizer 30mcg/0.3mL)Gwyptfo08/14/4068QjybtrscuusqKVUZ-TKO-9 (COVID 19 Pfizer 30mcg/0.3mL)Vciggku19/04/2021Administered Social History Tobacco Use: Social History Observation Description Date Details (start date - stop date) Former Smoker 02/10/1983 - 02/10/2002 Tobacco Use/Smoking Question Answer Notes Patient is a former smoker When did you start smoking?02/10/1983When did you stop smoking?02/10/2002How long has it been since you last smoked?> 10 yearsAdditional Findings: Tobacco Non-UserCurrent non-smokerAlcohol Screen (Audit-C) Question Answer Notes Did you have a drink containing alcohol in the p ast year? No Eossfz3IyoejkrupjjeddSpfsehhpXLJKI-H (Standard) Question Answer Notes Did you have a drink containing alcohol in the p ast year? No Lrucln7VodjfxiotwtgddUdhvciaw Problems Problem Type SNOMED Code ICD Code Onset Dates Problem Status W/U Status Risk Notes Problem Opioid abuse (7547902) Opioid abuse, unco mplicated (F11.10) ActiveconfirmedProblemHypertensive heart disease without congestive heart failure (44039207)Hypertensive heart disease without heart failure (I11.9)Active confirmedProblemCallosity (202374416)Corns and callosities (L84)Activeconfirmed ProblemDegeneration of cervical intervertebral disc (61759946)Other cervical disc degeneration, unspecified cervical region (M50.30)ActiveconfirmedProblem Closed fracture of one rib (84024106)Fracture of one rib, right side, initial encounter for closed fracture (S22.31XA)ActiveconfirmedProblemPuncture wound without foreign body of right middle finger with damage to nail, initial encounter (S61.332A)ActiveconfirmedProblemForeign body in ear (44253464)Foreign body in ear, unspecified ear, initial encounter (T16.9XXA)ActiveconfirmedProblem Depression (615157778)Depression (F32.9)ActiveconfirmedProblemVertigo (200602083)Vertigo (R42)ActiveconfirmedProblemDisorder of lumbar disc (603895777)Lumbar disc disease (M51.9)ActiveconfirmedProblemAcute bronchitis (56082142)Acute bronchitis, unspecified organism (J20.9)ActiveconfirmedProblem Memory loss (59306315)Memory loss (R41.3)ActiveconfirmedProblemHerpes zoster (4599278)Herpes zoster (B02.9)ActiveconfirmedProblemPain in left foot (648424547032341)Left foot pain (M79.672)ActiveconfirmedProblemAcute sinusitis (77827879)Acute sinusitis, recurrence not specified, unspecified location (J01.90)ActiveconfirmedProblemOpioid abuse (8144773)Narcotic abuse (F11.10) ActiveconfirmedProblemFinger laceration (S61.219A)ActiveconfirmedProblem Paresthesia of both hands (243435438)Paresthesia of both hands (R20.2)Active confirmedProblemCellulitis (035271615)Cellulitis, unspecified cellulitis site (L03.90)ActiveconfirmedProblemInsomnia (440063525)Insomnia, unspecified type (G47.00)ActiveconfirmedProblemShoulder joint pain (556999932)Shoulder pain, unspecified chronicity, unspecified laterality (M25.519)ActiveconfirmedProblem Joint pain (62519403)Arthralgia, unspecified joint (M25.50)Activeconfirmed ProblemPain in limb (81947730)Pain of foot, unspecified laterality (M79.673) ActiveconfirmedProblemHand muscle weakness (733148095)Hand muscle weakness (M62.81)ActiveconfirmedProblemCramp in lower leg (914934290)Cramp in lower leg (R25.2)ActiveconfirmedProblemHypercholesterolemia (12202992)Hypercholesterolemia (E78.00)ActiveconfirmedProblemFamilial hypercholesterolemia (947074900)Familial hypercholesterolemia (E78.01)ActiveconfirmedProblemBenign prostatic hypertrophy without outflow obstruction (063388292)Benign prostatic hyperplasia without lower urinary tract symptoms (N40.0)ActiveconfirmedProblemNontraumatic rupture of muscle or tendon structure of rotator cuff of left shoulder (disorder) (1076 395106206050)Partial nontraumatic rupture of left rotator cuff (M75.112)Active confirmedProblemBilateral impingement syndrome of shoulders (30492991296062143) Impingement syndrome of shoulder region, unspecified laterality (M75.40)Active confirmedProblemMedication management contract agreement (Z02.89)Activeconfirmed ProblemCOVID-19 (618658355)COVID-19 (U07.1)ActiveconfirmedProblemArticular cartilage disorder of the pelvic region and thigh (909909649)Degenerative tear of acetabular labrum (M24.159)Activeconfirmed Vital Signs Blood pressure diastolic 82 mm Hg 12/13/2024 Wdfhdk88 in12/13/2024lood pressure hwpuorbv578 mm Hg12/13/20247324Oqythr680 lbs 12/13/2024BMI20.52 kg/m212/13/2024 Encounters Encounter Location Date Provider Diagnosis [address] [place] [address] 01/14/2024 Tono Hoy Narcotic abuse F11.1 0 and Right shoulder pain M25.[address] [address] 02/13/2024 Tono Hoy Narcotic abuse F11.[address] [address] 03/15/2024 Tono Hoy Narcotic abuse F11.[address] [address] 03/26/2024 Tono Hoy Finger laceration 88 3.0 and Finger laceration, subsequent encounter S61.219D [address] [address] 04/02/2024 Tono Hoy Finger laceration S6 1.219A and Thumb laceration, left, subsequent encounter S61.012D [address] [address] 04/14/2024 Tono Hoy Narcotic abuse F11.[address] [address] 05/17/2024 Tono Hoy Memory loss R41.3 ; Hypertensive heart disease without heart failure I11.9 ; Insomnia, unspecified type G47.00 ; Familial hypercholesterolemia E78.01 and Narcotic abuse F11.[address] [address] 06/14/2024 Tono Hoy Hypercholesterolemia E78.[address] [address] 07/15/2024 Tono Hoy Memory loss R41.3 an d Narcotic abuse F11.10 [facility] [address] [place] [address] 08/12/2024 Tono Hoy Hypercholesterolemia E78.00 and Narcotic abuse F11.10 [facility] [address] [place] [address] 09/13/2024 Tono Hoy Opioid abuse, uncomp licated F11.10 [facility] [address] [place] [address] 10/14/2024 Tono Hoy Lumbar disc disease M51.9 and Opioid abuse, uncomplicated F11.10 [facility] [address] [place] [address] 11/12/2024 Tono Hoy Opioid abuse, uncomp licated F11.10 [facility] [address] [place] [address] 12/13/2024 Tono Hoy Vertigo R42 and Narc otic abuse F11.10 [facility] [address] [place] [address] 02/17/2024 Tono Schaffery Encounter for Medica re annual wellness exam Z00.00 [facility] [address] [place] [address] 02/17/2024 Tono Hoy Narcotic abuse F11.1 0 and Muscle cramping R25.2 [facility] [address] [place] [address] 03/01/2024 Tono Hoy [facility] [place] [address] 03/15/2024Doug HoyEncounter for long-term (current) use of medications Z79.[address] [place] [address] 06/01/2024Doug [facility]oyAbnormal thyroid blood test [facility]94.6[facility] [place] [address]/21/2025Doug [facility]BF[facility] [place] [address]/ [facility] [place] [address]/Doug HoyHypercholesterolemia E78.00 and Abnormal thyroid blood test R79.89Bu[facility] [place] [address]/Doug HoyAbnormal thyroid blood test R79.89 ; Muscle cramping R25.2 ; Memory loss R41.3 and Hypercholesterolemia E78.00[facility] [place] [address]/ Tono HoyAbnormal thyroid blood test R94.6 and Muscle cramping R25.2[facility] [place] [address]/ Tono HoyPositive occult stool blood test R19.5BFoothills [facility] [address] [facility] [place] [address]/Doug Hoy Assessments Encounter Date Diagnosis (ICD Code) Assessment Notes Treatment Notes Treatment Clinical Notes Section Notes 01/14/2024 Narcotic abuse (ICD-10 - F11.10) 01/14/2024ight shoulder pain (ICD-10 - M25.511)02/13/2024Narcotic abuse (ICD-10 - F11.10)02/17/[facility]24[facility] ([facility]-10 - Z00.00) 03/15/2024Narcotic abuse (ICD-10 - F11.10)04/14/2024Narcotic abuse (ICD-10 - F11.10)03/26/2024Finger laceration (ICD9-CM - 883.0)03/26/2024Finger laceration, subsequent encounter (ICD-10 - S61.219D)04/02/2024Finger laceration (ICD-10 - S61.219A)04/02/2024Thumb laceration, left, subsequent encounter (ICD-10 - S61.012D)05/17/2024Memory loss (ICD-10 - R41.3)05/17/2024Hypertensive heart disease without heart failure (ICD-10 - I11.9)05/17/2024Insomnia, unspecified type (ICD-10 - G47.00)05/17/2024Familial hypercholesterolemia (ICD-10 - E78.01) 06/14/2024Hypercholesterolemia (ICD-10 - E78.00)07/15/2024Memory loss (ICD-10 - R41.3)07/15/2024Narcotic abuse (ICD-10 - F11.10)08/12/2024Hypercholesterolemia (ICD-10 - E78.00)08/12/2024Narcotic abuse (ICD-10 - F11.10)09/13/2024Opioid abuse, uncomplicated (ICD-10 - F11.10)10/14/2024Lumbar disc disease (ICD-10 - M51.9)10/14/2024Opioid abuse, uncomplicated (ICD-10 - F11.10)11/12/2024Opioid abuse, uncomplicated (ICD-10 - F11.10)12/13/2024Vertigo (ICD-10 - R42)12/13/2024 Narcotic abuse (ICD-10 - F11.10)02/17/2024Narcotic abuse (ICD-10 - F11.10) 02/17/2024Muscle cramping (ICD-10 - R25.2)03/15/2024Encounter for long-term (current) use of medications (ICD-10 - Z79.899)06/01/2024bnormal thyroid blood test (ICD-10 - R94.6)10/28/2024Hypercholesterolemia (ICD-10 - E78.00)10/28/2024 Abnormal thyroid blood test (ICD-10 - R79.89)11/02/2024bnormal thyroid blood test (ICD-10 - R79.89)11/02/2024Muscle cramping (ICD-10 - R25.2)11/04/2024 Abnormal thyroid blood test (ICD-10 - R94.6)11/04/2024Muscle cramping (ICD-10 - R25.2)11/05/2024Positive occult stool blood test (ICD-10 - R19.5)11/02/2024 Memory loss (ICD-10 - R41.3)11/02/2024Hypercholesterolemia (ICD-10 - E78.00) 05/17/2024Narcotic abuse (ICD-10 - F11.10)04/02/2024Otherok to remove all Plan Of Treatment Pending Test Test Name Order Date CMP (COMPLETE METABOLIC PANEL) 4 HEMOGLOBIN A1C (GLYCO) 05/17/2024 HEMOGLOBIN A1C (GLYCO) 03/10/2023 INSULIN, TOTAL 03/10/2023 LIPID PANEL (CHOL/TRIG/HDL/LDL) 03/10/19 24 LIPID PANEL (CHOL/TRIG/HDL/LDL) 05/18/19 25 CBC WITH DIFF (EXP 12/2024) 03/10/2023 PSA, PROSTATE-SPECIFIC ANTIGEN 4 URIC ACID 03/10/2023 COMPREHENSIVE METABOLIC PROFILE WITH GFR 11/02/2024 OCCULT BLOOD, FECAL, IMMUNOASSAY 025 CMP - Comprehensive Metabolic Panel 08/2024 CBC W/AUTO DIFF 02/17/2024 CBC W/AUTO DIFF 11/02/2024 CBC W/AUTO DIFF 11/04/2024 STOOL OCCULT BLOOD 03/10/2023 STOOL OCCULT BLOOD 05/17/2024 COMPLIANCE DRUG SCREEN 03/15/2024 COMPLIANCE DRUG SCREEN 02/17/2024 COMPLIANCE DRUG SCREEN 05/12/2023 DRUG SCREEN RAPID (URINE) 02/17/2024 DRUG SCREEN RAPID (URINE) 03/15/2024 MAGNESIUM 02/17/2024 THYROID PROFILE WITH TSH 03/11/2023 URIC ACID RAND URINE 02/17/2024 MRI BRAIN WO CON 07/15/2024 THYROID PANEL (T4/TSH/FREE T3) 5 THYROID PANEL (T4/TSH/FREE T3) 5 THYROID PANEL (T4/TSH/FREE T3) 5 THYROID PANEL (T4/TSH/FREE T3) 5 THYROID PANEL (T4/TSH/FREE T3) 4 THYROID PANEL (T4/TSH/FREE T3) 5 PSA, SCREENING 05/17/2024 Lipid Panel 11/02/2024 CMP (COMP MET TIDWELL) w/eGFR CKD-EPI 2024 CBC WITH DIFF 05/17/2024 Future Test Test Name Order Date URIC ACID RAND URINE 03/17/2024 Next Appt Details Provider Name:Tono Anderson, 04:30:00 PM, [address] [facility], [place], [address], Insurance Providers Payer Name Payer Address Payer Phone Subscriber Number Group Number Insured Name Patient Relationship to Insured Coverage Start Date Coverage End Date [place] [address] [place] [address] [id number] Lauren Mckeon - patient is the [id number] 2008 Medications Administered Medication Instructions Date of Administration Dosage Notes DEPO-Medrol ai727Ulifsie-9265 mgKenalog-401/ mgKenalog-40 20 uf712Kchdwrj-6266 er974Zkjyofk-8892/02/202480 mg Kenalog-401 or01Ynnsjjuum Bqxqtyvnqwqs76/19/202330 mgKetorolac Balgknaroniu24/03/202360 mgKetorolac Viwaeblroggk43/28/202360 wz49Mrngihwlx Cakqlkudvdyk47/04/202460 kq64Bjkwxazkh Ftelxorzlvgy92/03/202460 pd45Vgjbngerw Wkmkktgcavoh23/02/202460 mgKetorolac Vbfktnnmdfnv03/04/202460 ws19Poundlakn Wqjswhblqnom98/04/202460 mgKetorolac Tvqvhxaxrkwu52/05/202560 mgOrphenadrine Sthfpkz92 mgOrphenadrine Izkwsky06 fi45Riumknmdhzva Citrate qr92Mqqtslihznpp Dcmixfs87 ju94Zsnuniwcfedt Citrate mgTriamcinolone 40 mg/ml480 mgTriamcinolone 40 mg/ml mg Medical (General) History Medical History History ICD Code Shoulder pain, unspecified chronicity, u nspecified laterality M25.519 Benign prostatic hyperplasia without low er urinary tract symptoms N40.0 Acute bronchitis, unspecified organism J 20.9 Pain of foot, unspecified laterality M79 .673 Fracture of one rib, right side, initial encounter for closed fracture S22.31XA Medication management contract agreement Z02.89 COVID-19 U07.1 Acute sinusitis, recurrence not specifie d, unspecified location J01.90 Cellulitis, unspecified cellulitis site L03.90 Foreign body in ear, unspecified ear, in itial encounter T16.9XXA Herpes zoster B02.9 Puncture wound without forei gn body of right middle finger with damage to nail, initial encounter S61.332A Familial hypercholesterolemia E78.01 Partial nontraumatic rupture of left rot ator cuff M75.112 Degenerative tear of acetabular labrum M 24.159 Impingement syndrome of shoulder region, unspecified laterality M75.40 Cramp in lower leg R25.2 Hand muscle weakness M62.81 Paresthesia of both hands R20.2 Other cervical disc degeneration, unspec ified cervical region M50.30 Arthralgia, unspecified joint M25.50 Lumbar disc disease M51.9 Hypertensive heart disease without heart failure I11.9 Narcotic abuse F11.10 Depression F32.9 Insomnia, unspecified type G47.00 Surgical History Surgery Date(Month/Year) Spinal Surgery 2011
--- OUTSIDE RECORDS SUMMARY | 2025-01-12 15:44 | XMS_ITS | Clinical Summary ---
Author Organization [facility] Address [address] [place] [address] Care Team Providers Care Pen Rider Name Role Phone Unavailable Primary Care Provider Unavailabl e Social History Tobacco UseTypesPacks/DayYears UsedDateSmoking Tobacco: Never AssessedSex and Gender InformationValueDate RecordedSex Assigned at BirthNot on fileLegal Sex Male04/24/2022 8:25 PM EDTGender IdentityNot on fileSexual OrientationNot on file Last Filed Vital Signs Vital SignReadingTime TakenCommentsBlood Qdiqxhpj630/7010 12:00 PM EDT Pulse--Temperature--Respiratory Rate--Oxygen Saturation--Inhaled Oxygen Concentration--Bczrmn76.7 kg (147 lb)12/04/2017 12:00 PM BXOBtbcec305.2 cm (5' 7 )12/04/2017 12:00 PM EDTBody Mass Index23.021 12:00 PM EDT Plan of Treatment Not on file
--- OUTSIDE RECORDS SUMMARY | 2025-01-12 15:44 | XMS_ITS | Clinical Summary ---
Demographics Address [facility] [address] [place] [address] Home Phone Mobile Phone Preferred Language ENG Marital Status Single Mormonism Affiliation Unknown Race White Ethnic Group Not or Lati no Author Organization [facility] Address [address] [place], [place] [address] Care Team Providers Care Home Health Physical Therapist Name Role Phone Nico Anderson MD Primary Care Provider [phone] Allergies No known active allergies Medications MedicationSigDispense QuantityRefillsLast FilledStart DateEnd DateStatus VITAMIN E ORAL Take by mouth once daily.Active tamsulosin ER (FLOMAX) 0.4 mg cap Active buprenorphine-naloxone (SUBOXONE) 8-2 mg film Dissolve 1 Film under the tongue once daily.Active diclofenac, EC, (VOLTAREN) 75 mg EC tablet Take 75 mg by mouth twice daily.Active MALU ASPIRIN ORAL Take 1 tablet by mouth once daily. Does not know if its 81 or 325.Active Active Problems ProblemNoted DateDiagnosed DateTraumatic partial tear of biceps tendon, left, subsequent zygaagaea78/14/2019 Overview (02/23/2018): Added automatically from request for surgery [id number] Rotator cuff tear, left02/23/2018 Overview (02/23/2018): Added automatically from request for surgery [id number] Incomplete tear of left rotator cuff02/17/2018S/P lumbar vouwmzkrqn85/10/2014 Lumbar disc anxqucnzfk93/13/2013Narcotic abuse in absaquuuw69/13/2013Closed TBI (traumatic brain injury)01/22/2013Hepatitis Overview (01/22/2013): hepatitis C Back pain Family History Medical HistoryRelationCommentsArthritisMaternal GrandmotherArthritisMother RelationStatusCommentsFatherDeceasedMaternal GrandmotherMotherAlive Social History Tobacco UseTypesPacks/DayYears UsedDateSmoking Tobacco: ZgewnePpwcfzzied350121 - 1998Smokeless Tobacco: NeverAlcohol UseStandard Drinks/WeekCommentsNo0 (1 standard drink = 0.6 oz pure alcohol)Area Deprivation IndexAnswerDate Recorded National Score (1-100), lower number is lower riskNot on file01/16/2020State Score (1-10), lower number is lower riskNot on file01/16/2020Data from: https://www.neighborhoodatlas.[facility]/. Last address used for calculationNot on file01/16/2020Sex and Gender InformationValueDate RecordedSex Assigned at BirthNot on fileLegal PbiRcoe19/02/2012 10:32 AM ESTGender Identity Not on fileSexual OrientationNot on file Last Filed Vital Signs Vital SignReadingTime TakenCommentsBlood Zvxxpeic546/95002/24/2018 9:10 AM EST Nokyf622202/24/2018 9:10 AM QIRGpzhikrgfqf62.1 ??C (96.9 ??F)02/24/2018 9:10 AM ESTRespiratory Qhrr062502/24/2018 9:10 AM ESTOxygen Qykngwplyn98%02/24/2018 9:10 AM ESTInhaled Oxygen Concentration--Lrcdmo28.9 kg (154 lb)02/24/2018 9:10 AM EST Kmamtm527.7 cm (5' 8 )02/24/2018 9:10 AM ESTBody Mass Index23.42002/24/2018 9:10 AM EST Plan of Treatment Health MaintenanceDue DateLast DoneCommentsAbdominal Aortic Aneurysm Screening 4Anxiety Ijzeqexyh91/10/1972Depression Lycuvhtfe18/10/1972Hepatitis C Fehzwdwhj84/10/1972DTaP,Tdap,Td Vaccine (1 - Tdap)1972Lipid Screening 1988CT Gbkiosmntqgg45/10/1999Cologuard (FIT-DNA)1998Colonoscopy 1998Colorectal Cancer Jxspsvjll59/10/1999Diabetes Uahgabvas04/10/1999Fecal Occult Blood11/19/19989722Atnaguraaexqn03/10/1999Pneumococcal Vaccine: 50+ (1 of 1 - PCV)11/20/2003Shingrix Vaccine (1 of 2)11/20/2003Advance Directive Discussion 02/11/2024ovid-19 Vaccine (1 - 2024- season)2024Influenza Vaccine (#1) RSV Vaccine (1 - 1-dose 75+ series)2028 Insurance * Guarantor: Nilsa Mckeon TypeRelation to PatientDate of BirthPhone Billing AddressPersonal/UbkvrnRiqa36/10/1956 [address] [place] [address] Care Teams Team MemberRelationshipSpecialtyStart DateEnd Date Nico Anderson MD PCP - GeneralFamily Eroxgmnf75/12/13
[2025-01-12 16:07] LABS: Cannabinoid Screen Urine NEGATIVE (NEGATIVE); Methamphetamines Screen Urine NEGATIVE (NEGATIVE); Tricyclic Antidepressant Urine NEGATIVE (NEGATIVE)
[2025-01-13 04:08] LABS: Uric Acid, Urine 36.7 mg/dL (Not Estab.)
== END 2025-01-12 15:42 | disposition home or self-care (01) ==
LOC: LAB 15:41
PROVIDERS: PCP Family Medicine; Visit Provider Family Medicine
DX: Z79.899 Other long term (current) drug therapy (principal)
CPT/HCPCS: 80307; 80326; 80331; 80334; 80337; 80338; 80341; 80344; 80347; 80348; 80353; 80354; 80355; 80357; 80358; 80359; 80360; 80361; 80364; 80365; 80366; 80367; 80368; 80370; 80371; 80372; 80373; 80377; 82570; 83992; 84560

== ENCOUNTER 2025-01-31 14:28 | Outpatient (OUT) | payer MEDICARE, SELFPAY ==
--- OUTSIDE RECORDS SUMMARY | 2025-01-17 08:15 | XMS_ITS ---
Author Organization [facility] [place] Address [address] [facility] [place] [address] Care Team Providers Care Gunner'S Mate M Name Role Phone Tono Anderson Primary Care Provider [phone] REASON FOR VISIT Sick Encounters Encounter Location Date Provider Diagnosis [facility] [address] [place] [address] 01/17/2025 Tono Anderson Plan Of Treatment Next Appt Details Provider Name:Tono Anderson, 03:30:00 PM, [address] [place], [address], Progress Notes * Nilsa MCKEONDOB: (69 yo M)Acc No.[id number]:01/17/2025 UNLOCKED PROGRESS NOTE Progress Note Patient: Riya CALDERON Nilsa Alas :?Nico Anderson ([facility]), MDDOB:1955???Age: 69 Y???Sex:MaleDate:01/17/2025Phone:[phone]:[address] [id number] Subjective: * Chief Complaints: * 1 . Sick. * Medical History: Objective: * Vitals: Assessment: Plan: * Treatment: * * Electronic signature of Tono Anderson MD, [id number] on 01/31/2025 at 02:33 PM EST Sign off status: PendingVisit Status:?CANC (Cancelled) * [facility] Koko Date: 1 03/20/2024 Generated for Printing/Faxing/eTransmitting on:?01/31/2025 02:33 PM EST
--- OUTSIDE RECORDS SUMMARY | 2025-01-31 14:34 | XMS_ITS | Clinical Summary ---
Author Organization [facility] Address [address] [place] [address] Care Team Providers Care Sumo Wrestler Name Role Phone Unavailable Primary Care Provider Unavailabl e Social History Tobacco UseTypesPacks/DayYears UsedDateSmoking Tobacco: Never AssessedSex and Gender InformationValueDate RecordedSex Assigned at BirthNot on fileLegal Sex Male04/24/2022 8:25 PM EDTGender IdentityNot on fileSexual OrientationNot on file Last Filed Vital Signs Vital SignReadingTime TakenCommentsBlood Rlqvredg774/7010 12:00 PM EDT Pulse--Temperature--Respiratory Rate--Oxygen Saturation--Inhaled Oxygen Concentration--Uvegfl15.7 kg (147 lb)12/04/2017 12:00 PM WPPLquldc400.2 cm (5' 7 )12/04/2017 12:00 PM EDTBody Mass Index23.021 12:00 PM EDT Plan of Treatment Not on file
--- OUTSIDE RECORDS SUMMARY | 2025-01-31 14:34 | XMS_ITS | Patient Health Record ---
Author Organization [facility] in [place] Address [address] [place] [address] Care Team Providers Care Lens Dotter Name Role Phone SarbjitchristopherTono Primary Care Provider [phone] Allergies No Known Allergies Results Component Value Reference Range Notes URIC ACID RAND URINE Reviewed date:03/23/2024 12:49:58 PM Interpretation: Performing Lab: Notes/Report: Specimen Comment: ToxAssure, ToxAssure FLEX or MAT drug testing: Specimen Comment: -Technical component - Data analysis performed at Specimen Comment: [address] [facility], [place] [address]. [facility] , Uric Acid, Urine 4.4 Not Estab. mg/dL Performed at: CB - [facility] [address] [id number] Automatic Print Developer: Sony Benson PhD, Phone: [phone] Performing Lab: see note LC - [facility] LBLIPID PROFILE Reviewed date:11/04/2024 12:50:17 PM Interpretation: Performing Lab: Notes/Report: [facility] ,Bmzmeoyduqyht54<=150 mg/qFLkrdmroxfbh789<=200 mg/dLHDL Jhtuykekyvz3837-15 mg/dL > or =60 mg/dl - LOW CARDIOVASCULAR RISK <40 mg/dl - HIGH CARDIOVASCULAR RISK LDL Cholesterol Dpkwbjkqlz50.0 <100 mg/dl OPTIMAL 100-129 mg/dl NEAR OR ABOVE OPTIMAL 130-159 mg/dl BORDERLINE HIGH 160-189 mg/dl HIGH >190 mg/dl VERY HIGH VLDL ZNLXBKIOPGJ16.8Chol HDL Ratio2.4 3.3 - 4.4 LOW RISK 4.4 - 7.1 AVERAGE RISK 7.1 - 11.0 MODERATE RISK >11.0 HIGH RISK Performing Lab:see noteML - [facility] LBCBC AUTO DIFF Reviewed date:03/01/2024 01:46:51 PM Interpretation: Performing Lab: Notes/Report: [facility] ,White Blood Count9.34.0-11.0 10 3/uLRed Blood Count4.934.70-6.10 10 6/uL Pnxxxbhubp62.614.0-18.0 g/qKCfrmvnzoej81.842.0-54.0 %Mean Corpuscular Fjqtup84.8 80.0-94.0 fLMean Corpuscular Qpyqayjywc24.625.9-34.0 pgMean Corpuscular HGB Conc 34.129.9-35.2 g/dLRed Cell Distribution Width13.211.0-15.0 %Platelet Sslkh949 150-450 10 3/uLMean Platelet Volume8.79.5-13.5 fLNeutrophils Percent Auto82.4 43.0-75.0 %Lymphocytes Percent Auto7.120.5-60.0 %Monocytes Percent Auto9.71.7- 12.0 %Eosinophils Percent Auto0.30.9-7.0 %Basophils Percent Auto0.20.2-2.0 % Immature Granulocytes Pct Auto0.30.0-0.5 %Neutrophils Absolute Auto7.61.4-6.5 10 3/uLLymphocytes Absolute Auto0.71.2-3.8 10 3/uLMonocytes Absolute Auto0.90.3-0.8 10 3/uLEosinophils Absolute Auto0.00.0-0.7 10 3/uLBasophils Absolute Auto0.00.0- 0.1 10 3/uLImmature Granulocytes Abs Auto0.030.00-0.03 10 3/uLPerforming Lab:see noteML - [facility] LBDRUG SCREEN RAPID (URINE) Reviewed date:03/01/2024 01:46:51 PM Interpretation: Performing Lab: Notes/Report: [facility] ,Cannabinoid Screen UrineNEGATIVENEGATIVEPhencyclidine Screen UrineNEGATIVE NEGATIVECocaine Screen [...] Antidepressants): 300 ng/mL Performing Lab:see noteML - [facility] LBMAGNESIUM Reviewed date:03/01/2024 01:46:51 PM Interpretation: Performing Lab: Notes/Report: [facility] ,Magnesium1.71.8-2.4 mg/dLPerforming Lab:see noteML - [facility] LB PROF 14(COMP METB) Reviewed date:03/01/2024 01:46:51 PM Interpretation: Performing Lab: Notes/Report: [facility] ,Mpsjvr640460-987 mmol/LPotassium3.93.5-5.1 mmol/UIrhsdtnj7347-838 mmol/LCarbon Xwvwpwl15.321.0-32.0 mmol/LAnion Gap14.1Fwxronp55767-320 mg/dLBlood Urea Jmkfarsh02.07.0-18.0 mg/dLCreatinine1.140.70-1.30 mg/dLEstimated GFR ( Aleyda>60>=60 mL/min/1.73m 2Estimated GFR (Non- Marleny>60>=60 mL/min/1.73m 2BUN Creatinine Ratio11.6Qhvjjxe1.78.5-10.1 mg/dLBilirubin Total1.30.2-1.0 mg/dL Aspartate Amino Wfhmkzzlhvh3423-76 U/LAlanine Ytclwzvzgvzlmdwj0558-44 U/L Alkaline Imwlwzipqlh32951-429 U/LTotal Protein7.86.4-8.2 g/dLAlbumin Level3.5 3.4-5.0 g/dLGlobulin4.3Albumin Globulin Ratio0.8Performing Lab:see noteML - [facility] LBXR wrist LT min 3V Reviewed date:03/01/2024 01:46:51 PM Interpretation: Performing Lab: Notes/Report: Source Facility: [facility] [place] [address] [place] [address] XRay Report Signed Patient: NASRIN MCKEON MR#: [id number] : 1955 Acct:[id number] Age/Sex: 68 / M ADM Date: 03/01/24 Loc: ER Attending Dr: Ordering Physician: Radha Rider Date of Service: 03/01/24 Procedure(s): XR wrist LT min 3V Accession Number(s): [id number] cc: Nico Anderson M.D.; Radha Rider [place] [address] Patient Name: NASRIN MCKEON MRN: [id number] date: 1955 Sex: M Assigned Patient Location: ER Current Patient Location: ER Accession/Order Number: [id number] Exam Date: 03/01/2024 09:00 Report Date: 03/01/2024 [...] M.D. 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 [facility] ,Summary Report (Summary)FINAL. TOXASSURE COMP DRUG [...] clinical consultation, please call . Performed at: [employer] [address] [place] [id number] Automatic Print Developer: [facility], Phone: [phone] Performing Lab:see noteLC - [facility] LBDRUG SCREEN RAPID (URINE) Reviewed date:04/14/2024 09:24:10 PM Interpretation: Performing Lab: Notes/Report: [facility] ,Cannabinoid Screen UrineNEGATIVENEGATIVEPhencyclidine Screen UrineNEGATIVE NEGATIVECocaine Screen [...] 300 ng/mL Performing Lab:see noteML - [facility] LBURIC ACID RAND URINE Reviewed date:05/23/2024 03:38:47 PM Interpretation: Performing Lab: Notes/Report: Specimen Comment: ToxAssure, ToxAssure FLEX or MAT drug testin Specimen Comment: -Technical component - Data analysis performed at Specimen Comment: [facility] [place], [address] Specimen Comment: [phone]. [phone] Automatic Print Developer Mike Velasquez MD. [facility] ,Uric Acid, Urine8.8Not Estab. mg/dL Performed at: - [facility] [id number] Automatic Print Developer: Sony Benson PhD, Phone: [phone] Performing Lab:see noteLC - [facility] LBCompliance Drug Analysis, Ur Reviewed date:05/23/2024 03:38:47 PM Interpretation: Performing Lab: Notes/Report: Specimen Comment: ToxAssure, ToxAssure FLEX or MAT drug testin Specimen Comment: -Technical component - Data analysis performed at Specimen Comment: [facility] [place], [address], [place], [place] Specimen Comment: [phone]. [phone] Automatic Print Developer Mike Velasquez MD. [facility] ,Summary Report (Summary)FINAL. TOXASSURE COMP DRUG [...] clinical consultation, please call . Performed at: [employer] [address] [place] [id number] Automatic Print Developer: [facility], Phone: [phone] Performing Lab:see noteLC - [facility] LBCBC AUTO DIFF Reviewed date:06/01/2024 02:25:39 PM Interpretation: Performing Lab: Notes/Report: [facility] ,White Blood Count4.24.0-11.0 10 3/uLRed Blood Count4.854.70-6.10 10 6/uL Cvfnitilfh79.514.0-18.0 g/cNTfynnlhpok16.242.0-54.0 %Mean Corpuscular Pgnwqv73.1 80.0-94.0 fLMean Corpuscular Ocbhkhrnil37.925.9-34.0 pgMean Corpuscular HGB Conc 33.629.9-35.2 g/dLRed Cell Distribution Width14.211.0-15.0 %Platelet Edfue301 150-450 10 3/uLMean Platelet Volume9.29.5-13.5 fLNeutrophils Percent Auto57.6 43.0-75.0 %Lymphocytes Percent Auto22.720.5-60.0 %Monocytes Percent Auto14.71.7- 12.0 %Eosinophils Percent Auto3.80.9-7.0 %Basophils Percent Auto0.70.2-2.0 % Immature Granulocytes Pct Auto0.50.0-0.5 %Neutrophils Absolute Auto2.41.4-6.5 10 3/uLLymphocytes Absolute Auto1.01.2-3.8 10 3/uLMonocytes Absolute Auto0.60.3-0.8 10 3/uLEosinophils Absolute Auto0.20.0-0.7 10 3/uLBasophils Absolute Auto0.00.0- 0.1 10 3/uLImmature Granulocytes Abs Auto0.020.00-0.03 10 3/uLPerforming Lab:see noteML - [facility] LBFREE T3 Reviewed date:06/01/2024 02:25:39 PM Interpretation: Performing Lab: Notes/Report: [facility] ,Free T32.642.18-3.98 pg/mLPerforming Lab:see noteML - [facility] LB GLYCOHEMOGLOBIN A1C Reviewed date:06/01/2024 02:25:39 PM Interpretation: Performing Lab: Notes/Report: [facility] ,Glycohemoglobin A1C6.04.5-6.2 % ADA RECOMMENDED LIMIT 4.0 - 6.0 ADA THERAPEUTIC TARGET < 7.0 ACTION SUGGESTED > 7.0 Estimated Average Tidnrye501Dicacdtldn Lab:see noteML - [facility] LB LIPID PROFILE Reviewed date:06/01/2024 02:25:39 PM Interpretation: Performing Lab: Notes/Report: [facility] ,Kpwdpktvknlsb420<=150 mg/kCZqpuzvfxapu557<=200 mg/dLHDL Mltxajohyxd7656-10 mg/dL > or =60 mg/dl - LOW CARDIOVASCULAR RISK <40 mg/dl - HIGH CARDIOVASCULAR RISK LDL Cholesterol Cggsaovvtd729.0 <100 mg/dl OPTIMAL 100-129 mg/dl NEAR OR ABOVE OPTIMAL 130-159 mg/dl BORDERLINE HIGH 160-189 mg/dl HIGH >190 mg/dl VERY HIGH VLDL NZAKGKCMKNA03.8Chol HDL Ratio3.8 3.3 - 4.4 LOW RISK 4.4 - 7.1 AVERAGE RISK 7.1 - 11.0 MODERATE RISK >11.0 HIGH RISK Performing Lab:see noteML - [facility] LBPROF 14(COMP METB) Reviewed date:06/01/2024 02:25:39 PM Interpretation: Performing Lab: Notes/Report: [facility] ,Icwlnr855921-329 mmol/LPotassium4.03.5-5.1 mmol/LVvdegtew67089-611 mmol/LCarbon Hgrkfqq05.721.0-32.0 mmol/LAnion Gap13.9Mgdrstl1064-606 mg/dLBlood Urea Nitrogen 18.07.0-18.0 mg/dLCreatinine0.970.70-1.30 mg/dLEstimated GFR ( Aleyda>60 >=60 mL/min/1.73m 2Estimated GFR (Non- Marleny>60>=60 mL/min/1.73m 2BUN Creatinine Ratio18.3Hqsbcqc8.48.5-10.1 mg/dLBilirubin Total0.60.2-1.0 mg/dL Aspartate Amino Xbxorrgzail4980-26 U/LAlanine Nqyewcnoobpnynov6367-14 U/L Alkaline Tjftiwquoxm5075-603 U/LTotal Protein7.16.4-8.2 g/dLAlbumin Level3.53.4- 5.0 g/dLGlobulin3.6Albumin Globulin Ratio1.0Performing Lab:see note - [facility] LBPSA SCREENING Reviewed date:06/01/2024 02:25:39 PM Interpretation: Performing Lab: Notes/Report: [facility] ,Prostate Specific Antigen Scrn0.48<=4.00 ng/mLPerforming Lab:see noteML - [facility] LBT4 Reviewed date:06/01/2024 02:25:39 PM Interpretation: Performing Lab: Notes/Report: [facility] ,T4 Thyroxine9.804.50-12.10 ug/dLPerforming Lab:see note - [facility] LBTSH Reviewed date:06/01/2024 02:25:39 PM Interpretation: Performing Lab: Notes/Report: [facility] ,Thyroid Stimulating Hormone5.3280.358-3.740 uIU/mLPerforming Lab:see note - [facility] LBOccult Blood* Reviewed date:06/02/2024 07:23:55 PM Interpretation: Performing Lab: Notes/Report: [facility] ,Occult BloodNegativePerforming Lab:see note - [facility] LBDRUG SCREEN RAPID (URINE) Reviewed date:08/12/2024 08:51:28 PM Interpretation: Performing Lab: Notes/Report: [facility] ,Cannabinoid Screen UrineNEGATIVENEGATIVEPhencyclidine Screen UrineNEGATIVE NEGATIVECocaine Screen [...] Antidepressants): 300 ng/mL Performing Lab:see noteML - [facility] LBURIC ACID RAND URINE Reviewed date:08/19/2024 06:46:17 PM Interpretation: Performing Lab: Notes/Report: Specimen Comment: ToxAssure, ToxAssure FLEX or MAT drug testing: Specimen Comment: -Technical component - Data analysis performed at Specimen Comment: [facility], [address] [place] [address], [place], [address]. Specimen Comment: [phone]. Automatic Print Developer Becka Taylor MD [facility] ,Uric Acid, Urine59.0Not Estab. mg/dL Performed at: [facility] [address] [id number] Automatic Print Developer: Sony Benson PhD, Phone: [phone] Performing Lab:see note - [facility] LBCompliance Drug Analysis, Ur Reviewed date:08/19/2024 06:46:17 PM Interpretation: Performing Lab: Notes/Report: Specimen Comment: ToxAssure, ToxAssure FLEX or MAT drug testing: Specimen Comment: -Technical component - Data analysis performed at Specimen Comment: [facility] [place], [address] [place] [address], [place], [address]. Specimen Comment: [phone]. Automatic Print Developer Becka Taylor MD [facility] ,Summary Report (Summary)FINAL. TOXASSURE COMP DRUG [...] clinical consultation, please call . Performed at: [employer] [address] [id number] Automatic Print Developer: [facility], Phone: [phone] Performing Lab:[facility] LBURIC ACID RAND URINE Reviewed date:10/04/2024 03:57:57 PM Interpretation: Performing Lab: Notes/Report: [facility] ,Uric Acid, Urine39.8Performing Lab:[facility] LBCompliance Drug Analysis, Ur Reviewed date:09/21/2024 08:08:45 PM Interpretation: Performing Lab: Notes/Report: Specimen Comment: ToxAssure, ToxAssure FLEX or MAT drug testing: Specimen Comment: -Technical component - Data analysis performed at Specimen Comment: [facility], [address] [place] [address], [place], [address]. Specimen Comment: [phone]. Automatic Print Developer Becka Taylor MD [facility] ,Summary Report (Summary)FINAL. TOXASSURE COMP DRUG ANALYSIS,UR [...] clinical consultation, please call . Performed at: [employer] [address] [id number] Automatic Print Developer: Rachel Glass, Phone: [phone] Performing Lab:see noteLC - [facility] LBCBC AUTO DIFF Reviewed date:11/04/2024 12:50:17 PM Interpretation: Performing Lab: Notes/Report: [facility] ,White Blood Count3.84.0-11.0 10 3/uLRed Blood Count4.574.70-6.10 10 6/uL Ezountylox81.314.0-18.0 g/vSGmlafsbmbs48.342.0-54.0 %Mean Corpuscular Qvfalx22.0 80.0-94.0 fLMean Corpuscular Wcvosnhjyb95.125.9-34.0 pgMean Corpuscular HGB Conc 33.829.9-35.2 g/dLRed Cell Distribution Width14.011.0-15.0 %Platelet Irtyw579 150-450 10 3/uLMean Platelet Volume9.09.5-13.5 fLNeutrophils Percent Auto57.0 43.0-75.0 %Lymphocytes Percent Auto25.720.5-60.0 %Monocytes Percent Auto11.71.7- 12.0 %Eosinophils Percent Auto4.20.9-7.0 %Basophils Percent Auto1.10.2-2.0 % Immature Granulocytes Pct Auto0.30.0-0.5 %Neutrophils Absolute Auto2.21.4-6.5 10 3/uLLymphocytes Absolute Auto1.01.2-3.8 10 3/uLMonocytes Absolute Auto0.40.3-0.8 10 3/uLEosinophils Absolute Auto0.20.0-0.7 10 3/uLBasophils Absolute Auto0.00.0- 0.1 10 3/uLImmature Granulocytes Abs Auto0.010.00-0.03 10 3/uLPerforming Lab:see noteML - [facility] LBDRUG SCREEN RAPID (URINE) Reviewed date:11/04/2024 12:50:17 PM Interpretation: Performing Lab: Notes/Report: [facility] ,Cannabinoid Screen UrineNEGATIVENEGATIVEPhencyclidine Screen UrineNEGATIVE NEGATIVECocaine Screen [...] TCA (Trycyclic Antidepressants): 300 ng/mL Performing Lab:see elizabeth - [facility] LBURIC ACID RAND URINE Reviewed date:11/14/2024 02:20:56 PM Interpretation: Performing Lab: Notes/Report: [facility] ,Uric Acid, Urine51.5Not Estab. mg/dL Specimen received acidified. Value may be decreased. Consider recollection without preservative if clinical correlation indicated. Performed at: [address] [id number] Automatic Print Developer: Sony Benson PhD, Phone: [phone] Performing Lab:[facility] LBCompliance Drug Analysis, Ur Reviewed date:11/14/2024 [...] clinical consultation, please call . Performed at: [employer] [address] [id number] Automatic Print Developer: [facility], Phone: [phone] Performing Lab:see noteLC - [facility] LBOccult Blood* Reviewed date:11/05/2024 11:36:15 AM Interpretation: Performing Lab: Notes/Report: [facility] ,Occult BloodPositivePerforming Lab:see noteML - [facility] LBURIC ACID RAND URINE Reviewed date:01/18/2025 04:20:15 PM Interpretation: Performing Lab: Notes/Report: [facility] ,Uric Acid, Urine36.7Not Estab. mg/dL Specimen received acidified. Value may be decreased. Consider recollection without preservative if clinical correlation indicated. Performed at: [address] [id number] Automatic Print Developer: Sony Benson PhD, Phone: [phone] Performing Lab:[facility] LBCompliance Drug Analysis, Ur Reviewed date:01/18/2025 04:20:15 PM Interpretation: Performing Lab: Notes/Report: [facility] ,Summary Report (Summary)FINAL. TOXASSURE COMP DRUG ANALYSIS,UR Test Result Flag Units Drug Present and Declared for Prescription Verification Buprenorphine 75 EXPECTED ng/mg creat Norbuprenorphine 184 EXPECTED ng/mg creat Source of buprenorphine is a scheduled prescription medication. Norbuprenorphine is an expected metabolite of buprenorphine. Test Result Flag Units Ref Range Creatinine 106 mg/dL >=20 Declared Medications: The flagging and interpretation on this report are based on the following declared medications. Unexpected results may arise from inaccuracies in the declared medications. Note: The testing scope of this panel includes these medications: Buprenorphine. (Suboxone) Note: The testing scope of this panel does not include following reported medications: Naloxone (Suboxone) For clinical consultation, please call . Performed at: [employer] [address] [place] [id number] Automatic Print Developer: [facility], Phone: [phone] Performing Lab:see noteLC - [facility] LBDRUG SCREEN RAPID (URINE) Reviewed date:01/12/2025 06:26:02 PM Interpretation: Performing Lab: Notes/Report: [facility] ,Cannabinoid Screen UrineNEGATIVENEGATIVEPhencyclidine Screen UrineNEGATIVE NEGATIVECocaine Screen [...] Antidepressants): 300 ng/mL Performing Lab:see noteML - [facility] LBTSH Reviewed date:11/04/2024 12:50:17 PM Interpretation: Performing Lab: Notes/Report: [facility] ,Thyroid Stimulating Hormone4.2300.358-3.740 uIU/mLPerforming Lab:see noteML - [facility] LBT4 Reviewed date:11/04/2024 12:50:17 PM Interpretation: Performing Lab: Notes/Report: [facility] ,T4 Thyroxine7.804.50-12.10 ug/dLPerforming Lab:see noteML - [facility] LBPROF 14(COMP METB) Reviewed date:11/04/2024 12:50:17 PM Interpretation: Performing Lab: Notes/Report: [facility] ,Erakah406256-445 mmol/LPotassium4.03.5-5.1 mmol/QKrmozipb95823-801 mmol/LCarbon Gkiqteq15.721.0-32.0 mmol/LAnion Gap11.6Nrzkrfy44714-852 mg/dLBlood Urea Bzkszmhg60.07.0-18.0 mg/dLCreatinine0.830.70-1.30 mg/dLEstimated GFR ( Aleyda>60>=60 mL/min/1.73m 2Estimated GFR (Non- Marleny>60>=60 mL/min/1.73m 2BUN Creatinine Ratio21.5Zgmaqzz1.38.5-10.1 mg/dLBilirubin Total0.80.2-1.0 mg/dL Aspartate Amino Jrrbhiepjyz9132-15 U/LAlanine Xmbpwvltmlfqdeqn1612-97 U/L Alkaline Rguuenpclzt19401-664 U/LTotal Protein7.46.4-8.2 g/dLAlbumin Level3.5 3.4-5.0 g/dLGlobulin3.9Albumin Globulin Ratio0.9Performing Lab:see noteML - [facility] LBFREE T3 Reviewed date:11/04/2024 12:50:17 PM Interpretation: Performing Lab: Notes/Report: [facility] ,Free T32.382.18-3.98 pg/mLPerforming Lab:see noteML - [facility] LB DRUG SCREEN RAPID (URINE) Reviewed date:09/13/2024 06:15:37 PM Interpretation: Performing Lab: Notes/Report: [facility] ,Cannabinoid Screen UrineNEGATIVENEGATIVEPhencyclidine Screen UrineNEGATIVE NEGATIVECocaine Screen [...] 300 ng/mL Performing Lab:see noteML - [facility] LBCompliance Drug Analysis, Ur Reviewed date:07/21/2024 04:57:10 PM Interpretation: Performing Lab: Notes/Report: Specimen Comment: ToxAssure, ToxAssure FLEX or MAT drug testin Specimen Comment: -Technical component - Data analysis performed at Specimen Comment: [facility] Marshall[address] [place] [address] Specimen Comment: [phone]. [phone]. Automatic Print Developer Mike Velasquez MD. [facility] ,Summary Report (Summary)FINAL. [...] clinical consultation, please call . Performed at: [employer] [address] [id number] Automatic Print Developer: [facility], Phone: [phone] Performing Lab:see note - [facility] LBURIC ACID RAND URINE Reviewed date:07/21/2024 04:57:10 PM Interpretation: Performing Lab: Notes/Report: Specimen Comment: ToxAssure, ToxAssure FLEX or MAT drug testin Specimen Comment: -Technical component - Data analysis performed at Specimen Comment: [facility] [place], [address] [place] [address], [place], [place] Specimen Comment: [phone]. [phone]. Automatic Print Developer Mike Velasquez MD. [facility] ,Uric Acid, Urine69.2Not Estab. mg/dL Performed at: [address] [id number] Automatic Print Developer: Sony Benson PhD, Phone: [phone] Performing Lab:see note - [facility] LBDRUG SCREEN RAPID (URINE) Reviewed date:07/15/2024 08:14:20 PM Interpretation: Performing Lab: Notes/Report: [facility] ,Cannabinoid Screen UrineNEGATIVENEGATIVEPhencyclidine Screen UrineNEGATIVE NEGATIVECocaine Screen [...] Antidepressants): 300 ng/mL Performing Lab:see noteML - [facility] LBDRUG SCREEN RAPID (URINE) Reviewed date:05/17/2024 07:16:56 PM Interpretation: Performing Lab: Notes/Report: [facility] ,Cannabinoid Screen UrineNEGATIVENEGATIVEPhencyclidine Screen UrineNEGATIVE NEGATIVECocaine Screen [...] 300 ng/mL Performing Lab:see noteML - [facility] LBCompliance Drug Analysis, Ur Reviewed date:04/25/2024 03:19:36 [...] clinical consultation, please call . Performed at: [employer] [address] [place] [id number] Automatic Print Developer: [facility], Phone: [phone] Performing Lab:see noteLC - [facility] LBURIC ACID RAND URINE Reviewed date:04/25/2024 03:19:36 PM Interpretation: Performing Lab: Notes/Report: [facility] ,Uric Acid, Urine37.1Not Estab. mg/dL Performed at: - [facility] [address] [id number] Automatic Print Developer: Sony Benson PhD, Phone: [phone] Performing Lab:see noteLC - [facility] LBXR HAND LT MIN 3V Reviewed date:03/01/2024 01:46:51 PM Interpretation: Performing Lab: Notes/Report: Source Facility: [place] [address] [place] [address] XRay Report Signed Patient: NASRIN MCKEON MR#: [id number] : 1955 Acct:[id number] Age/Sex: 68 / M ADM Date: 03/01/24 Loc: ER Attending Dr: Ordering Physician: Radha Rider Date of Service: 03/01/24 Procedure(s): XR hand LT min 3V Accession Number(s): [id number] cc: Nico Anderson M.D.; Radha Rider [place] [address] Patient Name: NASRIN MCKEON MRN: [id number] date: 1955 Sex: M Assigned Patient Location: ER Current Patient Location: ER Accession/Order Number: [id number] Exam Date: 03/01/2024 09:00 Report Date: 03/01/2024 [...] Cid M.D. Signed By: 03/01/2452 DD/ TD/TT: Nuclear Equipment Design Engineer:[facility] Ur Reviewed date:03/11/2024 08:03:58 PM [...] clinical consultation, please call . Performed at: [employer] [address] [place] [id number] Automatic Print Developer: [facility], Phone: [phone] Performing Lab:see note - [facility] LBURIC ACID RAND URINE Reviewed date:03/11/2024 08:03:58 PM Interpretation: Performing Lab: Notes/Report: [facility] ,Uric Acid, Urine55.0Not Estab. mg/dL Performed at: [facility] [address] [id number] Automatic Print Developer: Sony Benson PhD, Phone: [phone] Performing Lab:see note - [facility] LBGLYCOHEMOGLOBIN A1C Reviewed date:11/04/2024 12:50:17 PM Interpretation: Performing Lab: Notes/Report: [facility] ,Glycohemoglobin A1C6.14.5-6.2 % ADA RECOMMENDED LIMIT 4.0 - 6.0 ADA THERAPEUTIC TARGET < 7.0 ACTION SUGGESTED > 7.0 Estimated Average Fcauarm813Cinacestit Lab:see noteML - [facility] LB Reason For Referral Reason colonoscopy Diagnosis 1 Positive occult stoo l blood test (R19.5) Referral Organization [facility] Referring Provider First Name Tono Referring Provider Last Name Justin Referring Provider Speciality Family Med jada Referred Provider Ravi Calderon Referred Provider Specialty General Surg juliet Referral Priority Routine Medications Medication SIG (Take, Route, Frequency, Duration) Notes Start Date End Date Status Simvastatin 40 MG take 1 tablet by mouth every e vening; Duration: 90 days ActiveClotrimazole-Betamethasone 1-0.05 %1 application Externally Twice a day 5ActiveUrea 40 %1 application as needed Externally Once a day; Duration: 10 days4ActiveTamsulosin HCl 0.4 mgTAKE 1 CAPSULE BY MOUTH ONCE DAILY; Duration: 90ActiveDiclofenac Sodium 75 MG1 tablet as needed Orally Twice a day; Duration: 30 daysActiveKetoconazole 2 %1 application Externally bid; Duration: 14 10/14/2024tiveDutasteride 0.5 mgTAKE 1 CAPSULE BY MOUTH ONCE DAILY; Duration: 90ActiveMirapex 0.5 MG1 tablet Orally Once a day; Duration: 30 day(s)ActiveCefdinir 300 MG2 capsule Orally once a day; Duration: 10 days01/17/2025tiveMeclizine HCl 25 MG1 tablet as needed Orally Q 6 hours 12/09/2024tiveSuboxone 8-2 MG1 film under the tongue and allow to dissolve Sublingual Once a day - PRN; Duration: 30 days01/12/2025tiveNamenda XR 7 MG1 capsule Orally Once a day; Duration: 14 05/17/2024tive Immunizations Vaccine Route Administration Date Status Comme nts Flu, Fluzone (49076) 6 mos+, single-dose syringe/vial (5096-9808) Unknown 2017 Administered SARS-COV-2 (COVID 19 Pfizer 30mcg/0.3mL)Bholdhn88/14/1225EabzkddjkbpqFLKB-XRN-2 (COVID 19 Pfizer 30mcg/0.3mL)Deopcgs6310/14/2020dministered Social History Tobacco Use: Social History Observation [...] alcohol in the p ast year? No Rvsgga2CnfdhklkghrgikYivniroeAWAVV-E (Standard) Question Answer Notes Did you have a drink containing alcohol in the p ast year? No Eguawj4CxndogfwhygefmZnqtktyj Problems Problem Type SNOMED Code ICD Code Onset Dates Problem Status W/U Status Risk Notes Problem Opioid abuse (9884000) Opioid abuse, unco mplicated (F11.10) ActiveconfirmedProblemHypertensive heart disease without congestive heart failure (23978039)Hypertensive heart disease without heart failure (I11.9)Active confirmedProblemCallosity (205455066)Corns and callosities (L84)Activeconfirmed ProblemDegeneration of cervical intervertebral disc (20515010)Other cervical disc degeneration, unspecified cervical region (M50.30)ActiveconfirmedProblem Closed fracture of one rib (54462449)Fracture of one rib, right side, initial encounter for closed fracture (S22.31XA)ActiveconfirmedProblemPuncture wound without foreign body of right middle finger with damage to nail, initial encounter (S61.332A)ActiveconfirmedProblemForeign body in ear (71225037)Foreign body in ear, unspecified ear, initial encounter (T16.9XXA)ActiveconfirmedProblem Depression (955865651)Depression (F32.9)ActiveconfirmedProblemVertigo (046944966)Vertigo (R42)ActiveconfirmedProblemDisorder of lumbar disc (175445242)Lumbar disc disease (M51.9)ActiveconfirmedProblemAcute bronchitis (75138286)Acute bronchitis, unspecified organism (J20.9)ActiveconfirmedProblem Memory loss (61639437)Memory loss (R41.3)ActiveconfirmedProblemHerpes zoster (9130531)Herpes zoster (B02.9)ActiveconfirmedProblemPain in left foot (043334257610553)Left foot pain (M79.672)ActiveconfirmedProblemAcute sinusitis (68812967)Acute sinusitis, recurrence not specified, unspecified location (J01.90)ActiveconfirmedProblemOpioid abuse (2615967)Narcotic abuse (F11.10) ActiveconfirmedProblemFinger laceration (S61.219A)ActiveconfirmedProblem Paresthesia of both hands (732149047)Paresthesia of both hands (R20.2)Active confirmedProblemCellulitis (619731565)Cellulitis, unspecified cellulitis site (L03.90)ActiveconfirmedProblemInsomnia (083179120)Insomnia, unspecified type (G47.00)ActiveconfirmedProblemShoulder joint pain (992741115)Shoulder pain, unspecified chronicity, unspecified laterality (M25.519)ActiveconfirmedProblem Joint pain (71597518)Arthralgia, unspecified joint (M25.50)Activeconfirmed ProblemPain in limb (87766086)Pain of foot, unspecified laterality (M79.673) ActiveconfirmedProblemHand muscle weakness (715473889)Hand muscle weakness (M62.81)ActiveconfirmedProblemCramp in lower leg (760409066)Cramp in lower leg (R25.2)ActiveconfirmedProblemHypercholesterolemia (20557634)Hypercholesterolemia (E78.00)ActiveconfirmedProblemFamilial hypercholesterolemia (347898580)Familial hypercholesterolemia (E78.01)ActiveconfirmedProblemBenign prostatic hypertrophy without outflow obstruction (215318593)Benign prostatic hyperplasia without lower urinary tract symptoms (N40.0)ActiveconfirmedProblemNontraumatic rupture of muscle or tendon structure of rotator cuff of left shoulder (disorder) (1076 945154698948)Partial nontraumatic rupture of left rotator cuff (M75.112)Active confirmedProblemBilateral impingement syndrome of shoulders (31044971621017608) Impingement syndrome of shoulder region, unspecified laterality (M75.40)Active confirmedProblemMedication management contract agreement (Z02.89)Activeconfirmed ProblemCOVID-19 (015650873)COVID-19 (U07.1)ActiveconfirmedProblemArticular cartilage disorder of the pelvic region and thigh (930161988)Degenerative tear of acetabular labrum (M24.159)Activeconfirmed Vital Signs Blood pressure diastolic 82 mm Hg 12/13/2024 Gcgnmv56 in01/12/2025lood pressure jzlxzhix703 mm Hg12/13/20242546Xwtbsc657.0 lbs 01/12/2025BMI20.83 kg/m201/12/2025 Encounters Encounter Location Date Provider Diagnosis [facility] [address] [place] [address] 02/13/2024 Tono Anderson Narcotic abuse F11.1 0 [facility] [address] [place] [place] [address] 03/15/2024 Tono Hoy Narcotic abuse F11.1 0 [facility] [address] [place] [address] 03/26/2024 Tono Hoy Finger laceration 88 3.0 and Finger laceration, subsequent encounter S61.219D [facility] [address] [place] [address] 04/02/2024 Tono Hoy Finger laceration S6 1.219A and Thumb laceration, left, subsequent encounter S61.012D [facility] [address] [place] [place] [address] 04/14/2024 Tono Hoy Narcotic abuse F11.1 0 [facility] [address] [place] [place] [address] 05/17/2024 Tono Hoy Memory loss R41.3 ; Hypertensive heart disease without heart failure I11.9 ; Insomnia, unspecified type G47.00 ; Familial hypercholesterolemia E78.01 and Narcotic abuse F11.10 [facility] [address] [place] [place] [address] 06/14/2024 Tono Hoy Hypercholesterolemia E78.00 [address] [place] [address] 07/15/2024 Tono Hoy Memory loss R41.3 an d Narcotic abuse F11.10 [facility] [address] [place] [address] 08/12/2024 Tono Hoy Hypercholesterolemia E78.00 and Narcotic abuse F11.10 [facility] [address] [place] [address] 09/13/2024 Tono Hoy Opioid abuse, uncomp licated F11.10 [facility] [address] [place] [place] [address] 10/14/2024 Tono Hoy Lumbar disc disease M51.9 and Opioid abuse, uncomplicated F11.10 [facility] [address] [place] [address] 11/12/2024 Tono Hoy Opioid abuse, uncomp licated F11.10 [facility] [address] [place] [place] [address] 12/13/2024 Tono Hoy Vertigo R42 and Narc otic abuse F11.10 [facility] [address] [place] [address] 01/12/2025 Tono Hoy Opioid abuse, uncomp licated F11.10 [facility] [address] [place] [address] 01/31/2025 [facility] [place] [address] 02/17/2024Doug HoyEncounter for Medicare annual wellness exam Z00.00[facility] [place] [address]/22/2025 [facility] [place] [address]/08/2024Doug HoyNarcotic abuse F11.10 and Muscle cramping R25.2 [facility] [place] [place] [address] 03/01/2024[facility] [place] [place] [address]/04/2024Doug HoyEncounter for long-term (current) use of medications Z79.899[facility] [place] [place] [address]/Doug HoyAbnormal thyroid blood test R94.6B[facility] [place] [place] [address]/Doug Hoy [facility] [place] [place] [address] 10/08/2024[facility] [place] [address]/18/2025Doug HoyHypercholesterolemia E78.00 and Abnormal thyroid blood test R79.89[address] [place] [address]/Doug HoyAbnormal thyroid blood test R79.89 ; Muscle cramping R25.2 ; Memory loss R41.3 and Hypercholesterolemia E78.00[address] [place] [address]/ Tono HoyAbnormal thyroid blood test R94.6 and Muscle cramping R25.2B[facility] [place] [facility] [place] [place] [address]/ Tono HoyPositive occult stool blood test R19.5B[facility] [address] [place] [place] [address]/Doug HoyBJess[address] [place] [address]/09/2024Doug Hoy Assessments Encounter Date Diagnosis (ICD Code) Assessment Notes Treatment Notes Treatment Clinical Notes Section Notes 02/13/2024 Narcotic abuse (ICD-10 - F11.10) 02/[facility] annual [facility] (ICD-10 - [...] (ICD-10 - R42)12/13/2024 Narcotic abuse (ICD-10 - F11.10)01/12/2025Opioid abuse, uncomplicated (ICD-10 - F11.10)02/17/2024Narcotic abuse (ICD-10 - F11.10)02/17/2024Muscle cramping (ICD- 10 - R25.2)03/15/2024Encounter for long-term (current) use of medications (ICD- 10 - Z79.899)06/01/2024bnormal thyroid blood test (ICD-10 - R94.6)10/28/2024 Hypercholesterolemia (ICD-10 - E78.00)10/28/2024bnormal thyroid blood test (ICD-10 - R79.89)11/02/2024bnormal thyroid blood test (ICD-10 - R79.89) 11/02/2024Muscle cramping (ICD-10 - R25.2)11/04/2024bnormal thyroid blood test (ICD-10 - R94.6)11/04/2024Muscle cramping (ICD-10 - R25.2)11/05/2024Positive occult stool blood test (ICD-10 - R19.5)11/02/2024Memory loss (ICD-10 - R41.3) 11/02/2024Hypercholesterolemia (ICD-10 - E78.00)05/17/2024Narcotic abuse (ICD-10 - F11.10)04/02/2024Otherok to remove all Plan Of Treatment Pending Test Test Name Order Date CMP (COMPLETE METABOLIC PANEL) HEMOGLOBIN A1C (GLYCO) 05/17/2024 HEMOGLOBIN A1C (GLYCO) [...] 03/17/2024 Next Appt Details Provider Name:Tono Anderson, 03:30:00 PM, [address] [facility], [place], [address], Insurance Providers Payer Name Payer Address Payer Phone Subscriber Number Group Number Insured Name Patient Relationship to Insured Coverage Start Date Coverage End Date [place] [address] [place] [address] [id number] Lauren Mckeon - patient is the [id number] 2008 Medications Administered Medication Instructions Date of Administration Dosage Notes DEPO-Medrol ls931Zmsorme-1025/0 mgKenalog-401/ mgKenalog-40 qu302Dszxvvv-4976 xd906Nvfjrvb-9361/02/202480 mg Kenalog-401 xe49Rygoncvnh Cfzqaywwbooz75/19/202330 mgKetorolac Eccdprbndxbz52/03/202360 mgKetorolac Hxprcvsfqzzm15/28/202360 gd36Dyblbfipc Knlnbflduuyv99/04/202460 zo69Twkinlyqx Wqigbwtdkoap37/03/202460 fy46Psentokml Vrbbnxkiqefd26/02/202460 mgKetorolac Vgyyqrbfddgk82/04/202460 uq77Pigaidmbo Havnvsulolst71/04/202460 mgKetorolac Cjiszhpsagzg42/05/202560 mgOrphenadrine Afmuecd27 mgOrphenadrine Qmhkzsr84 pt34Ubwaarlvjvlu Citrate gw99Ovmekxavtrbv Vhlmbbn70 fj99Guymtgrnwcxd Citrate mgTriamcinolone 40 mg/ml480 mgTriamcinolone 40 mg/ml 03/05/759894 mg Medical (General) History Medical History History [...]
--- OUTSIDE RECORDS SUMMARY | 2025-01-31 14:34 | XMS_ITS | Clinical Summary ---
Demographics Address [facility] [address] [place] [address] Home Phone Mobile Phone Preferred Language ENG Marital Status Single Episcopal Affiliation Unknown Race White Ethnic Group Not or Lati no Author Organization [facility] Address [address] [place], [place] [address] Care Team Providers Care Process Controls Technician Name Role Phone Nico Anderson MD Primary Care Provider [phone] Allergies No known active allergies Medications MedicationSigDispense [...] partial tear of biceps tendon, left, subsequent fheamjtqo99/14/2019 Overview (02/23/2018): Added automatically from request for surgery [id number] Rotator cuff tear, left02/23/2018 Overview (02/23/2018): Added automatically from request for surgery [id number] Incomplete tear of left rotator cuff02/17/2018S/P lumbar bonhzjbhyr62/10/2014 Lumbar disc mafqyiwcfm48/13/2013Narcotic abuse in xutamswbn94/13/2013Closed TBI (traumatic brain injury)01/22/2013Hepatitis Overview (01/22/2013): hepatitis C Back pain Family History Medical HistoryRelationCommentsArthritisMaternal GrandmotherArthritisMother RelationStatusCommentsFatherDeceasedMaternal GrandmotherMotherAlive Social History Tobacco UseTypesPacks/DayYears UsedDateSmoking Tobacco: YahsplWrqdsxsbhr127204 - 1998Smokeless Tobacco: NeverAlcohol UseStandard Drinks/WeekCommentsNo0 (1 standard drink = 0.6 oz pure alcohol)Area Deprivation IndexAnswerDate Recorded National Score (1-100), lower number is lower riskNot on file01/16/2020State Score (1-10), lower number is lower riskNot on file01/16/2020Data from: https://www.neighborhoodatlas.[facility]/. Last address used for calculationNot on file01/16/2020Sex and Gender InformationValueDate RecordedSex Assigned at BirthNot on fileLegal DfbZlga97/02/2012 10:32 AM ESTGender Identity Not on fileSexual OrientationNot on file Last Filed Vital Signs Vital SignReadingTime TakenCommentsBlood Ubkysoua906/95002/24/2018 9:10 AM EST Tvfer202802/24/2018 9:10 AM MUWGkfzryogleb68.1 ??C (96.9 ??F)02/24/2018 9:10 AM ESTRespiratory Jsbc277202/24/2018 9:10 AM ESTOxygen Avxuirmzuu46%02/24/2018 9:10 AM ESTInhaled Oxygen Concentration--Gejujt21.9 kg (154 lb)02/24/2018 9:10 AM EST Epuest618.7 cm (5' 8 )02/24/2018 9:10 AM ESTBody Mass Index23.42002/24/2018 9:10 AM EST Plan of Treatment Health MaintenanceDue DateLast DoneCommentsAbdominal Aortic Aneurysm Screening 4Anxiety Tslupvqzy23/10/1972Depression Huwumvkuc17/10/1972Hepatitis C Yrhbjyrdd22/10/1972DTaP,Tdap,Td Vaccine (1 - Tdap)1972Lipid Screening 1988CT Lkqxoejwkjvj66/10/1999Cologuard (FIT-DNA)1998Colonoscopy 1998Colorectal Cancer Tqowtqgbl89/10/1999Diabetes Xrprptseq00/10/1999Fecal Occult Blood11/19/19987151Hqhcjkghxltsq26/10/1999Pneumococcal Vaccine: 50+ (1 of 1 - PCV)11/20/2003Shingrix Vaccine (1 of 2)11/20/2003Advance Directive Discussion 02/11/2024ovid-19 Vaccine (1 - 2024- season)2024Influenza Vaccine (#1) RSV Vaccine (1 - 1-dose 75+ series)2028 Insurance * Guarantor: Nilsa Mckeon TypeRelation to PatientDate of BirthPhone Billing AddressPersonal/QtdiuzWknu73/10/1956 [address] [place] [address] Care Teams Team MemberRelationshipSpecialtyStart DateEnd Date Nico Anderson MD PCP - GeneralFamily Matiwvnv25/12/13
[2025-01-31 15:13] LABS: Cannabinoid Screen Urine NEGATIVE (NEGATIVE); Methamphetamines Screen Urine NEGATIVE (NEGATIVE); Tricyclic Antidepressant Urine NEGATIVE (NEGATIVE)
[2025-02-01 13:13] LABS: Uric Acid, Urine 24.2 mg/dL (Not Estab.)
== END 2025-01-31 14:29 | disposition home or self-care (01) ==
LOC: LAB 14:30
PROVIDERS: PCP Family Medicine; Visit Provider Family Medicine
DX: Z79.899 Other long term (current) drug therapy (principal)
CPT/HCPCS: 80307; 80326; 80331; 80334; 80337; 80338; 80341; 80344; 80347; 80348; 80353; 80354; 80355; 80357; 80358; 80359; 80360; 80361; 80364; 80365; 80366; 80367; 80368; 80370; 80371; 80372; 80373; 80377; 82570; 83992; 84560